=== PATIENT | female | born 1945 | race Caucasian/White ===

== ENCOUNTER 2019-12-20 03:12 | Emergency (ER) | payer MEDICARE, SELFPAY ==
[2019-12-20] VITALS (24 sets, daily range): BP systolic 156–201; BP diastolic 64–168; PULSE 77–100; RESP 12–29; TEMP 36.5; O2SAT 93–100
--- NOTE | ~2019-12-20 | CT_ITS ---
EXAMINATION: CT abdomen pelvis w con DATE: 12/20/2019 05:41 INDICATION: Lower abdominal pain. TECHNIQUE: Computed tomography (CT) of the abdomen and pelvis was performed with 100 mL Omnipaque 350 intravenous contrast. Automated exposure control and iterative reconstruction technique were employe d. The dose-length product was 600.89 mGy-cm. COMPARISON: CT abdomen and pelvis 01/12/2018 FINDINGS: The visualized portions of the lung bases demonstrate emphysema and mild atelectasis. No pl eural effusion. The heart size is normal. There are coronary artery calcifications. No pericardial ef fusion. There is a small sliding hiatal hernia. Calcifications in the liver and spleen are consistent with old granulomatous disease. There is severe intrahepatic biliary duct dilatation. The common veronica t is dilated to 18 mm. There are changes of cholecystectomy. The pancreas, adrenal glands are normal. There is cortical thinning of the kidneys. There is a 4.1 cm cyst in right kidney. There is a pessar y in the vagina. There is diverticulosis of the colon without evidence of diverticulitis. The appendi x is normal. There are no dilated loops of bowel. There are no pathologically enlarged lymph nodes. T here is no free intraperitoneal fluid. There is lumbar levoscoliosis and severe spondylosis. IMPRESSION: 1. Stable severe intrahepatic and extrahepatic biliary duct dilatation status post cholecystectomy. 2. Small sliding hiatal hernia. Reviewed, dictated and finalized at location B. T SPECIALIST IMPRESSION: 1. Stable severe intrahepatic and extrahepatic biliary duct dilatation status p ost cholecystectomy. 2. Small sliding hiatal hernia.
--- NOTE | 2019-12-20 03:41 | ED.ABDPAIN ---
HPI - Abdominal Pain General Chief Complaint: Abdominal Pain Stated Complaint: burning in my stomach Time Seen by Provider: 12/20/19 03:41 Source: patient Mode of arrival: ambulatory Limitations: no limitations History of Present Illness HPI narrative: Patient is a 74-year-old female with a history of peptic ulcer disease and acid reflux who presents to the emergency department for evaluation of abdominal pain. Patient states she has been experiencing abdominal pain that is burning in sensation in the lower abdomen. She states this pain is quite chronic for her, but it worsened yesterday evening as she had run out of her oral pain medication. Patient is followed with Dr. Otero, she has an appointment with him later today/Friday. She reports burning sensation of the pain in the lower abdomen without radiation to the back. She reports she takes a stool softener to help with constipation. She denies any dark or tarry stools. No fever, chills, dysuria, hematuria. She denies chest pain or shortness of breath. Patient denies abdominal distention. Related Data Home Medications Medication Instructions Recorded Confirmed albuterol sulfate INHALATION 12/20/19 bupropion HCl PO 12/20/19 buspirone mg 12/20/19 docusate sodium PO 12/20/19 hydrocodone-acetaminophen tablet 12/20/19 tramadol mg 12/20/19 12/20/19 triamterene-hydrochlorothiazid tablet 12/20/19 Allergies Allergy/AdvReac Type Severity Reaction Status Date / Time No Known Allergies Allergy Verified 12/20/19 03:22 Review of Systems Review of Systems: Narrative: CONSTITUTIONAL: Denies fever, chills, or sweats. EYES: Denies visual changes, redness, or discharge. ENT: Denies rhinorrhea, congestion, sore throat, or otalgia. CARDIOVASCULAR: Denies chest pain, palpitations, or edema. RESPIRATORY: Denies cough or dyspnea. GASTROINTESTINAL: Reports abdominal pain without nausea or vomiting GENITOURINARY: Denies dysuria or hematuria. SKIN: Denies rash or itching. MUSCULOSKELETAL: Denies back pain, joint pain, or myalgia. NEUROLOGIC: Denies headache, numbness, or weakness. [facility] Past Medical History Medical History Acid reflux Anxiety Peptic ulcer disease Surgical History Surgical History Hx of cholecystectomy Social History Social History (Updated 12/20/19 @ 04:22 by Yaneth Arriaga MD) Smoking status: Current every day smoker Tobacco type: cigarettes Substance use: never Gender identity (if verbalized by the patient): Female Exam Narrative: Exam Narrative: GENERAL: Awake, alert, conversant HEAD: Normocephalic, atraumatic. EYES: PERRLA and EOMI. ENT: Nares clear, no rhinorrhea or epistaxis. Mucous membranes moist. NECK: Supple. CHEST: No respiratory distress, breathing even and non labored HEART: Regular rate, sinus rhythm ABDOMEN:Non distended, mild tenderness in the left lower quadrant, right lower quadrant without rebound, no guarding or rigidity EXTREMITIES: Normal range of motion. No edema. SKIN: Warm, dry, no rash. NEURO:No focal deficits. Alert and oriented x3 Course Vital Signs Vital signs: Vital Signs Temperature 36.5 C 12/20/19 03:16 Pulse Rate 100 12/20/19 03:16 Respiratory Rate 22 H 12/20/19 03:16 Blood Pressure 164/106 H 12/20/19 03:16 Pulse Oximetry 98 12/20/19 03:16 Temperature 36.5 C 12/20/19 03:16 Pulse Rate 91 12/20/19 04:04 Respiratory Rate 15 12/20/19 04:04 Blood Pressure 179/94 H 12/20/19 04:04 Pulse Oximetry 97 12/20/19 04:04 MDM - Abdominal Pain MDM Narrative Medical decision making narrative: Patient presenting for evaluation of what seems to be acute on chronic abdominal pain in the setting of not having access to her chronic pain medications. At the time of assessment, ABCs are intact and vital signs are stable. Abdominal exam is quite benign. Patient has a mi
[2019-12-20 03:47] LABS: Basophils Absolute Auto 0.1 K/mm3 (0.0-0.1); Basophils Percent Auto 0.6 % (0.2-1.2); Eosinophils Absolute Auto 0.2 K/mm3 (0-0.3); Eosinophils Percent Auto 1.9 % (0-4.4); Hematocrit 47.4 % (37.0-47.0); Hemoglobin 16.4 g/dL (12.0-15.0); Immature Granulocyte Absolute 0.05 K/mm3 (0.00-0.031); Immature Granulocyte Percent A 0.5 % (0-0.5); Lymphocytes Absolute Auto 2.97 K/mm3 (0.9-3.2); Lymphocytes Percent Auto 27.7 % (18.3-44.2); Mean Corpuscular HGB Conc 34.6 g/dl (32-36); Mean Corpuscular Hemoglobin 33.1 pg (26-34); Mean Corpuscular Volume 95.6 fl (80-100); Mean Platelet Volume 10.5 fl (7.4-10.4); Monocytes Absolute Auto 0.8 K/mm3 (0.1-0.6); Monocytes Percent Auto 7.1 % (2.6-8.5); Neutrophils Absolute Auto 6.7 K/mm3 (1.3-6.7); Neutrophils Percent Auto 62.2 % (45.5-73.1); Platelet Count Result 225 k/mm3 (150-375); Red Blood Count 4.96 M/mm3 (4.2-5.4); White Blood Count 10.7 K/mm3 (4.5-10.0)
[2019-12-20] MEDS: MORPHINE SULFATE (*CRX) 4 MG/ML INJ IV PUSH (04:27)
[2019-12-20] MEDS: ONDANSETRON INJ 4 MG/2 ML VIAL IV PUSH (04:28)
[2019-12-20 04:49] LABS: Alanine Aminotransferase 15 U/L (4-35); Albumin Level 4.4 g/dL (3.5-5.1); Alkaline Phosphatase 88 U/L (38-126); Anion Gap 7 mmol/L (8-16); Aspartate Amino Transferase 29 U/L (14-36); Bilirubin,Total 1.5 mg/dL (0.2-1.3); Blood Urea Nitrogen 26 mg/dL (7-17); Calcium 9.5 mg/dL (8.4-10.2); Carbon Dioxide 29 mmol/L (22-30); Chloride 102 mmol/L (98-107); Estimated CRCL calculation 40 ml/min; Estimated Glomerular Filt Rate 54; Glucose 125 mg/dL (65-105); Lipase 44 U/L (23-300); Potassium 3.9 mmol/L (3.4-5.0); Sodium 138 mmol/L (137-145)
[2019-12-20 04:52] LABS: Add Urine Microscopic? YES; Appearance Urine Clear (Clear); Bacteria Urine Trace /hpf; Bilirubin Urine Negative (Negative); Blood Urine Negative (Negative); Color Urine Yellow (Yellow); Glucose Urine UA Negative (Negative); Ketones Urine Negative (Negative); Leukocyte Esterase Ur Trace LEU/UL (Negative); Mucus Urine Rare /lpf; Nitrate Urine Negative (Negative); Protein Urine Negative (Negative); RBC Urine 0-2 /hpf (0-2); Specific Grav Ur 1.015 (1.001-1.035); Squamous Epithelial Cell Urine Rare /hpf (Few); Urobilinogen Urine Negative mg/dL (<2.0); WBC Urine 0-3 /hpf
== END 2019-12-20 06:59 | disposition home or self-care (01) ==
PROVIDERS: Emergency Provider Emergency Medicine; PCP Family Medicine
DX: K83.8 Other specified diseases of biliary tract (principal); Z87.11 Personal history of peptic ulcer disease; K21.9 Gastro-esophageal reflux disease without esophagitis; F41.9 Anxiety disorder, unspecified; K44.9 Diaphragmatic hernia without obstruction or gangrene
CPT/HCPCS: 36415; 74177; 80053; 81001; 83690; 85025; 96374; 96375; 99284; J2270; J2405; Q9967

== ENCOUNTER 2020-08-23 11:56 | Outpatient (CLI) | payer MEDICARE, SELFPAY ==
[2020-08-23 16:22] LABS: SARS-CoV-2 Ag Positive (Negative)
[2020-08-23 16:39] LABS: SARS-CoV-2 RNA PCR Positive (Negative)
== END 2020-08-23 11:57 | disposition home or self-care (01) ==
PROVIDERS: PCP Family Medicine; Visit Provider Nurse Practitioner
DX: U07.1 COVID-19 (principal)
CPT/HCPCS: 87426; C9803; U0003; U0005

== ENCOUNTER 2020-08-24 13:56 | Inpatient (IN) | payer MEDICARE, SELFPAY ==
[2020-08-24] VITALS (16 sets, daily range): BP systolic 94–141; BP diastolic 53–79; PULSE 81–95; RESP 17–26; TEMP 36.2–37.9; O2SAT 80–100; BMI 28.5
--- NOTE | ~2020-08-24 | CT_ITS ---
EXAMINATION: CTA chest PE protocol EXAM DATE: 08/24/2020 15:33 INDICATION: Dyspnea. COVID positive. Cough. TECHNIQUE: Spiral CTA of the chest (pulmonary arteries) was performed with 100 cc Omnipaque 350 intr avenous contrast injection. Images were acquired during the pulmonary arterial phase. Coronal maxi mum intensity projection 3D-reconstructions were created by the technologist on dedicated workstation . Axial, coronal and sagittal reformatted images were reviewed. The dose-length product (DLP) for t his examination was 326.53 mGy-cm. The exposure was tailored according to patient size (auto mA exp osure control), and iterative reconstruction (ASIR) was used as additional dose reduction technique. There is no prior study for comparison. FINDINGS: Pulmonary arteries are well opacified and without intraluminal filling defects. There is m oderate to severe emphysema. There is small amount of right middle lobe and lingular groundglass airs pace disease, likely infectious or postinfectious (possible be early COVID pneumonia). The lungs are hyperinflated which can be seen with chronic obstructive pulmonary disease (a clinical diagnosis of f unctional impairment), but is not diagnostic of it. No thoracic aortic dissection. There are no ple ural or pericardial effusions. Small amount of left lower lobe segmental endobronchial debris. The re is no mediastinal, hilar or axillary lymphadenopathy. There is no pneumothorax. Heart normal i n size. There is mild to moderate coronary arterial calcification, arterial sclerosis. Cholecystec nay clips. Homogeneous right renal lesion incompletely imaged, imaged portion consistent with cyst. There is mild thoracic spondylosis without osteoblastic or osteolytic lesions identified. IMPRESSION: 1. Right middle lobe, lingular groundglass density, could be infectious or postinfectious process. 2. Moderate to severe emphysema and hyperinflation. Reviewed, dictated and finalized at location B. IMPRESSION: 1. Right middle lobe, lingular groundglass density, could be infectious or pos tinfectious process. 2. Moderate to severe emphysema and hyperinflation.
--- NOTE | ~2020-08-24 | XR_ITS ---
XR chest 1V portable DATE: 08/24/2020 14:26 INDICATION: Cough TECHNIQUE: Portable upright AP chest on 08/24/2020 1423 hours COMPARISON: 02/02/2018 PA and lateral chest FINDINGS: Bilateral hyperinflation, suggesting COPD. No pulmonary infiltrate or consolidation, pleural effusion or pulmonary vascular congestion or pneumo thorax is detected. Heart size appears normal. Is aortic calcification. Diffuse osteopenia. Dextroscoliosis of the thoracic spine. IMPRESSION: Bilateral hyperinflation; no active cardiopulmonary disease Reviewed, dictated and finalized at location A.
--- NOTE | 2020-08-24 14:14 | ECG_ITS ---
Measurements Intervals [place] Rate: 83 P: 64 WI: 153 QRS: 22 QRSD: 90 T: -13 QT: 378 QTc: 445 Interpretive Statements SINUS RHYTHM VENTRICULAR PREMATURE COMPLEXES NONSPECIFIC ST & T-WAVE ABNORMALITY- INF/LAT LEADS BASELINE ARTIFACT- I, II, III, AVR, AVF, V3-V6 BORDERLINE ECG Electronically Signed On 08-24-2020 15:58:24 CDT by Temo Rowe D.O.
[2020-08-24 14:27] LABS: Basophils Percent Auto 0.2 % (0.2-1.2); Hematocrit 45.1 % (37.0-47.0); Hemoglobin 14.7 g/dL (12.0-15.0); Immature Granulocyte Absolute 0.03 K/mm3 (0.00-0.031); Immature Granulocyte Percent A 0.5 % (0-0.5); Lymphocytes Absolute Auto 1.18 K/mm3 (0.9-3.2); Lymphocytes Percent Auto 19.3 % (18.3-44.2); Mean Corpuscular HGB Conc 32.6 g/dl (32-36); Mean Corpuscular Hemoglobin 31.1 pg (26-34); Mean Corpuscular Volume 95.3 fl (80-100); Mean Platelet Volume 10.5 fl (7.4-10.4); Monocytes Absolute Auto 0.7 K/mm3 (0.1-0.6); Monocytes Percent Auto 11.9 % (2.6-8.5); Neutrophils Absolute Auto 4.2 K/mm3 (1.3-6.7); Neutrophils Percent Auto 68.1 % (45.5-73.1); Platelet Count Result 163 k/mm3 (150-375); Red Blood Count 4.73 M/mm3 (4.2-5.4); White Blood Count 6.1 K/mm3 (4.5-10.0)
[2020-08-24 14:40] LABS: Anion Gap 12 mmol/L (8-16); Blood Urea Nitrogen 26 mg/dL (7-17); Calcium 8.7 mg/dL (8.4-10.2); Carbon Dioxide 21 mmol/L (22-30); Chloride 101 mmol/L (98-107); Estimated CRCL calculation 31 ml/min; Estimated Glomerular Filt Rate 40; Glucose 91 mg/dL (65-105); Lactic Acid Reflex 0.9 mmol/L (0.7-2.1); Potassium 4.1 mmol/L (3.4-5.0); Sodium 134 mmol/L (137-145)
--- NOTE | 2020-08-24 14:48 | ED.SOB ---
HPI - SOB/Dyspnea General Chief Complaint: Shortness of Breath/Dyspnea Stated Complaint: SOB COVID + / Time Seen by Provider: 08/24/20 14:07 Source: RN notes reviewed History of Present Illness HPI Narrative: Patient presents to emergency room from home via EMS for shortness of breath. Patient tested positive for COVID-19 yesterday. Patient was noticing to have increasing shortness of breath and was noted be hypoxic on room air upon presentation the patient is a percent on room air was placed on 3 L with improvement of O2 sats. Patient states she has had cough this been nonproductive she denies any fevers or chills chest pain abdominal pain nausea vomiting or any other symptoms patient states she does smoke cigarettes and did not have the vaccine Related Data Home Medications Medication Instructions Recorded Confirmed albuterol sulfate INHALATION 12/20/19 01/03/20 bupropion HCl PO 12/20/19 01/03/20 buspirone mg 12/20/19 01/03/20 docusate sodium PO 12/20/19 01/03/20 hydrocodone-acetaminophen tablet 12/20/19 01/03/20 tramadol mg 12/20/19 01/03/20 triamterene-hydrochlorothiazid tablet 12/20/19 01/03/20 Allergies Allergy/AdvReac Type Severity Reaction Status Date / Time No Known Allergies Allergy Verified 08/24/20 14:08 Review of Systems Review of Systems: Narrative: Gen.: Denies fevers or chills ENT: Denies congestion Respiratory: See HPI CV: Denies chest pain or palpitations GI: Denies abdominal pain nausea, emesis or diarrhea Musculoskeletal: Denies back pain or muscle pain Neuro: Denies numbness, tingling, weakness or focal weakness Skin: Denies rash Except as documented, all other systems reviewed and negative PMF Past Medical History Medical History Acid reflux Anxiety Common bile duct dilatation Dilated intrahepatic bile duct Encounter for screening colonoscopy Peptic ulcer disease Surgical History Surgical History Hx of cholecystectomy Social History Social History Smoking status: Current every day smoker Tobacco type: cigarettes Substance use: never Gender identity (if verbalized by the patient): Female Exam Narrative: Exam Narrative: APPEARANCE: No acute distress, nontoxic, resting in bed EYES: EOMI HEENT: Normocephalic, atraumatic, OMM RESPIRATORY: No respiratory distress Clear to auscultation bilaterally with no rhonchi wheezing or rales. CARDIOVASCULAR: Regular rate and rhythm without murmurs rubs or gallops. ABDOMINAL: Soft, nontender, nondistended, no rebound or guarding MUSCULOSKELETAl: Moves all extremities. No clubbing, cyanosis or edema. NEURO: Awake and alert. Following commands, speech normal, no focal deficits SKIN:: Warm, dry. No rashes lesions or abrasions PSYCHIATRIC: Normal affect/mood, Course Course Emergency Course: Discussed with STREET ENGINEER Stephanie for Dr. Walters presentation work-up agrees with admission at this time Discussed with patient and family results of workup and diagnosis. Discussed need for admission. Patient and family understand and agree to current treatment plan Vital Signs Vital signs: Vital Signs Temperature 98.0 F 08/24/20 14:05 Pulse Rate 95 08/24/20 14:05 Respiratory Rate 17 08/24/20 14:05 Blood Pressure 141/79 H 08/24/20 14:05 Pulse Oximetry 80 L 08/24/20 14:05 Temperature 98.0 F 08/24/20 14:05 Pulse Rate 92 08/24/20 15:37 Respiratory Rate 17 08/24/20 15:37 Blood Pressure 117/58 L 08/24/20 15:37 Pulse Oximetry 100 08/24/20 15:37 MDM - SOB/Dyspnea Lab Data Result diagrams: 08/24/20 14:18 08/24/20 14:18 Labs: Lab Results 08/24/20 08/24/20 08/24/20 Range/Units 14:18 14:18 14:18 WBC 6.1 (4.5-10.0) K/mm3 RBC 4.73 (4.2-5.4) M/mm3 Hgb 14.7 (12.0-15.0) g/dL Hct 45.1 (37.0-47.0) % MCV 95.3
[2020-08-24] MEDS: DEXAMETHASONE SOD PHOS INJ 4 MG/ML VIAL 6 MG IV PUSH (15:35)
[2020-08-24] MEDS: HYDROcodone/acetaminophen (*CRX) 5-325 MG TABLET 1 TAB PO (15:44)
--- NOTE | 2020-08-24 16:07 | PC.NURSE ---
Called and spoke to Vikas to add on PT INR PTT and Hepatic @ 1602
[2020-08-24 16:17] LABS: Alanine Aminotransferase 21 U/L (4-35); Alkaline Phosphatase 83 U/L (38-126); Aspartate Amino Transferase 45 U/L (14-36); Bilirubin,Total 0.3 mg/dL (0.2-1.3)
[2020-08-24 16:53] LABS: Partial Thromboplastin Time 37.2 SECONDS (22.3-36.8); Prothrombin Time 12.7 Seconds (11.1-14.7)
[2020-08-24] MEDS: ACETAMINOPHEN 325 MG TABLET 650 MG PO (18:10)
--- NOTE | 2020-08-24 18:14 | ADMGEN ---
This patient, Marysol Chapman, was admitted to [facility] Surg Room 333-01. Patient/family oriented to hospital policies and general routines including ID bracelet, bed and alarms, visiting hours, pain management, procedures, bathroom and other care routines, personal items, smoking policy, room service/diet, and visiting hours. Information on how to activate the Rapid Response Team has been discussed. Patient/Family are encouraged to report perceived risks to care and to ask questions if they do not understand what they are told or what they should do.
[2020-08-24] MEDS: ALBUTEROL SULFATE (*SP) INHALER 2 PUFF INHALATION (21:07)
--- NOTE | 2020-08-24 22:43 | PM.IMHP ---
H&P: HPI History of Present Illness Date/Time: 08/24/20 22:43 this is a 74-year-old female patient who came to the emergency room with complaints of shortness of breath. The patient tested positive for code bit 19 yesterday. Her is also admitted for possible COVID as well. His test is still pending but her came back positive. She has had increased shortness of breath and hypoxic on room air. The lowest pulse ox was noted to be 80% on room air. Patient was placed on 3 L per nasal cannula and was satting anywhere from 90-100%. The patient was started on Decadron, albuterol and a Vicodin. Her D-dimer was noted to be 0.50. Creatinine 1.3. AST 45. Chest x-ray was read as bilateral hyperinflation no active cardiopulmonary disease. CTA was read as right middle lobe, lingular ground-glass densities could be infectious post infectious process. Moderate to severe emphysema and hyperinflation. The patient was placed on oxygen at 3 L per nasal cannula. Patient is being admitted to inpatient status is on the date of service 08/24/2020. Chief Complaint: Shortness of breath Review of Systems Review of Systems: All systems reviewed & are unremarkable except as noted in HPI and below Constitutional: Constitutional: Reports as per HPI and Reports no additional constitutional complaints Eyes: Eyes: Reports as per HPI and Reports no additional eye complaints ENT: Reports system reviewed and no additional complaints, except as documented and Reports Normal hearing present Cardiovascular: Cardiovascular: Reports no additional cardiovascular complaints Respiratory: Respiratory: Reports no additional respiratory complaints and Reports no additional respiratory complaints Gastrointestinal: Gastrointestinal: Reports as per HPI and Reports no additional gastrointestinal complaints Musculoskeletal: Musculoskeletal: Reports no additional musculoskeletal complaints Integumentary/Breasts: Skin/Breast: Reports system reviewed and no additional complaints, except as docu and Reports as per HPI Neurologic: Reports system reviewed and no additional complaints, except as documented, Reports as per HPI and Reports Normal hearing present Psychiatric: Psychiatric: Reports no additional psychiatric complaints and Reports as per HPI Endocrine: Endocrine: Reports no additional endocrine complaints Hematologic/Lymphatic: Hematologic/Lymphatic: Reports no additional hematologic/lymphatic complaints Allergic/Immunologic: Allergic/Immunologic: Reports no additional allergic/immunologic complaints [facility] Past Medical History Medical History (Updated 08/24/20 @ 22:49 by Stephanie Stokes NP) Acid reflux Anxiety Chronic back pain Common bile duct dilatation COPD (chronic obstructive pulmonary disease) Dilated intrahepatic bile duct Encounter for screening colonoscopy Peptic ulcer disease Tobacco abuse Surgical History Surgical History (Updated 08/24/20 @ 22:49 by Stephanie Stokes NP) H/O tubal ligation Hx of cholecystectomy Family History Family History Mother Cerebrovascular accident Father Diabetes mellitus Social History Social History (Updated 08/24/20 @ 22:50 by Stephanie Stokes NP) Social History: the patient stated that she smokes anywhere from half a pack to pack a cigarettes a day. She has 3 children. She desires to have her is a durable power of energy attorney and if he is unable to than her 3 children. The patient has 3 children. 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 She denies any alcohol marijuana or illicit drugs. The patient desires to be a full code. Smoking packs per day: 1 Smoking cigarettes per day: 20.0 Years smoked: 50 Smoking pack-years: 50.00 Smoking status: Current every day smoker Tobacco type: cigarettes Second hand tobacco smoke exposure: Yes Alcohol intake: never Substance use: never Substance use type: does not use [place]
[2020-08-24 23:54] LABS: Alanine Aminotransferase 20 U/L (4-35); Estimated CRCL calculation 40 ml/min; Estimated Glomerular Filt Rate 54
[2020-08-24] MEDS: HYDROcodone/acetaminophen (*CRX) 10-325 MG TABLET 1 TAB PO (23:55)
[2020-08-24] MEDS: REMDESIVIR 200 MG/NS 250 ML 200 MG/250 ML BAG 250 MG IVPB (23:56)
[2020-08-25] VITALS (9 sets, daily range): BP systolic 121–155; BP diastolic 49–73; PULSE 71–93; RESP 16–22; TEMP 36.1–37.1; O2SAT 90–94
[2020-08-25 00:05] LABS: Prothrombin Time 12.7 Seconds (11.1-14.7)
[2020-08-25] MEDS: ALBUTEROL SULFATE (*SP) INHALER 2 PUFF INHALATION ×4 (02:44→18:59)
[2020-08-25] MEDS: HYDROcodone/acetaminophen (*CRX) 10-325 MG TABLET 1 TAB PO ×3 (06:18→23:05)
[2020-08-25 06:48] LABS: Hematocrit 43.9 % (37.0-47.0); Hemoglobin 14.1 g/dL (12.0-15.0); Immature Granulocyte Absolute 0.02 K/mm3 (0.00-0.031); Immature Granulocyte Percent A 0.5 % (0-0.5); Lymphocytes Absolute Auto 0.67 K/mm3 (0.9-3.2); Mean Corpuscular HGB Conc 32.1 g/dl (32-36); Mean Corpuscular Hemoglobin 30.3 pg (26-34); Mean Corpuscular Volume 94.2 fl (80-100); Mean Platelet Volume 10.7 fl (7.4-10.4); Monocytes Absolute Auto 0.5 K/mm3 (0.1-0.6); Monocytes Percent Auto 12.1 % (2.6-8.5); Neutrophils Absolute Auto 2.6 K/mm3 (1.3-6.7); Neutrophils Percent Auto 69.4 % (45.5-73.1); Platelet Count Result 154 k/mm3 (150-375); Red Blood Count 4.66 M/mm3 (4.2-5.4); Red Cell Distribution Width 13.6 % (11.5-14.5); White Blood Count 3.7 K/mm3 (4.5-10.0)
[2020-08-25 06:56] LABS: Lactic Acid Reflex 1.2 mmol/L (0.7-2.1)
[2020-08-25 07:05] LABS: INR 0.9; Prothrombin Time 12.3 Seconds (11.1-14.7)
[2020-08-25 07:18] LABS: Alanine Aminotransferase 20 U/L (4-35); Albumin Level 3.9 g/dL (3.5-5.1); Alkaline Phosphatase 72 U/L (38-126); Anion Gap 10 mmol/L (8-16); Aspartate Amino Transferase 46 U/L (14-36); Bilirubin,Total 0.5 mg/dL (0.2-1.3); Blood Urea Nitrogen 23 mg/dL (7-17); Calcium 9.2 mg/dL (8.4-10.2); Carbon Dioxide 26 mmol/L (22-30); Chloride 101 mmol/L (98-107); Estimated CRCL calculation 44 ml/min; Estimated Glomerular Filt Rate > 60; Glucose 107 mg/dL (65-105); Lactate Dehydrogenase 550 U/L (313-618); Magnesium 1.8 mg/dL (1.6-2.3); Potassium 4.5 mmol/L (3.4-5.0); Sodium 137 mmol/L (137-145)
[2020-08-25 07:36] LABS: CRP 14.2 mg/dL (<1.0)
[2020-08-25 08:32] LABS: Thyroid Stimulating Hormone Reflex 0.432 uIU/mL (0.465-4.68)
[2020-08-25] MEDS: DEXAMETHASONE SOD PHOS INJ 4 MG/ML VIAL 6 MG IV PUSH (09:18)
[2020-08-25] MEDS: NICOTINE (*PBKC) 21 MG PATCH 1 PATCH TRANSDERM (09:19)
[2020-08-25] MEDS: busPIRone HCL 10 MG TABLET 30 MG PO (09:19)
[2020-08-25] MEDS: ENOXAPARIN 40 MG/0.4 ML SYRINGE SUB-Q (09:19)
[2020-08-25 09:49] LABS: Free T4 Free Thyroxine Reflex 1.33 ng/dL (0.78-2.19)
[2020-08-25] MEDS: buPROPion HCL 75 MG TABLET PO ×2 (11:47→20:00)
--- NOTE | 2020-08-25 15:12 | PM.IMPN ---
Progress Note: A&P Assessment and Plan (1) COVID-19: Code(s): U07.1 - COVID-19 Status: Acute Assessment and Plan: Continue with Decadron and Remdesivir Continue with droplet and contact isolation Continue with albuterol sulfate Titrate oxygen to keep sats >92 She is currently on 2 L NC Continue to monitor liver enzymes (2) COPD (chronic obstructive pulmonary disease): Code(s): J44.9 - Chronic obstructive pulmonary disease, unspecified Status: Chronic Assessment and Plan: Continue with albuterol inhaler (3) Chronic back pain: Code(s): M54.9 - Dorsalgia, unspecified; G89.29 - Other chronic pain Status: Chronic Assessment and Plan: Continue with hydrocodone from home (4) Acute respiratory failure with hypoxia: Code(s): J96.01 - Acute respiratory failure with hypoxia Status: Acute Assessment and Plan: Resolved Patient tested positive for COVID-19 yesterday She is currently on oxygen at 2 L per nasal cannula (5) Tobacco abuse: Code(s): Z72.0 - Tobacco use Status: Chronic Assessment and Plan: Nicotine patch Cessation advised (6) Anxiety: Code(s): F41.9 - Anxiety disorder, unspecified Status: Chronic Assessment and Plan: Continue with Wellbutrin and BuSpar Subjective Date/time seen: 08/25/20 15:12 Pt seen and evaluated; +SOB and diarrhea Review of Systems Review of Systems: All systems reviewed & are unremarkable except as noted in HPI and below Exam Const: General: no acute distress, alert and awake Orientation/consciousness: patient oriented x3 HENMT: Head: normocephalic and atraumatic Ears: hearing grossly normal bilaterally and external ears normal Face and sinus: face symmetric Mouth: Yes Normal oral and palatal mucosa present Eyes: EOM: EOMs intact bilaterally Neck: Neck: full ROM, trachea midline and no JVD Chest: Chest palpation & inspection: normal inspection of the chest Resp: Effort & Inspection: normal respiratory effort Cardio: Jugular venous distension: no JVD Rate: regular rate GI: Inspection: normal to inspection Auscultation: normal bowel sounds : General: Yes no CVA tenderness Back/Spine/Pelvis: Back: no CVA tenderness Skin: General skin exam: normal color Neuro: General: patient oriented x3 Speech: normal speech Psych: Appearance: grossly normal Affect: normal affect Judgement: Good judgement present (Psych) Objective Data Vital Signs Vital Signs: Vital Signs - 24 hr 08/24/20 15:37 08/24/20 16:46 08/24/20 17:05 Temperature 37.9 C H Pulse Rate 92 92 86 Respiratory Rate 17 19 18 Blood Pressure 117/58 L 94/62 L 122/53 L Pulse Oximetry 100 98 94 08/24/20 18:10 08/24/20 19:00 08/24/20 20:00 Temperature 37.9 C H 37.6 C H 36.2 C L Pulse Rate 81 Respiratory Rate 20 Blood Pressure 129/53 L Pulse Oximetry 90 08/24/20 21:19 08/25/20 00:00 08/25/20 08:34 Temperature 36.6 C Pulse Rate 81 79 Respiratory Rate 22 H Blood Pressure 126/59 L Pulse Oximetry 91 90 94 08/25/20 12:08 Temperature Pulse Rate Respiratory Rate Blood Pressure Pulse Oximetry 90 Intake/Output Intake/Output: Intake & Output 08/22/20 08/23/20 08/24/20 08/25/20 23:59 23:59 23:59 23:59 Intake Total 360 490 Balance 360 490 Meds/Results Medications: Active Medications Generic Name Dose Route Start Last Admin Trade Name Freq PRN Reason Stop Dose Admin Acetaminophen 650 mg 08/24/20 18:08 08/24/20 18:10 Acetaminophen 325 Mg Tablet PO 650 mg Q4H PRN Administration Mild Pain (1-3) or Fever Hydrocodone Bitart/Acetaminophen 1 tab 08/24/20 22:37 08/25/20 15:00 Hydrocodone/Acetaminophen (*Crx) 10-325 Mg Tablet PO 1 tab Q6H PRN Administration Back Pain Albuterol 2 puff 08/24/20 20:00 08/25/20 14:42 Albuterol Sulfate (*Sp) Inhaler INHALATION 2 puff Q6HRT SCOTTY Administration Buprop
[2020-08-25] MEDS: REMDESIVIR 100 MG/NS 250 ML 100 MG/250 ML BAG 250 MG IVPB (23:05)
[2020-08-26] VITALS (8 sets, daily range): BP systolic 133–150; BP diastolic 56–69; PULSE 64–89; RESP 16–20; TEMP 36.1–36.6; O2SAT 93–96
[2020-08-26] MEDS: HYDROcodone/acetaminophen (*CRX) 10-325 MG TABLET 1 TAB PO ×3 (05:26→18:42)
[2020-08-26 07:30] LABS: Alanine Aminotransferase 18 U/L (4-35); Estimated CRCL calculation 50 ml/min; Estimated Glomerular Filt Rate > 60
[2020-08-26 08:27] LABS: Prothrombin Time 12.7 Seconds (11.1-14.7)
[2020-08-26] MEDS: ENOXAPARIN 40 MG/0.4 ML SYRINGE SUB-Q (09:49)
[2020-08-26] MEDS: NICOTINE (*PBKC) 21 MG PATCH 1 PATCH TRANSDERM (09:50)
[2020-08-26] MEDS: busPIRone HCL 10 MG TABLET 30 MG PO (09:50)
[2020-08-26] MEDS: buPROPion HCL 75 MG TABLET PO ×2 (09:51→21:29)
[2020-08-26] MEDS: DEXAMETHASONE SOD PHOS INJ 4 MG/ML VIAL 6 MG IV PUSH (09:51)
[2020-08-26] MEDS: ALBUTEROL SULFATE (*SP) INHALER 2 PUFF INHALATION ×3 (09:53→21:13)
[2020-08-26] MEDS: ACETAMINOPHEN 325 MG TABLET 650 MG PO (10:00)
[2020-08-26 13:29] LABS: Total Triiodothyronine (T3) 0.49 NG/ML (0.97-1.69)
--- NOTE | 2020-08-26 14:41 | PM.IMPN ---
Progress Note: A&P Assessment and Plan (1) COVID-19: Code(s): U07.1 - COVID-19 Status: Acute Assessment and Plan: W/ evidnce of pneumonia on CTA chest. Acute respiratory failure with hypoxia; on 2L at time of visit. Clinically improving Cont with Decadron (day 3) and Remdesivir (day 3 of 5) Cont with albuterol sulfate Cont supplemental O2; wean as tolerated Monitor closely (2) Acute respiratory failure with hypoxia: Code(s): J96.01 - Acute respiratory failure with hypoxia Status: Acute Assessment and Plan: Likely due to above. Requiring 2L O2. Plan as above Wean O2 as tolerated Consider Home O2 eval prior to discharge (3) COPD (chronic obstructive pulmonary disease): Code(s): J44.9 - Chronic obstructive pulmonary disease, unspecified Status: Chronic Assessment and Plan: Stable Continue with albuterol inhaler (4) Chronic back pain: Code(s): M54.9 - Dorsalgia, unspecified; G89.29 - Other chronic pain Status: Chronic Assessment and Plan: Stable Continue with home hydrocodone (5) Tobacco abuse: Code(s): Z72.0 - Tobacco use Status: Chronic Assessment and Plan: Nicotine patch Cessation advised (6) Anxiety: Code(s): F41.9 - Anxiety disorder, unspecified Status: Chronic Assessment and Plan: No acute issues Continue with Wellbutrin and BuSpar Subjective Date/time seen: 08/26/20 14:41 Interval history: Patient is a 74 yo F with h/o chronic back pain, COPD, PUD, anxiety, among other comorbid conditions who is seen in follow up for COVID pneumonia and acute respiratory failure w/ hypoxia. Pt states she feels better today; less SOB, cough has improved some (cloudy sputum production), and denies f/c. She has a bit of PUENTE when walking to the bathroom still. No other complaints at the moment. Denies cp/palpitations, n/v/d/c, abd pain, changes in BMs, dysuria, hematuria, cloudy urine, calf pain/swelling. Review of Systems Review of Systems: All systems reviewed & are unremarkable except as noted in HPI and below Exam Const: General: comfortable, no acute distress, well developed, alert, awake and ill appearing acutely Nutritional Appearance: well nourished Orientation/consciousness: oriented to person HENMT: Head: normocephalic and atraumatic Ears: hearing grossly normal bilaterally, external ears normal and TM's normal bilaterally General nose exam: Normal external nose present Face and sinus: face symmetric Mouth: Yes Normal oral and palatal mucosa present Eyes: General: appearance normal, both eyes and all related structures EOM: EOMs intact bilaterally Neck: Neck: normal visual inspection, trachea midline and supple Resp: Effort & Inspection: normal respiratory effort (on 2L O2 NC at time of visit) and symmetric chest movement Auscultation: diminished lung sounds diffuse and other (minimal diffuse course breath sounds) Cardio: Rate: regular rate Rhythm: regular rhythm Heart sounds: S1 normal heart sound present, S2 normal heart sound present and no murmurs GI: Inspection: normal to inspection Auscultation: normal bowel sounds Skin: General skin exam: normal color Lesions: no lesions Rashes: no rashes Neuro: General: oriented to person Cranial nerves: Yes Bilaterally intact EOM present, Yes facial symmetry and Yes Midline tongue present Motor exam (neuro): Normal motor muscle tone present throughout Extrem: General: normal to inspection Right lower extremity: no edema Left lower extremity: no edema Other: NTTP b/l calves Psych: Mental Status: mental status grossly normal Affect: normal affect Objective Data Vital Signs Vital Signs: Last Vital Signs
[2020-08-26] MEDS: guaiFENesin 12 HR 600 MG TABCR 1200 MG PO (21:28)
[2020-08-26] MEDS: REMDESIVIR 100 MG/NS 250 ML 100 MG/250 ML BAG 250 MG IVPB (21:28)
[2020-08-27] VITALS (8 sets, daily range): BP systolic 119–164; BP diastolic 62–96; PULSE 68–111; RESP 14–20; TEMP 36.2–36.8; O2SAT 92–96
[2020-08-27] MEDS: ALBUTEROL SULFATE (*SP) INHALER 2 PUFF INHALATION ×4 (03:26→21:27)
[2020-08-27] MEDS: HYDROcodone/acetaminophen (*CRX) 10-325 MG TABLET 1 TAB PO ×3 (04:29→17:21)
[2020-08-27 07:11] LABS: Basophils Percent Auto 0.2 % (0.2-1.2); Hematocrit 43.3 % (37.0-47.0); Hemoglobin 14.3 g/dL (12.0-15.0); Immature Granulocyte Absolute 0.03 K/mm3 (0.00-0.031); Immature Granulocyte Percent A 0.7 % (0-0.5); Lymphocytes Absolute Auto 1.18 K/mm3 (0.9-3.2); Lymphocytes Percent Auto 28.8 % (18.3-44.2); Mean Corpuscular Hemoglobin 30.9 pg (26-34); Mean Corpuscular Volume 93.5 fl (80-100); Mean Platelet Volume 10.5 fl (7.4-10.4); Monocytes Absolute Auto 0.8 K/mm3 (0.1-0.6); Neutrophils Absolute Auto 2.1 K/mm3 (1.3-6.7); Neutrophils Percent Auto 51.3 % (45.5-73.1); Platelet Count Result 143 k/mm3 (150-375); Red Blood Count 4.63 M/mm3 (4.2-5.4); Red Cell Distribution Width 13.4 % (11.5-14.5); White Blood Count 4.1 K/mm3 (4.5-10.0)
[2020-08-27 07:52] LABS: Alanine Aminotransferase 17 U/L (4-35); Albumin Level 3.3 g/dL (3.5-5.1); Alkaline Phosphatase 63 U/L (38-126); Anion Gap 7 mmol/L (8-16); Aspartate Amino Transferase 39 U/L (14-36); Bilirubin,Total 0.5 mg/dL (0.2-1.3); Blood Urea Nitrogen 23 mg/dL (7-17); CRP 3.2 mg/dL (<1.0); Carbon Dioxide 26 mmol/L (22-30); Chloride 103 mmol/L (98-107); Estimated CRCL calculation 56 ml/min; Estimated Glomerular Filt Rate > 60; Glucose 89 mg/dL (65-110); Lactate Dehydrogenase 562 U/L (313-618); Magnesium 1.6 mg/dL (1.6-2.3); Sodium 136 mmol/L (137-145)
[2020-08-27 08:00] LABS: INR 0.9; Prothrombin Time 12.4 Seconds (11.1-14.7)
[2020-08-27] MEDS: ONDANSETRON HCL ODT 4 MG TABLET PO (08:48)
[2020-08-27] MEDS: DEXAMETHASONE SOD PHOS INJ 4 MG/ML VIAL 6 MG IV PUSH (08:49)
[2020-08-27] MEDS: guaiFENesin 12 HR 600 MG TABCR 1200 MG PO ×2 (08:49→22:02)
[2020-08-27] MEDS: busPIRone HCL 10 MG TABLET 30 MG PO (08:49)
[2020-08-27] MEDS: NICOTINE (*PBKC) 21 MG PATCH 1 PATCH TRANSDERM (08:49)
--- NOTE | 2020-08-27 10:38 | PM.IMPN ---
Progress Note: A&P Assessment and Plan (1) COVID-19: Code(s): U07.1 - COVID-19 Status: Acute Assessment and Plan: W/ evidnce of pneumonia on CTA chest. Acute respiratory failure with hypoxia; on 2L at time of visit. Clinically improving Cont with Decadron (day 3) and Remdesivir (day 3 of 5) Cont with albuterol sulfate Cont supplemental O2; wean as tolerated Lovenox 40 mg subcu daily (2) Acute respiratory failure with hypoxia: Code(s): J96.01 - Acute respiratory failure with hypoxia Status: Acute Assessment and Plan: Likely due to above. Requiring 2L O2. Plan as above Wean O2 as tolerated Consider Home O2 eval prior to discharge (3) COPD (chronic obstructive pulmonary disease): Code(s): J44.9 - Chronic obstructive pulmonary disease, unspecified Status: Chronic Assessment and Plan: Stable Continue with albuterol inhaler (4) Chronic back pain: Code(s): M54.9 - Dorsalgia, unspecified; G89.29 - Other chronic pain Status: Chronic Assessment and Plan: Stable Continue with home hydrocodone (5) Tobacco abuse: Code(s): Z72.0 - Tobacco use Status: Chronic Assessment and Plan: Nicotine patch Cessation advised (6) Anxiety: Code(s): F41.9 - Anxiety disorder, unspecified Status: Chronic Assessment and Plan: No acute issues Continue with Wellbutrin and BuSpar (7) Hypomagnesemia: Code(s): E83.42 - Hypomagnesemia Status: Acute Assessment and Plan: magnesium was 1.6 today will replace with 2 g of Mag trend magnesium labs in the a.m. replace as needed Time Spent With Patient Time with patient: 25 - 35 minutes Subjective Date/time seen: 08/27/20 10:15 Interval history: Patient is a 74 yo F with h/o chronic back pain, COPD, PUD, anxiety, among other comorbid conditions who is seen in follow up for COVID pneumonia and acute respiratory failure w/ hypoxia. Patient still states that she is little bit short of breath however it is better since she started this journey. She also had an issue with nausea this morning she said that when she was taking a bowel movement she had nauseated and stated that her bowel movement was not that great either. She was given Zofran which she said helped and took away her nausea from her. She also stated that she has a decrease in appetite but she does try. Patient denies chest pain, diarrhea, constipation, lightheadedness, dizziness, weakness, fatigue, dysuria, abnormal swelling , fevers or chills. Review of Systems Review of Systems: All systems reviewed & are unremarkable except as noted in HPI and below Exam Const: General: cooperative, healthy appearing, comfortable, no acute distress, well developed, alert, awake, Physically active and ill appearing acutely Nutritional Appearance: average body habitus and well nourished Orientation/consciousness: oriented to person, oriented to place, oriented to time and patient oriented x3 Limitations: no limitations HENMT: Head: normal to inspection, No palpable skull fracture present, normocephalic and atraumatic Ears: hearing grossly normal bilaterally, external ears normal, TM's normal bilaterally and hearing grossly impaired General nose exam: Normal external nose present and Normal nares present Face and sinus: face symmetric Mouth: Yes Normal oral and palatal mucosa present Eyes: General: appearance normal, both eyes and all related structures Alignment and Position: alignment normal Periorbital: periorbital findings normal Eyelids: eyelids normal Conjunctivae: conjunctivae normal Sclera: sclerae normal Cornea: corneas normal EOM: EOMs intact bilaterally Nec
[2020-08-27] MEDS: ENOXAPARIN 40 MG/0.4 ML SYRINGE SUB-Q (10:41)
[2020-08-27] MEDS: buPROPion HCL 75 MG TABLET PO ×2 (10:42→22:02)
[2020-08-27] MEDS: MAGNESIUM SULF 2 GM/WATER 50ML 2 GM/50 ML BAG IVPB (11:25)
[2020-08-27] MEDS: ACETAMINOPHEN 325 MG TABLET 650 MG PO (22:02)
[2020-08-27] MEDS: REMDESIVIR 100 MG/NS 250 ML 100 MG/250 ML BAG 250 MG IVPB (22:02)
[2020-08-28] VITALS (8 sets, daily range): BP systolic 137–169; BP diastolic 56–81; PULSE 64–75; RESP 18; TEMP 36.1–36.6; O2SAT 94–97
[2020-08-28] MEDS: HYDROcodone/acetaminophen (*CRX) 10-325 MG TABLET 1 TAB PO ×4 (03:02→22:32)
[2020-08-28] MEDS: ALBUTEROL SULFATE (*SP) INHALER 2 PUFF INHALATION ×4 (03:03→21:26)
[2020-08-28 06:51] LABS: Hematocrit 42.3 % (37.0-47.0); Mean Corpuscular HGB Conc 33.1 g/dl (32-36); Mean Corpuscular Hemoglobin 30.6 pg (26-34); Mean Corpuscular Volume 92.6 fl (80-100); Mean Platelet Volume 11.1 fl (7.4-10.4); Platelet Count Result 148 k/mm3 (150-375); Red Blood Count 4.57 M/mm3 (4.2-5.4); Red Cell Distribution Width 13.2 % (11.5-14.5); White Blood Count 3.2 K/mm3 (4.5-10.0)
[2020-08-28 06:56] LABS: Prothrombin Time 12.9 Seconds (11.1-14.7)
[2020-08-28 06:59] LABS: Alanine Aminotransferase 18 U/L (4-35); Albumin Level 3.2 g/dL (3.5-5.1); Alkaline Phosphatase 60 U/L (38-126); Anion Gap 7 mmol/L (8-16); Aspartate Amino Transferase 34 U/L (14-36); Bilirubin,Total 0.5 mg/dL (0.2-1.3); Blood Urea Nitrogen 23 mg/dL (7-17); Calcium 8.9 mg/dL (8.4-10.2); Carbon Dioxide 30 mmol/L (22-30); Chloride 97 mmol/L (98-107); Estimated CRCL calculation 50 ml/min; Estimated Glomerular Filt Rate > 60; Glucose 90 mg/dL (65-110); Magnesium 1.7 mg/dL (1.6-2.3); Potassium 4.6 mmol/L (3.4-5.0); Sodium 134 mmol/L (137-145)
[2020-08-28 07:50] LABS: Lymphocytes Absolute Manual 1.21 K/mm3 (1.1-4.5); Metamyelocytes Percent 2 %; Monocytes Absolute Manual 0.51 K/mm3 (0.1-0.90); Monocytes Percent Manual 16 % (3-9); Neutrophils Percent Manual 44 % (46-73); Total Cells Counted 100
--- NOTE | 2020-08-28 08:54 | PM.IMPN ---
Progress Note: A&P Assessment and Plan (1) COVID-19: Code(s): U07.1 - COVID-19 Status: Acute Assessment and Plan: W/ evidnce of pneumonia on CTA chest. Acute respiratory failure with hypoxia; on 2L at time of visit. Clinically improving Cont with Decadron (day 4) and Remdesivir (day 4 of 5) Cont with albuterol sulfate Cont supplemental O2; wean as tolerated Lovenox 40 mg subcu daily (2) Acute respiratory failure with hypoxia: Code(s): J96.01 - Acute respiratory failure with hypoxia Status: Acute Assessment and Plan: Likely due to above. Requiring 2L O2. Plan as above Wean O2 as tolerated Consider Home O2 eval prior to discharge (3) COPD (chronic obstructive pulmonary disease): Code(s): J44.9 - Chronic obstructive pulmonary disease, unspecified Status: Chronic Assessment and Plan: Stable Continue with albuterol inhaler (4) Chronic back pain: Code(s): M54.9 - Dorsalgia, unspecified; G89.29 - Other chronic pain Status: Chronic Assessment and Plan: Stable Continue with home hydrocodone (5) Tobacco abuse: Code(s): Z72.0 - Tobacco use Status: Chronic Assessment and Plan: Nicotine patch Cessation advised (6) Anxiety: Code(s): F41.9 - Anxiety disorder, unspecified Status: Chronic Assessment and Plan: No acute issues Continue with Wellbutrin and BuSpar (7) Hypomagnesemia: Code(s): E83.42 - Hypomagnesemia Status: Acute Assessment and Plan: magnesium was 1.7 today will replace with 2 g of Mag trend magnesium labs in the a.m. replace as needed Time Spent With Patient Time with patient: 25 - 35 minutes Subjective Date/time seen: 08/28/20 08:00 Interval history: Patient is a 74 yo F with h/o chronic back pain, COPD, PUD, anxiety, among other comorbid conditions who is seen in follow up for COVID pneumonia and acute respiratory failure w/ hypoxia. patient really does have any complaints today however she did say that she was a little bit nauseated still but has not vomited. She states her appetite is so-so. She also states that she has been walking around she went to the bathroom and does not feel short of breath however when they take her oxygen she is low so the put the oxygen up a little bit. I did put her oxygen down to 1 L however she was only satting 90% put it back up to 2 which brought her up to 96%. Patient denies chest pain, headache, abdominal pain, lightheadedness, dizziness, and numbness tingling, fevers, chills, sweats. Review of Systems Review of Systems: All systems reviewed & are unremarkable except as noted in HPI and below Exam Const: General: cooperative, healthy appearing, comfortable, no acute distress, well developed, alert, awake, Physically active and ill appearing acutely Nutritional Appearance: average body habitus and well nourished Orientation/consciousness: oriented to person, oriented to place, oriented to time and patient oriented x3 Limitations: no limitations HENMT: Head: normal to inspection, No palpable skull fracture present, normocephalic and atraumatic Ears: hearing grossly normal bilaterally, external ears normal, TM's normal bilaterally and hearing grossly impaired General nose exam: Normal external nose present and Normal nares present Face and sinus: face symmetric Mouth: Yes Normal oral and palatal mucosa present Eyes: General: appearance normal, both eyes and all related structures Alignment and Position: alignment normal Periorbital: periorbital findings normal Eyelids: eyelids normal Conjunctivae: conjunctivae normal Sclera: sclerae normal Cornea: corneas normal EOM: EOMs intact bila
[2020-08-28] MEDS: buPROPion HCL 75 MG TABLET PO ×2 (09:28→21:43)
[2020-08-28] MEDS: busPIRone HCL 10 MG TABLET 30 MG PO (09:28)
[2020-08-28] MEDS: guaiFENesin 12 HR 600 MG TABCR 1200 MG PO ×2 (09:28→21:41)
[2020-08-28] MEDS: NICOTINE (*PBKC) 21 MG PATCH 1 PATCH TRANSDERM (09:29)
[2020-08-28] MEDS: ENOXAPARIN 40 MG/0.4 ML SYRINGE SUB-Q (09:30)
[2020-08-28] MEDS: DEXAMETHASONE SOD PHOS INJ 4 MG/ML VIAL 6 MG IV PUSH (09:31)
--- NOTE | 2020-08-28 13:44 | PCPTNOTE ---
PT attempted to see patient this afternoon, however patient declined due to low back pain. Bed mobility, transfers, and gait were observed as patient ambulated to the bathroom as I left the room. PT will continue to follow per plan of care.
--- NOTE | 2020-08-28 14:23 | PCOTNOTE ---
Attempted to see patient for OT, patient declined, stating she has had degenerative disc issues in her back for 18 years and is having too much pain to participate in any ADLs or exercises or mobility. Patient continued to decline with encouragement. Patient issued red theraband and given visual demonstration over UB exercises with theraband for patient to work on maintaining strength and endurance while hospitalized.
[2020-08-28] MEDS: MAGNESIUM SULF 2 GM/WATER 50ML 2 GM/50 ML BAG IVPB (15:07)
[2020-08-28] MEDS: CALCIUM CARBONATE (TUMS) 500 MG (200 MG ELEMENTAL) PO (21:41)
[2020-08-28] MEDS: REMDESIVIR 100 MG/NS 250 ML 100 MG/250 ML BAG 250 MG IVPB (21:43)
[2020-08-29] VITALS (9 sets, daily range): BP systolic 130–163; BP diastolic 62–84; PULSE 62–72; RESP 18; TEMP 36.4–36.8; O2SAT 87–100
[2020-08-29] MEDS: HYDROcodone/acetaminophen (*CRX) 10-325 MG TABLET 1 TAB PO ×3 (05:24→16:20)
[2020-08-29 06:23] LABS: Hematocrit 43.5 % (37.0-47.0); Hemoglobin 14.1 g/dL (12.0-15.0); Mean Corpuscular HGB Conc 32.4 g/dl (32-36); Mean Corpuscular Hemoglobin 30.3 pg (26-34); Mean Corpuscular Volume 93.3 fl (80-100); Mean Platelet Volume 10.7 fl (7.4-10.4); Platelet Count Result 160 k/mm3 (150-375); Red Blood Count 4.66 M/mm3 (4.2-5.4); Red Cell Distribution Width 13.2 % (11.5-14.5); White Blood Count 4.4 K/mm3 (4.5-10.0)
[2020-08-29 06:48] LABS: Alanine Aminotransferase 20 U/L (4-35); Albumin Level 3.1 g/dL (3.5-5.1); Alkaline Phosphatase 63 U/L (38-126); Anion Gap 3 mmol/L (8-16); Aspartate Amino Transferase 36 U/L (14-36); Bilirubin,Total 0.5 mg/dL (0.2-1.3); Blood Urea Nitrogen 21 mg/dL (7-17); Calcium 8.6 mg/dL (8.4-10.2); Carbon Dioxide 30 mmol/L (22-30); Chloride 101 mmol/L (98-107); Estimated CRCL calculation 50 ml/min; Estimated Glomerular Filt Rate > 60; Glucose 85 mg/dL (65-110); Potassium 4.5 mmol/L (3.4-5.0); Sodium 134 mmol/L (137-145)
[2020-08-29] MEDS: NICOTINE (*PBKC) 21 MG PATCH 1 PATCH TRANSDERM (10:08)
[2020-08-29] MEDS: busPIRone HCL 10 MG TABLET 30 MG PO (10:08)
[2020-08-29] MEDS: guaiFENesin 12 HR 600 MG TABCR 1200 MG PO (10:08)
[2020-08-29] MEDS: DEXAMETHASONE SOD PHOS INJ 4 MG/ML VIAL 6 MG IV PUSH (10:08)
[2020-08-29] MEDS: buPROPion HCL 75 MG TABLET PO (10:08)
[2020-08-29] MEDS: ENOXAPARIN 40 MG/0.4 ML SYRINGE SUB-Q (10:11)
[2020-08-29] MEDS: ALBUTEROL SULFATE (*SP) INHALER 2 PUFF INHALATION (10:25)
--- NOTE | 2020-08-29 10:28 | PCPTNOTE ---
Patient refused treatment this session due to increased fatigue and SOB. She stated I just can't today. I am more fatigued and tired than yesterday. Will Continue per POC.
--- NOTE | 2020-08-29 11:24 | PCOTNOTE ---
Patient refused treatment this session due to increased pain, fatigue and SOB. She stated I just can't. I am more fatigued and in pain. Will continue per POC.
--- NOTE | 2020-08-29 13:42 | PM.IMPN ---
Subjective Date/time seen: 08/29/20 1145 Objective Data Vital Signs Vital Signs: Vital Signs - 24 hr 08/28/20 16:00 08/28/20 20:00 08/28/20 21:26 Temperature 97.2 F L 97.3 F L Pulse Rate 75 71 Respiratory Rate 18 18 Blood Pressure 169/80 H 141/65 H Pulse Oximetry 94 95 95 08/29/20 00:00 08/29/20 04:00 08/29/20 08:00 Temperature 97.5 F L 97.6 F 98.0 F Pulse Rate 66 62 71 Respiratory Rate 18 18 18 Blood Pressure 130/62 163/84 H 163/75 H Pulse Oximetry 99 100 98 08/29/20 10:25 08/29/20 11:32 08/29/20 12:00 Temperature 98.2 F Pulse Rate 72 Respiratory Rate 18 Blood Pressure 148/62 H Pulse Oximetry 95 97 97 Intake/Output Intake/Output: Intake & Output 08/26/20 08/27/20 08/28/20 08/29/20 23:59 23:59 23:59 23:59 Intake Total 2270 2330 1830 750 Output Total 500 Balance 1770 2330 1830 750 Meds/Results Medications: Active Medications Generic Name Dose Route Start Last Admin Trade Name Freq PRN Reason Stop Dose Admin Acetaminophen 650 mg 08/29/20 11:21 Acetaminophen 325 Mg Tablet PO Q4H PRN Pain rated 1 to 6 Or Fever Hydrocodone Bitart/Acetaminophen 1 tab 08/29/20 11:21 08/29/20 11:30 Hydrocodone/Acetaminophen (*Crx) 10-325 Mg Tablet PO 1 tab Q4-6H PRN Administration Pain Rated 7-10 Albuterol 2 puff 08/24/20 20:00 08/29/20 10:25 Albuterol Sulfate (*Sp) Inhaler INHALATION 2 puff Q6HRT SCOTTY Administration Bupropion HCl 75 mg 08/25/20 11:15 08/29/20 10:08 Bupropion Hcl 75 Mg Tablet PO 75 mg Q12HR SCOTTY Administration Buspirone HCl 30 mg 08/25/20 09:00 08/29/20 10:08 Buspirone Hcl 10 Mg Tablet PO 30 mg DAILY SCOTTY Administration Calcium Carbonate 200 mg 08/28/20 20:34 08/28/20 21:41 Calcium Carbonate (Tums) 500 Mg (200 Mg Elemental) PO 200 mg Q6H PRN Administration Indigestion Dexamethasone Sodium Phosphate 6 mg 08/25/20 09:00 08/29/20 10:08 Dexamethasone Sod Phos Inj 4 Mg/Ml Vial IV PUSH 09/03/20 09:01 6 mg DAILY SCOTTY Administration Docusate Sodium 100 mg 08/24/20 22:37 Docusate Sodium 100 Mg Capsule PO PRN PRN Constipation Enoxaparin Sodium 40 mg 08/25/20 09:00 08/29/20 10:11 Enoxaparin 40 Mg/0.4 Ml Syringe SUB-Q 40 mg DAILY SCOTTY Administration Guaifenesin 1,200 mg 08/26/20 21:00 08/29/20 10:08 Guaifenesin 12 Hr 600 Mg Tabcr PO 1,200 mg Q12HR SCOTTY Administration Nicotine 1 patch 08/25/20 09:00 08/29/20 10:08 Nicotine (*Pbkc) 21 Mg Patch TRANSDERM 1 patch QAM SCOTTY Administration Radiology Results: ITS Impressions Chest X-Ray 08/24/20 14:27 IMPRESSION: Bilateral hyperinflation; no active cardiopulmonary disease Chest CTA 08/24/20 15:38 IMPRESSION: 1. Right middle lobe, lingular groundglass density, could be infectious or postinfectious process. 2. Moderate to severe emphysema and hyperinflation. Labs Labs: Laboratory Results - last 24 hr 08/29/20 08/29/20 05:55 05:55 WBC 4.4 L RBC 4.66 Hgb 14.1 Hct 43.5 MCV 93.3 MCH 30.3 MCHC 32.4 RDW 13.2 Plt Count 160 MPV 10.7 H Sodium 134 L Potassium 4.5 Chloride 101 Carbon Dioxide 30 Anion Gap 3 L BUN 21 H Creatinine 0.80 Estim Creat Clear Calc 50 Estimated GFR > 60 Glucose 85 Calcium 8.6 Magnesium 2.0 Total Bilirubin 0.5 AST 36 ALT 20 Alkaline Phosphatase 63 Total Protein 6.0 L Albumin 3.1 L Quality VTE Prophylaxis VTE prophylaxis: pharmacologic ordered
--- NOTE | 2020-08-29 15:18 | HOMEO2EVAL ---
Evaluation was performed at [facility] Home Oxygen Evaluation RC: Home Oxygen (O2) Evaluation Start: 08/29/20 11:43 Freq: ONCE Status: Active Protocol: RPE Activity Type Activity Date Activity User E-Sign Co-Sign Detail Recorded Client Recorded Date Recorded By Document 08/29/20 14:50 CARYL [email or web address] 08/29/20 15:18 CARYL Document 08/29/20 14:55 CARYL [email or web address] 08/29/20 15:18 CARYL Document 08/29/20 15:17 [email or web address] [email or web address] 08/29/20 15:18 CARYL Document 08/29/20 15:17 CARYL [email or web address] 08/29/20 15:18 CARYL 08/29/20 08/29/20 08/29/20 14:50 14:55 15:17 Home O2 Evaluation Test Phase Resting Exercise Exercise Oxygen Delivery Room Air Room Air Nasal Cannula Oxygen Flow Rate (L/min) 1 Pulse Oximetry (90-100 %) 93 87 L 90 Home Oxygen Evaluation Comments PT REQUIRES 1 L WITH EXERTION Treatment Charges O2 Evaluation - Inpatient 08/29/20 15:17 Home O2 Evaluation Test Phase Resting Oxygen Delivery Room Air Oxygen Flow Rate (L/min) Pulse Oximetry (90-100 %) 92 Home Oxygen Evaluation Comments Treatment Charges
--- NOTE | 2020-08-29 15:54 | PM.DS ---
DS: Admitting Diagnosis Admitting Diagnosis Admitting Diagnosis: Acute respiratory failure, COVID DS: Discharge Diagnosis Discharge Diagnosis (1) COVID-19: Code(s): U07.1 - COVID-19 Status: Acute Assessment and Plan: Date of Admission 08/24/20 Date of Discharge 08/29/20 Ms. Chapman is a 74yo F with history of COPD, depression with anxiety who presented to the ED for evaluation of shortness of breath after testing positive for COVID-19 day prior to arrival. Her O2 saturations were described to be 80% on room air on arrival and was placed on 3L supplemental O2. CTA chest showed evidence of right middle lobe, lingular ground-glass densities with moderate to severe emphysema and hyperinflation. She was treated with dexamethasone and remdesivir and received 5 days of each while hospitalized, as well as albuterol inhaler. She slowly made improvements and her supplemental oxygen was weaned. Home O2 evaluation showed she requires no oxygen at rest and just 1 L oxygen with activity. She was feeling improved and felt ready for discharge. She was hemodynamically stable for discharge 08/29/20 to follow up with PCP and continue monitoring her symptoms at home. She was educated on isolation precautions and return to ER instructions. Lovenox 40 mg subcu daily while hospitalized (2) Acute respiratory failure with hypoxia: Code(s): J96.01 - Acute respiratory failure with hypoxia Status: Acute Assessment and Plan: Home O2 eval day of discharge 08/29/20 - No O2 at rest; 1L with activity. (3) COPD (chronic obstructive pulmonary disease): Code(s): J44.9 - Chronic obstructive pulmonary disease, unspecified Status: Chronic Assessment and Plan: Stable Continue with albuterol inhaler (4) Chronic back pain: Code(s): M54.9 - Dorsalgia, unspecified; G89.29 - Other chronic pain Status: Chronic Assessment and Plan: Stable Continue with home hydrocodone regimen for her chronic back pain. (5) Tobacco abuse: Code(s): Z72.0 - Tobacco use Status: Chronic Assessment and Plan: Nicotine patch Cessation advised (6) Anxiety: Code(s): F41.9 - Anxiety disorder, unspecified Status: Chronic Assessment and Plan: No acute issues Continue with Wellbutrin and BuSpar (7) Hypomagnesemia: Code(s): E83.42 - Hypomagnesemia Status: Acute Assessment and Plan: Mg low and replaced as needed. DS: Summary Hospital Course Hospital Course: See above Time Spent with Patient Time attestation: Total time spent providing and/or coordinating discharge services: 40 minutes Exam Narrative: Exam Narrative: General: Female resting comfortably supine in bed in no acute respiratory distress. HEENT: Normocephalic, EOMI, oral mucosa moist. Cardiovascular: Rate and rhythm are regular. Respiratory: Diminished breath sounds bilaterally. Respirations even and non-labored. Tolerating room air at rest. Abdomen: Soft, non-tender, non-distended, bowel sounds present. Extremities: Peripheral pulses intact. No edema or pain to palpation. Neuro: Awake and alert; answering questions appropriately. No focal neurological deficits. Speech is clear. DS: Data Data Completed and Pending Labs on day of discharge: Last Vital Signs Temp 98.2 F 08/29/20 12:00 Pulse 72 08/29/20 12:00 Resp 18 08/29/20 12:00 BP 148/62 H 08/29/20 12:00 Pulse Ox 92 08/29/20 15:17 ITS Impressions Chest X-Ray 08/24/20 14:27 IMPRESSION: Bilateral hyperinflation; no active cardiopulmonary disease Chest CTA 08/24/20 15:38 IMPRESSION: 1. Right m
--- NOTE | 2020-08-29 16:54 | PCRCNOTE ---
Window of time for administration has passed. See next scheduled administration.
== END 2020-08-29 17:50 | disposition home or self-care (01) | DRG 177 ==
LOC: ANHED 14:38 → ANH3MEDSUR 16:21
PROVIDERS: Nurse Practitioner; Physician Assistant; Admitting Provider Internal Medicine; Emergency Provider Emergency Medicine; PCP Family Medicine; Visit Provider Nurse Practitioner
DX: U07.1 COVID-19 (principal); J96.01 Acute respiratory failure with hypoxia; J12.82 Pneumonia due to coronavirus disease 2019; J44.0 Chronic obstructive pulmonary disease with (acute) lower respiratory infection; F17.210 Nicotine dependence, cigarettes, uncomplicated; M54.9 Dorsalgia, unspecified; G89.29 Other chronic pain; F41.8 Other specified anxiety disorders; E83.42 Hypomagnesemia; Z79.899 Other long term (current) drug therapy; Z87.11 Personal history of peptic ulcer disease
CPT/HCPCS: 36415; 71045; 71275; 80048; 80053; 80076; 82565; 82728; 83605; 83615; 83735; 84439; 84443; 84460; 84480; 85025; 85027; 85380; 85610; 85730; 86140; 93005; 94618; 94640; 96374; 97162; 97165; 99291; A9270; J1100; J1650; J3475; Q9967

== ENCOUNTER 2020-11-08 17:30 | Emergency (ER) | payer MEDICARE, SELFPAY ==
[2020-11-08 18:51] VITALS: BP 173/89; PULSE 93; RESP 20; TEMP 36.7; O2SAT 98
--- NOTE | 2020-11-08 19:06 | ED.ABDPAIN ---
HPI - Abdominal Pain General Chief Complaint: Abdominal Pain Stated Complaint: burning in stomach, back pain Time Seen by Provider: 11/08/20 19:24 Source: patient Mode of arrival: ambulatory Limitations: no limitations History of Present Illness HPI narrative: 74-year-old woman with a history of chronic abdominal pain, peptic ulcer disease and reflux as well as chronic back pain comes in today complaining of worsening back pain since she ran out of her medication and diffuse abdominal burning which has been present for last 3 months. Patient states that she has had no MD elicited complaint: abdominal pain Pertinent past history: gastrointestinal bleeding Onset (ago): day(s) Pain Consistency: constant Location: diffuse Severity: severe Quality: burning Radiation: none Migration to: no migration Exacerbating factors: nothing Relieving factors: medication Associated symptoms: denies other symptoms Related Data Home Medications Medication Instructions Recorded Confirmed albuterol sulfate 90 mcg INHALATION DIRECTED 12/20/19 11/08/20 bupropion HCl 75 mg PO BID 12/20/19 11/08/20 buspirone 30 mg PO DAILY 12/20/19 11/08/20 hydrocodone-acetaminophen 10 - 325 tablet PO Q4-6H PRN 12/20/19 11/08/20 tramadol 50 mg PO Q4-6H PRN 12/20/19 11/08/20 aspirin [Baby Aspirin] 81 mg PO DAILY 11/08/20 11/08/20 cetirizine 10 mg PO DAILY 11/08/20 11/08/20 ondansetron HCl 4 mg PO TID PRN 11/08/20 11/08/20 pantoprazole 40 mg PO BID 11/08/20 11/08/20 triamterene-hydrochlorothiazid 1 tablet PO DAILY 11/08/20 11/08/20 Allergies Allergy/AdvReac Type Severity Reaction Status Date / Time No Known Allergies Allergy Verified 11/08/20 19:07 Review of Systems Review of Systems: All systems reviewed & are unremarkable except as noted in HPI and below Constitutional: Constitutional: Denies chills, Denies fatigue, Denies fever(s) and Denies weakness Eyes: Eyes: Denies change in vision and Denies photophobia ENT: Denies nasal congestion and Denies sore throat Cardiovascular: Cardiovascular: Denies chest pain and Denies radiating jaw, neck or arm pain Respiratory: Respiratory: Denies cough, Denies dyspnea and Denies wheezing Gastrointestinal: Gastrointestinal: Reports abdominal pain, Denies diarrhea, Denies nausea and Denies vomiting Genitourinary: Genitourinary: Denies hematuria, Reports nocturia and Denies dysuria Musculoskeletal: Musculoskeletal: Denies back pain, Denies arthralgias and Denies joint swelling Integumentary/Breasts: Skin/Breast: Denies pruritus, Denies erythema and Denies rash Neurologic: Reports vertigo, Reports dizziness and Reports syncope Hematologic/Lymphatic: Hematologic/Lymphatic: Denies easy bleeding and Denies easy bruising Allergic/Immunologic: Allergic/Immunologic: Denies lip swelling, Denies throat swelling and Denies tongue swelling PMFSH Past Medical History Medical History Acid reflux Anxiety Chronic back pain Common bile duct dilatation COPD (chronic obstructive pulmonary disease) Dilated intrahepatic bile duct Encounter for screening colonoscopy Peptic ulcer disease Tobacco abuse Surgical History Surgical History H/O tubal ligation Hx of cholecystectomy Family History Family History Mother Cerebrovascular accident Father Diabetes mellitus Social History Social History Social History: the patient stated that she smokes anywhere from half a pack to pack a cigarettes a day. She has 3 children. She desires to have her is a durable power of assistant district attorney and if he is unable to than her 3 children. The patient has 3 children. 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 She denies any alcohol marijuana or illicit drugs. The patient desires to be a full code. Smoking packs per da
--- NOTE | 2020-11-08 19:30 | ECG_ITS ---
Measurements Intervals [place] Rate: 84 P: 63 ID: [id number] QRS: 32 QRSD: 89 T: 48 QT: 379 QTc: 448 Interpretive Statements SINUS RHYTHM BORDERLINE ST ABNORMALITY- ANTEROLATERAL LEADS BASELINE ARTIFACT- I, III, AVL, AVF, V1-V3 BORDERLINE ECG Electronically Signed On 11-09-2020 8:24:34 CDT by Temo Rowe D.O.
[2020-11-08 19:47] LABS: Basophils Absolute Auto 0.04 K/mm3 (0.00-0.10); Basophils Percent Auto 0.6 % (0.0-1.0); Eosinophils Absolute Auto 0.36 K/mm3 (0.02-0.50); Hematocrit 43.8 % (35.0-42.0); Hemoglobin 14.1 g/dL (11.7-13.8); Immature Granulocyte Absolute 0.03 K/mm3 (0.00-0.00); Immature Granulocyte Percent A 0.4 % (0.0-0.0); Lymphocytes Percent Auto 24.8 % (18.0-42.0); Mean Corpuscular HGB Conc 32.2 g/dL (32.0-36.0); Mean Corpuscular Hemoglobin 30.7 pg (27.0-31.0); Mean Corpuscular Volume 95.2 fL (78.0-102.0); Mean Platelet Volume 9.9 fl (9.2-11.8); Monocytes Absolute Auto 0.51 K/mm3 (0.10-0.90); Neutrophils Absolute Auto 4.5 K/mm3 (1.7-7.2); Neutrophils Percent Auto 62.2 % (50.0-70.0); Platelet Count Result 235 K/mm3 (150-420); Red Cell Distribution Width 13.6 % (11.6-14.4); White Blood Count 7.3 K/mm3 (4.8-10.8)
[2020-11-08] MEDS: HYDROcodone/acetaminophen (*CRX) 5-325 MG TABLET 1 TAB PO (20:05)
[2020-11-08] MEDS: ONDANSETRON INJ 4 MG/2 ML VIAL IV PUSH (20:05)
[2020-11-08 20:06] LABS: Alanine Aminotransferase 17 U/L (14-59); Albumin Level 3.8 g/dL (3.4-5.0); Alkaline Phosphatase 76 U/L (46-116); Anion Gap 11 mmol/L (8-16); Aspartate Amino Transferase 15 U/L (15-37); Blood Urea Nitrogen 21 mg/dL (7-18); Calcium 9.1 mg/dL (8.5-10.1); Carbon Dioxide 27 mmol/L (21-32); Chloride 106 mmol/L (98-108); Estimated CRCL calculation 38 ml/min; Estimated Glomerular Filt Rate 52; Glucose 94 mg/dL (70-99); Lipase 60 U/L (73-393); Osmolality Calculated 301 mOsm/kg (285-295); Sodium 144 mmol/L (136-145); Total Protein 6.9 g/dL (6.4-8.2); Troponin I 8.1 ng/L (0.00-60.4)
[2020-11-08 20:36] LABS: Add Urine Microscopic? YES; Appearance Urine Clear (Clear); Bilirubin Urine Negative (Negative); Blood Urine 1+ (Negative); Color Urine Light Yellow (Yellow); Glucose Urine UA Negative (Negative); Ketones Urine Negative (Negative); Leukocyte Esterase Ur 1+ (Negative); Nitrate Urine Negative (Negative); Protein Urine Negative (Negative); Urobilinogen Urine 0.2 mg/dL (0.2-1.0); pH Urine 5.5 (5.0-8.0)
[2020-11-08] MEDS: MAG HYDROX/ALUMINUM HYD/SIMETH 30 ML, PHENobarb/HYOSCY/ATROPINE/SCOP 32.4 MG, LIDOCAINE... PO (20:43)
[2020-11-08 20:44] LABS: Bacteria Urine 1+ /hpf; Squamous Epithelial Cell Urine Rare /hpf (Few)
[2020-11-08 21:13] VITALS: BP 167/99; PULSE 94; RESP 20; O2SAT 92
== END 2020-11-08 21:25 | disposition home or self-care (01) ==
PROVIDERS: Emergency Provider Emergency Medicine; PCP Family Medicine
DX: N39.0 Urinary tract infection, site not specified (principal); R10.84 Generalized abdominal pain; J44.9 Chronic obstructive pulmonary disease, unspecified; K21.9 Gastro-esophageal reflux disease without esophagitis; M54.9 Dorsalgia, unspecified; G89.29 Other chronic pain; F41.9 Anxiety disorder, unspecified; F17.210 Nicotine dependence, cigarettes, uncomplicated; Z90.49 Acquired absence of other specified parts of digestive tract
CPT/HCPCS: 36415; 80053; 81001; 83605; 83690; 84484; 85025; 87077; 87086; 87088; 87186; 93005; 96374; 99283; 99284; A9270; J2405

== ENCOUNTER 2021-04-20 11:46 | Observation (INO) | payer MEDICARE, SELFPAY ==
--- NOTE | ~2021-04-20 | XR_ITS ---
EXAMINATION: XR chest 1V portable DATE: 04/20/2021 18:33 INDICATION: Weakness TECHNIQUE: frontal view of the chest was obtained. COMPARISON: Chest radiograph and CT dated 08/24/2020 FINDINGS: Expansion of lungs consistent with emphysema better appreciated on prior CT. Pulmonary vascular conge stion with mild increased interstitial pattern in the lower lung zones which could represent mild pul monary edema, atelectasis or less likely pneumonia. The cardiomediastinal silhouette is within normal limits for AP technique. IMPRESSION: 1. Emphysema with increased interstitial pattern in the bilateral lower lung zones most likely mild p ulmonary edema or atelectasis although differential includes pneumonia. Reviewed, dictated and finalized at location A. OMER SERVICE OFFICER IMPRESSION: 1. Emphysema with increased interstitial pattern in the bilateral lower lung zo dulce maria most likely mild pulmonary edema or atelectasis although differential inclu huan pneumonia.
--- NOTE | ~2021-04-20 | CT_ITS ---
EXAMINATION: CT brain wo con DATE: 04/20/2021 12:32 INDICATION: Altered mental status. TECHNIQUE: Computed tomography (CT) of the head was performed without intravenous contrast. The mA wa s adjusted according to patient size. Iterative reconstruction technique was employed. The dose-lengt h product was 605.33 mGy-cm. COMPARISON: None FINDINGS: There is no intracranial hemorrhage, acute infarction, or abnormal intracranial mass lesion . There are scattered areas of low attenuation in the cerebral white matter, which is within normal l imits for the patient's age. The ventricles are normal in size. The orbits are normal. There is mild mucosal thickening in the ethmoid sinuses. There are small bilateral mastoid effusions. IMPRESSION: 1. Normal aging brain. Reviewed, dictated and finalized at location A. COATING MACHINE TENDER IMPRESSION: 1. Normal aging brain.
--- NOTE | 2021-04-20 11:51 | ECG_ITS ---
Measurements Intervals [place] Rate: 84 P: 87 OK: 190 QRS: 16 QRSD: 83 T: 40 QT: 377 QTc: 448 Interpretive Statements SINUS RHYTHM BASELINE ARTIFACT NONSPECIFIC ST ABNORMALITY BORDERLINE ECG COMPARED TO ECG 11/08/2020 20:17:57 NO SIGNIFICANT CHANGES Electronically Signed On 04-20-2021 15:08:37 RADIATION THERAPY TECHNICIAN by Jose Rutherford M.D.
--- NOTE | 2021-04-20 12:00 | ED.GENADULT ---
HPI - General Adult General Chief complaint: Back Pain/Injury Stated complaint: AMBULANCE Source: patient, family and EMS Mode of arrival: ambulatory Limitations: no limitations History of Present Illness HPI narrative: Marysol is a 75F with a PMH of chronic back pain, COPD, tobacco abuse, anxiety that was brought in by EMS with back pain and feeling weak and off. She reportedly ran out of pain pills 4 days ago. (stated she took 6 20mg oxycodone per day) and tramadol. For the last 3 days she has had 10/10 back pain, weakness, diarrhea and felt off . It is very difficult to get a history as she cannot elaborate on any more details. She was given fentanyl and zofran by ems that brought her back pain from a 10 to a 6. Related Data Home Medications Medication Instructions Recorded Confirmed albuterol sulfate 90 mcg INHALATION DIRECTED 12/20/19 04/20/21 tramadol 50 mg PO Q4-6H PRN 12/20/19 04/20/21 cetirizine 10 mg PO DAILY 11/08/20 04/20/21 ondansetron HCl 4 mg PO TID PRN 11/08/20 04/20/21 pantoprazole 40 mg PO BID 11/08/20 04/20/21 hydrocodone-acetaminophen 1 tablet Q4-6H 04/20/21 04/20/21 sertraline 25 mg DAILY 04/20/21 04/20/21 Allergies Allergy/AdvReac Type Severity Reaction Status Date / Time No Known Allergies Allergy Verified 04/20/21 11:56 Review of Systems Constitutional: Constitutional: Reports no additional constitutional complaints Eyes: Eyes: Reports no additional eye complaints ENT: Reports system reviewed and no additional complaints, except as documented Cardiovascular: Cardiovascular: Reports no additional cardiovascular complaints Respiratory: Respiratory: Reports no additional respiratory complaints Gastrointestinal: Gastrointestinal: Reports as per HPI Genitourinary: Genitourinary: Reports no additional female genitourinary complaints Musculoskeletal: Musculoskeletal: Reports as per HPI Integumentary/Breasts: Skin/Breast: Reports system reviewed and no additional complaints, except as docu Neurologic: Reports system reviewed and no additional complaints, except as documented Psychiatric: Psychiatric: Reports no additional psychiatric complaints Endocrine: Endocrine: Reports no additional endocrine complaints Hematologic/Lymphatic: Hematologic/Lymphatic: Reports no additional hematologic/lymphatic complaints Allergic/Immunologic: Allergic/Immunologic: Reports no additional allergic/immunologic complaints PMFSH Past Medical History Medical History Acid reflux Anxiety Chronic back pain Common bile duct dilatation COPD (chronic obstructive pulmonary disease) Dilated intrahepatic bile duct Encounter for screening colonoscopy Peptic ulcer disease Tobacco abuse Surgical History Surgical History H/O tubal ligation Hx of cholecystectomy Family History Family History Mother Cerebrovascular accident Father Diabetes mellitus Social History Social History Social History: the patient stated that she smokes anywhere from half a pack to pack a cigarettes a day. She has 3 children. She desires to have her is a durable power of energy attorney and if he is unable to than her 3 children. The patient has 3 children. 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 She denies any alcohol marijuana or illicit drugs. The patient desires to be a full code. Smoking packs per day: 1 Smoking cigarettes per day: 20.0 Years smoked: 50 Smoking pack-years: 50.00 Smoking status: Current every day smoker Tobacco type: cigarettes Second hand tobacco smoke exposure: Yes Alcohol intake: never Substance use: never Substance use type: does not use Gender identity (if verbalized by the patient): Female Sexual Orientation (if Verbalized by the Patient): Straight or Het
[2021-04-20 12:04] VITALS: BP 139/114; PULSE 90; RESP 16; TEMP 36.1; O2SAT 95
[2021-04-20] MEDS: LACTATED RINGERS 1,000 ML 999 ML IV CONT (12:18)
[2021-04-20 12:30] LABS: Basophils Absolute Auto 0.05 K/mm3 (0.00-0.10); Basophils Percent Auto 0.7 % (0.0-1.0); Eosinophils Absolute Auto 0.02 K/mm3 (0.02-0.50); Eosinophils Percent Auto 0.3 % (1.0-6.0); Hematocrit 58.1 % (35.0-42.0); Hemoglobin 18.3 g/dL (11.7-13.8); Immature Granulocyte Absolute 0.03 K/mm3 (0.00-0.00); Immature Granulocyte Percent A 0.4 % (0.0-0.0); Lymphocytes Absolute Auto 1.17 K/mm3 (1.10-4.50); Lymphocytes Percent Auto 16.4 % (18.0-42.0); Mean Corpuscular HGB Conc 31.5 g/dL (32.0-36.0); Mean Corpuscular Hemoglobin 27.9 pg (27.0-31.0); Mean Corpuscular Volume 88.6 fL (78.0-102.0); Mean Platelet Volume 10.5 fl (9.2-11.8); Monocytes Absolute Auto 0.58 K/mm3 (0.10-0.90); Monocytes Percent Auto 8.1 % (2.0-11.0); Neutrophils Absolute Auto 5.3 K/mm3 (1.7-7.2); Neutrophils Percent Auto 74.1 % (50.0-70.0); Platelet Count Result 285 K/mm3 (150-420); Red Blood Count 6.56 M/mm3 (4.20-5.40); Red Cell Distribution Width 15.4 % (11.6-14.4); White Blood Count 7.1 K/mm3 (4.8-10.8)
[2021-04-20 12:39] LABS: SARS-CoV-2 Ag Negative (Negative)
[2021-04-20 12:51] LABS: Lactic Acid Reflex 1.3 mmol/L (0.4-2.0)
[2021-04-20 12:54] LABS: Alanine Aminotransferase 16 U/L (14-59); Albumin Level 3.3 g/dL (3.4-5.0); Alkaline Phosphatase 94 U/L (46-116); Anion Gap 17 mmol/L (8-16); Aspartate Amino Transferase 21 U/L (15-37); Blood Urea Nitrogen 25 mg/dL (7-18); Calcium 9.3 mg/dL (8.5-10.1); Carbon Dioxide 24 mmol/L (21-32); Chloride 98 mmol/L (98-108); Estimated CRCL calculation 33 ml/min; Estimated Glomerular Filt Rate 52; Glucose 69 mg/dL (70-99); Osmolality Calculated 290 mOsm/kg (285-295); Sodium 139 mmol/L (136-145); Total Protein 7.1 g/dL (6.4-8.2)
[2021-04-20 12:56] LABS: Thyroid Stimulating Hormone 0.64 uIU/mL (0.36-3.74)
[2021-04-20 12:57] LABS: Ethanol < 3 mg/dL (0-6); Lipase 45 U/L (73-393); Magnesium 1.7 mg/dL (1.8-2.4); Phosphorus 3.8 mg/dL (2.6-4.7); Troponin I 15.6 ng/L (0.00-60.4)
--- NOTE | 2021-04-20 13:07 | PC.NURSE ---
When reviewing meds with pt during triage, pt states that she no longer takes norco and has been taking oxycodone 6 times a day. RN called [facility] pharmacy in [place] to confirm dosage and was told that pt has not had oxycodone since last year. She did however fill a norco Px in Feb 2021. ERP aware.
[2021-04-20 13:13] LABS: Appearance Urine Sl Cloudy (Clear); Bilirubin Urine 2+ (Negative); Color Urine Yellow (Yellow); Glucose Urine UA Negative (Negative); Ketones Urine 3+ (Negative); Leukocyte Esterase Ur Trace (Negative); Nitrate Urine Negative (Negative); Protein Urine Trace (Negative); Specific Grav Ur >= 1.030 (1.010-1.020); Urobilinogen Urine 0.2 mg/dL (0.2-1.0); pH Urine 5.5 (5.0-8.0)
[2021-04-20] MEDS: HYDROcodone/acetaminophen (*CRX) 10-325 MG TABLET 1 TAB PO (13:13)
[2021-04-20 13:17] LABS: Add Urine Microscopic? YES; Bacteria Urine Trace /hpf; Blood Urine Trace-Intact (Negative); RBC Urine 0-2 /hpf (0-2); Squamous Epithelial Cell Urine Moderate /hpf (Few); WBC Urine 0-3 /hpf (0-3)
[2021-04-20 13:19] LABS: Amphetamine Screen Urine Negative (Negative); Barbiturate Screen Urine Negative (Negative); Benzodiazepines Screen Urine Positive (Negative); Cannabinoid Screen Urine Negative (Negative); Cocaine Screen Urine Negative (Negative); Methadone Screen Urine Negative (Negative); Opiate Screen Urine Negative (Negative); Phencyclidine Screen Urine Negative (Negative)
[2021-04-20 13:58] VITALS: BP 126/77; PULSE 89; RESP 16; O2SAT 93
[2021-04-20 14:31] LABS: NT Pro B Type Natriuretic Pept 1894 pg/mL (0-450)
[2021-04-20 14:59] VITALS: BP 138/89; PULSE 79; PULSE 80; RESP 18; TEMP 37.1; O2SAT 91
[2021-04-20] MEDS: PANTOPRAZOLE 40 MG TABLET PO (15:18)
[2021-04-20] MEDS: MAGNESIUM OXIDE 400 MG TABLET PO (15:18)
[2021-04-20 16:00] VITALS: BP 128/74; PULSE 76; PULSE 88; RESP 18; TEMP 36.7; O2SAT 92
[2021-04-20] MEDS: ACETAMINOPHEN 500 MG TABLET 1000 MG PO (16:50)
[2021-04-20] MEDS: LORazepam INJ (*CRX) 2 MG/ML VIAL 0.5 MG IV PUSH (16:59)
[2021-04-20] MEDS: HYDROcodone/acetaminophen (*CRX) 7.5-325 MG TABLET 1 TAB PO (19:31)
[2021-04-20 19:39] VITALS: PULSE 84
[2021-04-20 20:00] VITALS: BP 140/74; PULSE 92; RESP 19; TEMP 37; O2SAT 93
[2021-04-20] MEDS: traMADol HCL (*CRX) 50 MG TABLET PO (20:14)
[2021-04-20] MEDS: traZODone HCL 25 MG TABLET PO (20:15)
[2021-04-21] VITALS: BP 129/73; PULSE 71; PULSE 72; RESP 20; TEMP 36.6; O2SAT 88
[2021-04-21 03:03] VITALS: PULSE 69
[2021-04-21 03:51] VITALS: BP 142/68; PULSE 89; RESP 18; TEMP 36.6; O2SAT 89
[2021-04-21] MEDS: traMADol HCL (*CRX) 50 MG TABLET PO ×2 (03:55→10:12)
[2021-04-21] MEDS: HYDROcodone/acetaminophen (*CRX) 7.5-325 MG TABLET 1 TAB PO ×2 (03:55→10:10)
[2021-04-21 05:09] LABS: Hematocrit 51.6 % (35.0-42.0); Hemoglobin 16.2 g/dL (11.7-13.8); Mean Corpuscular HGB Conc 31.4 g/dL (32.0-36.0); Mean Corpuscular Hemoglobin 27.5 pg (27.0-31.0); Mean Corpuscular Volume 87.6 fL (78.0-102.0); Mean Platelet Volume 10.2 fl (9.2-11.8); Platelet Count Result 229 K/mm3 (150-420); Red Blood Count 5.89 M/mm3 (4.20-5.40); White Blood Count 5.9 K/mm3 (4.8-10.8)
[2021-04-21 05:43] LABS: Alanine Aminotransferase 14 U/L (14-59); Albumin Level 2.7 g/dL (3.4-5.0); Alkaline Phosphatase 76 U/L (46-116); Anion Gap 10 mmol/L (8-16); Aspartate Amino Transferase 19 U/L (15-37); Bilirubin,Total 0.7 mg/dL (0.00-1.00); Blood Urea Nitrogen 23 mg/dL (7-18); Calcium 8.5 mg/dL (8.5-10.1); Carbon Dioxide 28 mmol/L (21-32); Chloride 100 mmol/L (98-108); Estimated CRCL calculation 30 ml/min; Estimated Glomerular Filt Rate 47; Glucose 77 mg/dL (70-99); Magnesium 1.9 mg/dL (1.8-2.4); Osmolality Calculated 288 mOsm/kg (285-295); Potassium 3.4 mmol/L (3.5-5.1); Sodium 138 mmol/L (136-145); Total Protein 5.8 g/dL (6.4-8.2)
[2021-04-21 05:45] LABS: Troponin I 15.1 ng/L (0.00-60.4)
[2021-04-21 08:00] VITALS: BP 134/75; PULSE 80; RESP 18; TEMP 36.2; O2SAT 91
--- NOTE | 2021-04-21 09:04 | PM.SD2 ---
Same Day Admit/Disch: HPI History of Present Illness Chief complaint: opiate withdrawal Narrative: Marysol Chapman is a 75 year old female that presented to emergency department with complaints of pain, weakness and fatigue. Patient has a past medical history GERD, anxiety, chronic back pain, common bile duct dilation, COPD, peptic ulcer in tobacco abuse. According to patient she started feeling bad on Friday. Patient notes that she became fatigued she also noted that her pain increased she had ran out of her pain medication. Patient does take an extensive amount of pain medication for chronic back pain. Patient notes that she had an appointment with her primary care physician on Friday to get medication refill but missed it because she was too fatigued to go to her appointment. Patient notes that after receiving her narcotics her condition has improved. Patient was admitted for withdrawal symptoms and UTI. Vital signs 130 475, 80, 18, 97.1, 91% on room air, WBC 7.1, hemoglobin 18.7, hematocrit 58.1, platelets 285, sodium 139, potassium 4.0, BUN 25, creatinine 1.03, glucose 69, lactic acid 1.3, magnesium 1.7, AST 21, ALT 16, troponin 15.6, BUN 1894, lipase 45, CT of the head no new findings, chest x-ray indicate mild pulmonary edema EKG sinus rhythm with a heart rate of 84. The patient denies , CP, palpitation, extremity numbness, lightheadedness, dizziness, constipation, diarrhea, chills, or fever. Patient notes that she has chronic shortness of breath due to her COPD. [facility] Past Medical History Medical History Acid reflux Anxiety Chronic back pain Common bile duct dilatation COPD (chronic obstructive pulmonary disease) Dilated intrahepatic bile duct Encounter for screening colonoscopy Peptic ulcer disease Tobacco abuse Surgical History Surgical History H/O tubal ligation Hx of cholecystectomy Family History Family History Mother Cerebrovascular accident Father Diabetes mellitus Social History Social History Social History: the patient stated that she smokes anywhere from half a pack to pack a cigarettes a day. She has 3 children. She desires to have her is a durable power of insurance attorney and if he is unable to than her 3 children. The patient has 3 children. 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 She denies any alcohol marijuana or illicit drugs. The patient desires to be a full code. Smoking packs per day: 0.5 Smoking cigarettes per day: 10.0 Years smoked: 50 Smoking pack-years: 25.00 Smoking status: Current every day smoker Tobacco type: cigarettes Second hand tobacco smoke exposure: Yes Alcohol intake: never Substance use: never Substance use type: opiates Other substance usage details: prescribed opiates Gender identity (if verbalized by the patient): Female Sexual Orientation (if Verbalized by the Patient): Straight or Heterosexual Spiritual care concerns: No Same Day Admit/Disch: Med Pre-admit Medications Home Medications Medication Instructions Recorded Confirmed Type albuterol sulfate 90 mcg INHALATION DIRECTED 12/20/19 04/20/21 History cetirizine 10 mg PO DAILY 11/08/20 04/20/21 History ondansetron HCl 4 mg PO TID PRN 11/08/20 04/20/21 History pantoprazole 40 mg PO BID 11/08/20 04/20/21 History sertraline 25 mg DAILY 04/20/21 04/20/21 History hydrocodone-acetaminophen 1 tablet PO Q4-6H #30 tablet 04/21/21 Rx nitrofurantoin macrocrystal 100 mg PO Q12H 5 Days #10 cap 04/21/21 Rx oxycodone 20 mg PO Q4H PRN #30 tablet 04/21/21 Rx tramadol 50 mg PO Q4-6H PRN #30 tablet 04/21/21 Rx Exam Narrative: GENERAL: This is a well-nourished, well-developed patient, in no apparent distress. HEAD: normocephalic, atraumatic. EYES: PERRL. Sclera clear
[2021-04-21] MEDS: LORATADINE 10 MG TABLET PO (09:12)
[2021-04-21] MEDS: FUROSEMIDE INJ 40 MG/4 ML VIAL IV PUSH (09:12)
[2021-04-21] MEDS: SERTRALINE HCL 25 MG TABLET PO (09:12)
[2021-04-21] MEDS: MAGNESIUM OXIDE 400 MG TABLET PO (09:12)
[2021-04-21] MEDS: PANTOPRAZOLE 40 MG TABLET PO (09:12)
[2021-04-21] MEDS: POTASSIUM CHLORIDE 20 MEQ TABLET 40 MEQ PO (09:18)
--- NOTE | 2021-04-21 11:30 | PC.NURSE ---
Addendum entered by Mae Arthur RN 04/21/21 11:49: Discharge summary reviewed with pt and her son in law. All questions answered. Pt transported via wheelchair to front of hospital and assisted into private vehicle. Original Note: Discharge summary reviewed w9
--- NOTE | 2021-04-23 12:53 | PC.NURSE ---
Pt states she received and understood her discharge instructions. Pt also states there was always someone checking on me, everyone was nice .
== END 2021-04-21 11:35 | disposition home or self-care (01) ==
LOC: CHSED 11:48 → CHS2ND 13:23
PROVIDERS: Nurse Practitioner; Admitting Provider Internal Medicine; Emergency Provider Family Medicine; PCP Family Medicine; Visit Provider Internal Medicine
DX: F11.23 Opioid dependence with withdrawal (principal); N39.0 Urinary tract infection, site not specified; E86.0 Dehydration; E83.42 Hypomagnesemia; J44.9 Chronic obstructive pulmonary disease, unspecified; M54.9 Dorsalgia, unspecified; G89.29 Other chronic pain; K21.9 Gastro-esophageal reflux disease without esophagitis; K27.9 Peptic ulcer, site unspecified, unspecified as acute or chronic, without hemorrhage or perforation; K83.8 Other specified diseases of biliary tract; N28.9 Disorder of kidney and ureter, unspecified; F17.210 Nicotine dependence, cigarettes, uncomplicated; F41.9 Anxiety disorder, unspecified; Z20.822 Contact with and (suspected) exposure to COVID-19
CPT/HCPCS: 36415; 70450; 71045; 80053; 80307; 81001; 83605; 83690; 83735; 83880; 84100; 84443; 84484; 85025; 85027; 87086; 87088; 87426; 93005; 96360; 96361; 96365; 96375; 97161; 99285; A9270; C9803; G0378; J0696; J1940; J2060; J7120

== ENCOUNTER 2021-09-09 14:44 | Emergency (ER) | payer MEDICARE, SELFPAY ==
[2021-09-09] VITALS (11 sets, daily range): BP systolic 130–168; BP diastolic 57–93; PULSE 67–85; RESP 15–18; TEMP 36.5–37.6; O2SAT 93–98
--- NOTE | ~2021-09-09 | CT_ITS ---
EXAMINATION: CT brain wo con DATE: 09/09/2021 17:02 INDICATION: BEE . TECHNIQUE: Computed tomography (CT) of the head was performed without intravenous contrast. The mA wa s adjusted according to patient size. Iterative reconstruction technique was employed. The dose-lengt h product was 605.33 mGy-cm. COMPARISON: 04/20/2021 FINDINGS: No acute intracranial hemorrhage or extra-axial fluid collection. No hydrocephalus, mass, or herniation. No acute ischemic infarct. Focal hypodensity in the subcortical white matter of the posterior left fr ontal lobe, new since the prior study. Unremarkable dural venous sinus attenuation. No acute osseous abnormality. Bilateral mastoid effusions, otherwise the aerated spaces are clear. Mild atrophy and chronic white matter change. Atherosclerotic intracranial calcification. IMPRESSION: No acute large vessel infarct or acute intracranial hemorrhage. New, focal left posterior frontal sub cortical white matter hypodensity, may reflect evolving encephalomalacia, vasogenic edema, or other w catherine matter change. Consider nonemergent but timely MR of the brain with and without contrast for fur ther evaluation. Reviewed, dictated and finalized at location K. IMPRESSION: No acute large vessel infarct or acute intracranial hemorrhage. New, focal left posterior frontal subcortical white matter hypodensity, may reflect evolving e ncephalomalacia, vasogenic edema, or other white matter change. Consider noneme rgent but timely MR of the brain with and without contrast for further evaluati on.
--- NOTE | ~2021-09-09 | CT_ITS ---
EXAMINATION: CT abdomen pelvis w con DATE: 09/09/2021 17:06 INDICATION: vomiting, diarrhea. TECHNIQUE: Computed tomography (CT) of the abdomen and pelvis was performed with 100 mL Omnipaque-350 intravenous contrast. Automated exposure control and iterative reconstruction technique were employe d. The dose-length product was 291.72 mGy-cm. COMPARISON: 12/20/2019. FINDINGS: Lower thorax: Emphysematous and senescent changes. Coronary artery calcification. Liver: Normal. Biliary/Gallbladder: Gallbladder is absent. Stable intra and extrahepatic biliary duct dilatation. Pancreas: No mass or duct dilation. Spleen: Normal. Adrenals:No mass. Kidneys: No mass, stone, or hydronephrosis. GI tract: No small or large bowel dilation. Gastric wall edema, most severe in the antrum Descending colonic, sigmoid, and rectal wall edema Normal appendix. Mesentery/Peritoneum: No ascites, mass, or free air. Retroperitoneum: No mass. Atherosclerotic abdominal aortic and/or arterial calcifications. Pelvis: Pelvic organs are within normal limits. Pessary. Soft Tissues: Soft tissues and body wall unremarkable. Bones: No acute osseous finding. IMPRESSION: Gastritis. Colonic wall edema as can be seen with infection, inflammation, and ischemia. Reviewed, dictated and finalized at location K.
--- NOTE | 2021-09-09 15:21 | ECG_ITS ---
Measurements Intervals [place] Rate: 80 P: 87 OR: 175 QRS: 69 QRSD: 93 T: 67 QT: 391 QTc: 454 Interpretive Statements SINUS RHYTHM BORDERLINE T WAVE ABNORMALITY- ANTERIOR LEADS BASELINE ARTIFACT- I, III, AVR, AVL, AVF, V1-V6 BORDERLINE ECG Electronically Signed On 09-09-2021 17:24:51 CDT by Temo Rowe D.O.
--- NOTE | 2021-09-09 15:34 | ED.NAVMDI ---
HPI - Nausea/Vomiting/Diarrhea General Chief complaint: Nausea/Vomiting/Diarrhea Stated complaint: diarrhea, vomiting Time Seen by Provider: 09/09/21 14:48 Source: patient, family and RN notes reviewed Mode of arrival: ambulatory Limitations: no limitations History of Present Illness MD elicited complaint: nausea, vomiting and other (BEE) Onset (ago): day(s) (2) Description of vomiting: food contents and watery Associated nausea: Yes Associated abdominal pain: Yes Location of pain: diffuse Radiation: diffuse Pain consistency: constant Pain scale (0-10): 1 Quality: cramping, aching and dull Exacerbating factors: none Relieving factors: none Associated symptoms: headaches Related Data Home Medications Medication Instructions Recorded Confirmed albuterol sulfate 90 mcg/actuation 90 mcg inhalation DIRECTED 12/20/19 09/09/21 aerosol inhaler cetirizine 10 mg tablet 10 mg PO DAILY 11/08/20 09/09/21 ondansetron HCl 4 mg tablet 4 mg PO TID PRN Nausea 11/08/20 09/09/21 pantoprazole 40 mg tablet,delayed 40 mg PO BID 11/08/20 09/09/21 release sertraline 25 mg tablet 25 mg DAILY 04/20/21 09/09/21 Allergies Allergy/AdvReac Type Severity Reaction Status Date / Time No Known Allergies Allergy Verified 09/09/21 15:18 Review of Systems Review of Systems: All systems reviewed & are unremarkable except as noted in HPI and below Constitutional: Constitutional: Reports no additional constitutional complaints Eyes: Eyes: Reports no additional eye complaints ENT: Reports system reviewed and no additional complaints, except as documented Cardiovascular: Cardiovascular: Reports no additional cardiovascular complaints Respiratory: Respiratory: Reports no additional respiratory complaints Gastrointestinal: Gastrointestinal: Reports nausea and Reports vomiting Genitourinary: Genitourinary: Reports no additional female genitourinary complaints Musculoskeletal: Musculoskeletal: Reports no additional musculoskeletal complaints Integumentary/Breasts: Skin/Breast: Reports system reviewed and no additional complaints, except as docu Neurologic: Reports system reviewed and no additional complaints, except as documented Psychiatric: Psychiatric: Reports no additional psychiatric complaints Endocrine: Endocrine: Reports no additional endocrine complaints Hematologic/Lymphatic: Hematologic/Lymphatic: Reports no additional hematologic/lymphatic complaints Allergic/Immunologic: Allergic/Immunologic: Reports no additional allergic/immunologic complaints PMFSH Past Medical History Medical History Acid reflux Anxiety Chronic back pain Common bile duct dilatation COPD (chronic obstructive pulmonary disease) Dilated intrahepatic bile duct Encounter for screening colonoscopy Peptic ulcer disease Tobacco abuse Surgical History Surgical History H/O tubal ligation Hx of cholecystectomy Family History Family History Mother Cerebrovascular accident Father Diabetes mellitus Social History Social History Social History: the patient stated that she smokes anywhere from half a pack to pack a cigarettes a day. She has 3 children. She desires to have her is a durable power of contract attorney and if he is unable to than her 3 children. The patient has 3 children. 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 She denies any alcohol marijuana or illicit drugs. The patient desires to be a full code. Smoking packs per day: 0.5 Smoking cigarettes per day: 10.0 Years smoked: 50 Smoking pack-years: 25.00 Smoking status: Current every day smoker Tobacco type: cigarettes Second hand tobacco smoke exposure: Yes Alcohol intake: never Substance use: never Substance use type: opiates Other substance usage
[2021-09-09] MEDS: ACETAMINOPHEN 325 MG TABLET 650 MG PO ×2 (15:44→23:19)
[2021-09-09] MEDS: SODIUM CHLORIDE 0.9% IV 1,000 ML 999 ML IV CONT (15:47)
[2021-09-09] MEDS: PANTOPRAZOLE SODIUM IV 40 MG VIAL IV PUSH (15:49)
[2021-09-09] MEDS: ONDANSETRON INJ 4 MG/2 ML VIAL IV PUSH ×2 (15:50→21:02)
[2021-09-09 16:03] LABS: Basophils Absolute Auto 0.04 K/mm3 (0.00-0.10); Basophils Percent Auto 0.5 % (0.0-1.0); Hematocrit 53.3 % (35.0-42.0); Hemoglobin 17.9 g/dL (11.7-13.8); Immature Granulocyte Absolute 0.03 K/mm3 (0.00-0.00); Immature Granulocyte Percent A 0.4 % (0.0-0.0); Lymphocytes Absolute Auto 1.28 K/mm3 (1.10-4.50); Lymphocytes Percent Auto 17.5 % (18.0-42.0); Mean Corpuscular HGB Conc 33.6 g/dL (32.0-36.0); Mean Corpuscular Hemoglobin 31.6 pg (27.0-31.0); Mean Platelet Volume 10.2 fl (9.2-11.8); Monocytes Absolute Auto 0.38 K/mm3 (0.10-0.90); Monocytes Percent Auto 5.2 % (2.0-11.0); Neutrophils Absolute Auto 5.6 K/mm3 (1.7-7.2); Neutrophils Percent Auto 76.4 % (50.0-70.0); Platelet Count Result 226 K/mm3 (150-420); Red Blood Count 5.67 M/mm3 (4.20-5.40); Red Cell Distribution Width 13.5 % (11.6-14.4); White Blood Count 7.3 K/mm3 (4.8-10.8)
[2021-09-09 16:23] LABS: Bilirubin Urine 2+ (Negative); Color Urine Light Yellow (Yellow); Glucose Urine UA Negative (Negative); Ketones Urine 3+ (Negative); Leukocyte Esterase Ur 1+ LEU/UL (Negative); Nitrate Urine Negative (Negative); Protein Urine Negative (Negative); Specific Grav Ur >= 1.030 (1.010-1.020); Urobilinogen Urine 0.2 mg/dL (0.2-1.0)
[2021-09-09 16:25] LABS: Alanine Aminotransferase 16 U/L (14-59); Albumin Level 3.8 g/dL (3.4-5.0); Alkaline Phosphatase 92 U/L (46-116); Anion Gap 14 mmol/L (8-16); Aspartate Amino Transferase 22 U/L (15-37); Blood Urea Nitrogen 17 mg/dL (7-18); Calcium 9.1 mg/dL (8.5-10.1); Carbon Dioxide 27 mmol/L (21-32); Chloride 97 mmol/L (98-108); Estimated CRCL calculation 31 ml/min; Estimated Glomerular Filt Rate 49; Glucose 81 mg/dL (70-99); Lipase 55 U/L (73-393); Osmolality Calculated 286 mOsm/kg (285-295); Potassium 3.8 mmol/L (3.5-5.1); Sodium 138 mmol/L (136-145); Total Protein 7.4 g/dL (6.4-8.2)
[2021-09-09 16:32] LABS: SARS-CoV-2 Ag Negative (Negative)
[2021-09-09 16:33] LABS: Add Urine Microscopic? YES; Amorphous Sediment Urine Moderate; Appearance Urine Slightly Cloudy (Clear); Blood Urine Trace-Intact (Negative); RBC Urine 0-2 /hpf (0-2); Squamous Epithelial Cell Urine Moderate /hpf (Few)
[2021-09-09 16:34] LABS: Bacteria Urine 3+ /hpf; Mucus Urine Heavy /lpf
[2021-09-09] MEDS: MORPHINE SULFATE (*CRX) 2 MG/ML INJ IV PUSH ×2 (18:09→21:05)
[2021-09-09] MEDS: SODIUM CHLORIDE 0.9% IV 1,000 ML 125 ML IV CONT (18:18)
--- NOTE | 2021-09-09 18:23 | PC.NURSE ---
pt requests [facility] this literary writer told they are at capacity, no beds available.
--- NOTE | 2021-09-09 18:26 | PC.NURSE ---
[facility] contacted for possible transfer. beds full at this time. pt put on a waiting list
[2021-09-09] MEDS: metroNIDAZOLE 500 MG/ISO 100ML 500 MG/100 ML BAG 100 MG IVPB (21:31)
[2021-09-09 22:07] LABS: Lactic Acid Reflex 0.7 mmol/L (0.4-2.0)
--- NOTE | 2021-09-09 22:29 | PC.NURSE ---
[facility] director returned a call letting RN know that pt has been accepted by Dr. Baptiste for colitis. costuming supervisor states she will be returning a call with a bed and number for report.
--- NOTE | 2021-09-09 22:48 | PC.NURSE ---
Sherron, airflight attendants supervisor from [facility], calls and and states pt is going to room 240 and number for report. RN updated pt's family on room number and visiting policy. Pt's family gives RN a two work numbers to be reached at in case of emergency tomorrow. The main number is [phone] and to reach Chaka ext [phone]. To reach Dayna it is ext [phone].
--- NOTE | 2021-09-09 22:59 | PC.NURSE ---
RN updates ERP on temp and that pt states she is nauseous. ERP states he will place new orders.
[2021-09-09] MEDS: PROMETHAZINE HCL 25 MG/ML AMPUL IM (23:16)
--- NOTE | 2021-09-09 23:35 | PC.NURSE ---
Rn calls RN to RN report to Aaron. RN then calls [facility] per pt request for transfer.
[2021-09-10 00:28] VITALS: BP 145/62; PULSE 83; RESP 16; TEMP 37.2; O2SAT 93
--- NOTE | 2021-09-10 00:31 | PC.NURSE ---
Pt transferred to [facility] with 753.4 mLs of NSS in and 246.6 mLs left still running through pt's IV.
== END 2021-09-10 00:35 | disposition short-term general hospital (02) ==
PROVIDERS: Emergency Provider Emergency Medicine; PCP Family Medicine
DX: N39.0 Urinary tract infection, site not specified (principal); K52.9 Noninfective gastroenteritis and colitis, unspecified; J44.9 Chronic obstructive pulmonary disease, unspecified; F17.200 Nicotine dependence, unspecified, uncomplicated; Z20.822 Contact with and (suspected) exposure to COVID-19
CPT/HCPCS: 36415; 70450; 74177; 80053; 81001; 83605; 83690; 85025; 87086; 87088; 87426; 93005; 96361; 96365; 96367; 96372; 96375; 96376; 99285; A9270; C9113; C9803; J0696; J2270; J2405; J2550; J7030; Q9967

== ENCOUNTER 2021-09-10 00:35 | Observation (INO) | payer MEDICARE, SELFPAY ==
--- NOTE | ~2021-09-10 | MR_ITS ---
EXAMINATION: MR brain/brain stem wo/w con DATE: 09/10/2021 09:44 INDICATION: Headache. Abnormal head CT. TECHNIQUE: Magnetic resonance imaging (MRI) of the brain and brainstem was performed without and with 11 mL MultiHance intravenous contrast. COMPARISON: Head CT 09/09/2021, 04/20/2021 FINDINGS: There is no intracranial hemorrhage, acute infarction, or abnormal intracranial mass lesion . There is an old infarct in left frontoparietal region. There is an old infarct in left occipital lo be. There is an old infarct in left cerebellum. There are scattered areas of nonspecific increased T2 -weighted signal intensity in the cerebral white matter and nancy. The ventricles are normal in size. The paranasal sinuses are clear. The orbits are normal. There are bilateral mastoid effusions. IMPRESSION: 1. 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 2. Mild nonspecific cerebral white matter disease and pontine disease, which likely represents chroni c small vessel ischemic disease. Reviewed, dictated and finalized at location [facility]. IMPRESSION: 1. Old infarcts in the left frontoparietal region, left occipital lobe, and lef t cerebellum. 2. Mild nonspecific cerebral white matter disease and pontine disease, which nery swanson represents chronic small vessel ischemic disease.
--- NOTE | 2021-09-10 01:01 | ADMGEN ---
This patient, Marysol Chapman, was admitted to 2 Medical Room 240-. Patient/family oriented to hospital policies and general routines including ID bracelet, bed and alarms, visiting hours, pain management, procedures, bathroom and other care routines, personal items, smoking policy, room service/diet, and visiting hours. Information on how to activate the Rapid Response Team has been discussed. Patient/Family are encouraged to report perceived risks to care and to ask questions if they do not understand what they are told or what they should do.
[2021-09-10 01:26] VITALS: BP 136/63; PULSE 71; RESP 16; TEMP 36.8; O2SAT 93
[2021-09-10 01:27] VITALS: BMI 22.0
--- NOTE | 2021-09-10 01:53 | PM.IMHP ---
H&P: HPI History of Present Illness Date/Time: 09/10/21 01:53 Chief Complaint: abdominal pain Narrative: This is a 75-year-old female with past medical history significant for COPD, chronic back pain, tobacco use, peptic ulcer disease, gastric reflux disease, generalized anxiety. Patient comes as a transfer from outside hospital due to constipation alternating with profuse diarrhea for the last week or so, Denies any pain, any fevers, any rigors, any chills has had weight loss of roughly 18 lb in the last few months her however cannot give me a specific timeline. Patient denies any blood in the stools, any change in stool character. Preliminary workup was significant for CT of abdomen and pelvis with gastritis. Colonic wall edema as can be seen with infection, inflammation, and ischemia. patient has been admitted for further evaluation management and treatment. Review of Systems Review of Systems: Constipation alternating with diarrhea, weight loss Constitutional: Constitutional: Denies chills, Denies fever(s), Denies malaise, Denies weakness and Reports weight loss Eyes: Eyes: Denies change in vision ENT: Denies dysphagia, Denies vertigo, Denies dizziness and Denies odynophagia Cardiovascular: Cardiovascular: Denies chest pain, Denies syncope, Denies irregular heart rhythm, Denies lightheadedness, Denies palpitations and Denies dyspnea on exertion Respiratory: Respiratory: Denies chest congestion and Denies excessive phlegm production Gastrointestinal: Gastrointestinal: Denies abdominal pain, Denies melena, Denies coffee ground emesis, Reports constipation, Denies dyspepsia, Denies heartburn, Reports diarrhea, Reports nausea and Reports vomiting Genitourinary: Genitourinary: Denies dysuria Musculoskeletal: Musculoskeletal: Reports back pain Integumentary/Breasts: Skin/Breast: Denies rash Neurologic: Denies vertigo, Denies dizziness, Denies focal weakness and Denies Sensory deficit (Neuro) Psychiatric: Psychiatric: Reports no additional psychiatric complaints and Reports as per HPI Endocrine: Endocrine: Denies cold intolerance, Denies fatigue, Denies flushing, Denies heat intolerance, Denies polyphagia, Denies polydipsia and Denies palpitations Hematologic/Lymphatic: Hematologic/Lymphatic: Reports no additional hematologic/lymphatic complaints and Reports as per HPI Allergic/Immunologic: Allergic/Immunologic: Reports no additional allergic/immunologic complaints and Reports as per HPI [facility] Past Medical History Medical History (Updated 09/10/21 @ 04:12 by Nany Catherine MD) Acid reflux Anxiety Chronic back pain Common bile duct dilatation COPD (chronic obstructive pulmonary disease) Dilated intrahepatic bile duct Encounter for screening colonoscopy Peptic ulcer disease Tobacco abuse Surgical History Surgical History H/O tubal ligation Hx of cholecystectomy Family History Family History Mother Cerebrovascular accident Father Diabetes mellitus Social History Social History Social History: the patient stated that she smokes anywhere from half a pack to pack a cigarettes a day. She has 3 children. She desires to have her is a durable power of research attorney and if he is unable to than her 3 children. The patient has 3 children. 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 She denies any alcohol marijuana or illicit drugs. The patient desires to be a full code. Smoking packs per day: 0.5 Smoking cigarettes per day: 10.0 Years smoked: 50 Smoking pack-years: 25.00 Smoking status: Current every day smoker Tobacco type: cigarettes Second hand tobacco smoke exposure: Yes Alcohol intake: never Substance use: current Substance use type: marijuana Other substance usage details: prescribed opiates Last use: 09/07/21
[2021-09-10] MEDS: DEXTROSE 5%/0.45% SOD CHL 1,000 ML 65 ML IV CONT ×2 (02:30→20:00)
[2021-09-10 04:06] LABS: Basophils Percent Auto 0.6 % (0.2-1.2); Eosinophils Percent Auto 0.3 % (0-4.4); Hematocrit 44.3 % (37.0-47.0); Hemoglobin 14.4 g/dL (12.0-15.0); Immature Granulocyte Absolute 0.03 K/mm3 (0.00-0.031); Immature Granulocyte Percent A 0.4 % (0-0.5); Lymphocytes Absolute Auto 1.93 K/mm3 (0.9-3.2); Lymphocytes Percent Auto 26.7 % (18.3-44.2); Mean Corpuscular HGB Conc 32.5 g/dl (32-36); Mean Corpuscular Hemoglobin 30.8 pg (26-34); Mean Corpuscular Volume 94.9 fl (80-100); Mean Platelet Volume 9.8 fl (7.4-10.4); Monocytes Absolute Auto 0.6 K/mm3 (0.1-0.6); Monocytes Percent Auto 8.3 % (2.6-8.5); Neutrophils Absolute Auto 4.6 K/mm3 (1.3-6.7); Neutrophils Percent Auto 63.7 % (45.5-73.1); Platelet Count Result 202 k/mm3 (150-375); Red Blood Count 4.67 M/mm3 (4.2-5.4); Red Cell Distribution Width 14.3 % (11.5-14.5); White Blood Count 7.2 K/mm3 (4.5-10.0)
[2021-09-10 04:19] LABS: Anion Gap 9 mmol/L (8-16); Blood Urea Nitrogen 14 mg/dL (7-17); Calcium 7.9 mg/dL (8.4-10.2); Carbon Dioxide 30 mmol/L (22-30); Chloride 98 mmol/L (98-107); Estimated CRCL calculation 39 ml/min; Estimated Glomerular Filt Rate > 60; Glucose 85 mg/dL (65-110); INR 1.1; Potassium 3.8 mmol/L (3.4-5.0); Prothrombin Time 14.1 Seconds (11.1-14.7); Sodium 137 mmol/L (137-145)
[2021-09-10 04:20] LABS: Partial Thromboplastin Time 34.1 SECONDS (22.3-36.8)
[2021-09-10] MEDS: oxyCODONE HCL (*CRX) 5 MG TAB IR 20 MG PO ×4 (04:40→20:00)
[2021-09-10] MEDS: metroNIDAZOLE 500 MG/ISO 100ML 500 MG/100 ML BAG 100 MG IVPB ×3 (04:42→20:37)
[2021-09-10 06:07] VITALS: BP 119/52; PULSE 74; RESP 16; TEMP 36.4; O2SAT 95
[2021-09-10] MEDS: ENOXAPARIN 40 MG/0.4 ML SYRINGE SUB-Q (09:53)
[2021-09-10] MEDS: SERTRALINE HCL 25 MG TABLET BY MOUTH (09:54)
[2021-09-10] MEDS: LORATADINE 10 MG TABLET PO (09:54)
[2021-09-10] MEDS: PANTOPRAZOLE 40 MG TABLET PO ×2 (09:54→20:00)
[2021-09-10 10:30] VITALS: BP 166/63; PULSE 70; RESP 20; TEMP 37.1; O2SAT 93
[2021-09-10] MEDS: ONDANSETRON INJ 4 MG/2 ML VIAL IV PUSH ×2 (11:19→20:00)
[2021-09-10] MEDS: traMADol HCL (*CRX) 50 MG TABLET PO ×3 (12:07→22:44)
[2021-09-10 12:19] VITALS: BMI 22.0
--- NOTE | 2021-09-10 12:57 | PM.IMPN ---
Progress Note: A&P Assessment and Plan (1) Colitis: Code(s): K52.9 - Noninfective gastroenteritis and colitis, unspecified Status: Acute Assessment and Plan: - Continue Flagyl and levofloxacin - GI consult is ordered and we are awaiting their evaluation and recommendations. - Continue gentle IV hydration with NS at 65 ml/hr. - Continue PPI therapy with Protonix. - Pain medications and Anti-emetics are ordered prn - Continue NPO diet. (2) Chronic back pain: Code(s): M54.9 - Dorsalgia, unspecified; G89.29 - Other chronic pain Status: Chronic Assessment and Plan: - Pt. has prn pain medications ordered for her as needed. (3) Tobacco abuse: Code(s): Z72.0 - Tobacco use Status: Chronic Assessment and Plan: - nicotine patch as needed (4) COPD (chronic obstructive pulmonary disease): Code(s): J44.9 - Chronic obstructive pulmonary disease, unspecified Status: Chronic Assessment and Plan: - appears to be compensated - continue home meds (5) Acid reflux: Code(s): K21.9 - Gastro-esophageal reflux disease without esophagitis Status: Acute Assessment and Plan: - continue PPI Time Spent With Patient Time with patient: 15 - 25 minutes Subjective Date/time seen: 09/10/21 12:57 This pt. was examined at the bedside today in interval assessment after being admitted with acute Colitis and Gastritis from [facility]. In addition, it was found there that she had an area on CT of her head that was concerning for a potential mass and required MRI for further evaluation. She reports that she is still having a great deal of pain but no N/V/D. GI has been consulted and we are awaiting their evaluation and recommendations. She remains on Levaquin and Flagyl and she has stable VS. Review of Systems Review of Systems: All systems reviewed & are unremarkable except as noted in HPI and below Exam Const: General: uncomfortable (Secondary to back pain.) Other: Pt. is lying on her left side in bed and appears uncomfortable. HENMT: Ears: TM's normal bilaterally and TMs normal General nose exam: Normal nares present and no epistaxis Mouth: Yes moist mucous membranes Eyes: General: appearance normal, both eyes and all related structures Sclera: sclerae normal and normal sclerae Pupils: Equal, round and reactive pupils present EOM: EOMs intact bilaterally Neck: Neck: supple and no JVD Thyroid: thyroid normal Carotids: no bruits Lymphatic: lymphadenopathy not noted Resp: Effort & Inspection: normal respiratory effort Auscultation: clear to auscultation bilaterally Cardio: Rate: regular rate Rhythm: regular rhythm Heart sounds: no gallops, no murmurs and no rubs GI: Inspection: non-distended GI Palp: Yes Soft to palpation and Yes Tenderness to palpation present (GI) (Diffusely tender to palpation.) Auscultation: normal bowel sounds Skin: General skin exam: normal color, no rashes or lesions noted and no erythema Lesions: no lesions noted Rashes: no rashes noted Wounds: no wounds Neuro: General: gait normal Speech: normal speech Motor exam (neuro): 5/5 motor strength present throughout and Normal motor muscle tone present throughout Sensory Exam: normal sensation Extrem: General: normal to inspection, no edema and no pedal edema Other: Freely and equally MAEW and without deficit. Psych: Mental Status: mental status grossly normal Affect: normal affect Objective Data Vital Signs Vital Signs: Vital Signs - 24 hr 09/10/21 01:26 09/10/21 01:34 09/10/21 06:07 Temperature 98.2 F 97.6 F Pulse Rate 71 74 Respiratory Rate 16 16 Blood Pressure 136/63 119/52 L Pulse Oximetry 93 95 Oxygen Delivery Room Air 09/10/21 10:30 09/10/21 09:15 Temperature 98.7 F Pulse Rate 70 Respiratory Rate 20 Blood Pressure 166/63 H Pulse Oximetry 93 Oxygen Delivery Room Air Intake/Output Intake/Output: Intake & Output
[2021-09-10 14:25] VITALS: BP 162/82; PULSE 75; RESP 20; TEMP 37.2; O2SAT 96
[2021-09-10] MEDS: guaiFENesin 12 HR 600 MG TABCR PO (16:54)
--- NOTE | 2021-09-10 17:14 | WPDGICN ---
Assessment and Plan Assessment and plan (1) Colitis: Code(s): K52.9 - Noninfective gastroenteritis and colitis, unspecified Status: Acute Assessment and Plan: started on abx she also is using narcotics and suffers from constipation but will need constipation given history of weight loss, probably in another 1-2 days (still nauseous and does not feel like drinking prep) (2) Nausea: Code(s): R11.0 - Nausea Status: Acute Assessment and Plan: medical treatment ok to start liquid diet (3) Chronic back pain: Code(s): M54.9 - Dorsalgia, unspecified; G89.29 - Other chronic pain Status: Chronic Assessment and Plan: on pain killers (4) Abdominal pain: Qualifiers: Abdominal location: lower abdomen, unspecified Qualified Code(s): R10.30 - Lower abdominal pain, unspecified Code(s): R10.9 - Unspecified abdominal pain Status: Inactive Assessment and Plan: better (5) Constipation due to opioid therapy: Code(s): K59.03 - Drug induced constipation; T40.2X5A - Adverse effect of other opioids, initial encounter Status: Acute (6) Chronic pain syndrome: Code(s): G89.4 - Chronic pain syndrome Status: Acute GI Consult Note Consult date/time: 09/10/21 17:14 Reason for consult: constipation, possible colitis HPI: Marysol Chapman is a 75 year old female with past medical history of COPD, chronic back pain using oxycodone in daily basis, tobacco use, gastric reflux disease, generalized anxiety with chronic constipation (patient says that probably related to pain meds). She was transfered from outside hospital due to abdominal pain with nausea and more constipation then followed by diarrhea for the last week. Also had weight loss of roughly 18 lb in the last few months. CT of abdomen and pelvis reivewed and showed colonic wall edema as can be seen with infection, inflammation, and ischemia. Started on antibiotics, still with nausea. Last colonoscopy she thinks over 10 years ago. Review of Systems Review of Systems: Constipation alternating with diarrhea, weight loss Constitutional: Constitutional: Denies chills, Denies fever(s), Denies malaise, Denies weakness and Reports weight loss Eyes: Eyes: Denies change in vision ENT: Denies dysphagia, Denies vertigo, Denies dizziness and Denies odynophagia Cardiovascular: Cardiovascular: Denies chest pain, Denies syncope, Denies irregular heart rhythm, Denies lightheadedness, Denies palpitations and Denies dyspnea on exertion Respiratory: Respiratory: Denies chest congestion and Denies excessive phlegm production Gastrointestinal: Gastrointestinal: Denies abdominal pain, Denies melena, Denies coffee ground emesis, Reports constipation, Denies dyspepsia, Denies heartburn, Reports diarrhea, Reports nausea and Reports vomiting Genitourinary: Genitourinary: Denies dysuria Musculoskeletal: Musculoskeletal: Reports back pain Integumentary/Breasts: Skin/Breast: Denies rash Neurologic: Denies vertigo, Denies dizziness, Denies focal weakness and Denies Sensory deficit (Neuro) Psychiatric: Psychiatric: Reports no additional psychiatric complaints and Reports as per HPI Endocrine: Endocrine: Denies cold intolerance, Denies fatigue, Denies flushing, Denies heat intolerance, Denies polyphagia, Denies polydipsia and Denies palpitations Hematologic/Lymphatic: Hematologic/Lymphatic: Reports no additional hematologic/lymphatic complaints and Reports as per HPI Allergic/Immunologic: Allergic/Immunologic: Reports no additional allergic/immunologic complaints and Reports as per HPI PMFSH Past Medical History Medical History (Updated 09/10/21 @ 17:18 by Lopez Carrasquillo MD) Acid reflux Anxiety Chronic back pain Chronic pain syndrome Common bile duct dilatation Constipation due to opioid therapy COPD (chronic obstructive pulmonary disease) Dilated intrahepatic bile duct Encounter for
[2021-09-10] MEDS: ALPRAZolam (*CRX) 0.5 MG TABLET PO (17:16)
[2021-09-10 17:45] VITALS: BP 141/59; PULSE 64; RESP 18; TEMP 36.9; O2SAT 92
[2021-09-10 20:55] VITALS: BP 164/66; PULSE 70; RESP 18; TEMP 36.1; O2SAT 96
[2021-09-11 00:56] VITALS: BP 114/68; PULSE 72; RESP 21; TEMP 36.2; O2SAT 100
[2021-09-11] MEDS: oxyCODONE HCL (*CRX) 5 MG TAB IR 20 MG PO ×5 (02:26→19:40)
[2021-09-11] MEDS: ONDANSETRON INJ 4 MG/2 ML VIAL IV PUSH ×2 (02:26→08:16)
[2021-09-11 05:54] LABS: Basophils Absolute Auto 0.1 K/mm3 (0.0-0.1); Basophils Percent Auto 0.9 % (0.2-1.2); Eosinophils Absolute Auto 0.2 K/mm3 (0-0.3); Hematocrit 44.5 % (37.0-47.0); Hemoglobin 14.4 g/dL (12.0-15.0); Immature Granulocyte Absolute 0.01 K/mm3 (0.00-0.031); Immature Granulocyte Percent A 0.2 % (0-0.5); Lymphocytes Absolute Auto 1.52 K/mm3 (0.9-3.2); Lymphocytes Percent Auto 26.4 % (18.3-44.2); Mean Corpuscular HGB Conc 32.4 g/dl (32-36); Mean Corpuscular Hemoglobin 30.8 pg (26-34); Mean Corpuscular Volume 95.1 fl (80-100); Monocytes Absolute Auto 0.7 K/mm3 (0.1-0.6); Monocytes Percent Auto 12.5 % (2.6-8.5); Neutrophils Absolute Auto 3.3 K/mm3 (1.3-6.7); Platelet Count Result 180 k/mm3 (150-375); Red Blood Count 4.68 M/mm3 (4.2-5.4); Red Cell Distribution Width 14.3 % (11.5-14.5); White Blood Count 5.8 K/mm3 (4.5-10.0)
[2021-09-11] MEDS: metroNIDAZOLE 500 MG/ISO 100ML 500 MG/100 ML BAG 100 MG IVPB ×3 (06:00→21:19)
[2021-09-11 06:14] LABS: Alanine Aminotransferase 9 U/L (6-35); Albumin Level 3.4 g/dL (3.5-5.1); Alkaline Phosphatase 63 U/L (38-126); Anion Gap 4 mmol/L (8-16); Aspartate Amino Transferase 23 U/L (14-36); Bilirubin,Total 0.9 mg/dL (0.2-1.3); Blood Urea Nitrogen 8 mg/dL (7-17); Calcium 8.2 mg/dL (8.4-10.2); Carbon Dioxide 36 mmol/L (22-30); Chloride 95 mmol/L (98-107); Estimated CRCL calculation 36 ml/min; Estimated Glomerular Filt Rate 54; Glucose 95 mg/dL (65-110); Magnesium 1.6 mg/dL (1.6-2.3); Potassium 4.2 mmol/L (3.4-5.0); Sodium 135 mmol/L (137-145)
[2021-09-11 06:48] VITALS: BP 152/66; PULSE 74; RESP 16; TEMP 36.9; O2SAT 94
[2021-09-11] MEDS: ALPRAZolam (*CRX) 0.5 MG TABLET PO (08:23)
[2021-09-11] MEDS: ENOXAPARIN 40 MG/0.4 ML SYRINGE SUB-Q (08:23)
[2021-09-11] MEDS: SERTRALINE HCL 25 MG TABLET BY MOUTH (08:24)
[2021-09-11] MEDS: guaiFENesin 12 HR 600 MG TABCR PO ×2 (08:24→16:18)
[2021-09-11] MEDS: LORATADINE 10 MG TABLET PO (08:24)
[2021-09-11] MEDS: PANTOPRAZOLE 40 MG TABLET PO ×2 (08:24→21:19)
[2021-09-11 10:00] VITALS: BP 128/60; PULSE 79; RESP 18; TEMP 36.6; O2SAT 94
--- NOTE | 2021-09-11 12:07 | PM.IMPN ---
Progress Note: A&P Assessment and Plan (1) Colitis: Code(s): K52.9 - Noninfective gastroenteritis and colitis, unspecified Status: Inactive Assessment and Plan: - Continue Flagyl and levofloxacin - Follow GI recommendations. - Continue gentle IV hydration with NS at 65 ml/hr. Pt. appears euvolemic. - Continue PPI therapy with Protonix. - Pain medications and Anti-emetics are ordered prn - Continue clear liquid diet. (2) Chronic back pain: Code(s): M54.9 - Dorsalgia, unspecified; G89.29 - Other chronic pain Status: Chronic Assessment and Plan: - Pt. has prn pain medications ordered for her as needed. (3) Tobacco abuse: Code(s): Z72.0 - Tobacco use Status: Chronic Assessment and Plan: - nicotine patch as needed (4) COPD (chronic obstructive pulmonary disease): Code(s): J44.9 - Chronic obstructive pulmonary disease, unspecified Status: Chronic Assessment and Plan: - appears to be compensated - continue home meds (5) Acid reflux: Code(s): K21.9 - Gastro-esophageal reflux disease without esophagitis Status: Acute Assessment and Plan: - continue PPI Time Spent With Patient Time with patient: 15 - 25 minutes Subjective Date/time seen: 09/11/21 0900 This pt. was examined at the bedside today in interval assessment. She was evaluated by GI last evening and is not wanting to do a colonoscopy right now secondary to having continued nausea. Per GI note, possibly over the next couple of days. She was started on clear liquid diet and has tolerated it without any vomiting thus far. She has had no further diarrhea either. She remains on IV abx at this time for her acute colitis. She has no CP, dyspnea, vomiting, diarrhea, urinary complaints, headache or dizziness. VSS and Labs unremarkable today. She reports that her pain is improved. Awaiting further direction per GI. Exam Narrative: Appears acutely ill. Const: General: comfortable and no acute distress HENMT: General nose exam: Normal nares present and no epistaxis Mouth: Yes moist mucous membranes Eyes: General: appearance normal, both eyes and all related structures Sclera: sclerae normal Pupils: Equal, round and reactive pupils present EOM: EOMs intact bilaterally Neck: Neck: supple and no JVD Thyroid: thyroid normal Carotids: no bruits Lymphatic: lymphadenopathy not noted Resp: Effort & Inspection: normal respiratory effort Auscultation: clear to auscultation bilaterally Cardio: Rate: regular rate Rhythm: regular rhythm Heart sounds: no gallops, no murmurs and no rubs GI: Inspection: non-distended GI Palp: Yes Soft to palpation, Yes Tenderness to palpation present (GI) (Mildly tender to deep palpation in the left lower quad.) and No Guarding due to palpation present (GI) Auscultation: normal bowel sounds Skin: General skin exam: normal color and no rashes or lesions noted Neuro: General: gait normal Speech: normal speech Motor exam (neuro): 5/5 motor strength present throughout and Normal motor muscle tone present throughout Sensory Exam: normal sensation Extrem: General: normal to inspection, no edema and no pedal edema Other: Freely and equally MAEW and without deficits. Psych: Mental Status: mental status grossly normal Affect: normal affect Objective Data Vital Signs Vital Signs: Vital Signs - 24 hr 09/10/21 14:25 09/10/21 17:45 09/10/21 20:00 Temperature 98.9 F 98.4 F Pulse Rate 75 64 Respiratory Rate 20 18 Blood Pressure 162/82 H 141/59 H Pulse Oximetry 96 92 Oxygen Delivery Room Air 09/10/21 20:55 09/11/21 00:56 09/11/21 06:48 Temperature 97.0 F L 97.2 F L 98.5 F Pulse Rate 70 72 74 Respiratory Rate 18 21 H 16 Blood Pressure 164/66 H 114/68 152/66 H Pulse Oximetry 96 100 94 Oxygen Delivery 09/11/21 08:30 09/11/21 10:00 Temperature 97.9 F Pulse Rate 79 Respiratory Rate 18 Blood Pressure 128/60 Pulse Oxi
[2021-09-11] MEDS: traMADol HCL (*CRX) 50 MG TABLET PO ×2 (13:25→21:20)
[2021-09-11] MEDS: DEXTROSE 5%/0.45% SOD CHL 1,000 ML 65 ML IV CONT (13:25)
[2021-09-11 13:52] VITALS: BP 123/61; PULSE 71; RESP 20; TEMP 36.6; O2SAT 94
--- NOTE | 2021-09-11 16:04 | WPDGIPROGNO ---
Progress Note: A&P Assessment and Plan (1) Colitis: Code(s): K52.9 - Noninfective gastroenteritis and colitis, unspecified Status: Inactive Assessment and Plan: clinically better she prefers to have colonoscopy as outpatient will advance diet (2) Constipation due to opioid therapy: Code(s): K59.03 - Drug induced constipation; T40.2X5A - Adverse effect of other opioids, initial encounter Status: Acute (3) Nausea: Code(s): R11.0 - Nausea Status: Acute Assessment and Plan: improved (4) Chronic pain syndrome: Code(s): G89.4 - Chronic pain syndrome Status: Acute Assessment and Plan: on narcotics at home Subjective Date/time seen: 09/11/21 16:04 Interval history: less pain and feeling better Review of Systems Review of Systems: All systems reviewed & are unremarkable except as noted in HPI and below Exam Const: General: comfortable and no acute distress HENMT: General nose exam: Normal nares present Eyes: General: appearance normal, both eyes and all related structures Neck: Neck: no JVD Resp: Auscultation: clear to auscultation bilaterally Cardio: Rate: regular rate Rhythm: regular rhythm GI: Inspection: non-distended GI Palp: Yes Soft to palpation Skin: General skin exam: normal color Neuro: General: gait normal Speech: normal speech Extrem: General: normal to inspection Psych: Mental Status: mental status grossly normal Objective Data Vital Signs Vital Signs: Vital Signs - 24 hr 09/10/21 17:45 09/10/21 20:00 09/10/21 20:55 Temperature 98.4 F 97.0 F L Pulse Rate 64 70 Respiratory Rate 18 18 Blood Pressure 141/59 H 164/66 H Pulse Oximetry 92 96 Oxygen Delivery Room Air 09/11/21 00:56 09/11/21 06:48 09/11/21 08:30 Temperature 97.2 F L 98.5 F Pulse Rate 72 74 Respiratory Rate 21 H 16 Blood Pressure 114/68 152/66 H Pulse Oximetry 100 94 Oxygen Delivery Room Air 09/11/21 10:00 09/11/21 13:52 Temperature 97.9 F 97.8 F Pulse Rate 79 71 Respiratory Rate 18 20 Blood Pressure 128/60 123/61 Pulse Oximetry 94 94 Oxygen Delivery Intake/Output Intake/Output: Intake & Output 07/3009/09/21 09/10/21 09/11/21 23:59 23:59 23:59 23:59 Intake Total 1450 1680 Output Total 1500 1200 Balance -50 480 Meds/Results Medications: Active Medications Generic Name Dose Route Start Last Admin Trade Name Freq PRN Reason Stop Dose Admin Hydrocodone Bitart/Acetaminophen 1 tab 09/10/21 03:59 Hydrocodone/Acetaminophen (*Crx) 10-325 Mg Tablet PO Q4-6H PRN Pain (Scale Score 4-6) Albuterol 2 puff 09/10/21 04:00 Albuterol Sulfate (*Sp) Aerosol 1 Puff INHALATION Q4-6H PRN Shortness Of Breath Alprazolam 0.5 mg 09/10/21 17:06 09/11/21 08:23 Alprazolam (*Crx) 0.5 Mg Tablet PO 0.5 mg DAILY SCOTTY Administration Enoxaparin Sodium 40 mg 09/10/21 09:00 09/11/21 08:23 Enoxaparin 40 Mg/0.4 Ml Syringe SUB-Q 40 mg DAILY SCOTTY Administration Guaifenesin 600 mg 09/10/21 17:00 09/11/21 08:24 Guaifenesin 12 Hr 600 Mg Tabcr PO 600 mg BID SCOTTY Administration Dextrose/Sodium Chloride 1,000 mls @ 65 mls/hr 09/10/21 01:45 09/11/21 13:25 Dextrose 5% Sodium Chloride 0.45% IV CONT 65 mls/hr .[id number] SCOTTY Administration Metronidazole 500 mg in 100 mls @ 100 mls/hr 09/10/21 06:00 09/11/21 14:30 Flagyl 500 Mg/Iso Soln 100 Ml IVPB Infused Q8HR SCOTTY Infusion Levofloxacin/Dextrose 750 mg in 150 mls @ 100 mls/hr 09/12/21 06:00 Levaquin 750 Mg/D5w 150 Ml IVPB Q48H SCOTTY Loratadine 10 mg 09/10/21 09:00 09/11/21 08:24 Loratadine 10 Mg Tablet PO 10/10/21 08:59 10 mg DAILY SCOTTY Administration Naloxone HCl 0.1 mg 09/10/21 01:45 Naloxone Hcl 0.4 Mg/Ml Vial IV PUSH Q2M PRN Opiate Reversal Ondansetron HCl 4 mg 09/10/21 01:45 09/11/21 08:16 Ondansetron Inj 4 Mg/2 Ml Vial IV PUSH 4 mg Q6H PRN
[2021-09-11 20:47] VITALS: BP 145/67; PULSE 68; RESP 18; TEMP 36.6; O2SAT 95
[2021-09-12] MEDS: oxyCODONE HCL (*CRX) 5 MG TAB IR 20 MG PO ×5 (00:48→22:04)
[2021-09-12] MEDS: traMADol HCL (*CRX) 50 MG TABLET PO ×2 (04:10→14:16)
[2021-09-12] MEDS: DEXTROSE 5%/0.45% SOD CHL 1,000 ML 65 ML IV CONT (05:30)
[2021-09-12] MEDS: metroNIDAZOLE 500 MG/ISO 100ML 500 MG/100 ML BAG 100 MG IVPB ×3 (05:30→22:03)
[2021-09-12 06:04] LABS: Basophils Percent Auto 0.6 % (0.2-1.2); Eosinophils Absolute Auto 0.3 K/mm3 (0-0.3); Eosinophils Percent Auto 5.7 % (0-4.4); Hematocrit 47.1 % (37.0-47.0); Hemoglobin 14.8 g/dL (12.0-15.0); Immature Granulocyte Absolute 0.03 K/mm3 (0.00-0.031); Immature Granulocyte Percent A 0.6 % (0-0.5); Immature Platelet Fraction Pct 3.8 % (0.9-11.2); Lymphocytes Absolute Auto 1.22 K/mm3 (0.9-3.2); Lymphocytes Percent Auto 23.9 % (18.3-44.2); Mean Corpuscular HGB Conc 31.4 g/dl (32-36); Mean Corpuscular Volume 98.7 fl (80-100); Mean Platelet Volume 10.3 fl (7.4-10.4); Monocytes Absolute Auto 0.6 K/mm3 (0.1-0.6); Monocytes Percent Auto 11.4 % (2.6-8.5); Neutrophils Percent Auto 57.8 % (45.5-73.1); Platelet Count Result 143 k/mm3 (150-375); Red Blood Count 4.77 M/mm3 (4.2-5.4); Red Cell Distribution Width 14.3 % (11.5-14.5); White Blood Count 5.1 K/mm3 (4.5-10.0)
[2021-09-12 06:21] LABS: Alanine Aminotransferase 10 U/L (6-35); Albumin Level 3.2 g/dL (3.5-5.1); Alkaline Phosphatase 56 U/L (38-126); Anion Gap 5 mmol/L (8-16); Aspartate Amino Transferase 21 U/L (14-36); Bilirubin,Total 0.9 mg/dL (0.2-1.3); Blood Urea Nitrogen 8 mg/dL (7-17); Calcium 7.7 mg/dL (8.4-10.2); Carbon Dioxide 31 mmol/L (22-30); Chloride 97 mmol/L (98-107); Estimated CRCL calculation 39 ml/min; Estimated Glomerular Filt Rate > 60; Glucose 105 mg/dL (65-110); Magnesium 1.4 mg/dL (1.6-2.3); Potassium 3.3 mmol/L (3.4-5.0); Sodium 133 mmol/L (137-145)
[2021-09-12 06:43] VITALS: BP 152/69; PULSE 67; RESP 18; TEMP 36.6; O2SAT 95
[2021-09-12] MEDS: ONDANSETRON INJ 4 MG/2 ML VIAL IV PUSH ×2 (08:01→19:01)
[2021-09-12] MEDS: SERTRALINE HCL 25 MG TABLET BY MOUTH (08:02)
[2021-09-12] MEDS: ENOXAPARIN 40 MG/0.4 ML SYRINGE SUB-Q (08:02)
[2021-09-12] MEDS: PANTOPRAZOLE 40 MG TABLET PO ×2 (08:02→20:43)
[2021-09-12] MEDS: guaiFENesin 12 HR 600 MG TABCR PO ×2 (08:02→17:26)
[2021-09-12] MEDS: ALPRAZolam (*CRX) 0.5 MG TABLET PO (08:03)
--- NOTE | 2021-09-12 11:15 | PM.IMPN ---
Progress Note: A&P Assessment and Plan (1) Colitis: Code(s): K52.9 - Noninfective gastroenteritis and colitis, unspecified Status: Inactive Assessment and Plan: - Continue Flagyl and levofloxacin - Pt. has changed her mind and would like to have colonoscopy performed while she is here. Dr. Greene was notified and he will be placing orders for prep. - Continue IV hydration with NS at 65 ml/hr. Pt. appears euvolemic. - NPO after MN. - Continue PPI therapy with Protonix. - Pain medications and Anti-emetics are ordered prn (2) Chronic back pain: Code(s): M54.9 - Dorsalgia, unspecified; G89.29 - Other chronic pain Status: Chronic Assessment and Plan: - Pt. has prn pain medications ordered for her as needed. (3) Tobacco abuse: Code(s): Z72.0 - Tobacco use Status: Chronic Assessment and Plan: - nicotine patch as needed (4) COPD (chronic obstructive pulmonary disease): Code(s): J44.9 - Chronic obstructive pulmonary disease, unspecified Status: Chronic Assessment and Plan: - appears to be compensated - continue home meds (5) Acid reflux: Code(s): K21.9 - Gastro-esophageal reflux disease without esophagitis Status: Acute Assessment and Plan: - continue PPI Time Spent With Patient Time with patient: 15 - 25 minutes Subjective Date/time seen: 09/12/21 0730 This patient was examined at the bedside today in interval assessment. She reports that she had a change of heart overnight and after speaking with her children she would like to have her colonoscopy while she is here. She reports her pain is improved and she has no further pain at this time. She was able to eat a low fiber diet this morning without difficulty. I called and spoke with Dr. Greene and advised him that the pt. wants to proceed with the scope while she is here and he agrees. He will place orders for the prep. Pt. has no other complaints today such as new pain, Dyspnea, N/V, but reports that she did have a very loose diarrhea like stool this AM. Review of Systems Review of Systems: All systems reviewed & are unremarkable except as noted in HPI and below Exam Narrative: Appears acutely ill. Const: General: comfortable, no acute distress and uncomfortable (Secondary to back pain.) Other: Pt. is lying on her left side in bed and appears to be comfortable today. HENMT: Ears: TM's normal bilaterally and TMs normal General nose exam: Normal nares present and no epistaxis Mouth: Yes moist mucous membranes Eyes: General: appearance normal, both eyes and all related structures Sclera: sclerae normal and normal sclerae Pupils: Equal, round and reactive pupils present EOM: EOMs intact bilaterally Neck: Neck: supple and no JVD Thyroid: thyroid normal Carotids: no bruits Lymphatic: lymphadenopathy not noted Resp: Effort & Inspection: normal respiratory effort Auscultation: clear to auscultation bilaterally Cardio: Rate: regular rate Rhythm: regular rhythm Heart sounds: no gallops, no murmurs and no rubs GI: Inspection: non-distended Auscultation: normal bowel sounds Skin: General skin exam: normal color, no rashes or lesions noted and no erythema Lesions: no lesions noted Rashes: no rashes noted Wounds: no wounds Neuro: General: gait normal Cranial nerves: Yes Equal, round and reactive pupils present Speech: normal speech Motor exam (neuro): 5/5 motor strength present throughout and Normal motor muscle tone present throughout Sensory Exam: normal sensation Extrem: General: normal to inspection, no edema and no pedal edema Other: Freely and equally MAEW and without deficits. Psych: Mental Status: mental status grossly normal Affect: normal affect Objective Data Vital Signs Vital Signs: Vital Signs - 24 hr 09/11/21 13:52 09/11/21 20:00 09/11/21 20:47 Temperature 97.8 F 97.9 F Pulse Rate 71 68 Respiratory Rate 20 18 Blood
--- NOTE | 2021-09-12 11:46 | WPDGIPROGNO ---
Progress Note: A&P Assessment and Plan (1) Colitis: Code(s): K52.9 - Noninfective gastroenteritis and colitis, unspecified Status: Inactive Assessment and Plan: clinically better colonoscopy tomorrow on antibiotics (2) Constipation due to opioid therapy: Code(s): K59.03 - Drug induced constipation; T40.2X5A - Adverse effect of other opioids, initial encounter Status: Acute (3) Nausea: Code(s): R11.0 - Nausea Status: Acute Assessment and Plan: improved antiemetics prn (4) Chronic pain syndrome: Code(s): G89.4 - Chronic pain syndrome Status: Acute Assessment and Plan: on narcotics at home Subjective Date/time seen: 09/12/21 11:46 Interval history: had loose stool, still some nausea. She finally is ok to have colonoscopy tomorrow after she talked to her family Review of Systems Review of Systems: All systems reviewed & are unremarkable except as noted in HPI and below Exam Const: General: comfortable and no acute distress HENMT: General nose exam: Normal nares present Eyes: General: appearance normal, both eyes and all related structures Neck: Neck: no JVD Resp: Auscultation: clear to auscultation bilaterally Cardio: Rate: regular rate Rhythm: regular rhythm GI: Inspection: non-distended GI Palp: Yes Soft to palpation Skin: General skin exam: normal color Neuro: General: gait normal Speech: normal speech Extrem: General: normal to inspection Psych: Mental Status: mental status grossly normal Objective Data Vital Signs Vital Signs: Vital Signs - 24 hr 09/11/21 13:52 09/11/21 20:00 09/11/21 20:47 Temperature 97.8 F 97.9 F Pulse Rate 71 68 Respiratory Rate 20 18 Blood Pressure 123/61 145/67 H Pulse Oximetry 94 95 Oxygen Delivery Room Air 09/12/21 06:43 09/12/21 08:00 Temperature 97.9 F Pulse Rate 67 Respiratory Rate 18 Blood Pressure 152/69 H Pulse Oximetry 95 Oxygen Delivery Room Air Intake/Output Intake/Output: Intake & Output 09/09/21 09/10/21 09/11/21 09/12/21 23:59 23:59 23:59 23:59 Intake Total 1450 2460 1990 Output Total 1500 1600 900 Balance -50 860 1090 Meds/Results Medications: Active Medications Generic Name Dose Route Start Last Admin Trade Name Freq PRN Reason Stop Dose Admin Hydrocodone Bitart/Acetaminophen 1 tab 09/10/21 03:59 Hydrocodone/Acetaminophen (*Crx) 10-325 Mg Tablet PO Q4-6H PRN Pain (Scale Score 4-6) Albuterol 2 puff 09/10/21 04:00 Albuterol Sulfate (*Sp) Aerosol 1 Puff INHALATION Q4-6H PRN Shortness Of Breath Alprazolam 0.5 mg 09/10/21 17:06 09/12/21 08:03 Alprazolam (*Crx) 0.5 Mg Tablet PO 0.5 mg DAILY SCOTTY Administration Guaifenesin 600 mg 09/10/21 17:00 09/12/21 08:02 Guaifenesin 12 Hr 600 Mg Tabcr PO 600 mg BID SCOTTY Administration Dextrose/Sodium Chloride 1,000 mls @ 65 mls/hr 09/10/21 01:45 09/12/21 05:30 Dextrose 5% Sodium Chloride 0.45% IV CONT 65 mls/hr .[id number] SCOTTY Administration Metronidazole 500 mg in 100 mls @ 100 mls/hr 09/10/21 06:00 09/12/21 06:44 Flagyl 500 Mg/Iso Soln 100 Ml IVPB Infused Q8HR SCOTTY Infusion Levofloxacin/Dextrose 750 mg in 150 mls @ 100 mls/hr 09/12/21 06:00 09/12/21 08:10 Levaquin 750 Mg/D5w 150 Ml IVPB Infused Q48H SCOTTY Infusion Loratadine 10 mg 09/10/21 09:00 09/12/21 08:04 Loratadine 10 Mg Tablet PO 10/10/21 08:59 Not Given DAILY SCOTTY Naloxone HCl 0.1 mg 09/10/21 01:45 Naloxone Hcl 0.4 Mg/Ml Vial IV PUSH Q2M PRN Opiate Reversal Ondansetron HCl 4 mg 09/10/21 01:45 09/12/21 08:01 Ondansetron Inj 4 Mg/2 Ml Vial IV PUSH 4 mg Q6H PRN Administration Nausea And Vomiting Oxycodone HCl 20 mg 09/10/21 03:59 09/12/21 11:43 Oxycodone Hcl (*Crx) 5 Mg Tab Ir PO 20 mg Q4H PRN Administration Pain (Scale Score 7-10) Pantoprazole Sodium 40 mg 09/10/21 09:00 09/12/21 08:0
[2021-09-12 14:12] VITALS: BP 113/88; PULSE 82; RESP 18; TEMP 36.8; O2SAT 95
[2021-09-12] MEDS: polyethylene glycoL 3350 238 GM BOTTLE PO (17:28)
[2021-09-12] MEDS: BISACODYL 5 MG TABLET EC 20 MG PO (17:28)
[2021-09-12 22:00] VITALS: BP 135/59; PULSE 72; RESP 16; TEMP 36.7; O2SAT 96
[2021-09-13] VITALS (8 sets, daily range): BP systolic 122–159; BP diastolic 52–73; PULSE 57–80; RESP 15–19; TEMP 36.6–36.9; O2SAT 93–98
[2021-09-13] MEDS: oxyCODONE HCL (*CRX) 5 MG TAB IR 20 MG PO ×5 (02:06→20:13)
[2021-09-13] MEDS: DEXTROSE 5%/0.45% SOD CHL 1,000 ML 65 ML IV CONT ×2 (04:43→23:24)
[2021-09-13 05:32] LABS: Basophils Percent Auto 0.6 % (0.2-1.2); Eosinophils Absolute Auto 0.2 K/mm3 (0-0.3); Eosinophils Percent Auto 3.3 % (0-4.4); Hematocrit 44.6 % (37.0-47.0); Hemoglobin 13.9 g/dL (12.0-15.0); Immature Granulocyte Absolute 0.03 K/mm3 (0.00-0.031); Immature Granulocyte Percent A 0.6 % (0-0.5); Lymphocytes Absolute Auto 1.38 K/mm3 (0.9-3.2); Lymphocytes Percent Auto 25.6 % (18.3-44.2); Mean Corpuscular HGB Conc 31.2 g/dl (32-36); Mean Corpuscular Hemoglobin 31.7 pg (26-34); Mean Corpuscular Volume 101.6 fl (80-100); Mean Platelet Volume 9.9 fl (7.4-10.4); Monocytes Absolute Auto 0.7 K/mm3 (0.1-0.6); Monocytes Percent Auto 12.6 % (2.6-8.5); Neutrophils Absolute Auto 3.1 K/mm3 (1.3-6.7); Neutrophils Percent Auto 57.3 % (45.5-73.1); Platelet Count Result 154 k/mm3 (150-375); Red Blood Count 4.39 M/mm3 (4.2-5.4); Red Cell Distribution Width 14.3 % (11.5-14.5); White Blood Count 5.4 K/mm3 (4.5-10.0)
[2021-09-13 05:44] LABS: Alanine Aminotransferase 11 U/L (6-35); Albumin Level 3.1 g/dL (3.5-5.1); Alkaline Phosphatase 54 U/L (38-126); Anion Gap 4 mmol/L (8-16); Aspartate Amino Transferase 19 U/L (14-36); Bilirubin,Total 0.7 mg/dL (0.2-1.3); Blood Urea Nitrogen 6 mg/dL (7-17); Calcium 7.8 mg/dL (8.4-10.2); Carbon Dioxide 33 mmol/L (22-30); Chloride 99 mmol/L (98-107); Estimated CRCL calculation 39 ml/min; Estimated Glomerular Filt Rate > 60; Glucose 111 mg/dL (65-110); Magnesium 1.4 mg/dL (1.6-2.3); Potassium 3.2 mmol/L (3.4-5.0); Sodium 136 mmol/L (137-145)
[2021-09-13] MEDS: metroNIDAZOLE 500 MG/ISO 100ML 500 MG/100 ML BAG 100 MG IVPB (06:33)
--- NOTE | 2021-09-13 07:57 | WPDANESEPPF ---
Anes - Initial Pre Proc Eval Procedure: Operation Date: 09/13/21 12:30 Proposed Procedures p Colonoscopy - Lopez Carrasquillo MD Date/Time: 09/13/21 07:57 Surgeon: PAYTON Baez Pre Op Diagnosis: Colitis Patient Data Age: 75 Gender: F Height: 1.6 m Weight: 56.5 kg Last Vital Signs Temp 36.9 C 09/13/21 06:00 Pulse 80 09/13/21 06:00 Resp 18 09/13/21 06:00 BP 147/72 H 09/13/21 06:00 Pulse Ox 94 09/13/21 06:00 O2 Del Method Room Air 09/12/21 08:00 Allergies Allergy/AdvReac Type Severity Reaction Status Date / Time No Known Allergies Allergy Verified 09/13/21 15:17 Home Medications Medication Instructions Recorded Confirmed Type albuterol sulfate 90 mcg/actuation 90 mcg inhalation DIRECTED 12/20/19 09/10/21 History aerosol inhaler ondansetron HCl 4 mg tablet 4 mg PO TID PRN Nausea 11/08/20 09/10/21 History sertraline 25 mg tablet 25 mg DAILY 04/20/21 09/10/21 History tramadol 50 mg tablet 50 mg PO Q4-6H PRN Back Pain #30 04/21/21 09/10/21 Rx tabs alprazolam 0.5 mg tablet 0.5 mg PO DAILY 09/10/21 09/10/21 History guaifenesin 600 mg tablet, 600 mg PO BID 09/10/21 09/10/21 History extended release 12 hr (Mucinex) oxycodone 20 mg tablet 20 mg PO Q4H PRN Pain (Scale Score 09/10/21 09/10/21 History 7-10) pantoprazole 40 mg tablet,delayed 40 mg PO Q12HR 14 days #28 tabs 09/14/21 Rx release Laboratory Tests 09/13/21 09/13/21 05:15 05:15 WBC 5.4 K/mm3 K/mm3 (4.5-10.0) RBC 4.39 M/mm3 M/mm3 (4.2-5.4) Hgb 13.9 g/dL g/dL (12.0-15.0) Hct 44.6 % % (37.0-47.0) MCV 101.6 fl H fl (80-100) MCH 31.7 pg pg (26-34) MCHC 31.2 g/dl L g/dl (32-36) RDW 14.3 % % (11.5-14.5) Plt Count 154 k/mm3 k/mm3 (150-375) MPV 9.9 fl fl (7.4-10.4) Immature Gran % (Auto) 0.6 % H % (0-0.5) Neut % (Auto) 57.3 % % (45.5-73.1) Lymph % (Auto) 25.6 % % (18.3-44.2) [place] % (Auto) 12.6 % H % (2.6-8.5) Eos % (Auto) 3.3 % % (0-4.4) Baso % (Auto) 0.6 % % (0.2-1.2) Lymph # (Auto) 1.38 K/mm3 K/mm3 (0.9-3.2) [place] # (Auto) 0.7 K/mm3 H K/mm3 (0.1-0.6) Eos # (Auto) 0.2 K/mm3 K/mm3 (0-0.3) Baso # (Auto) 0.0 K/mm3 K/mm3 (0.0-0.1) Abs Immat Gran (auto) 0.03 K/mm3 K/mm3 (0.00-0.031) Absolute Neuts (auto) 3.1 K/mm3 K/mm3 (1.3-6.7) Absolute Nucleated RBC 0.0 K/mm3 K/mm3 (0.0-0.012) Nucleated RBC % 0.0 % % (0.0-0.2) Sodium 136 mmol/L L mmol/L (137-145) Potassium 3.2 mmol/L L mmol/L (3.4-5.0) Chloride 99 mmol/L mmol/L (98-107) Carbon Dioxide 33 mmol/L H mmol/L (22-30) Anion Gap 4 mmol/L L mmol/L (8-16) BUN 6 mg/dL L mg/dL (7-17) Creatinine 0.90 mg/dL mg/dL (0.7-1.0) Estim Creat Clear Calc 39 ml/min ml/min Estimated GFR > 60 (59 - ) Glucose 111 mg/dL H mg/dL (65-110) Calcium 7.8 mg/dL L mg/dL (8.4-10.2) Magnesium 1.4 mg/dL L mg/dL (1.6-2.3) Total Bilirubin 0.7 mg/dL mg/dL (0.2-1.3) AST 19 U/L U/L (14-36) ALT 11 U/L U/L (6-35) Alkaline Phosphatase 54 U/L U/L (38-126) Total Protein 5.0 g/dL L g/dL (6.3-8.2) Albumin 3.1 g/dL L g/dL (3.5-5.1) Patient hx anesthesia problems: none Family hx anesthesia problems: none Results Review: All pre-operative results and documents have been reviewed as part of the pre-operative evaluation. [facility] Past Medical History Medical History Acid reflux Anxiety Chronic back pain Chronic pain syndrome Common bile duct dilatation Constipation due to opioid therapy COPD (chronic obstructive pulmonary disease) Dilated intrahepatic bile duct Encounter for screening colonoscopy Nausea Peptic ulcer disease Tobacco abuse Surgical Hi
[2021-09-13] MEDS: LORATADINE 10 MG TABLET PO (08:14)
[2021-09-13] MEDS: ALPRAZolam (*CRX) 0.5 MG TABLET PO (08:14)
[2021-09-13] MEDS: SERTRALINE HCL 25 MG TABLET BY MOUTH (08:14)
[2021-09-13] MEDS: guaiFENesin 12 HR 600 MG TABCR PO ×2 (08:14→16:19)
[2021-09-13] MEDS: PANTOPRAZOLE 40 MG TABLET PO ×2 (08:14→20:14)
--- NOTE | 2021-09-13 08:56 | PM.IMPN ---
Progress Note: A&P Assessment and Plan (1) Colitis: Code(s): K52.9 - Noninfective gastroenteritis and colitis, unspecified Status: Inactive Assessment and Plan: - Continue Flagyl and levofloxacin, today is Day #4. - Colonoscopy ordered to be performed today. - Continue IV hydration with LR at 150 ml/hr - NPO - Continue PPI therapy with Protonix. - Pain medications and Anti-emetics are ordered prn (2) Chronic back pain: Code(s): M54.9 - Dorsalgia, unspecified; G89.29 - Other chronic pain Status: Chronic Assessment and Plan: - Pt. has prn pain medications ordered for her as needed. (3) Tobacco abuse: Code(s): Z72.0 - Tobacco use Status: Chronic Assessment and Plan: - nicotine patch as needed (4) COPD (chronic obstructive pulmonary disease): Code(s): J44.9 - Chronic obstructive pulmonary disease, unspecified Status: Chronic Assessment and Plan: - appears to be compensated - continue home meds (5) Acid reflux: Code(s): K21.9 - Gastro-esophageal reflux disease without esophagitis Status: Acute Assessment and Plan: - continue PPI Subjective Date/time seen: 09/13/21 0745 This pt. was examined at the bedside today in interval assessment. She had a bowel prep last evening for her upcoming colonoscopy today. She denies any acute abdominal pain, and states her nausea has been well controlled. She has no CP, dyspnea, urinary complaints, headache, dizziness or lightheadedness to report. Colonoscopy is scheduled for noon today. Review of Systems Review of Systems: All systems reviewed & are unremarkable except as noted in HPI and below Exam Narrative: Appears acutely ill. Const: General: comfortable, no acute distress and uncomfortable (Secondary to back pain.) Other: Pt. is lying on her left side in bed and appears to be comfortable today. HENMT: Ears: TM's normal bilaterally and TMs normal General nose exam: Normal nares present and no epistaxis Mouth: Yes moist mucous membranes Eyes: General: appearance normal, both eyes and all related structures Sclera: sclerae normal and normal sclerae Pupils: Equal, round and reactive pupils present EOM: EOMs intact bilaterally Neck: Neck: supple and no JVD Thyroid: thyroid normal Carotids: no bruits Lymphatic: lymphadenopathy not noted Resp: Effort & Inspection: normal respiratory effort Auscultation: clear to auscultation bilaterally Cardio: Rate: regular rate Rhythm: regular rhythm Heart sounds: no gallops, no murmurs and no rubs GI: Inspection: non-distended Auscultation: normal bowel sounds Skin: General skin exam: normal color, no rashes or lesions noted and no erythema Lesions: no lesions noted Rashes: no rashes noted Wounds: no wounds Neuro: General: gait normal Cranial nerves: Yes Equal, round and reactive pupils present Speech: normal speech Motor exam (neuro): 5/5 motor strength present throughout and Normal motor muscle tone present throughout Sensory Exam: normal sensation Extrem: General: normal to inspection, no edema and no pedal edema Other: Freely and equally MAEW and without deficits. Psych: Mental Status: mental status grossly normal Affect: normal affect Objective Data Vital Signs Vital Signs: Vital Signs - 24 hr 09/12/21 14:12 09/12/21 22:00 09/13/21 06:00 Temperature 98.2 F 98.0 F 98.4 F Pulse Rate 82 72 80 Respiratory Rate 18 16 18 Blood Pressure 113/88 135/59 L 147/72 H Pulse Oximetry 95 96 94 Intake/Output Intake/Output: Intake & Output 09/10/21 09/11/21 09/12/21 09/13/21 23:59 23:59 23:59 23:59 Intake Total 1450 2460 4280 100 Output Total 1500 1600 2500 Balance -50 860 1780 100 Meds/Results Medications: Active Medications Generic Name Dose Route Start Last Admin Trade Name Freq PRN Reason Stop Dose Admin Hydrocodone Bitart/Acetaminophen 1 tab 09/10/21 03:59 Hydrocodone/Acetaminophen
--- NOTE | 2021-09-13 10:33 | PCNFU ---
Nutrition Follow-Up Complete: Altered GI function as related to colitis as related to NPO goal; Meet estimated nutritional needs Patient is progressing towards goal. We will continue current goal. Pt current nutrition is NPO. Last recorded weight is 56.5 kg, stable Bowel Motility: +Bm reported 09/13 Labs Reviewed:Mg 1.4, Alb 3.1,Na 136,K 3.2 Meds Noted:Zoloft, Protonix, Xanax, Mucinex, Flagyl. Skin: WNL Additional Notes:Patient seen today for nutrition follow up. Patient is currently NPO for colonoscopy today. Previous diet low fiber, tolerating diet. Patient is interested in trying diet supplement of ensure compact BID when diet order advanced. Patient has reported weight loss on admit. Agree with diet orders. Monitoring: Will monitor every 5 days.
--- NOTE | 2021-09-13 12:02 | PC.NURSE ---
To GI Lab per wheelchair, IV RFA. Report given to Sia.
[2021-09-13] MEDS: LACTATED RINGERS 1,000 ML 150 ML IV CONT (12:10)
--- NOTE | 2021-09-13 12:56 | WPDANESEPP ---
Anes - Eval Pre Procedure Procedure: Operation Date: 09/13/21 12:30 Proposed Procedures p Colonoscopy - Lopez Carrasquillo MD Date/Time: 09/13/21 12:56 Surgeon: Jc Pre Op Diagnosis: Colitis Patient Data Age: 75 Gender: F Height: 1.6 m Weight: 56.5 kg Last Vital Signs Temp 36.8 C 09/13/21 12:06 Pulse 74 09/13/21 12:06 Resp 18 09/13/21 12:06 BP 154/72 H 09/13/21 12:06 Pulse Ox 94 09/13/21 12:06 O2 Del Method Room Air 09/13/21 12:06 Allergies Allergy/AdvReac Type Severity Reaction Status Date / Time No Known Allergies Allergy Verified 09/13/21 11:59 Home Medications Medication Instructions Recorded Confirmed Type albuterol sulfate 90 mcg/actuation 90 mcg inhalation DIRECTED 12/20/19 09/10/21 History aerosol inhaler ondansetron HCl 4 mg tablet 4 mg PO TID PRN Nausea 11/08/20 09/10/21 History sertraline 25 mg tablet 25 mg DAILY 04/20/21 09/10/21 History tramadol 50 mg tablet 50 mg PO Q4-6H PRN Back Pain #30 04/21/21 09/10/21 Rx tabs alprazolam 0.5 mg tablet 0.5 mg PO DAILY 09/10/21 09/10/21 History guaifenesin 600 mg tablet, 600 mg PO BID 09/10/21 09/10/21 History extended release 12 hr (Mucinex) oxycodone 20 mg tablet 20 mg PO Q4H PRN Pain (Scale Score 09/10/21 09/10/21 History 7-10) Laboratory Tests 09/13/21 09/13/21 05:15 05:15 WBC 5.4 K/mm3 K/mm3 (4.5-10.0) RBC 4.39 M/mm3 M/mm3 (4.2-5.4) Hgb 13.9 g/dL g/dL (12.0-15.0) Hct 44.6 % % (37.0-47.0) MCV 101.6 fl H fl (80-100) MCH 31.7 pg pg (26-34) MCHC 31.2 g/dl L g/dl (32-36) RDW 14.3 % % (11.5-14.5) Plt Count 154 k/mm3 k/mm3 (150-375) MPV 9.9 fl fl (7.4-10.4) Immature Gran % (Auto) 0.6 % H % (0-0.5) Neut % (Auto) 57.3 % % (45.5-73.1) Lymph % (Auto) 25.6 % % (18.3-44.2) [place] % (Auto) 12.6 % H % (2.6-8.5) Eos % (Auto) 3.3 % % (0-4.4) Baso % (Auto) 0.6 % % (0.2-1.2) Lymph # (Auto) 1.38 K/mm3 K/mm3 (0.9-3.2) [place] # (Auto) 0.7 K/mm3 H K/mm3 (0.1-0.6) Eos # (Auto) 0.2 K/mm3 K/mm3 (0-0.3) Baso # (Auto) 0.0 K/mm3 K/mm3 (0.0-0.1) Abs Immat Gran (auto) 0.03 K/mm3 K/mm3 (0.00-0.031) Absolute Neuts (auto) 3.1 K/mm3 K/mm3 (1.3-6.7) Absolute Nucleated RBC 0.0 K/mm3 K/mm3 (0.0-0.012) Nucleated RBC % 0.0 % % (0.0-0.2) Sodium 136 mmol/L L mmol/L (137-145) Potassium 3.2 mmol/L L mmol/L (3.4-5.0) Chloride 99 mmol/L mmol/L (98-107) Carbon Dioxide 33 mmol/L H mmol/L (22-30) Anion Gap 4 mmol/L L mmol/L (8-16) BUN 6 mg/dL L mg/dL (7-17) Creatinine 0.90 mg/dL mg/dL (0.7-1.0) Estim Creat Clear Calc 39 ml/min ml/min Estimated GFR > 60 (59 - ) Glucose 111 mg/dL H mg/dL (65-110) Calcium 7.8 mg/dL L mg/dL (8.4-10.2) Magnesium 1.4 mg/dL L mg/dL (1.6-2.3) Total Bilirubin 0.7 mg/dL mg/dL (0.2-1.3) AST 19 U/L U/L (14-36) ALT 11 U/L U/L (6-35) Alkaline Phosphatase 54 U/L U/L (38-126) Total Protein 5.0 g/dL L g/dL (6.3-8.2) Albumin 3.1 g/dL L g/dL (3.5-5.1) Patient hx anesthesia problems: none Family hx anesthesia problems: none Results Review: All pre-operative results and documents have been reviewed as part of the pre-operative evaluation. [facility] Past Medical History Medical History Acid reflux Anxiety Chronic back pain Chronic pain syndrome Common bile duct dilatation Constipation due to opioid therapy COPD (chronic obstructive pulmonary disease) Dilated intrahepatic bile duct Encounter for screening colonoscopy Nausea Peptic ulcer disease Tobacco abuse Surgical History Surgical History H/O tubal ligation Hx of cordelia
--- NOTE | 2021-09-13 14:16 | PC.NURSE ---
Returned from GI Lab. Report received
[2021-09-14] MEDS: oxyCODONE HCL (*CRX) 5 MG TAB IR 20 MG PO ×4 (01:00→13:00)
[2021-09-14 03:09] VITALS: BP 129/72; PULSE 66; RESP 16; TEMP 36.6; O2SAT 94
[2021-09-14 05:52] LABS: Basophils Percent Auto 0.8 % (0.2-1.2); Eosinophils Absolute Auto 0.3 K/mm3 (0-0.3); Eosinophils Percent Auto 5.1 % (0-4.4); Hematocrit 41.6 % (37.0-47.0); Immature Granulocyte Absolute 0.02 K/mm3 (0.00-0.031); Immature Granulocyte Percent A 0.4 % (0-0.5); Lymphocytes Absolute Auto 1.58 K/mm3 (0.9-3.2); Lymphocytes Percent Auto 30.7 % (18.3-44.2); Mean Corpuscular HGB Conc 31.3 g/dl (32-36); Mean Platelet Volume 10.5 fl (7.4-10.4); Monocytes Absolute Auto 0.6 K/mm3 (0.1-0.6); Monocytes Percent Auto 11.7 % (2.6-8.5); Neutrophils Absolute Auto 2.6 K/mm3 (1.3-6.7); Neutrophils Percent Auto 51.3 % (45.5-73.1); Platelet Count Result 154 k/mm3 (150-375); Red Cell Distribution Width 14.6 % (11.5-14.5); White Blood Count 5.1 K/mm3 (4.5-10.0)
[2021-09-14 06:05] LABS: Alanine Aminotransferase 12 U/L (6-35); Albumin Level 2.8 g/dL (3.5-5.1); Alkaline Phosphatase 53 U/L (38-126); Anion Gap 6 mmol/L (8-16); Aspartate Amino Transferase 26 U/L (14-36); Bilirubin,Total 0.6 mg/dL (0.2-1.3); Blood Urea Nitrogen 6 mg/dL (7-17); Calcium 7.9 mg/dL (8.4-10.2); Carbon Dioxide 28 mmol/L (22-30); Chloride 100 mmol/L (98-107); Estimated CRCL calculation 39 ml/min; Estimated Glomerular Filt Rate > 60; Glucose 100 mg/dL (65-110); Magnesium 1.4 mg/dL (1.6-2.3); Potassium 3.1 mmol/L (3.4-5.0); Sodium 134 mmol/L (137-145)
[2021-09-14] MEDS: MAGNESIUM SULF 2 GM/WATER 50ML 2 GM/50 ML BAG IVPB (06:54)
[2021-09-14] MEDS: POTASSIUM CHLORIDE 20 MEQ PACKET (FOR LIQUID) 60 MEQ PO (06:54)
--- NOTE | 2021-09-14 07:39 | PM.DS ---
DS: Admitting Diagnosis Discharge Date 09/14/2021 Admitting Diagnosis Colitis, Chronic Back Pain, Tobacco abuse, COPD, GERD DS: Discharge Diagnosis Discharge Diagnosis (1) Colitis: Code(s): K52.9 - Noninfective gastroenteritis and colitis, unspecified Status: Inactive Assessment and Plan: - Abx discontinued by GI. No signs of Colitis found on Colonoscopy. - Symptoms have resolved. (2) Chronic back pain: Code(s): M54.9 - Dorsalgia, unspecified; G89.29 - Other chronic pain Status: Chronic Assessment and Plan: - Pt. has prn pain medications ordered for her as needed. (3) Tobacco abuse: Code(s): Z72.0 - Tobacco use Status: Chronic Assessment and Plan: - nicotine patch as needed (4) COPD (chronic obstructive pulmonary disease): Code(s): J44.9 - Chronic obstructive pulmonary disease, unspecified Status: Chronic Assessment and Plan: - appears to be compensated - continue home meds (5) Acid reflux: Code(s): K21.9 - Gastro-esophageal reflux disease without esophagitis Status: Acute Assessment and Plan: - continue PPI (6) Hypomagnesemia: Code(s): E83.42 - Hypomagnesemia Status: Acute Assessment and Plan: - This AM the magnesium level is 1.4. 2G ordered for replacement this morning. Pt. will have outpatient labs checked in 2 days. (7) Hypokalemia: Code(s): E87.6 - Hypokalemia Status: Acute Assessment and Plan: - This AM the Potassium level is 3.1. Supplemental replacement is ordered. Pt. will have outpatient labs checked in 2 days. DS: Summary Hospital Course Reason for hospitalization: Diarrhea Hospital Course: This 75 year old female patient with significant PMH of COPD, Chronic back pain, Tobacco use, PUD, GERD, and generalized anxiety. She was initially transferred to our facility from an outside hospital on 09/10/21, with constipation and alternating diarrhea for hte last week prior to arrival. She indicated that she had lost as much as 18 lbs in the previous month. She had no melena, hematochezia noted. CT scan initially indicated a possible Gastritis. She was admitted to the hospital and placed on IV abx and was hydrated. Secondary to her weight loss complaint, GI was consulted and she underwent Colonoscopy yesterday that demonstrated colonic polyps that were biopsied, Diverticulosis without perforation or abscess and no bleeding and internal hemorrhoids. Abx were discontinued by GI service and they signed off. This morning, the day after the procedure, the pt. is noted to have a low Potassium at 3.1, and a low Magnesium of 1.4. Supplemental Magnesium and Potassium are ordered for replacement and the pt. is stable for discharge without any complaints of acute pain, dyspnea, CP, N/V/D/Headache, lightheadedness or dizziness. She will have orders to have her BMP and Magnesium rechecked in 2 days. Status at Discharge Functional status at discharge: independent ambulation Overall status at discharge: patient is back to baseline Time Spent with Patient Time attestation: Total time spent providing and/or coordinating discharge services: Time spent: Greater than 30 minutes Specific discharge activities: Post-Procedure medical needs and recheck of electrolytes, Discharge instructions and Follow up advisement. Exam Narrative: Appears acutely ill. Const: General: comfortable, no acute distress and uncomfortable (Secondary to back pain.) Other: Pt. is lying on her left side in bed and appears to be comfortable today. HENMT: Ears: TM's normal bilaterally and TMs normal General nose exam: Normal nares present and no epistaxis Mouth: Yes moist mucous membranes Eyes: General: appearance normal, both eyes and all related structures Sclera: sclerae normal and normal sclerae Pupils: Equal, round and reactive pupils present EOM: EOMs intact bilaterally Neck: Neck: supple and no JVD Thyroid: t
[2021-09-14] MEDS: PANTOPRAZOLE 40 MG TABLET PO (08:49)
[2021-09-14] MEDS: LORATADINE 10 MG TABLET PO (08:49)
[2021-09-14] MEDS: SERTRALINE HCL 25 MG TABLET BY MOUTH (08:49)
[2021-09-14] MEDS: ALPRAZolam (*CRX) 0.5 MG TABLET PO (08:49)
[2021-09-14] MEDS: guaiFENesin 12 HR 600 MG TABCR PO (08:49)
[2021-09-14] MEDS: ONDANSETRON INJ 4 MG/2 ML VIAL IV PUSH (08:52)
[2021-09-14 13:02] VITALS: PULSE 66; RESP 16; O2SAT 94
== END 2021-09-14 14:55 | disposition home or self-care (01) ==
PROVIDERS: Internal Medicine Gastroenterology; Admitting Provider Internal Medicine; PCP Family Medicine; Visit Provider Nurse Practitioner Adult Health
PROC: 0DJD8ZZ Inspection of Lower Intestinal Tract, Via Natural or Artificial Opening Endoscopic (ICD-10-PCS; CPT 45378; principal; 2021-09-13 12:30)
DX: D12.2 Benign neoplasm of ascending colon (principal); K57.30 Diverticulosis of large intestine without perforation or abscess without bleeding; K52.9 Noninfective gastroenteritis and colitis, unspecified; K64.8 Other hemorrhoids; M54.9 Dorsalgia, unspecified; G89.29 Other chronic pain; F17.210 Nicotine dependence, cigarettes, uncomplicated; J44.9 Chronic obstructive pulmonary disease, unspecified; K21.9 Gastro-esophageal reflux disease without esophagitis; E83.42 Hypomagnesemia; E87.6 Hypokalemia; K27.9 Peptic ulcer, site unspecified, unspecified as acute or chronic, without hemorrhage or perforation; F41.1 Generalized anxiety disorder; T40.2X5A Adverse effect of other opioids, initial encounter; K59.03 Drug induced constipation; R90.82 White matter disease, unspecified; G93.89 Other specified disorders of brain; Z79.891 Long term (current) use of opiate analgesic; Z79.51 Long term (current) use of inhaled steroids; Z90.49 Acquired absence of other specified parts of digestive tract; Z79.899 Other long term (current) drug therapy; F12.90 Cannabis use, unspecified, uncomplicated; Z82.3 Family history of stroke; Z83.3 Family history of diabetes mellitus
CPT/HCPCS: 45385; 36415; 70553; 80048; 80053; 83735; 85025; 85055; 85610; 85730; 87040; 88305; 96361; 96365; 96366; 96367; 96372; 96375; 96376; A9270; A9577; G0378; J1650; J1956; J2405; J2704; J3475; J7120

== ENCOUNTER 2021-09-18 11:43 | Emergency (ER) | payer MEDICARE, SELFPAY ==
--- NOTE | ~2021-09-18 | XR_ITS ---
XR chest 2V 09/18/2021 13:29 Indication: Shortness of breath Procedure: 2 view chest Comparison: Comparison to multiple prior studies sequentially, with oldest reviewed study dated 04/2017. Findings: Cardiomegaly with chronic interstitial edema. There is atherosclerosis of the aorta. No sig nificant effusion or pneumothorax. No acute osseous abnormality. Impression: 1: Cardiomegaly with chronic interstitial edema. Reviewed, dictated and finalized at location A. Impression: 1: Cardiomegaly with chronic interstitial edema.
[2021-09-18 11:42] VITALS: BP 152/80; PULSE 85; RESP 13; TEMP 36.6; O2SAT 94
--- NOTE | 2021-09-18 11:58 | ECG_ITS ---
Measurements Intervals [place] Rate: 77 P: 60 VT: 157 QRS: 43 QRSD: 99 T: 16 QT: 390 QTc: 442 Interpretive Statements SINUS RHYTHM SLIGHT ANTERIOR T-WAVE INVERSION, POSSIBLE FEMALE VARIANT LOW VOLTAGE EKG COMPARED TO ECG 09/09/2021 15:25:07 NO SIGNIFICANT CHANGES Electronically Signed On 09-18-2021 16:39:47 CDT by Sintia Iraheta M.D.
--- NOTE | 2021-09-18 11:59 | ED.ANXIETY ---
HPI - Anxiety General Chief Complaint: Anxiety Stated Complaint: med refill History of Present Illness HPI narrative: 75-year-old female presents to the emergency room for evaluation of anxiety. Patient states that she has been out of her Xanax and cannot get her prescription filled for 2 more days. Patient recently discharged from the hospital for gastroenteritis and colitis management. On exam patient states that she has suicidal ideation, with thoughts of hurting herself with a plan to overdose using pills at home. Patient states that she has felt this way for approximately 1 month. Related Data Home Medications Medication Instructions Recorded Confirmed albuterol sulfate 90 mcg/actuation 90 mcg inhalation DIRECTED 12/20/19 09/10/21 aerosol inhaler ondansetron HCl 4 mg tablet 4 mg PO TID PRN Nausea 11/08/20 09/10/21 sertraline 25 mg tablet 25 mg DAILY 04/20/21 09/10/21 alprazolam 0.5 mg tablet 0.5 mg PO DAILY 09/10/21 09/10/21 guaifenesin 600 mg tablet, 600 mg PO BID 09/10/21 09/10/21 extended release 12 hr (Mucinex) oxycodone 20 mg tablet 20 mg PO Q4H PRN Pain (Scale Score 09/10/21 09/10/21 7-10) Allergies Allergy/AdvReac Type Severity Reaction Status Date / Time No Known Allergies Allergy Verified 09/18/21 11:50 Review of Systems Review of Systems: CONSTITUTIONAL: Denies fever, chills, or sweats. EYES: Denies visual changes, redness, or discharge. ENT: Denies rhinorrhea, congestion, sore throat, or otalgia. CARDIOVASCULAR: Denies chest pain, palpitations, or edema. RESPIRATORY: Denies cough or dyspnea. GASTROINTESTINAL: Denies abdominal pain, nausea, vomiting, or diarrhea. GENITOURINARY: Denies dysuria or hematuria. SKIN: Denies rash or itching. MUSCULOSKELETAL: Denies back pain, joint pain, or myalgia. NEUROLOGIC: Denies headache, numbness, dizziness, or weakness. PSYCHIATRIC: Reports anxiety. [facility] Past Medical History Medical History Acid reflux Anxiety Chronic back pain Chronic pain syndrome Common bile duct dilatation Constipation due to opioid therapy COPD (chronic obstructive pulmonary disease) Dilated intrahepatic bile duct Encounter for screening colonoscopy Nausea Peptic ulcer disease Tobacco abuse Surgical History Surgical History H/O tubal ligation Hx of cholecystectomy Family History Family History Mother Cerebrovascular accident Father Diabetes mellitus Social History Social History Social History: the patient stated that she smokes anywhere from half a pack to pack a cigarettes a day. She has 3 children. She desires to have her is a durable power of senior trial attorney and if he is unable to than her 3 children. The patient has 3 children. 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 She denies any alcohol marijuana or illicit drugs. The patient desires to be a full code. Smoking packs per day: 0.5 Smoking cigarettes per day: 10.0 Years smoked: 50 Smoking pack-years: 25.00 Smoking status: Current every day smoker Tobacco type: cigarettes Second hand tobacco smoke exposure: Yes Alcohol intake: never Substance use: current Substance use type: does not use Other substance usage details: prescribed opiates Last use: 09/07/21 Gender identity (if verbalized by the patient): Female Sexual Orientation (if Verbalized by the Patient): Straight or Heterosexual Spiritual care concerns: No Exam Narrative: GENERAL: Well-appearing, well-nourished, no physical limitations, and in no acute distress. HEAD: Normocephalic, atraumatic. EYES: Conjunctivae normal, PERRLA and EOMI. NECK: Supple. No adenopathy or masses. CHEST: Clear to auscultation. No respiratory distress. No wheezes rales or rhonchi. No tenderness. HEART: Regular rate
[2021-09-18] MEDS: LORazepam INJ (*CRX) 2 MG/ML VIAL 1 MG IV PUSH (12:11)
[2021-09-18 12:12] LABS: Basophils Absolute Auto 0.1 K/mm3 (0.0-0.1); Eosinophils Absolute Auto 0.1 K/mm3 (0-0.3); Eosinophils Percent Auto 1.7 % (0-4.4); Hematocrit 44.8 % (37.0-47.0); Hemoglobin 14.4 g/dL (12.0-15.0); Immature Granulocyte Absolute 0.02 K/mm3 (0.00-0.031); Immature Granulocyte Percent A 0.3 % (0-0.5); Lymphocytes Absolute Auto 1.62 K/mm3 (0.9-3.2); Lymphocytes Percent Auto 27.2 % (18.3-44.2); Mean Corpuscular HGB Conc 32.1 g/dl (32-36); Mean Corpuscular Volume 96.6 fl (80-100); Mean Platelet Volume 10.6 fl (7.4-10.4); Monocytes Absolute Auto 0.5 K/mm3 (0.1-0.6); Monocytes Percent Auto 8.2 % (2.6-8.5); Neutrophils Absolute Auto 3.7 K/mm3 (1.3-6.7); Neutrophils Percent Auto 61.6 % (45.5-73.1); Platelet Count Result 248 k/mm3 (150-375); Red Blood Count 4.64 M/mm3 (4.2-5.4); Red Cell Distribution Width 14.6 % (11.5-14.5)
[2021-09-18 12:31] LABS: Acetaminophen < 10 ug/mL (10-30); Ethanol < 10 mg/dL (<10); Salicylate < 1.0 mg/dL (2-20)
[2021-09-18 12:40] LABS: Amphetamine Screen Urine Negative (Negative); Barbiturate Screen Urine Negative (Negative); Benzodiazepines Screen Urine Negative (Negative); Cannabinoid Screen Urine Negative (Negative); Cocaine Screen Urine Negative (Negative); Methadone Screen Urine Negative (Negative); Opiate Screen Urine Positive (Negative); Phencyclidine Screen Urine Negative (Negative)
[2021-09-18 12:41] LABS: Appearance Urine Clear (Clear); Bilirubin Urine Negative (Negative); Blood Urine Trace-lysed (Negative); Color Urine Yellow (Yellow); Glucose Urine UA Negative (Negative); Ketones Urine Negative (Negative); Leukocyte Esterase Ur 1+ LEU/UL (Negative); Nitrate Urine Negative (Negative); Protein Urine Negative (Negative); Specific Grav Ur 1.015 (1.001-1.035); Urobilinogen Urine 0.2 mg/dL (<2.0); pH Urine 5.5 (5.0-9.0)
[2021-09-18 12:43] LABS: Add Urine Microscopic? YES
[2021-09-18 12:44] LABS: Bacteria Urine Trace /hpf; Mucus Urine Rare /lpf; Squamous Epithelial Cell Urine Moderate /hpf (Few); WBC Urine 0-3 /hpf
[2021-09-18 12:47] VITALS: O2SAT 95
[2021-09-18 12:49] LABS: SARS-CoV-2 RNA PCR Negative
[2021-09-18 13:04] LABS: Alanine Aminotransferase 12 U/L (6-35); Albumin Level 3.6 g/dL (3.5-5.1); Alkaline Phosphatase 65 U/L (38-126); Anion Gap 7 mmol/L (8-16); Aspartate Amino Transferase 25 U/L (14-36); Bilirubin,Total 0.7 mg/dL (0.2-1.3); Blood Urea Nitrogen 15 mg/dL (7-17); Calcium 8.6 mg/dL (8.4-10.2); Carbon Dioxide 27 mmol/L (22-30); Chloride 96 mmol/L (98-107); Estimated CRCL calculation 34 ml/min; Estimated Glomerular Filt Rate 54; Glucose 95 mg/dL (65-110); Potassium 4.3 mmol/L (3.4-5.0); Sodium 130 mmol/L (137-145)
[2021-09-18 13:30] VITALS: BP 144/72; PULSE 80; RESP 18; O2SAT 97
[2021-09-18 15:37] VITALS: BP 132/71; PULSE 80; RESP 15; O2SAT 99
== END 2021-09-18 15:39 | disposition home or self-care (01) ==
PROVIDERS: Emergency Provider Nurse Practitioner Family; PCP Family Medicine
DX: F41.9 Anxiety disorder, unspecified (principal); R45.851 Suicidal ideations; Z20.822 Contact with and (suspected) exposure to COVID-19; J44.9 Chronic obstructive pulmonary disease, unspecified; K21.9 Gastro-esophageal reflux disease without esophagitis; G89.4 Chronic pain syndrome; Z87.11 Personal history of peptic ulcer disease; F17.210 Nicotine dependence, cigarettes, uncomplicated; R94.31 Abnormal electrocardiogram [ECG] [EKG]
CPT/HCPCS: 36415; 71046; 80053; 80307; 81001; 85025; 93005; 96374; 99284; C9803; J2060; U0003; U0005

== ENCOUNTER 2022-01-22 23:55 | Emergency (ER) | payer MEDICARE, SELFPAY ==
[2022-01-23 00:09] VITALS: BP 109/58; PULSE 91; RESP 20; TEMP 37.1; O2SAT 95
[2022-01-23 00:17] VITALS: PULSE 90
[2022-01-23 00:48] LABS: Influenza A QL RT-PCR Positive (Negative); Influenza B QL RT-PCR Negative (Negative); SARS-CoV-2 RNA PCR Negative (Negative)
--- NOTE | 2022-01-23 00:53 | ED.URI ---
HPI - URI/Sore Throat General Chief Complaint: Weakness Stated Complaint: Weakness Time Seen by Provider: 01/23/22 00:53 Source: patient and RN notes reviewed Mode of arrival: ambulatory Limitations: no limitations History of Present Illness MD elicited complaint: fever and other ( Generalized weakness) Onset (ago): day(s) (2.5) Consistency: constant Severity: moderate Description of mucous: clear Able to tolerate fluids by mouth: Yes Exacerbating factors: nothing Relieving factors: nothing Context: sick contacts ( Other family members with influenza) and other(s) with similar symptoms Associated symptoms: myalgias and headache Treatments prior to arrival: none Related Data Home Medications Medication Instructions Recorded Confirmed albuterol sulfate 90 mcg/actuation 90 mcg inhalation DIRECTED 12/20/19 09/10/21 aerosol inhaler ondansetron HCl 4 mg tablet 4 mg PO TID PRN Nausea 11/08/20 09/10/21 sertraline 25 mg tablet 25 mg DAILY 04/20/21 09/10/21 alprazolam 0.5 mg tablet 0.5 mg PO DAILY 09/10/21 09/10/21 guaifenesin 600 mg tablet, 600 mg PO BID 09/10/21 09/10/21 extended release 12 hr (Mucinex) oxycodone 20 mg tablet 20 mg PO Q4H PRN Pain (Scale Score 09/10/21 09/10/21 7-10) Allergies Allergy/AdvReac Type Severity Reaction Status Date / Time No Known Allergies Allergy Verified 09/18/21 11:50 Review of Systems Review of Systems: All systems reviewed & are unremarkable except as noted in HPI and below PMFSH Past Medical History Medical History Acid reflux Anxiety Chronic back pain Chronic pain syndrome Common bile duct dilatation Constipation due to opioid therapy COPD (chronic obstructive pulmonary disease) Dilated intrahepatic bile duct Encounter for screening colonoscopy Nausea Peptic ulcer disease Tobacco abuse Surgical History Surgical History H/O tubal ligation Hx of cholecystectomy Family History Family History Mother Cerebrovascular accident Father Diabetes mellitus Social History Social History Social History: the patient stated that she smokes anywhere from half a pack to pack a cigarettes a day. She has 3 children. She desires to have her is a durable power of district attorney and if he is unable to than her 3 children. The patient has 3 children. 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 She denies any alcohol marijuana or illicit drugs. The patient desires to be a full code. Smoking packs per day: 0.5 Smoking cigarettes per day: 10.0 Years smoked: 50 Smoking pack-years: 25.00 Smoking status: Current every day smoker Tobacco type: cigarettes Second hand tobacco smoke exposure: Yes Alcohol intake: never Substance use: current Substance use type: does not use Other substance usage details: prescribed opiates Last use: 09/07/21 Gender identity (if verbalized by the patient): Female Sexual Orientation (if Verbalized by the Patient): Straight or Heterosexual Spiritual care concerns: No Exam Const: General: healthy appearing, no acute distress and alert Nutritional Appearance: well nourished Orientation/consciousness: patient oriented x3 Limitations: no limitations HENMT: Head: normal to inspection Ears: external ears normal Face/Nose/Sinus: Normal external nose present Face and sinus: normal facial exam Mouth: Yes moist mucous membranes Eyes: Conjunctivae: conjunctivae normal Pupils: Equal, round and reactive pupils present EOM: EOMs intact bilaterally Neck: Neck: normal visual inspection Chest: Chest palpation & inspection: normal inspection of the chest Resp: Effort & Inspection: normal respiratory effort Auscultation: clear to auscultation bilaterally Cardio: Rate: regular rate Rhythm: regular rhythm GI: GI P
[2022-01-23 01:24] VITALS: BP 99/44; PULSE 78; RESP 20; TEMP 36.8; O2SAT 92
== END 2022-01-23 01:28 | disposition home or self-care (01) ==
LOC: CHSED 01-23 01:04
PROVIDERS: Emergency Provider Emergency Medicine; PCP Family Medicine
DX: J11.1 Influenza due to unidentified influenza virus with other respiratory manifestations (principal); Z20.822 Contact with and (suspected) exposure to COVID-19; F17.200 Nicotine dependence, unspecified, uncomplicated
CPT/HCPCS: 87636; 99283

== ENCOUNTER → 2022-09-13 14:38 | Outpatient (CLI) | payer MEDICARE, SELFPAY ==
--- NOTE | ~2022-09-13 | CT_ITS ---
EXAMINATION: CT abdomen w con INDICATION: Abdominal pain TECHNIQUE: Computed tomographic images of the abdomen were obtained after the administration of 100 c c of Omnipaque 350 intravenous contrast. The dose-length product (DLP) was 161.38 mGy-cm. Automated e xposure control and iterative reconstruction technique were employed. COMPARISON: 09/09/2021 FINDINGS: There is moderate to severe emphysema visualized lung bases. The heart size is normal. Resendez ges of cholecystectomy are again noted. There is chronic severe intrahepatic and extrahepatic biliary dilatation. Calcifications of the liver and spleen likely reflect old granulomatous disease. The mcknight creas and adrenal glands are normal. Cysts of the kidneys measure up to 11 mm on the right. There are no pathologically enlarged abdominal lymph nodes. No free intraperitoneal gas or evidence of bowel o bstruction. There is severe lumbar spondylosis. IMPRESSION: 1. Chronic severe intrahepatic and extrahepatic biliary dilatation, likely due to post cholecystectom y state. Reviewed, dictated and finalized at location F. IMPRESSION: 1. Chronic severe intrahepatic and extrahepatic biliary dilatation, likely due to post cholecystectomy state.
[2022-09-13 14:57] LABS: Estimated Glomerular Filt Rate 40
== END ==
PROVIDERS: PCP Nurse Practitioner Adult Health; Visit Provider Nurse Practitioner Adult Health
DX: R10.9 Unspecified abdominal pain (principal)
CPT/HCPCS: 74160; Q9967

== ENCOUNTER → 2022-10-29 14:55 | Outpatient (CLI) | payer MEDICARE, SELFPAY ==
--- NOTE | ~2022-10-29 | XR_ITS ---
XR hip BI 2V w AP pelvis DATE: 10/29/2022 15:23 INDICATION: Low back pain, bilateral hip pain. TECHNIQUE: AP pelvis. AP and lateral views of each hip. COMPARISON: None FINDINGS: There is osteopenia. There is rotatory dextroscoliosis and multilevel degenerative disc disease of the lumbar spine. The pubic symphysis and sacroiliac joints are intact. No pelvic fracture or bone destruction is detected. Hip joint spaces are symmetric and well preserved. No fracture or dislocation, avascular necrosis or bone destruction is detected. IMPRESSION: Rotatory dextroscoliosis and multilevel degenerative disc disease of the lumbar spine Osteopenia Reviewed, dictated and finalized at location A. IMPRESSION: Rotatory dextroscoliosis and multilevel degenerative disc disease o f the lumbar spine Osteopenia
--- NOTE | ~2022-10-29 | XR_ITS ---
XR lumbar spine 6V w bending DATE: 10/29/2022 15:23 INDICATION: Low back pain, bilateral hip pain. No injury. TECHNIQUE: Flexion and extension lateral views. AP, lateral, coned lateral lumbosacral and bilateral oblique views COMPARISON: None FINDINGS: There is diffuse osteopenia. There is mild rotatory levoscoliosis of the lumbar spine. There is multilevel prominent degenerative disc disease involving particularly L2-3 through L4-5. No fracture or bone destruction is evident. The lumbar pedicles appear intact. No spondylolisthesis i s noted. No instability on flexion or extension is evident. The sacroiliac joints are intact. There is extensive calcification of the abdominal aorta without apparent aneurysm. IMPRESSION: Osteopenia Prominent multilevel degenerative disc disease, especially from L2-3 through L4-5 Rotatory levoscoliosis Reviewed, dictated and finalized at location A. IMPRESSION: Osteopenia Prominent multilevel degenerative disc disease, especially from L2-3 through L4 -5 Rotatory levoscoliosis
== END ==
PROVIDERS: PCP Family Medicine; Visit Provider Anesthesiology Pain Medicine
DX: M25.552 Pain in left hip (principal); M85.852 Other specified disorders of bone density and structure, left thigh; M85.851 Other specified disorders of bone density and structure, right thigh; M51.36 Other intervertebral disc degeneration, lumbar region
CPT/HCPCS: 72114; 73521

== ENCOUNTER → 2022-12-19 11:33 | Outpatient (CLI) | payer MEDICARE, SELFPAY ==
--- NOTE | ~2022-12-19 | MR_ITS ---
MRI of the lumbar spine Clinical History: Spinal stenosis Technique: Axial T2-weighted images, and sagittal T1-weighted, T2-weighted, and T2 fat-sat images wer e acquired. Findings: There is 26 degree levoscoliosis of the lumbar spine. No anteroposterior subluxation eviden t. No fracture seen. No suspicious bone marrow signal abnormality seen. At L1-L2, there is minimal disc bulge and minimal facet arthropathy. No central canal stenosis. There is moderate right neural foraminal narrowing, and mild left neural foraminal narrowing. At L2-L3, there is moderate degenerative disc narrowing. There is minimal disc bulge and moderate fac et arthropathy. No central canal stenosis. There is severe right neural foraminal narrowing. Left shiloh ral foramen preserved. At L3-L4, there is advanced degenerative disc narrowing. There is minimal disc bulge with advanced fa cet arthropathy. No central canal stenosis. There is severe left neural foraminal narrowing, and mild right neural foraminal narrowing. At L4-L5, there is advanced degenerative disc narrowing. There is minimal disc bulge and severe facet arthropathy, especially on the left side. There is left lateral recess stenosis with severe left shiloh ral foraminal narrowing. Right neural foramen preserved. No central canal stenosis. At L5-S1, there is minimal disc bulge with moderate to advanced facet arthropathy. No central canal s tenosis. There is moderate to advanced right neural foraminal narrowing. Left neural foramen preserve d. Paravertebral soft tissues are unremarkable. Impression: Levoscoliosis with moderate degenerative spondylosis throughout the lumbar spine, as detailed above. Reviewed, dictated and finalized at location . FILLER Impression: Levoscoliosis with moderate degenerative spondylosis throughout the lumbar spin e, as detailed above.
== END ==
PROVIDERS: PCP Family Medicine; Visit Provider Anesthesiology Pain Medicine
DX: M48.062 Spinal stenosis, lumbar region with neurogenic claudication (principal); M47.896 Other spondylosis, lumbar region
CPT/HCPCS: 72148

== ENCOUNTER 2023-01-07 06:40 | Day surgery (SDC) | payer MEDICARE, SELFPAY ==
[2022-12-31 12:42] VITALS: BMI 24.5
--- NOTE | ~2023-01-07 | XR_ITS ---
XR fluoroscopy no charge Indication: Midline L4-5 spinal injection TECHNIQUE: Fluoroscopy used during Midline L4-5 spinal injection performed by [Rommel Wade MD] on 01/07/2023. 9 seconds of fluoroscopy with 5 fluoroscopic images captured. FINDINGS: Correlate with procedure note. IMPRESSION: Fluoroscopy used during Midline L4-5 spinal injection. Reviewed, dictated and finalized at location L. 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
--- NOTE | 2023-01-07 06:33 | WPDHPUPDATE1 ---
History and Physical Update Update Date/Time: 01/07/23 06:33 History and Physical has been reviewed, including an updated exam of the patient. There are NO changes in the patient's condition. Risks, benefits, and alternatives have been discussed and questions answered. Patient agrees to proceed with procedure.
[2023-01-07 08:20] VITALS: BP 160/81; PULSE 85; RESP 20; TEMP 36.9; O2SAT 98
--- NOTE | 2023-01-07 08:44 | W.PM.PROC2 ---
Procedure Note - Detailed Date of Procedure 01/07/23 Pre-op Diagnosis Lumbar Spinal Stenosis, lumbar radiculopathy Post-op Diagnosis Same Procedure Performed Midline L4-5 interlaminar epidural steroid injection under fluoroscopic guidance with contrast control. Surgeon Rommel Wade MD Anesthesia Local Description of Procedure INFORMED CONSENT: Risks, benefits and alternatives to the procedure were discussed in detail with the patient who expressed explicit understanding and consent to proceed. Patient was informed verbally and in written form regarding the risks associated with the procedure including the low risk of serious infection, bleeding/bruising, allergic reaction, nerve or organ injury, paralysis, procedural site pain or discomfort, worsening pain and/or mobility, failure to treat and/or disfigurement. The patient expressed explicit understanding and consent to proceed. All materials required for the procedure were available prior to procedure start. Site and side were marked prior to procedure and confirmed in the presence of the patient. PROCEDURE IN DETAIL: The patient was brought to the procedural suite and placed in the prone position. Patient was made comfortable with use of pillows under the head/chest, hips and ankles. Skin overlying the injection site was prepared broadly with ChloraPrep applicator and draped in a sterile manner. Aseptic technique was employed throughout. The endplates of the vertebral body at the site of interest were aligned in the AP view. Slight caudad tilt and ipsilateral oblique angulation was utilized to optimize visualization of the targeted posterior intervertebral foramen at L4-5. Local anesthesia was established by infiltration with approximately 5 mL of 2% lidocaine via a 1-1/2 inch 27-gauge needle. A 20-gauge 4-inch Tuohy epidural needle was advanced intermittently until appropriate loss of resistance to air was identified via plastic loss of resistance syringe. Lateral view was used to confirm the appropriate positioning of the needle tip within the posterior epidural space. In the AP and lateral views, a total of 2.0 mL of Omnipaque 300 contrast medium was injected after negative aspiration for CSF, blood or other bodily fluid, showing appropriate posterior epidural spread of contrast without evidence of intravascular or intrathecal placement. After a repeat negative aspiration for blood or other bodily fluid, a 4 mL solution containing 6 mg of betamethasone in sterile PF Normal Saline was injected after negative repeat aspiration. Appropriate spread of the injectate was confirmed with washout of previously injected contrast. No parasthesias were elicited. Needle was removed completely intact without difficulty. Images were saved and documented in the patient chart. Patient's skin was cleaned and sterile bandage applied. The patient tolerated the procedure well. The patient was transported to the recovery area in stable condition where they were observed for an appropriate amount of time prior to discharge, without evidence of complication. The patient was instructed to avoid excessive activity for the next 48 hours, including climbing and frequent use of stairs. Showers only for 48 hours. They were instructed not to drive or operate heavy machinery for 24 hours. They are to monitor for severe headaches, fevers, chills, night sweats, erythema/swelling at the site or any other signs of infection, bleeding/bruising, bowel or bladder changes as well as new pain, weakness or numbness in the upper or lower extremity. Should they notice these changes, they are instructed to call our office immediately or report directly to the nearest Emergency Department if no answer or if after posted office hours. COMPLICATIONS: None COMMENTS: None EXPOSURE: Time: 8.8s, Dose: 4.33 mGy CONTRAST WASTED: 28mL Omnipaque 300. Complications None Condition Stable Disposition Same day [facility] - Charge
[2023-01-07 08:50] VITALS: BP 166/80; PULSE 99; RESP 16; O2SAT 96
[2023-01-07] MEDS: BETAMETHASONE SODIUM PHOSPHATE PF INJ 6 MG/ML VIAL INFILTRATE (08:54)
[2023-01-07 08:55] VITALS: BP 174/77; PULSE 93; RESP 17; O2SAT 96
[2023-01-07] MEDS: LIDOCAINE HCL 1% PF INJ 5 ML VIAL 3 ML INFILTRATE (08:57)
[2023-01-07 09:02] VITALS: BP 150/71; PULSE 98; RESP 20; O2SAT 96
== END 2023-01-07 09:23 | disposition home or self-care (01) ==
PROVIDERS: PCP Family Medicine; Visit Provider Anesthesiology Pain Medicine
PROC: (CPT 62323; principal; 2023-01-07 08:45)
DX: M54.16 Radiculopathy, lumbar region (principal); M48.061 Spinal stenosis, lumbar region without neurogenic claudication
CPT/HCPCS: 62323; 99199

== ENCOUNTER 2023-08-06 13:17 | Emergency (ER) | payer MEDICARE, SELFPAY ==
--- NOTE | ~2023-08-06 | XR_ITS ---
EXAMINATION: XR chest 1V portable Exam Date/Time: 08/06/2023 15:19 CDT HISTORY: Weakness, epigastric pain Comparison: 09/18/2021. RESULT: Lines, tubes, and devices: None. Lungs and pleura: Senescent/emphysematous change, otherwise clear. Cardiomediastinal silhouette: Stable. Other: No acute osseous or upper abdominal finding. IMPRESSION: No acute cardiopulmonary process. Reviewed, dictated and finalized at location K.
[2023-08-06 13:20] VITALS: BP 100/73; PULSE 110; RESP 16; TEMP 36.6; O2SAT 97
[2023-08-06 14:05] VITALS: BP 104/83; PULSE 101; RESP 16; O2SAT 98
[2023-08-06 14:17] VITALS: BP 112/72; PULSE 106; RESP 18; TEMP 36.8; O2SAT 97
[2023-08-06 14:39] LABS: Basophils Absolute Auto 0.1 K/mm3 (0.0-0.1); Basophils Percent Auto 1.2 % (0.2-1.2); Eosinophils Absolute Auto 0.1 K/mm3 (0-0.3); Eosinophils Percent Auto 1.2 % (0-4.4); Hematocrit 47.6 % (37.0-47.0); Hemoglobin 15.5 g/dL (12.0-15.0); Immature Granulocyte Absolute 0.05 K/mm3 (0.00-0.031); Immature Granulocyte Percent A 0.5 % (0-0.5); Lymphocytes Absolute Auto 2.76 K/mm3 (0.9-3.2); Lymphocytes Percent Auto 25.6 % (18.3-44.2); Mean Corpuscular HGB Conc 32.6 g/dl (32-36); Mean Corpuscular Hemoglobin 31.3 pg (26-34); Mean Platelet Volume 10.5 fl (7.4-10.4); Monocytes Absolute Auto 0.8 K/mm3 (0.1-0.6); Monocytes Percent Auto 7.7 % (2.6-8.5); Neutrophils Absolute Auto 6.9 K/mm3 (1.3-6.7); Neutrophils Percent Auto 63.8 % (45.5-73.1); Platelet Count Result 400 k/mm3 (150-375); Red Blood Count 4.96 M/mm3 (4.2-5.4); Red Cell Distribution Width 13.5 % (11.5-14.5); White Blood Count 10.8 K/mm3 (4.5-10.0)
[2023-08-06 14:41] LABS: Appearance Urine Clear (Clear); Bilirubin Urine Negative (Negative); Blood Urine Negative (Negative); Color Urine Yellow (Yellow); Glucose Urine UA Negative (Negative); Ketones Urine Negative (Negative); Leukocyte Esterase Ur Negative LEU/UL (Negative); Nitrate Urine Negative (Negative); Protein Urine Negative (Negative); Specific Grav Ur 1.018 (1.001-1.035); Urobilinogen Urine 0.2 mg/dL (<2.0)
[2023-08-06 14:49] LABS: Alanine Aminotransferase 10 U/L (6-35); Albumin Level 4.8 g/dL (3.5-5.1); Alkaline Phosphatase 88 U/L (38-126); Anion Gap 14 mmol/L (4-12); Aspartate Amino Transferase 23 U/L (14-36); Bilirubin,Total 0.6 mg/dL (0.2-1.3); Blood Urea Nitrogen 52 mg/dL (7-17); Calcium 9.7 mg/dL (8.4-10.2); Carbon Dioxide 20 mmol/L (22-30); Chloride 103 mmol/L (98-107); Estimated CRCL calculation 23 ml/min; Estimated Glomerular Filt Rate 36; Glucose 84 mg/dL (65-110); Lipase 88 U/L (23-300); Potassium 3.6 mmol/L (3.4-5.0); Sodium 137 mmol/L (137-145)
[2023-08-06 14:50] LABS: Add Urine Microscopic? NO
[2023-08-06 15:17] LABS: Influenza A QL RT-PCR Negative (Negative); Influenza B QL RT-PCR Negative (Negative); RSV RNA, RT-PCR Negative (Negative); SARS-CoV-2 RNA PCR Negative (Negative)
[2023-08-06 15:32] VITALS: BP 104/82; PULSE 94; RESP 13; TEMP 36.6; O2SAT 97
--- NOTE | 2023-08-06 16:03 | ED.GENADULT ---
HPI - General Adult General Chief complaint: Nausea/Vomiting/Diarrhea Stated complaint: cough, abd pain Time Seen by Provider: 08/06/23 15:05 History of Present Illness HPI narrative: Patient is a 77-year-old female who presents to the emergency department this afternoon with multiple complaints. Patient states that she has been feeling nauseous, has no appetite, has been having some generalized weakness, feels as though she is dehydrated and admits that what is bothering her the most is her chronic back pain. Patient states that starting in September she was switched from her oral narcotics to a pain patch and she admits that that has not been helping at all with her back pain. Patient is almost out of these pain patches and wants to switch back to oral medications due to multiple back problems causing her severe back pain. Patient follows up with a pain specialist, Dr. Gallo. She denies any recent falls or trauma, denies any abdominal pain, and denies any chest pain or shortness of breath. No additional symptoms or concerns at this time. Related Data Home Medications Medication Instructions Recorded Confirmed albuterol sulfate 90 mcg/actuation 90 mcg inhalation DIRECTED 12/20/19 12/31/22 aerosol inhaler ondansetron HCl 4 mg tablet 4 mg PO TID PRN Nausea 11/08/20 12/31/22 sertraline 25 mg tablet 25 mg DAILY 04/20/21 01/07/23 guaifenesin 600 mg tablet, 600 mg PO BID 09/10/21 12/31/22 extended release 12 hr (Mucinex) acetaminophen 325 mg tablet 325 mg PO Q6H PRN Pain 12/24/22 12/31/22 (Tylenol) aspirin 325 mg tablet (Wendie 325 mg PO DAILY 12/24/22 12/31/22 Aspirin) ibuprofen 200 mg tablet (Advil) 200 mg PO Q6H PRN Pain 12/24/22 12/31/22 triamterene 37.5 1 tablet PO QAM 12/24/22 01/07/23 mg-hydrochlorothiazide 25 mg tablet Allergies Allergy/AdvReac Type Severity Reaction Status Date / Time No Known Allergies Allergy Verified 01/07/23 08:33 Review of Systems Review of Systems: All systems are reviewed and are negative unless stated otherwise in the HPI. [facility] Past Medical History Medical History Acid reflux Anxiety Chronic pain syndrome Common bile duct dilatation Constipation due to opioid therapy COPD (chronic obstructive pulmonary disease) Dilated intrahepatic bile duct Encounter for screening colonoscopy Nausea Peptic ulcer disease Tobacco abuse Surgical History Surgical History H/O tubal ligation Hx of cholecystectomy Family History Family History Mother Cerebrovascular accident Father Diabetes mellitus Social History Social History Social History: the patient stated that she smokes anywhere from half a pack to pack a cigarettes a day. She has 3 children. She desires to have her is a durable power of trade mark attorney and if he is unable to than her 3 children. The patient has 3 children. 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 She denies any alcohol marijuana or illicit drugs. The patient desires to be a full code. Smoking packs per day: 1 Smoking cigarettes per day: 20.0 Years smoked: 50 Smoking pack-years: 50.00 Smoking status: Current every day smoker Tobacco type: cigarettes Second hand tobacco smoke exposure: No Alcohol intake: never Substance use: never Substance use type: does not use Other substance usage details: prescribed opiates Last use: 09/07/21 Living arrangements: with family Gender identity (if verbalized by the patient): Female Sexual Orientation (if Verbalized by the Patient): Straight or Heterosexual Spiritual care concerns: No Exam Narrative: General: Alert, awake, afebrile, in no acute distress. HEENT: PERRL, no rhinorrhea, no post nasal drip, oropharynx clear. Cardiovascular: Regular rate and rhyth
[2023-08-06] MEDS: HYDROcodone/acetaminophen (*CRX) 5-325 MG TABLET 1 TAB PO (16:10)
== END 2023-08-06 16:17 | disposition home or self-care (01) ==
PROVIDERS: Emergency Provider Emergency Medicine; PCP Family Medicine
DX: N17.9 Acute kidney failure, unspecified (principal); E86.0 Dehydration; R11.2 Nausea with vomiting, unspecified; M54.9 Dorsalgia, unspecified; G89.4 Chronic pain syndrome; Z20.822 Contact with and (suspected) exposure to COVID-19; J44.9 Chronic obstructive pulmonary disease, unspecified; K21.9 Gastro-esophageal reflux disease without esophagitis; F41.9 Anxiety disorder, unspecified; F17.210 Nicotine dependence, cigarettes, uncomplicated; Z79.899 Other long term (current) drug therapy; Z79.82 Long term (current) use of aspirin; Z87.11 Personal history of peptic ulcer disease; Z90.49 Acquired absence of other specified parts of digestive tract
CPT/HCPCS: 36415; 71045; 80053; 81003; 83690; 85025; 87637; 99283; A9270

== ENCOUNTER 2023-08-07 22:35 | Emergency (ER) | payer MEDICARE, SELFPAY ==
[2023-08-07] VITALS (13 sets, daily range): BP systolic 110–129; BP diastolic 66–111; PULSE 106–146; RESP 15–28; TEMP 36.6; O2SAT 92–95
--- NOTE | ~2023-08-07 | CT_ITS ---
CT of the Abdomen and Pelvis: Indication: Abdominal pain Technique: 2.5 mm axial scans were obtained through the abdomen and pelvis following intravenous adm inistration of 100 cc of Omnipaque 350. Dose reduction technique was used on this scan by utilizing a utomated exposure control and iterative reconstruction technique. The dose-length product (DLP) was 2 34.27 mGy-cm. COMPARISON: 09/13/2022 Findings: Scans through the lung bases demonstrate moderate emphysematous change. Prominent intrahepatic and extrahepatic biliary dilatation is similar to prior exam, possibly related to prior cholecystectomy. The spleen, pancreas, adrenals and kidneys are within normal limits. There are atherosclerotic calcifications of the aorta. No lymphadenopathy. No bowel obstruction or bowel wall thickening. There is no evidence to suggest acute appendicitis. Images through the pelvis were performed. Urinary bladder unremarkable. Probable pessary device prese nt. No masses are noted. Otherwise. No ascites. Impression: No acute abnormality evident. Stable prominent intrahepatic and extrahepatic dilatation, presumably related to prior cholecystectom y. Moderate emphysema at the lung bases. Reviewed, dictated and finalized at location . Impression: No acute abnormality evident. Stable prominent intrahepatic and extrahepatic dilatation, presumably related t o prior cholecystectomy. Moderate emphysema at the lung bases.
--- NOTE | 2023-08-07 22:52 | ECG_ITS ---
Test Date: 2023-08-07 22:58:59 Measurements Intervals [place] Rate: 135 P: 96 OR: 160 QRS: 6 QRSD: 93 T: 99 QT: 342 QTc: 514 Interpretive Statements ATRIAL FLUTTER WITH RAPID VENTRICULAR RESPONSE NONSPECIFIC ST AND T ABNORMALITY LOW QRS VOLTAGE ABNORMAL ECG No previous ECG available for comparison Electronically Signed On 08-08-2023 07:32:17 CDT by Devin Maldonado M.D.
[2023-08-07 23:24] LABS: Appearance Urine Sl Cloudy (Clear); Bilirubin Urine 1+ (Negative); Blood Urine Negative (Negative); Color Urine Light Yellow (Yellow); Glucose Urine UA Negative (Negative); Ketones Urine Trace (Negative); Leukocyte Esterase Ur 2+ LEU/UL (Negative); Nitrate Urine Negative (Negative); Protein Urine Negative (Negative); Urobilinogen Urine 0.2 mg/dL (0.2-1.0); pH Urine 5.5 (5.0-8.0)
[2023-08-07 23:26] LABS: Basophils Absolute Auto 0.08 K/mm3 (0.00-0.10); Basophils Percent Auto 0.7 % (0.0-1.0); Eosinophils Absolute Auto 0.04 K/mm3 (0.02-0.50); Eosinophils Percent Auto 0.4 % (1.0-6.0); Hematocrit 44.3 % (35.0-42.0); Hemoglobin 15.3 g/dL (11.7-13.8); Immature Granulocyte Absolute 0.05 K/mm3 (0.00-0.00); Immature Granulocyte Percent A 0.4 % (0.0-0.0); Lymphocytes Absolute Auto 2.88 K/mm3 (1.10-4.50); Lymphocytes Percent Auto 25.8 % (18.0-42.0); Mean Corpuscular HGB Conc 34.5 g/dL (32-36); Mean Corpuscular Hemoglobin 31.5 pg (27.0-31.0); Mean Corpuscular Volume 91.3 fL (78.0-102.0); Mean Platelet Volume 10.4 fl (9.2-11.8); Monocytes Absolute Auto 0.93 K/mm3 (0.10-0.90); Monocytes Percent Auto 8.3 % (2.0-11.0); Neutrophils Absolute Auto 7.17 K/mm3 (1.70-7.20); Neutrophils Percent Auto 64.4 % (50.0-70.0); Platelet Count Result 426 K/mm3 (150-420); Red Blood Count 4.85 M/mm3 (4.20-5.40); Red Cell Distribution Width 13.1 % (11.6-14.4); White Blood Count 11.2 K/mm3 (4.8-10.8)
[2023-08-07 23:30] LABS: Add Urine Microscopic? YES; Bacteria Urine 2+ /hpf; Squamous Epithelial Cell Urine Moderate /hpf (Few); WBC Urine 21-30 /hpf (0-3)
[2023-08-07 23:36] LABS: Partial Thromboplastin Time 28.8 Sec (23.9-30.70); Prothrombin Time 10.9 Seconds (9.50-12.1)
[2023-08-07] MEDS: SODIUM CHLORIDE 0.9% IV 1,000 ML 999 ML IV CONT (23:40)
[2023-08-07] MEDS: MORPHINE SULFATE (*CRX) 2 MG/ML INJ IV PUSH (23:42)
[2023-08-07 23:44] LABS: Alanine Aminotransferase 13 U/L (14-59); Albumin Level 3.8 g/dL (3.4-5.0); Alkaline Phosphatase 80 U/L (46-116); Anion Gap 16 mmol/L (4-12); Aspartate Amino Transferase 23 U/L (15-37); Bilirubin,Total 0.6 mg/dL (0.00-1.00); Blood Urea Nitrogen 45 mg/dL (7-18); Carbon Dioxide 21 mmol/L (21-32); Chloride 93 mmol/L (98-108); Estimated CRCL calculation 25 ml/min; Estimated Glomerular Filt Rate 40; Glucose 106 mg/dL (70-99); Lipase 30 U/L (16-77); Osmolality Calculated 281 mOsm/kg (285-295); Potassium 3.2 mmol/L (3.5-5.1); Sodium 130 mmol/L (136-145); Total Protein 7.5 g/dL (6.4-8.2); Troponin I 27.1 ng/L (0.00-60.4)
[2023-08-07] MEDS: ONDANSETRON INJ 4 MG/2 ML VIAL IV PUSH (23:44)
[2023-08-07 23:46] LABS: Lactic Acid Reflex 1.1 mmol/L (0.4-2.0)
[2023-08-08] VITALS (19 sets, daily range): BP systolic 95–111; BP diastolic 60–70; PULSE 82–143; RESP 12–26; TEMP 36.6–36.7; O2SAT 79–95
[2023-08-08] MEDS: KCL 20 MEQ/SW 100 ML 100 ML 50 MEQ IVPB (01:12)
[2023-08-08] MEDS: SODIUM CHLORIDE 0.9% IV 1,000 ML 150 ML IV CONT (01:25)
--- NOTE | 2023-08-08 01:41 | PC.NURSE ---
patient family leaving at this time, update provided by RN and contact information received. call light within reach, iv infusing and patient awaiting imaging results.
--- NOTE | 2023-08-08 02:02 | PC.NURSE ---
patient to bathroom via wheelchair by division order technician. patient awaiting results of CT scan. call light within reach.
--- NOTE | 2023-08-08 02:03 | PC.NURSE ---
pt back in room from bathroom. pt voided and is resting comfortably, lights dimmed, call light in reach
--- NOTE | 2023-08-08 02:37 | ED.ABDPAIN ---
HPI - Abdominal Pain General Chief Complaint: Abdominal Pain Stated Complaint: abdominal pain Time Seen by Provider: 08/07/23 22:43 Source: patient and family Mode of arrival: ambulatory Limitations: no limitations History of Present Illness HPI narrative: this is a 77-year-old female presents with abdominal pain more suprapubic in location with no flank pain no dysuria no hematuria mild nausea with no vomiting patient states she has a history of constipation. Patient denies having any chest pain or shortness of breath no fever chills. Patient has a history of COPD depression. Patient was seen in the emergency room at [facility] yesterday and was discharged. MD elicited complaint: abdominal pain Pertinent past history: none Onset (ago): week(s) Pain Consistency: intermittent Location: suprapubic Severity: moderate Quality: aching Migration to: no migration Exacerbating factors: nothing Relieving factors: nothing Related Data Home Medications Medication Instructions Recorded Confirmed albuterol sulfate 90 mcg/actuation 90 mcg inhalation DIRECTED 12/20/19 08/07/23 aerosol inhaler (ProAir HFA) ondansetron HCl 4 mg tablet 4 mg PO TID PRN Nausea 11/08/20 08/07/23 sertraline 25 mg tablet (Zoloft) 25 mg DAILY 04/20/21 08/07/23 guaifenesin 600 mg tablet, 600 mg PO BID 09/10/21 08/07/23 extended release 12 hr (Mucinex) acetaminophen 325 mg tablet 325 mg PO Q6H PRN Pain 12/24/22 08/07/23 (Tylenol) aspirin 325 mg tablet (Wendie 325 mg PO DAILY 12/24/22 08/07/23 Aspirin) ibuprofen 200 mg tablet (Advil) 200 mg PO Q6H PRN Pain 12/24/22 08/07/23 triamterene 37.5 1 tablet PO QAM 12/24/22 08/07/23 mg-hydrochlorothiazide 25 mg tablet buprenorphine 5 mcg/hour weekly 1 patch transdermal Q7D chronic 08/07/23 08/07/23 transdermal patch (Butrans) pain pantoprazole 40 mg tablet,delayed 40 mg PO Q12HR 08/07/23 08/07/23 release (Protonix) Allergies Allergy/AdvReac Type Severity Reaction Status Date / Time No Known Allergies Allergy Verified 08/07/23 23:01 Review of Systems Review of Systems: All systems reviewed & are unremarkable except as noted in HPI and below PMFSH Past Medical History Medical History Acid reflux Anxiety Chronic pain syndrome Common bile duct dilatation Constipation due to opioid therapy COPD (chronic obstructive pulmonary disease) Dilated intrahepatic bile duct Encounter for screening colonoscopy Nausea Peptic ulcer disease Tobacco abuse Surgical History Surgical History H/O tubal ligation Hx of cholecystectomy Family History Family History Mother Cerebrovascular accident Father Diabetes mellitus Social History Social History Social History: the patient stated that she smokes anywhere from half a pack to pack a cigarettes a day. She has 3 children. She desires to have her is a durable power of de icer installer and if he is unable to than her 3 children. The patient has 3 children. 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 She denies any alcohol marijuana or illicit drugs. The patient desires to be a full code. Smoking packs per day: 1 Smoking cigarettes per day: 20.0 Years smoked: 50 Smoking pack-years: 50.00 Smoking status: Current every day smoker Tobacco type: cigarettes Second hand tobacco smoke exposure: No Alcohol intake: never Substance use: never Substance use type: does not use Other substance usage details: prescribed opiates Last use: 09/07/21 Living arrangements: with family Gender identity (if verbalized by the patient): Female Sexual Orientation (if Verbalized by the Patient): Straight or Heterosexual Spiritual care concerns: No Exam Const: General: healthy appearing, no acute distress and alert N
--- NOTE | 2023-08-08 02:46 | PC.NURSE ---
Dr. Nava at patient bedside speaking with patient regarding results of imaging, blood work, diagnosis and plan of care.
--- NOTE | 2023-08-08 02:56 | PC.NURSE ---
Patient daughter phoned per RN, update provided. Patient daughter Dayna states she will be up to come get patient, daughter aware patient has around 30 minutes of IV meds left to infuse.
--- NOTE | 2023-08-08 03:43 | PC.NURSE ---
Patient assisted to bathroom per wheelchair by RN. patient awaiting ride home from family member.
--- NOTE | 2023-08-08 04:33 | PC.NURSE ---
patient remains awaiting ride from family. phoned family member on her personal phone, states they will be here in 20 minutes.
--- NOTE | 2023-08-08 05:00 | PC.NURSE ---
patient assisted to vehicle per home care scheduler via wheelchair.
--- NOTE | 2023-08-10 12:18 | PC.NURSE ---
urine culture noted , not indicative of uti
--- NOTE | 2023-08-14 13:12 | PC.NURSE ---
BLOOD CULTURE REVIEWED, NO GROWTH NOTED 5 DAYS
== END 2023-08-08 05:00 | disposition home or self-care (01) ==
PROVIDERS: Emergency Provider Emergency Medicine
DX: E87.6 Hypokalemia (principal); N30.00 Acute cystitis without hematuria; J44.9 Chronic obstructive pulmonary disease, unspecified; F17.210 Nicotine dependence, cigarettes, uncomplicated; Z79.899 Other long term (current) drug therapy; Z79.82 Long term (current) use of aspirin
CPT/HCPCS: 36415; 74177; 80053; 81001; 83605; 83690; 83735; 84484; 85025; 85610; 85730; 87040; 87086; 87088; 93005; 96361; 96365; 96367; 96375; 99284; J0696; J2270; J2405; J3480; J7030; Q9967

== ENCOUNTER 2023-08-17 18:25 | Inpatient (IN) | payer MEDICARE, SELFPAY ==
--- NOTE | ~2023-08-17 | XR_ITS ---
Portable chest x-ray Comparison: 08/26/2023 Clinical History: Hypoxia Findings: There is haziness at the right lung base. Probable underlying COPD/chronic interstitial di sease. Cardiomediastinal silhouette is stable. Bones and soft tissues are unremarkable. Impression: Nonspecific haziness right lung base, similar to prior exam. Underlying chronic interstitial disease/COPD. Reviewed, dictated and finalized at location . Impression: Nonspecific haziness right lung base, similar to prior exam. Underlying chronic interstitial disease/COPD.
--- NOTE | ~2023-08-17 | US_ITS ---
COMPLETE ABDOMINAL ULTRASOUND Ordering provider: Lew Suarez MD History: . Elevated LFTs . Comparison: None. FINDINGS: LIVER: Normal size and echotexture. No focal hepatic lesions or perihepatic fluid collections are haylee ntified. Dilatation of the intrahepatic and extrahepatic bile ducts. Portal vein flow is normal. GALLBLADDER: Not demonstrated. BILIARY DUCTS: No evidence for intra or extrahepatic biliary dilation. Common bile duct measures 1.3 cm. Mm in diameter which is within normal limits. PANCREAS: Not well demonstrated. IMPRESSION: 1. Intrahepatic and extrahepatic biliary dilatation. Reviewed, dictated and finalized at location A.
--- NOTE | ~2023-08-17 | CT_ITS ---
EXAMINATION: CTA chest abdomen pelvis DATE: 08/17/2023 18:51 INDICATION: abdominal pain near syncope . TECHNIQUE: Computed tomography (CT) of the chest, abdomen, and pelvis was performed with 100 mL Omnip aque-350 intravenous contrast in the arterial phase. Automated exposure control and iterative reconst ruction technique were employed. The dose-length product was 488.42 mGy-cm. COMPARISON: CT abdomen pelvis 08/07/2023; x-ray chest 08/06/2023 FINDINGS: CHEST: Thoracic aorta: No significant dilation. No dissection. Mild arch calcification. Lung parenchyma and airways: Biapical pleural scarring. Severe emphysematous change. Patent airways. Thoracic inlet, axillae and chest wall: No thyroid or soft tissue mass. No axillary lymphadenopathy. Mediastinum: No mass or lymphadenopathy. Calcified left hilar lymph nodes. Heart and pericardium: Normal heart size. No pericardial effusion. Coronary artery calcifications: . Pleura: No effusion or mass. Thoracic bones: No acute osseous finding in the chest. ABDOMEN/PELVIS: Liver: Normal. Biliary/Gallbladder: Gallbladder is absent. Stable intra and extrahepatic bile duct dilation. Pancreas: No mass or duct dilation. Spleen: Normal. Adrenals:No mass. Kidneys: Bilateral cortical thinning. Patchy bilateral parenchymal enhancement. Bilateral cortical sc arring. Scattered subcentimeter hypodensities too small to characterize but likely represent cysts. GI tract: Mild distal esophageal and gastric wall edema. No small or large bowel dilation. Normal jeyson endix. Diverticulosis without diverticulitis. Mesentery/Peritoneum: No ascites, mass, or free air. Retroperitoneum: No mass Atherosclerotic abdominal aortic and/or arterial calcifications. No severe a bdominal branch stenosis. Severe stenosis at the origin of the left internal iliac artery. Severe alton nosis in the mid left external iliac artery. Pelvis: Normal bladder and uterus. Atrophic ovaries. Vaginal pessary. Soft Tissues: Soft tissues and body wall unremarkable. Abdominopelvic bones: No acute osseous finding in the abdomen/pelvis. IMPRESSION: Mild esophagitis/gastritis. Patchy renal enhancement may be secondary to pyelonephritis, correlate with urinalysis. Severe stenoses at the origin of the left internal iliac artery and mid left external iliac artery. No dissection or aneurysm. Reviewed, dictated and finalized at location K. IMPRESSION: Mild esophagitis/gastritis. Patchy renal enhancement may be secondary to pyelonephritis, correlate with uri nalysis. Severe stenoses at the origin of the left internal iliac artery and mid left ex ternal iliac artery. No dissection or aneurysm.
--- NOTE | ~2023-08-17 | XR_ITS ---
Portable chest x-ray Comparison: 08/06/2023 Clinical History: Hypoxia Findings: There is COPD and probable chronic bibasilar interstitial change. No acute pulmonary abnor mality evident. Cardiomediastinal silhouette is stable. Bones and soft tissues are unremarkable. Impression: COPD and bibasilar chronic interstitial change, similar to prior exam. Reviewed, dictated and finalized at location M. Impression: COPD and bibasilar chronic interstitial change, similar to prior exam.
--- NOTE | ~2023-08-17 | XR_ITS ---
Portable chest x-ray Comparison: 08/21/2023 Clinical History: Shortness of breath Findings: Minimal right pleural effusion present. Probable COPD and mild chronic interstitial diseas e. Cardiomediastinal silhouette is stable. Bones and soft tissues are unremarkable. Impression: Minimal right pleural effusion. Stable COPD and/or chronic interstitial disease. Reviewed, dictated and finalized at location . Impression: Minimal right pleural effusion. Stable COPD and/or chronic interstitial disease.
[2023-08-17 18:24] VITALS: BP 100/69; PULSE 103; RESP 14; TEMP 36.1; O2SAT 91
--- NOTE | 2023-08-17 18:30 | ECG_ITS ---
Test Date: 2023-08-17 18:30:33 Measurements Intervals [place] Rate: 102 P: 76 IA: 170 QRS: 36 QRSD: 98 T: 64 QT: 358 QTc: 468 Interpretive Statements SINUS TACHYCARDIA INFERIOR INFARCT, AGE INDETERMINATE ST-T WAVE ABNORMALITY IN ANTEROLATERAL LEADS- CONSIDER ISCHEMIA BASELINE ARTIFACT- I, II, III, AVR, AVL, AVF, V1-V6 ABNORMAL ECG Compared to ECG 08/07/2023 22:58:59 SINUS TACHYCARDIA NOW PRESENT Electronically Signed On 08-18-2023 15:07:32 CDT by Temo Rowe D.O.
--- NOTE | 2023-08-17 18:41 | ED.GENADULT ---
HPI - General Adult General Chief complaint: Abdominal Pain Stated complaint: lethargic, hypotensive Time Seen by Provider: 08/17/23 18:26 History of Present Illness HPI narrative: Patient is a 77-year-old female who presents emergency department with chief complaint of abdominal pain low blood pressure generalized malaise and black stool The patient was recently seen in the emergency department for a UTI the patient had a CT scan that showed diverticulosis without diverticulitis on the . The patient today was clammy complaining of abdominal pain and pressure in the 70s patient had a black stool but also has taken Imodium and Pepto-Bismol Related Data Home Medications Medication Instructions Recorded Confirmed albuterol sulfate 90 mcg/actuation 90 mcg inhalation DIRECTED 12/20/19 08/07/23 aerosol inhaler (ProAir HFA) sertraline 25 mg tablet (Zoloft) 25 mg DAILY 04/20/21 08/07/23 guaifenesin 600 mg tablet, 600 mg PO BID 09/10/21 08/07/23 extended release 12 hr (Mucinex) acetaminophen 325 mg tablet 325 mg PO Q6H PRN Pain 12/24/22 08/07/23 (Tylenol) aspirin 325 mg tablet (Wendie 325 mg PO DAILY 12/24/22 08/07/23 Aspirin) ibuprofen 200 mg tablet (Advil) 200 mg PO Q6H PRN Pain 12/24/22 08/07/23 triamterene 37.5 1 tablet PO QAM 12/24/22 08/07/23 mg-hydrochlorothiazide 25 mg tablet buprenorphine 5 mcg/hour weekly 1 patch transdermal Q7D chronic 08/07/23 08/07/23 transdermal patch (Butrans) pain pantoprazole 40 mg tablet,delayed 40 mg PO Q12HR 08/07/23 08/07/23 release (Protonix) Allergies Allergy/AdvReac Type Severity Reaction Status Date / Time No Known Allergies Allergy Verified 08/17/23 18:37 Review of Systems Review of Systems: A 10 system review of systems was completed on the patient and is negative except for what is stated in the HPI. Nursing and ancillary documentation was reviewed. [facility] Past Medical History Medical History Acid reflux Anxiety Chronic pain syndrome Common bile duct dilatation Constipation due to opioid therapy COPD (chronic obstructive pulmonary disease) Dilated intrahepatic bile duct Encounter for screening colonoscopy Nausea Peptic ulcer disease Tobacco abuse Surgical History Surgical History H/O tubal ligation Hx of cholecystectomy Family History Family History Mother Cerebrovascular accident Father Diabetes mellitus Social History Social History Social History: the patient stated that she smokes anywhere from half a pack to pack a cigarettes a day. She has 3 children. She desires to have her is a durable power of senior trial attorney and if he is unable to than her 3 children. The patient has 3 children. 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 She denies any alcohol marijuana or illicit drugs. The patient desires to be a full code. Smoking packs per day: 1 Smoking cigarettes per day: 20.0 Years smoked: 50 Smoking pack-years: 50.00 Smoking status: Current every day smoker Tobacco type: cigarettes Second hand tobacco smoke exposure: No Alcohol intake: never Substance use: never Substance use type: does not use Other substance usage details: prescribed opiates Last use: 09/07/21 Do You Feel Safe in your Home?: Yes Lack of Transportation: No Lack of Food: Never True Current Housing: I Have Housing Concerned About Future Housing: No Difficulty Paying Gas/Electric Bills: No Difficulty Paying for Meds: No Currently Unemployed: No Education: Trade/Vocational Certificate Difficulty w/ Childcare or Family Care: No Living arrangements: with family Gender identity (if verbalized by the patient): Female Sexual Orientation (if Verbalized by the Patient): Straight or
[2023-08-17 18:44] LABS: Hematocrit 44.3 % (37.0-47.0); Hemoglobin 14.4 g/dL (12.0-15.0); Mean Corpuscular HGB Conc 32.5 g/dl (32-36); Mean Corpuscular Hemoglobin 31.4 pg (26-34); Mean Corpuscular Volume 96.7 fl (80-100); Mean Platelet Volume 10.8 fl (7.4-10.4); Platelet Count Result 300 k/mm3 (150-375); Red Blood Count 4.58 M/mm3 (4.2-5.4); Red Cell Distribution Width 13.6 % (11.5-14.5); White Blood Count 17.1 K/mm3 (4.5-10.0)
[2023-08-17 18:51] LABS: Lactic Acid Reflex 3.3 mmol/L (0.7-2.0)
[2023-08-17 18:52] LABS: Alanine Aminotransferase 266 U/L (6-35); Albumin Level 3.8 g/dL (3.5-5.1); Alkaline Phosphatase 164 U/L (38-126); Anion Gap 19 mmol/L (4-12); Aspartate Amino Transferase 528 U/L (14-36); Blood Urea Nitrogen 47 mg/dL (7-17); Calcium 8.6 mg/dL (8.4-10.2); Carbon Dioxide 12 mmol/L (22-30); Chloride 106 mmol/L (98-107); Estimated CRCL calculation 14 ml/min; Estimated Glomerular Filt Rate 20; Glucose 120 mg/dL (65-110); Magnesium 1.8 mg/dL (1.6-2.3); Potassium 3.5 mmol/L (3.4-5.0); Sodium 137 mmol/L (137-145)
[2023-08-17 18:55] LABS: INR 1.4; Partial Thromboplastin Time 35.3 Seconds (22.3-36.8); Prothrombin Time 17.3 Seconds (11.1-14.7)
[2023-08-17] MEDS: SODIUM CHLORIDE 0.9% IV 1,000 ML 999 ML IV CONT ×3 (19:01→19:43)
[2023-08-17 19:03] LABS: NT Pro B Type Natriuretic Pept 2050 pg/mL (19.9-100); Troponin I 0.014 ng/mL (0.000-0.034)
[2023-08-17 19:11] LABS: Procalcitonin > 100.0 ng/mL; Total Cells Counted 100
[2023-08-17 19:12] LABS: Band Neutrophils Percent 3 % (0-6); Eosinophils Absolute Manual 0.17 K/mm3 (0.02-0.50); Eosinophils Percent Manual 1 % (0-4); Large Platelets Present; Lymphocytes Absolute Manual 0.68 K/mm3 (1.1-4.5); Lymphocytes Percent Manual 4 % (18-44); Metamyelocytes Percent 2 %; Monocytes Absolute Manual 1.19 K/mm3 (0.1-0.90); Monocytes Percent Manual 7 % (3-9); Neutrophils Percent Manual 83 % (46-73); Platelet Clumps Present; Platelet Estimate Adequate (Adequate)
[2023-08-17 19:13] LABS: Burr Cells 1+; Schistocytes None Seen
[2023-08-17] MEDS: CEFEPIME 2 GM/NS 50 ML 2 GM/50 ML BAG IVPB (19:45)
[2023-08-17 20:22] VITALS: BP 112/68; PULSE 98; O2SAT 100
[2023-08-17] MEDS: VANCOMYCIN 750 MG/NS 250 ML 750 MG/250 ML BAG 250 MG IVPB (20:24)
[2023-08-17 20:31] LABS: Appearance Urine Clear (Clear); Bacteria Urine None Seen /hpf; Bilirubin Urine Negative (Negative); Blood Urine Negative (Negative); Color Urine Yellow (Yellow); Glucose Urine UA Negative (Negative); Ketones Urine Negative (Negative); Leukocyte Esterase Ur Negative LEU/UL (Negative); Need Manual Microscopic Reviewed; Nitrate Urine Negative (Negative); Protein Urine Trace mg/dL (Negative); RBC Urine 0-2 /hpf (0-2); Specific Grav Ur 1.028 (1.001-1.035); Squamous Epithelial Cell Urine None Seen /hpf (Few); Urobilinogen Urine 0.2 mg/dL (<2.0); WBC Urine 0-5 /hpf (0-3)
[2023-08-17 20:34] LABS: Add Urine Microscopic? YES
[2023-08-17 20:57] VITALS: BP 113/78; PULSE 107; RESP 19; O2SAT 100
[2023-08-17 21:10] VITALS: BP 124/95; PULSE 107; RESP 20; TEMP 36.4; O2SAT 98; BMI 23.5
[2023-08-17 21:16] VITALS: BMI 22.7
--- NOTE | 2023-08-17 21:24 | ADMGEN ---
This patient, Marysol Chapman, was admitted to IMU Room 211-01. Patient/family oriented to hospital policies and general routines including ID bracelet, bed and alarms, visiting hours, pain management, procedures, bathroom and other care routines, personal items, smoking policy, room service/diet, and visiting hours. Information on how to activate the Rapid Response Team has been discussed. Patient/Family are encouraged to report perceived risks to care and to ask questions if they do not understand what they are told or what they should do.
[2023-08-17 21:39] LABS: Reflex Lactic Acid Yes or No Add Lactic
[2023-08-17] MEDS: FUROSEMIDE INJ 40 MG/4 ML VIAL 20 MG IV PUSH (21:50)
[2023-08-17 21:59] LABS: Lactic Acid 1.9 mmol/L (0.7-2.0)
[2023-08-17 22:00] VITALS: PULSE 107; PULSE 109; RESP 20; O2SAT 98
[2023-08-17 23:23] VITALS: BP 113/50; PULSE 108; RESP 20; TEMP 36.3; O2SAT 97
[2023-08-17] MEDS: HYDROcodone/acetaminophen (*CRX) 5-325 MG TABLET 1 TAB PO (23:37)
[2023-08-18] VITALS (30 sets, daily range): BP systolic 80–126; BP diastolic 40–95; PULSE 89–123; RESP 17–23; TEMP 35.6–37.7; O2SAT 94–100
--- NOTE | 2023-08-18 | ECHO_ITS ---
Patient Info Name: Marysol Chapman Age: 77 years : 1945 Gender: Female Ht: 61 in Wt: 120 lbs BSA: 1.54 m2 HR: 108 bpm BP: 116 / 83 mmHg Technical Quality: Poor Exam Date: 08/18/2023 3:53 PM Exam Location: Echo Lab Patient Status: Inpatient Admit Date: 08/18/2023 Staff Ordering Physician: Brandon Reed APRN Regional Sales Consultant: Oneida Rao RDCS Attending Provider: Jeffery Brooks MD Referring Physician: Derek OH; Exam Type: CA echo doppler color flow Study Info Indications - hypotension R06.00 - Dyspnea, unspecified - fluid overload Complete two-dimensional, color flow and Doppler transthoracic echocardiogram is performed. Reason for Poor Study: poor patient cooperation Summary 1. Technically difficult study with limited views. 2. Left ventricular chamber dimension is normal. 3. Left ventricular systolic function is normal, estimated at >70%. 4. There is mildly increased left ventricular wall thickness. 5. The left ventricular diastolic function is grade I diastolic dysfunction. 6. Right ventricular systolic function is normal. 7. There is mild tricuspid valve regurgitation. Left Ventricle Left ventricular chamber dimension is normal. Left ventricular systolic function is normal, estimated at >70%. There is mildly increased left ventricular wall thickness. The left ventricular diastolic function is grade I diastolic dysfunction. Right Ventricle Right ventricular chamber dimension is normal. Right ventricular systolic function is normal. Left Atria Left atrial chamber dimension is normal. Right Atria Right atrial chamber dimension is normal. Atrial Septum Intact interatrial septum visualized by color flow imaging. Aortic Valve The aortic valve is not well visualized. There is no aortic valve regurgitation. There is mild aortic valve calcification. Pulmonic Valve The pulmonic valve is not well visualized. Mitral Valve There is trace mitral valve regurgitation. Tricuspid Valve There is mild tricuspid valve regurgitation. Pericardium/Pleural The pericardium appears epicardial fat pad. There is no pericardial effusion. Inferior Vena Cava Normal inferior vena cava with >50% collapse upon inspiration consistent with normal right atrial pressure, 3 mmHg. Aorta The aortic root size at the sinus of Valsalva is normal. Left Ventricular Outflow Tract Name Value Normal LVOT 2D LVOT Diameter 2.0 cm LVOT Doppler LVOT Peak Gradient 6 mmHg LVOT Mean Gradient 2 mmHg LVOT VTI 16 cm LVOT VTI/AV VTI Ratio 0.6 LVOT Stroke Volume 49 ml LVOT CO 4.8 l/min LVOT CI 3.1 l/min/m2 Pulmonic Valve Name Value Normal RVOT Doppler RVOT Peak Gradient 5 mmHg PV Doppler ------
[2023-08-18 00:28] LABS: Alanine Aminotransferase 321 U/L (6-35); Albumin Level 3.5 g/dL (3.5-5.1); Alkaline Phosphatase 158 U/L (38-126); Anion Gap 16 mmol/L (4-12); Aspartate Amino Transferase 590 U/L (14-36); Blood Urea Nitrogen 39 mg/dL (7-17); Carbon Dioxide 11 mmol/L (22-30); Chloride 111 mmol/L (98-107); Estimated CRCL calculation 16 ml/min; Estimated Glomerular Filt Rate 24; Glucose 91 mg/dL (65-110); Potassium 3.1 mmol/L (3.4-5.0); Sodium 138 mmol/L (137-145)
[2023-08-18 00:35] LABS: Fractional Inspired Oxygen 21 %; HCO3 VBG 11.8 mEq/l (24.0-30.0); PO2 VBG 36.1 mmHg (35.0-45.0)
[2023-08-18 00:37] LABS: Device ROOM AIR; pH VBG 7.183 (7.300-7.400)
--- NOTE | 2023-08-18 00:54 | PM.IMHP ---
H&P: HPI History of Present Illness Date/Time: 08/18/23 00:54 Chief Complaint: Hypotension, sepsis, abdominal pain Narrative: This is a 77-year-old female patient brought to the emergency department complaining of abdominal pain found to have low blood pressure and generalized malaise. Patient recently treated for urinary tract infection. On examination patient is confused and unable to assist with HPI an ROS, no family present at this time. Patient states that she has taken Imodium and Pepto-Bismol for upset stomach and had black stool but no obvious blood. She was found to have a blood pressure in the 70s on arrival. She received over 4 L of IV fluids if you include IV antibiotics and potassium replacement. She had resultant respiratory distress and was given small doses of Lasix. Barahona catheter in place. Patient is on vancomycin and cefepime for presumed urinary source infection. Patient meets sepsis criteria. Review of Systems Review of Systems: ROS unobtainable: Yes unobtainable due to medical condition and unobtainable due to mental status PMFSH Past Medical History Medical History Acid reflux Anxiety Chronic pain syndrome Common bile duct dilatation Constipation due to opioid therapy COPD (chronic obstructive pulmonary disease) Dilated intrahepatic bile duct Encounter for screening colonoscopy Nausea Peptic ulcer disease Tobacco abuse Surgical History Surgical History H/O tubal ligation Hx of cholecystectomy Family History Family History Mother Cerebrovascular accident Father Diabetes mellitus Social History Social History Social History: the patient stated that she smokes anywhere from half a pack to pack a cigarettes a day. She has 3 children. She desires to have her is a durable power of corporate associate attorney and if he is unable to than her 3 children. The patient has 3 children. 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 She denies any alcohol marijuana or illicit drugs. The patient desires to be a full code. Smoking packs per day: 1 Smoking cigarettes per day: 20.0 Years smoked: 50 Smoking pack-years: 50.00 Smoking status: Current every day smoker Tobacco type: cigarettes Second hand tobacco smoke exposure: No Alcohol intake: never Substance use: never Substance use type: does not use Other substance usage details: prescribed opiates Last use: 09/07/21 Do You Feel Safe in your Home?: Yes Lack of Transportation: No Lack of Food: Never True Current Housing: I Have Housing Concerned About Future Housing: No Difficulty Paying Gas/Electric Bills: No Difficulty Paying for Meds: No Currently Unemployed: No Education: Trade/Vocational Certificate Difficulty w/ Childcare or Family Care: No Living arrangements: with family Gender identity (if verbalized by the patient): Female Sexual Orientation (if Verbalized by the Patient): Straight or Heterosexual Spiritual care concerns: No Meds Home Medications and Allergies Home Medications Medication Instructions Recorded Confirmed Type albuterol sulfate 90 mcg/actuation 90 mcg inhalation DIRECTED 12/20/19 08/17/23 History aerosol inhaler (ProAir HFA) guaifenesin 600 mg tablet, 600 mg PO BID 09/10/21 08/17/23 History extended release 12 hr (Mucinex) acetaminophen 325 mg tablet 325 mg PO Q6H PRN Pain 12/24/22 08/17/23 History (Tylenol) aspirin 325 mg tablet (Wendie 325 mg PO DAILY 12/24/22 08/17/23 History Aspirin) ibuprofen 200 mg tablet (Advil) 200 mg PO Q6H PRN Pain 12/24/22 08/17/23 History triamterene 37.5 1 tablet PO QAM 12/24/22 08/17/23 History mg-hydrochlorothiazide 25 mg tablet docusate sodium 100 mg capsule 100 mg PO BID #20 caps 08/06/23 08/17/23 Rx
[2023-08-18] MEDS: SODIUM BICARBONATE 8.4% 50 MEQ/50 ML SYRINGE 100 MEQ IV PUSH (01:14)
[2023-08-18] MEDS: ONDANSETRON INJ 4 MG/2 ML VIAL IV PUSH (01:49)
[2023-08-18 01:57] LABS: Amphetamine Screen Urine Negative (Negative); Barbiturate Screen Urine Negative (Negative); Benzodiazepines Screen Urine Negative (Negative); Cannabinoid Screen Urine Negative (Negative); Cocaine Screen Urine Negative (Negative); Methadone Screen Urine Negative (Negative); Opiate Screen Urine Negative (Negative); Phencyclidine Screen Urine Negative (Negative)
[2023-08-18] MEDS: POTASSIUM CHLORIDE INJ 40 MEQ in SODIUM CHLORIDE 0.9% IV 500 ML 130 MEQ IVPB ×2 (02:14→12:08)
[2023-08-18] MEDS: FUROSEMIDE INJ 40 MG/4 ML VIAL 20 MG IV PUSH (02:23)
[2023-08-18 03:26] LABS: Toxigenic C. Diff POSITIVE (NEGATIVE)
[2023-08-18] MEDS: FIDAXOMICIN 200 MG TABLET PO ×3 (04:26→21:06)
[2023-08-18 05:15] LABS: Influenza A QL RT-PCR Negative (Negative); Influenza B QL RT-PCR Negative (Negative); RSV RNA, RT-PCR Negative (Negative); SARS-CoV-2 RNA PCR Negative (Negative)
[2023-08-18 05:22] LABS: Basophils Percent Auto 0.2 % (0.2-1.2); Hematocrit 42.9 % (37.0-47.0); Hemoglobin 13.7 g/dL (12.0-15.0); Immature Granulocyte Absolute 0.07 K/mm3 (0.00-0.031); Immature Granulocyte Percent A 0.4 % (0-0.5); Lymphocytes Absolute Auto 0.88 K/mm3 (0.9-3.2); Lymphocytes Percent Auto 5.3 % (18.3-44.2); Mean Corpuscular HGB Conc 31.9 g/dl (32-36); Mean Corpuscular Hemoglobin 30.9 pg (26-34); Mean Corpuscular Volume 96.8 fl (80-100); Mean Platelet Volume 10.5 fl (7.4-10.4); Monocytes Percent Auto 6.2 % (2.6-8.5); Neutrophils Absolute Auto 14.7 K/mm3 (1.3-6.7); Neutrophils Percent Auto 87.9 % (45.5-73.1); Platelet Count Result 313 k/mm3 (150-375); Red Blood Count 4.43 M/mm3 (4.2-5.4); White Blood Count 16.7 K/mm3 (4.5-10.0)
[2023-08-18 05:31] LABS: Lactic Acid Reflex 2.4 mmol/L (0.7-2.0)
[2023-08-18 05:48] LABS: Procalcitonin > 100.0 ng/mL
[2023-08-18] MEDS: KCL 20 MEQ/SW 100 ML 100 ML 50 MEQ IVPB (06:24)
[2023-08-18 07:11] LABS: Estimated CRCL calculation 13 ml/min; Estimated Glomerular Filt Rate 18
[2023-08-18] MEDS: SODIUM CHLORIDE 0.9% IV 1,000 ML 999 ML IV CONT ×2 (08:37→11:31)
--- NOTE | 2023-08-18 08:37 | PM.IMPN ---
Progress Note: A&P Assessment and Plan (1) Sepsis: Code(s): A41.9 - Sepsis, unspecified organism Status: Acute Assessment and Plan: Patient presents with abdominal pain, low BP, generalized malaise and black stools. She has been taking Imodium and Pepto-Bismol. SBP in the 70's prior to admission but stable here on admission. Sepsis on admission with HoTN, Lactic acidosis (3.3), Leukocytosis (WBC 17.1), tachycardia, markedly elevated PCT COVID/Influenza/RSV PCR negative. 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 Colon appears normal. She was approrpiately fluid resuscitated. Started on Vanco and Cefepime after appropriate cultures obtained. UA was clear. UCx from 08/06 was negative BCx pending CDiff toxin positive. Dificid added (08/17 at 0426) Pyelonephritis seems less likely but UA may appear clear since on abx on admission. Sepsis could be related to CDiff but no evidence of colitis by imaging. HoTN now. She received lasix IV twice through out the night. Fluid bolus and continue IV fluids to maintain MAP>70. Lactic acid level improved initially but higher now. Add bicarb to IV fluids when able. Continue IV abx until cultures are negative. Add Flagyl IV (2) C. difficile enteritis: Code(s): A04.72 - Enterocolitis due to Clostridium difficile, not specified as recurrent Status: Acute Assessment and Plan: As above (3) Acute pyelonephritis: Code(s): N10 - Acute pyelonephritis Status: Acute Assessment and Plan: Imaging finding of concern for acute pyelonephritis. UA clear but was on abx prior to admisison. As above (4) Acute kidney injury: Code(s): N17.9 - Acute kidney failure, unspecified Status: Acute Assessment and Plan: Baseline Cr 1.3-1.4 over the past year so has probably underlying CKD. Creatinine 2.4, BUN [address] scan showing bilateral cortical thinning and patchy bilateral parenchymal enhancement and cortical scarring. Vanderwagen related to pre-renal/dehydration but consider renal from pyelonephritis. Receive NaBicarb push typer 08/18/23 Creatinine 2.0 today. Serum bicarb about the same at 11. Anion gap better at 16. Continue fluid resuscitation. Add IV fluids bicarb when able. Repeat NaBicarb push. (5) Metabolic acidosis: Code(s): E87.20 - Acidosis, unspecified Status: Acute Assessment and Plan: Related to lactic acidosis and LEATHA. Consider ischemic bowel but felt less likely at this moment Consider further imaging especially if metabolic derangement can not be corrected. As above (6) Transaminitis: Code(s): R74.01 - Elevation of levels of liver transaminase levels Status: Acute Assessment and Plan: AST/ALT elevated on admission at 528/266. AP at 164 but trending down now. TBili normal. CT showing normal liver and stable appearing (chronic) intra and extrahepatic bile duct dilation. s/p cholecystectomy. Normal LFTs noted 2 weeks ago AST/ALT climbing. Vanderwagen related to shock liver. Check hepatitis panel. Follow (7) Hypokalemia: Code(s): E87.6 - Hypokalemia Status: Acute Assessment and Plan: Potassium 3.1 after IV fluid boluses. Ordered 60 mEq oral replacement but patient had emesis as soon as she drank the potassium liquid. Ordered IV replacement instead. Repeat labs later today. (8) Occult blood in stools: Code(s): R19.5 - Other fecal abnormalities Status: Acute Assessment and Plan: Per ED note, stool is black and guaiac positive. Not unexpected due to CDiff being positive. 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
[2023-08-18] MEDS: PANTOPRAZOLE SODIUM IV 40 MG VIAL IV PUSH ×2 (08:38→21:06)
[2023-08-18] MEDS: SODIUM BICARBONATE 8.4% 50 MEQ/50 ML SYRINGE IV PUSH ×2 (09:42→13:46)
[2023-08-18 10:46] LABS: Basophils Percent Auto 0.2 % (0.2-1.2); Eosinophils Percent Auto 0.1 % (0-4.4); Hematocrit 36.1 % (37.0-47.0); Hemoglobin 12.1 g/dL (12.0-15.0); Immature Granulocyte Absolute 0.05 K/mm3 (0.00-0.031); Immature Granulocyte Percent A 0.3 % (0-0.5); Lymphocytes Absolute Auto 1.07 K/mm3 (0.9-3.2); Lymphocytes Percent Auto 6.8 % (18.3-44.2); Mean Corpuscular HGB Conc 33.5 g/dl (32-36); Mean Corpuscular Hemoglobin 31.9 pg (26-34); Mean Corpuscular Volume 95.3 fl (80-100); Mean Platelet Volume 10.4 fl (7.4-10.4); Monocytes Absolute Auto 1.1 K/mm3 (0.1-0.6); Neutrophils Absolute Auto 13.5 K/mm3 (1.3-6.7); Neutrophils Percent Auto 85.6 % (45.5-73.1); Platelet Count Result 261 k/mm3 (150-375); Red Blood Count 3.79 M/mm3 (4.2-5.4); White Blood Count 15.8 K/mm3 (4.5-10.0)
[2023-08-18 11:08] LABS: Alanine Aminotransferase 303 U/L (6-35); Albumin Level 2.9 g/dL (3.5-5.1); Alkaline Phosphatase 124 U/L (38-126); Anion Gap 19 mmol/L (4-12); Aspartate Amino Transferase 485 U/L (14-36); Blood Urea Nitrogen 41 mg/dL (7-17); Calcium 7.2 mg/dL (8.4-10.2); Carbon Dioxide 12 mmol/L (22-30); Chloride 115 mmol/L (98-107); Estimated CRCL calculation 17 ml/min; Estimated Glomerular Filt Rate 26; Glucose 50 mg/dL (65-110); Magnesium 1.5 mg/dL (1.6-2.3); Potassium 2.9 mmol/L (3.4-5.0); Sodium 146 mmol/L (137-145)
[2023-08-18] MEDS: DEXTROSE 50% 25 GM/50 ML SYRINGE (11:31)
[2023-08-18] MEDS: metroNIDAZOLE 500 MG/ISO 100ML 500 MG/100 ML BAG 100 MG IVPB ×3 (11:31→23:25)
[2023-08-18 11:34] LABS: Hepatitis B Surface Antigen Negative (Negative)
[2023-08-18 11:40] LABS: HAV RESULT Negative (Negative); Hepatitis B Core IgM Result Negative (Negative)
[2023-08-18 11:51] LABS: Hepatitis C Virus Antibody Negative (Negative)
[2023-08-18 12:06] LABS: Creatine Kinase 147 U/L (30-135)
[2023-08-18 12:13] LABS: Glucose Point of Care 151 mg/dl (65-105)
[2023-08-18] MEDS: MAGNESIUM SULF 2 GM/WATER 50ML 2 GM/50 ML BAG IVPB (12:16)
[2023-08-18 12:22] LABS: Troponin I 0.369 ng/mL (0.000-0.034)
--- NOTE | 2023-08-18 13:04 | P.PCNBED_ITS ---
Procedures Central Line Placement Right Femoral: Central Line Date: 08/18/23 Central Line Time: 13:04 Discussed w/ the patient/family/POA,the placement of a central venous catheter, including its clinical necessity/indication & associated potential risks, benifits and alternatives.: Yes The patient/family/POA understand(s) and acknowledge(s) the need to proceed with central venous catheter insertion as an important element of the patient's clinical management.: Yes Consent: I have discussed with the patient and/or surrogate, the non-emergent placement of a central venous catheter, including its clinical necessity/indication and associated potential risks and complications. The patient and/or surrogate understand(s) and acknowledge(s) the need to proceed with central venous catheter insertion as an important element of the patient's clinical management. Time Out Performed: Yes Patient Position: supine Patient placed on monitor/pulse ox: Yes Provider Prep: mask, sterile gown, sterile gloves, Max. sterile barrier precautions, cap and hand hygiene with conventional soap/water or alcohol based hand rub Central line prep: 2% Chlorhexidine scrub Local anesthesia used: lidocaine 1% Amount of anesthesia used (ml): 4 Sterile US Technique with sterile gel/sterile probe covers: Yes Central line lumen inserted: triple Stateless: 7 Length (cm): 20 Depth of Insertion (cm): 20 Post Procedure: sutured in place, good blood return, all ports aspirated, flushed, capped, transparent dressing, hemostatic product, antimicrobial product, securement product and aseptic technique maintained throughout procedure Post procedure x-ray: other (not applicable) Patient tolerated procedure: well Complications: none
[2023-08-18] MEDS: NOREPINEPHRINE 8 MG/D5W 250 ML 8 MG/250 ML BAG 9.38 MG IV CONT (13:05)
--- NOTE | 2023-08-18 13:11 | WPDCNINT ---
Assessment and Plan Assessment and plan (1) Septic shock: Code(s): A41.9 - Sepsis, unspecified organism; R65.21 - Severe sepsis with septic shock Status: Acute Assessment and Plan: 08/16: Patient presented from with abdominal pain, general malaise, diarrhea and low blood pressures -in the ER patient was found to be hypotensive, received 3 L IV fluid bolus and was admitted to the IMU for further management -procalcitonin on admission was > 100.0 -08/17: C diff positive -on 08/18/2023: Patient was transferred to the ICU from intermediate Unit for refractory hypotension after being given 2 L IV fluids in the intermediate Unit. Central line was inserted in the ICU - started on Levophed, will maintain MAP > 65 mmHg for adequate end organ perfusion -08/16: Blood cultures obtained -08/17: Urine culture ordered -patient received a total of 5 L of IV fluids since admission -continue Levophed -start patient on sodium bicarb infusion due to severe metabolic acidosis -elevated lactic acid levels, will repeat -patient is on cefepime, vancomycin, Flagyl, fidaxomicin 08/17/2023 CTA chest abdomen and pelvis showed mild esophagitis/gastritis, patchy renal enhancement may be secondary to pyelonephritis, correlate with urinalysis. 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 No dissection aneurysm patient does have severe emphysematous changes. Gallbladder is absent, stable intrahepatic bile duct dilatation. Mild distal esophageal and gastric wall edema, no small or large bowel dilatation. Diverticulosis without diverticulitis. (2) Acute pyelonephritis: Code(s): N10 - Acute pyelonephritis Status: Acute Assessment and Plan: UTI/acute pyelonephritis -will obtain urine culture -continue antibiotics as above (3) Transaminitis: Code(s): R74.01 - Elevation of levels of liver transaminase levels Status: Acute Assessment and Plan: Elevated LFTs with normal bilirubin, likely related to hypoperfusion/shock liver -continue to monitor closely (4) C. difficile enteritis: Code(s): A04.72 - Enterocolitis due to Clostridium difficile, not specified as recurrent Status: Acute Assessment and Plan: Patient with abdominal pain, C diff was ordered was positive -continue fidaxomicin and Flagyl for now -no signs of inflammation/infection/colitis on CTA of the abdomen and pelvis (5) Electrolyte imbalance: Code(s): E87.8 - Other disorders of electrolyte and fluid balance, not elsewhere classified Status: Acute Assessment and Plan: Will aggressively replace potassium -will check potassium later today (6) Occult blood in stools: Code(s): R19.5 - Other fecal abnormalities Status: Acute Assessment and Plan: Hemoglobin 12.1 this morning (14.4 on admission) this could also be related to dilution as patient received IV fluids -will continue to monitor hemoglobin level -currently on Protonix 40 mg IV q.12 hours (7) skilled nursing (current) use of opiate analgesic: Code(s): Z79.891 - continuous churn 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 Patient has been on buprenorphine patches which have been discontinued. -will monitor patient for opioid withdrawal (8) Tobacco abuse: Code(s): Z72.0 - Tobacco use Status: Chronic Assessment and Plan: Patient has a longstanding history of tobacco abuse, will head counselor patient on tobacco cessation once she is more awake Plan DVT prophylaxis: SCDs, patient has positive Hemoccult Stress ulcer prophylaxis: Protonix IV q.12 hours Nutrition: NPO for now Code Status: Full code Critical Care Time Spent: 56 minutes
[2023-08-18] MEDS: ALBUMIN HUMAN 25% 25 GM/100 ML 100 ML IVPB ×3 (13:47→23:07)
[2023-08-18] MEDS: SODIUM BICARBONATE 8.4% 150 MEQ in DEXTROSE 5% 1,000 ML 950 ML 75 MEQ IV CONT (13:51)
[2023-08-18 13:56] LABS: Lactic Acid Reflex 1.1 mmol/L (0.7-2.0)
[2023-08-18 16:09] LABS: Glucose Point of Care 163 mg/dl (65-105)
[2023-08-18] MEDS: HYDROCORTISONE SODIUM SUCCINATE 100 MG/2 ML VIAL IV PUSH ×2 (16:25→21:06)
[2023-08-18] MEDS: CEFEPIME 2 GM/NS 50 ML 2 GM/50 ML BAG IVPB (17:28)
[2023-08-18] MEDS: KCL 40 MEQ/WATER 100 ML 100 ML 25 ML IVPB (19:34)
[2023-08-18] MEDS: NOREPINEPHRINE 8 MG/D5W 250 ML 8 MG/250 ML BAG 31.88 MG IV CONT (21:00)
[2023-08-18 21:26] LABS: Glucose Point of Care 183 mg/dl (65-105)
[2023-08-18 21:55] LABS: Vancomycin Trough 6.9 ug/mL (10.0-20.0)
[2023-08-18] MEDS: VANCOMYCIN 1,000 MG/NS 250 ML 1,000 MG/250 ML BAG 250 MG IVPB (23:05)
[2023-08-18] MEDS: INSULIN ASPART (*BKC) 100 UNITS/ML SUB-Q (23:26)
[2023-08-18] MEDS: ACETAMINOPHEN 325 MG TABLET 650 MG PO (23:38)
[2023-08-18 23:49] LABS: Glucose Point of Care 219 mg/dl (65-105)
[2023-08-19] VITALS (58 sets, daily range): BP systolic 80–138; BP diastolic 42–99; PULSE 68–122; RESP 16–38; TEMP 36.3–36.9; O2SAT 92–100
[2023-08-19] MEDS: SODIUM BICARBONATE 8.4% 150 MEQ in DEXTROSE 5% 1,000 ML 950 ML 75 MEQ IV CONT (03:45)
[2023-08-19] MEDS: ALBUMIN HUMAN 25% 25 GM/100 ML 100 ML IVPB (05:54)
[2023-08-19] MEDS: HYDROCORTISONE SODIUM SUCCINATE 100 MG/2 ML VIAL IV PUSH ×3 (05:54→21:07)
[2023-08-19] MEDS: metroNIDAZOLE 500 MG/ISO 100ML 500 MG/100 ML BAG 100 MG IVPB (05:58)
[2023-08-19] MEDS: CENTRAL LINE FLUSH 10 ML IV PUSH ×3 (05:58→21:07)
[2023-08-19] MEDS: INSULIN ASPART (*BKC) 100 UNITS/ML SUB-Q (06:03)
[2023-08-19 06:26] LABS: Glucose Point of Care 201 mg/dl (65-105)
[2023-08-19 06:47] LABS: Alanine Aminotransferase 469 U/L (6-35); Albumin Level 3.4 g/dL (3.5-5.1); Alkaline Phosphatase 83 U/L (38-126); Anion Gap 13 mmol/L (4-12); Aspartate Amino Transferase 722 U/L (14-36); Bilirubin,Total 1.1 mg/dL (0.2-1.3); Blood Urea Nitrogen 35 mg/dL (7-17); Calcium 7.3 mg/dL (8.4-10.2); Carbon Dioxide 24 mmol/L (22-30); Chloride 109 mmol/L (98-107); Estimated CRCL calculation 21 ml/min; Estimated Glomerular Filt Rate 34; Glucose 207 mg/dL (65-110); Magnesium 2.1 mg/dL (1.6-2.3); Potassium 2.9 mmol/L (3.4-5.0); Sodium 146 mmol/L (137-145)
[2023-08-19 06:48] LABS: Lactic Acid Reflex 1.5 mmol/L (0.7-2.0)
[2023-08-19 06:49] LABS: CRP 2.5 mg/dL (<1.0); Phosphorus 1.4 mg/dL (2.5-4.5)
[2023-08-19 07:06] LABS: Basophils Percent Auto 0.2 % (0.2-1.2); Hematocrit 28.5 % (37.0-47.0); Hemoglobin 9.6 g/dL (12.0-15.0); Immature Granulocyte Absolute 0.16 K/mm3 (0.00-0.031); Lymphocytes Percent Auto 6.6 % (18.3-44.2); Mean Corpuscular HGB Conc 33.7 g/dl (32-36); Mean Corpuscular Hemoglobin 31.9 pg (26-34); Mean Corpuscular Volume 94.7 fl (80-100); Mean Platelet Volume 10.8 fl (7.4-10.4); Monocytes Absolute Auto 1.1 K/mm3 (0.1-0.6); Monocytes Percent Auto 6.4 % (2.6-8.5); Neutrophils Absolute Auto 14.3 K/mm3 (1.3-6.7); Neutrophils Percent Auto 85.8 % (45.5-73.1); Platelet Count Result 241 k/mm3 (150-375); Red Blood Count 3.01 M/mm3 (4.2-5.4); Red Cell Distribution Width 14.4 % (11.5-14.5); White Blood Count 16.7 K/mm3 (4.5-10.0)
[2023-08-19] MEDS: NOREPINEPHRINE 8 MG/D5W 250 ML 8 MG/250 ML BAG 22.5 MG IV CONT (07:06)
[2023-08-19 07:23] LABS: Procalcitonin 80.2 ng/mL
--- NOTE | 2023-08-19 07:48 | ECG_ITS ---
Test Date: 2023-08-19 08:26:28 Measurements Intervals [place] Rate: 80 P: 0 KS: 0 QRS: 37 QRSD: 94 T: 163 QT: 359 QTc: 416 Interpretive Statements ATRIAL FIBRILLATION LOW QRS VOLTAGE IN LIMB LEADS ST-T WAVE ABNORMALITY IN ANTEROLAT/HIGH LAT LEADS- CONSIDER ISCHEMIA BASELINE ARTIFACT- I, II, III, AVR, AVL, AVF, V1-V3 ABNORMAL ECG Compared to ECG 08/17/2023 18:30:33 ATRIAL FIBRILLATION NOW PRESENT Electronically Signed On 08-19-2023 08:29:07 CDT by Temo Rowe D.O.
[2023-08-19 07:59] LABS: Glucose Point of Care 175 mg/dl (65-105)
[2023-08-19] MEDS: VASOPRESSIN INJ 100 UNITS in DEXTROSE 5% 95 ML IV CONT (08:32)
[2023-08-19] MEDS: CALCIUM GLUC 2,000 MG/NS 100ML 2,000 MG/100 ML BAG 100 MG IVPB (08:36)
[2023-08-19] MEDS: POTASSIUM PHOS,M-BASIC-D-BASIC 20 MMOL in SODIUM CHLORIDE 0.9% IV 250 ML 64.17 MMOL IVPB (08:36)
[2023-08-19] MEDS: POTASSIUM CHLORIDE 20 MEQ PACKET (FOR LIQUID) 40 MEQ PO (08:38)
[2023-08-19] MEDS: FIDAXOMICIN 200 MG TABLET PO ×2 (08:38→21:07)
[2023-08-19] MEDS: ASPIRIN 325 MG ENTERIC TABLET PO (08:38)
[2023-08-19] MEDS: PANTOPRAZOLE SODIUM IV 40 MG VIAL IV PUSH ×2 (08:38→21:07)
--- NOTE | 2023-08-19 08:52 | WPDINTPN ---
Progress Note: A&P Assessment and Plan (1) Septic shock: Code(s): A41.9 - Sepsis, unspecified organism; R65.21 - Severe sepsis with septic shock Status: Acute Assessment and Plan: 08/16: Patient presented from with abdominal pain, general malaise, diarrhea and low blood pressures. Found to be having UTI -in the ER patient was found to be hypotensive, received 3 L IV fluid bolus and was admitted to the IMU for further management -procalcitonin on admission was > 100.0 -08/17: C diff positive -on 08/18/2023: Patient was transferred to the ICU from intermediate Unit for refractory hypotension after being given 2 L IV fluids in the intermediate Unit. Central line was inserted in the ICU - started on Levophed, will maintain MAP > 65 mmHg for adequate end organ perfusion -08/16: Blood cultures obtained -08/17: Urine culture ordered -patient received a total of 5 L of IV fluids since admission and will hold further IV fluids -continue Levophed. Add vasopressin -continue stress dose hydrocortisone -will discontinue sodium bicarb infusion as acidosis improved -patient is on cefepime, fidaxomicin 08/17/2023 CTA chest abdomen and pelvis showed mild esophagitis/gastritis, patchy renal enhancement may be secondary to pyelonephritis, correlate with urinalysis. 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 No dissection aneurysm patient does have severe emphysematous changes. Gallbladder is absent, stable intrahepatic bile duct dilatation. Mild distal esophageal and gastric wall edema, no small or large bowel dilatation. Diverticulosis without diverticulitis. (2) Acute pyelonephritis: Code(s): N10 - Acute pyelonephritis Status: Acute Assessment and Plan: UTI/acute pyelonephritis -will obtain urine culture -continue antibiotics as above (3) Transaminitis: Code(s): R74.01 - Elevation of levels of liver transaminase levels Status: Acute Assessment and Plan: Elevated LFTs with normal bilirubin, likely related to hypoperfusion/shock liver -continue to monitor closely (4) C. difficile enteritis: Code(s): A04.72 - Enterocolitis due to Clostridium difficile, not specified as recurrent Status: Acute Assessment and Plan: Patient with abdominal pain, C diff was ordered was positive -continue fidaxomicin. Will DC IV Flagyl -no signs of inflammation/infection/colitis on CTA of the abdomen and pelvis -no diarrhea in the ICU (5) Electrolyte imbalance: Code(s): E87.8 - Other disorders of electrolyte and fluid balance, not elsewhere classified Status: Acute Assessment and Plan: Replace potassium phosphate magnesium and calcium (6) Occult blood in stools: Code(s): R19.5 - Other fecal abnormalities Status: Acute Assessment and Plan: Hemoglobin has been gradually trending down. This could also be related to dilution as patient received IV fluids -she did have positive Hemoccult. Continue Protonix -will continue to monitor hemoglobin level -currently on Protonix 40 mg IV q.12 hours -consult GI (7) half-way (current) use of opiate analgesic: Code(s): Z79.891 - half-way (current) use of opiate analgesic Status: Acute Assessment and Plan: Patient has a history of chronic pain syndrome, was following up with the pain specialist but she broke her contract with a pain specialist as she refilled opioids in the ER on 08/08/23, so she was fired by him. Patient has been on buprenorphine patches which have been discontinued at this time due to drowsiness. -will monitor patient for opioid withdrawal (8) Tobacco abuse: Code(s): Z72.0 - Tobacco use Status: Chronic Assessment and Plan: Patient has a longstanding history of tobacco abuse, patient was counseled to quit smoking Plan DVT prophylaxis: SCDs, patient has positive Hemoccult Stress ulcer prophylaxis: Prot
[2023-08-19] MEDS: ACETAMINOPHEN 325 MG TABLET 650 MG PO ×3 (08:55→21:07)
--- NOTE | 2023-08-19 09:18 | WPDGICN ---
Assessment and Plan Assessment and plan (1) Epigastric pain: Code(s): R10.13 - Epigastric pain Status: Acute (2) Generalized abdominal pain: Code(s): R10.84 - Generalized abdominal pain Status: Acute (3) Nausea and vomiting: Qualifiers: Vomiting type: bilious vomiting Qualified Code(s): R11.14 - Bilious vomiting Code(s): R11.2 - Nausea with vomiting, unspecified Status: Acute (4) Excessive use of nonsteroidal anti-inflammatory drugs (NSAIDs): Code(s): F19.90 - Other psychoactive substance use, unspecified, uncomplicated Status: Acute (5) Melena: Code(s): K92.1 - Melena Status: Acute (6) Weight loss: Code(s): R63.4 - Abnormal weight loss Status: Acute (7) Hypokalemia: Code(s): E87.6 - Hypokalemia Status: Acute (8) Gastritis: Qualifiers: Chronicity: unspecified Gastritis bleeding: presence of bleeding unspecified Gastritis type: other gastritis Qualified Code(s): K29.60 - Other gastritis without bleeding Code(s): K29.70 - Gastritis, unspecified, without bleeding Status: Acute (9) Esophagitis: Code(s): K20.90 - Esophagitis, unspecified without bleeding Status: Acute (10) Abnormal digestive system diagnostic imaging: Code(s): R93.3 - Abnormal findings on diagnostic imaging of other parts of digestive tract Status: Acute (11) Acute blood loss anemia: Code(s): D62 - Acute posthemorrhagic anemia Status: Acute (12) Diarrhea: Qualifiers: Diarrhea type: infectious Qualified Code(s): A09 - Infectious gastroenteritis and colitis, unspecified Code(s): R19.7 - Diarrhea, unspecified Status: Acute (13) C. difficile colitis: Code(s): A04.72 - Enterocolitis due to Clostridium difficile, not specified as recurrent Status: Acute (14) Elevated LFTs: Code(s): R79.89 - Other specified abnormal findings of blood chemistry Status: Acute Plan 1) Acute blood loss anemia/nausea /vomiting /appetite loss/ weight loss / melena /excessive NSAID use /Esophagitis/gastritis: Patient has never had an EGD. Last colonoscopy 09/13/2021. Imaging on admission showed esophagitis and gastritis. Per family the patient has a long history of opioid use and was previously seen pain management before she was recently fired due to her starting hydrocodone following a recent ER visit. Per family the patient has been using ibuprofen excessively like candy they do not believe that she had been taking any Tylenol. patient was also on aspirin 325 mg prior to admission. Per family the patient a constantly complains of either epigastric or generalized abdominal pain and has been set up for GI evaluation multiple times but does not follow through. She was having nausea and vomiting prior to admission , denies hematemesis. According to her home medication list she was prescribed pantoprazole 40 mg b.i.d., but it is unclear if she had been taking this. Per family the patient had a black stool Friday night prior to admission but no known hematochezia or melena since admission. concern for upper GI bleed secondary to NSAID induced peptic ulcer disease versus AVM versus Pao-Tamayo less likely neoplasm plan for EGD hopefully in the next few days once more stable Continue PPI Care with NSAID's, aspirin, anticoagulants primary care team to continue monitoring H&H and transfuse as needed to keep HGB > 7 2) Elevated LFTs: Likely secondary to shock liver as LFTs were normal 08/07/2023 prior to admission. Labs today show total bilirubin 1.1, AST 722, ALT 469 and alkaline phosphatase 83. Hepatitis panel was negative. Monitor 3) Diarrhea/C diff: Last colonoscopy 09/13/2021. prior to this admission the patient was recently treated with antibiotics for a UTI. Stool studies positive for C diff 08/18/2023. continue antibiotics 4) Hypokale
--- NOTE | 2023-08-19 10:34 | PM.CNCAR ---
Assessment and Plan Assessment and plan (1) Elevated troponin: Code(s): R79.89 - Other specified abnormal findings of blood chemistry Status: Acute Assessment and Plan: Initial troponin negative but has risen to 3.460. She is not having chest pain. Doubt her troponin spill is related to ACS, it is more likely related to sepsis, acute kidney injury, and hypotension. Echo is pending. Aside from this, don't anticipate any other cardiac workup during this hospitalization unless her clinical situation changes. She does have risk factors for coronary disease so can consider outpatient ischemic evaluation. (2) Atrial fibrillation: Code(s): I48.91 - Unspecified atrial fibrillation Status: Acute Assessment and Plan: New diagnosis. She is rate controlled despite not being on any AV sole agents. Anticoagulation is indicated for her, however, her Hgb did drop to 9.6 today and with reported recent melenic stools, current concern for gastritis and blood loss anemia, will hold off on anticoagulation for now. She is having an EGD tomorrow - depending on the findings of that study may be appropriate to initiate anticoagulation then. Would probably choose heparin in the event bleeding does occur then shift to DOAC at a later time if she tolerates. History of Present Illness History of Present Illness Consult date/time: 08/19/23 10:34 Requesting physician: Prieto Mehta MD Consult reason: atrial fibrillation and Other (elevated troponin) Reason For Visit: Sepsis, Acute kidney injury, Leukocytosis Narrative: Marysol Chapman is a 77 year old female with no cardiac history here with C.diff and sepsis. Cardiology is consulted for atrial fibrillation and elevated troponin. Patient denies any history of arrhythmias, congestive heart failure, coronary disease. She is not having any palpitations, shortness of breath, chest pain. Initial EKG showed atrial flutter but she now is in atrial fibrillation with a controlled ventricular rate. She seems mildly uncomfortable because of abdominal discomfort when I am seeing her but she has no cardiovascular complaints. Review of Systems Review of Systems: All systems reviewed & are unremarkable except as noted in HPI and below PMFSH Past Medical History Medical History Acid reflux Anxiety Chronic pain syndrome Common bile duct dilatation Constipation due to opioid therapy COPD (chronic obstructive pulmonary disease) Dilated intrahepatic bile duct Encounter for screening colonoscopy Nausea Peptic ulcer disease Tobacco abuse Surgical History Surgical History H/O tubal ligation Hx of cholecystectomy Family History Family History Mother Cerebrovascular accident Father Diabetes mellitus Social History Social History Social History: the patient stated that she smokes anywhere from half a pack to pack a cigarettes a day. She has 3 children. She desires to have her is a durable power of industrial accountant and if he is unable to than her 3 children. The patient has 3 children. 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 She denies any alcohol marijuana or illicit drugs. The patient desires to be a full code. Smoking packs per day: 1 Smoking cigarettes per day: 20.0 Years smoked: 50 Smoking pack-years: 50.00 Smoking status: Current every day smoker Tobacco type: cigarettes Second hand tobacco smoke exposure: No Alcohol intake: never Substance use: never Substance use type: does not use Other substance usage details: prescribed opiates Last use: 09/07/21 Do You Feel Safe in your Home?: Yes Lack of Transportation: No Lack of Food: Never True Current Housing: I Have Housing Concerned About Future Housing: No Diffi
[2023-08-19 11:31] LABS: Glucose Point of Care 186 mg/dl (65-105)
--- NOTE | 2023-08-19 12:15 | PM.IMPN ---
Progress Note: A&P Assessment and Plan (1) Septic shock: Code(s): A41.9 - Sepsis, unspecified organism; R65.21 - Severe sepsis with septic shock Status: Acute Assessment and Plan: Patient presents with abdominal pain, low BP, generalized malaise and black stools. She has been taking Imodium and Pepto-Bismol. SBP in the 70's prior to admission but stable here on admission. Sepsis on admission with HoTN, Lactic acidosis (3.3), Leukocytosis (WBC 17.1), tachycardia, markedly elevated PCT COVID/Influenza/RSV PCR negative. 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 Colon appears normal. She was approrpiately fluid resuscitated. Started on Vanco and Cefepime after appropriate cultures obtained. UA was clear so no culture obtained. BCx NGTD In the ED on 08/06 and treated for UTI. UCx from 08/06 was negative (mixed genital andressa); BCx negative. CDiff toxin positive here. Dificid added (08/17 at 0426); Flagyl IV added 08/17 Pyelonephritis seems less likely but UA may appear clear since on abx on admission (but no UTI on 08/06!!). Sepsis could be related to CDiff but no evidence of colitis by imaging. She became HoTN (she had recieved lasix IV twice) so fluid boluses ordered and she was moved to ICU on 08/17 Central line placed and she was started on pressors. WBC about the same. lactic acid normal. CRP down to 2.5. PCT 80 now. Continue IV abx. Continue to wean pressors to maintain approrpaite MAP. (2) C. difficile enteritis: Code(s): A04.72 - Enterocolitis due to Clostridium difficile, not specified as recurrent Status: Acute Assessment and Plan: As above (3) Acute pyelonephritis: Code(s): N10 - Acute pyelonephritis Status: Acute Assessment and Plan: Imaging finding of concern for acute pyelonephritis. UA noted from 08/06 but UCx growing mixed andressa. On admission, UA clear but was on abx prior to admission. As above (4) Acute kidney injury: Code(s): N17.9 - Acute kidney failure, unspecified Status: Acute Assessment and Plan: Baseline Cr 1.3-1.4 over the past year so has probably underlying CKD. Creatinine 2.4, BUN [address] scan showing bilateral cortical thinning and patchy bilateral parenchymal enhancement and cortical scarring. [place] related to pre-renal/dehydration but consider renal from pyelonephritis. Receive NaBicarb push 08/18/23 x2 then started on bicarb drip Creatinine 1.5 today. Good UOP yesterday. Serum bicarb normal. Continue fluid resuscitation. (5) Metabolic acidosis: Code(s): E87.20 - Acidosis, unspecified Status: Acute Assessment and Plan: Related to lactic acidosis and LEATHA. Consider ischemic bowel but felt less likely at this moment As above (6) Transaminitis: Code(s): R74.01 - Elevation of levels of liver transaminase levels Status: Acute Assessment and Plan: AST/ALT elevated on admission at 528/266. AP at 164. TBili normal. CT showing normal liver and stable appearing (chronic) intra and extrahepatic bile duct dilation. s/p cholecystectomy. Normal LFTs noted 2 weeks ago. AST/ALT climbing. Hepatitis panel negative. [place] related to shock liver. INR 1.4 on admission. Repeat. Check ammonia level. Follow (7) Hypokalemia: Code(s): E87.6 - Hypokalemia Status: Acute Assessment and Plan: Potassium low despite replacement. Partially related to bicarb drip. Replace as needed. (8) Occult blood in stools: Code(s): R19.5 - Other fecal abnormalities Status: Acute Assessment and Plan: Per ED note, stool is black and guaiac positive. Not unexpected due to CDiff being positive but with recent excessive ibuprofen use. CT scan showing mild esophagitis/gastritis Hgb 14.4 on admission She was started on IV pantoprazole 40 mg q.12 hours Hgb d
[2023-08-19 16:38] LABS: Glucose Point of Care 133 mg/dl (65-105)
[2023-08-19] MEDS: CEFEPIME 2 GM/NS 50 ML 2 GM/50 ML BAG IVPB (17:49)
[2023-08-19 18:11] LABS: MRSA (PCR) NOT DETECTED (NOT DETECTE)
[2023-08-19 21:54] LABS: Glucose Point of Care 118 mg/dl (65-105)
[2023-08-19] MEDS: HYDROcodone/acetaminophen (*CRX) 5-325 MG TABLET 1 TAB PO (22:38)
[2023-08-19 23:37] LABS: Vancomycin Trough 12.2 ug/mL (10.0-20.0)
[2023-08-20] VITALS (18 sets, daily range): BP systolic 119–166; BP diastolic 65–121; PULSE 82–118; RESP 13–32; TEMP 36.6–37.1; O2SAT 92–99; BMI 24.2
[2023-08-20] MEDS: VANCOMYCIN 750 MG/NS 250 ML 750 MG/250 ML BAG 250 MG IVPB (00:45)
[2023-08-20 03:04] LABS: Basophils Percent Auto 0.1 % (0.2-1.2); Eosinophils Percent Auto 0.1 % (0-4.4); Hematocrit 28.7 % (37.0-47.0); Hemoglobin 9.6 g/dL (12.0-15.0); Immature Granulocyte Percent A 2.5 % (0-0.5); Lymphocytes Absolute Auto 0.87 K/mm3 (0.9-3.2); Lymphocytes Percent Auto 5.3 % (18.3-44.2); Mean Corpuscular HGB Conc 33.4 g/dl (32-36); Mean Corpuscular Hemoglobin 32.3 pg (26-34); Mean Corpuscular Volume 96.6 fl (80-100); Mean Platelet Volume 10.9 fl (7.4-10.4); Monocytes Absolute Auto 0.7 K/mm3 (0.1-0.6); Monocytes Percent Auto 4.3 % (2.6-8.5); Neutrophils Absolute Auto 14.3 K/mm3 (1.3-6.7); Neutrophils Percent Auto 87.7 % (45.5-73.1); Nucleated Red Blood Cells Perc 0.1 % (0.0-0.2); Platelet Count Result 189 k/mm3 (150-375); Red Blood Count 2.97 M/mm3 (4.2-5.4); Red Cell Distribution Width 14.7 % (11.5-14.5); White Blood Count 16.3 K/mm3 (4.5-10.0)
[2023-08-20] MEDS: HYDROcodone/acetaminophen (*CRX) 5-325 MG TABLET 1 TAB PO (03:10)
[2023-08-20 03:32] LABS: Albumin Level 3.4 g/dL (3.5-5.1); Alkaline Phosphatase 79 U/L (38-126); Anion Gap 12 mmol/L (4-12); Bilirubin,Total 1.1 mg/dL (0.2-1.3); Blood Urea Nitrogen 39 mg/dL (7-17); Carbon Dioxide 24 mmol/L (22-30); Chloride 111 mmol/L (98-107); Estimated CRCL calculation 26 ml/min; Estimated Glomerular Filt Rate 44; Glucose 115 mg/dL (65-110); Magnesium 2.1 mg/dL (1.6-2.3); Potassium 3.8 mmol/L (3.4-5.0); Sodium 147 mmol/L (137-145)
[2023-08-20 03:34] LABS: Alanine Aminotransferase 825 U/L (6-35); Aspartate Amino Transferase 986 U/L (14-36)
--- NOTE | 2023-08-20 03:39 | ECG_ITS ---
Test Date: 2023-08-20 03:46:35 Measurements Intervals [place] Rate: 113 P: 0 ND: 0 QRS: 64 QRSD: 90 T: 0 QT: 296 QTc: 407 Interpretive Statements SINUS OR ECTOPIC ATRIAL TACHYCARDIATACHYCARDIA NONSPECIFIC ST & T-WAVE ABNORMALITY- DIFFUSE LEADS BASELINE ARTIFACT- I, II, III, AVR, AVL, AVF, V4-V6 ABNORMAL ECG Compared to ECG 08/19/2023 08:26:28 Atrial fibrillation no longer present Possible ischemia no longer present Electronically Signed On 08-20-2023 06:00:56 CDT by Temo Rowe D.O.
[2023-08-20 04:01] LABS: Procalcitonin 53.5 ng/mL
[2023-08-20 05:18] LABS: Glucose Point of Care 128 mg/dl (65-105)
[2023-08-20] MEDS: HYDROCORTISONE SODIUM SUCCINATE 100 MG/2 ML VIAL IV PUSH (06:12)
[2023-08-20] MEDS: CENTRAL LINE FLUSH 10 ML IV PUSH ×3 (06:12→21:36)
[2023-08-20] MEDS: FIDAXOMICIN 200 MG TABLET PO ×2 (08:25→21:36)
[2023-08-20] MEDS: PANTOPRAZOLE SODIUM IV 40 MG VIAL IV PUSH ×2 (08:25→19:41)
[2023-08-20] MEDS: ASPIRIN 325 MG ENTERIC TABLET PO (08:25)
--- NOTE | 2023-08-20 08:47 | PC.NURSE ---
Spoke with Dr. Suarez about pt orientation. Notified pt only oriented to self. stated to keep lights on and will reassess.
--- NOTE | 2023-08-20 08:55 | WPDINTPN ---
Progress Note: A&P Assessment and Plan (1) Septic shock: Code(s): A41.9 - Sepsis, unspecified organism; R65.21 - Severe sepsis with septic shock Status: Acute Assessment and Plan: 08/16: Patient presented from with abdominal pain, general malaise, diarrhea and low blood pressures. Found to be having UTI -in the ER patient was found to be hypotensive, received 3 L IV fluid bolus and was admitted to the IMU for further management -procalcitonin on admission was > 100.0 -08/17: C diff positive -on 08/18/2023: Patient was transferred to the ICU from intermediate Unit for refractory hypotension after being given 2 L IV fluids in the intermediate Unit. Central line was inserted in the ICU - started on Levophed, will maintain MAP > 65 mmHg for adequate end organ perfusion -08/16: Blood cultures obtained -08/17: Urine culture ordered -off vasopressors now and off IV fluids -Will discontinuee stress dose hydrocortisone -patient is on cefepime, fidaxomicin 08/17/2023 CTA chest abdomen and pelvis showed mild esophagitis/gastritis, patchy renal enhancement may be secondary to pyelonephritis, correlate with urinalysis. 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 No dissection aneurysm patient does have severe emphysematous changes. Gallbladder is absent, stable intrahepatic bile duct dilatation. Mild distal esophageal and gastric wall edema, no small or large bowel dilatation. Diverticulosis without diverticulitis. (2) Acute pyelonephritis: Code(s): N10 - Acute pyelonephritis Status: Acute Assessment and Plan: UTI/acute pyelonephritis -will obtain urine culture -continue antibiotics as above (3) Transaminitis: Code(s): R74.01 - Elevation of levels of liver transaminase levels Status: Acute Assessment and Plan: Elevated LFTs with normal bilirubin, likely related to hypoperfusion/shock liver -surprisingly the levels have been increasing despite her hemodynamics improved -viral hepatitis panel was negative -CT abdomen shows that she is status post cholecystectomy and ducts were not dilated. Will check right upper quadrant ultrasound to evaluate portal venous flow -will DC acetaminophen altogether -check ammonia (4) C. difficile enteritis: Code(s): A04.72 - Enterocolitis due to Clostridium difficile, not specified as recurrent Status: Acute Assessment and Plan: Patient with abdominal pain, C diff was ordered was positive -continue fidaxomicin. Off IV Flagyl -no signs of inflammation/infection/colitis on CTA of the abdomen and pelvis -no diarrhea in the ICU (5) Electrolyte imbalance: Code(s): E87.8 - Other disorders of electrolyte and fluid balance, not elsewhere classified Status: Acute Assessment and Plan: Replace potassium phosphate magnesium and calcium (6) Occult blood in stools: Code(s): R19.5 - Other fecal abnormalities Status: Acute Assessment and Plan: Hemoglobin has been gradually trending down. This could also be related to dilution as patient received IV fluids -she did have positive Hemoccult. Continue Protonix -will continue to monitor hemoglobin level -currently on Protonix 40 mg IV q.12 hours -GI consult (7) jail (current) use of opiate analgesic: Code(s): Z79.891 - intermission coordinator (current) use of opiate analgesic Status: Acute Assessment and Plan: Patient has a history of chronic pain syndrome, was following up with the pain specialist but she broke her contract with a pain specialist as she refilled opioids in the ER on 08/08/23, so she was fired by him. Patient has been on buprenorphine patches which have been discontinued at this time due to drowsiness. -will monitor patient for opioid withdrawal. She is on low-dose oxycodone for chronic pain (8) Tobacco abuse: Code(s): Z72.0 - Tobacco use Status: Chronic Assessment
--- NOTE | 2023-08-20 09:11 | PM.PNCARD ---
Progress Note: A&P Assessment and Plan (1) Elevated troponin: Code(s): R79.89 - Other specified abnormal findings of blood chemistry Status: Acute Assessment and Plan: Initial troponin negative but has risen to 3.460. She is not having chest pain. Doubt her troponin spill is related to ACS, it is more likely related to septic shock, acute kidney injury, hypotension, etc. Echo with LVEF >70%. No other cardiac workup during this hospitalization unless her clinical situation changes. (2) Atrial fibrillation: Code(s): I48.91 - Unspecified atrial fibrillation Status: Acute Assessment and Plan: New diagnosis. Back in sinus rhythm now. When in AFIB, for the most part, she is rate controlled despite not being on any AV sole agents. Anticoagulation is indicated for her, however, her acute anemia and with reported recent melenic stools, would hold off on anticoagulation for now. (3) Septic shock: Code(s): A41.9 - Sepsis, unspecified organism; R65.21 - Severe sepsis with septic shock Status: Acute Assessment and Plan: Off of pressors now. (4) Acute pyelonephritis: Code(s): N10 - Acute pyelonephritis Status: Acute Assessment and Plan: On antibiotics per primary team. (5) C. difficile enteritis: Code(s): A04.72 - Enterocolitis due to Clostridium difficile, not specified as recurrent Status: Acute Assessment and Plan: On Fidaxomicin. (6) Acute renal insufficiency: Code(s): N28.9 - Disorder of kidney and ureter, unspecified Status: Acute Assessment and Plan: SCr improving. Plan Recommendations and plan discussed with Perinatal Coordinator. Cardiology will sign off at this time. Please call us back if needed. Subjective Date/time seen: 08/20/23 09:11 Interval history: Reason for consult: Elevated troponin HPI: Marysol Chapman is a 77 year old female with no cardiac history here with C.diff and sepsis. Cardiology is consulted for atrial fibrillation and elevated troponin. Patient denies any history of arrhythmias, congestive heart failure, coronary disease. She is not having any palpitations, shortness of breath, chest pain. Initial EKG showed atrial flutter but she now is in atrial fibrillation with a controlled ventricular rate. She seems mildly uncomfortable because of abdominal discomfort when I am seeing her but she has no cardiovascular complaints. Date of service 08/19: Currently in sinus rhythm. Quite sleepy / confused this morning. Denies any pain. Review of Systems Review of Systems: All systems reviewed & are unremarkable except as noted in HPI and below (HPI) Exam Const: Other: Elderly, chronically ill appearing female HENMT: Mouth: Yes dry mucous membranes Other: Dried blood noted on nose Resp: Effort & Inspection: normal respiratory effort Cardio: Rate: regular rate Rhythm: regular rhythm Neuro: Other: Confused, lethargic Objective Data Vital Signs Vital Signs: Vital Signs - 24 hr 08/19/23 09:16 08/19/23 09:30 08/19/23 09:46 Temperature Pulse Rate 105 H 87 91 Respiratory Rate Blood Pressure 104/73 99/73 L 113/95 H Pulse Oximetry Oxygen Delivery Oxygen Flow Rate 08/19/23 10:05 08/19/23 10:18 08/19/23 10:18 Temperature Pulse Rate 92 82 92 Respiratory Rate Blood Pressure 120/82 129/67 129/67 Pulse Oximetry Oxygen Delivery Oxygen Flow Rate 08/19/23 10:00 08/19/23 10:31 08/19/23 10:32 Temperature 36.4 C L Pulse Rate 101 H 93 92 Respiratory Rate 26 H Blood Pressure 120/82 119/89 119/89 Pulse Oximetry 94 Oxygen Delivery Oxygen Flow Rate 08/19/23 10:46 08/19/23 10:46 08/19/23 11:02 Temperature Pulse Rate 93 93 93 Respiratory Rate Blood Pressure 110/65 110/65 131/62 Pulse Oximetry Oxygen Delivery Oxygen Flow Rate 08/19/23 11:16 08/19/23 11:35 08/19/23 11:02 Temperature
[2023-08-20 09:32] LABS: Ammonia < 9 umol/L (9-30)
[2023-08-20] MEDS: MORPHINE SULFATE (*CRX) 2 MG/ML INJ IV PUSH ×4 (10:23→22:38)
[2023-08-20 11:58] LABS: Glucose Point of Care 110 mg/dl (65-105)
[2023-08-20 11:58] LABS: Glucose Point of Care 132 mg/dl (65-105)
[2023-08-20] MEDS: QUEtiapine FUMARATE 25 MG TABLET PO ×2 (13:42→21:36)
[2023-08-20] MEDS: oxyCODONE HCL (*CRX) 5 MG TAB IR PO (15:16)
--- NOTE | 2023-08-20 15:30 | PM.IMPN ---
Progress Note: A&P Assessment and Plan (1) Atrial fibrillation: Code(s): I48.91 - Unspecified atrial fibrillation Status: Acute (2) Septic shock: Code(s): A41.9 - Sepsis, unspecified organism; R65.21 - Severe sepsis with septic shock Status: Acute (3) Diarrhea: Qualifiers: Diarrhea type: infectious Qualified Code(s): A09 - Infectious gastroenteritis and colitis, unspecified Code(s): R19.7 - Diarrhea, unspecified Status: Acute (4) C. difficile enteritis: Code(s): A04.72 - Enterocolitis due to Clostridium difficile, not specified as recurrent Status: Acute Plan (1) Septic shock: Code(s): A41.9 - Sepsis, unspecified organism; R65.21 - Severe sepsis with septic shock Status: Acute Assessment and Plan: Patient presents with abdominal pain, low BP, generalized malaise and black stools. She has been taking Imodium and Pepto-Bismol. SBP in the 70's prior to admission but stable here on admission. Sepsis on admission with HoTN, Lactic acidosis (3.3), Leukocytosis (WBC 17.1), tachycardia, markedly elevated PCT COVID/Influenza/RSV PCR negative. 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 Colon appears normal. She was approrpiately fluid resuscitated. Started on Vanco and Cefepime after appropriate cultures obtained. UA was clear so no culture obtained. BCx NGTD In the ED on 08/06 and treated for UTI. UCx from 08/06 was negative (mixed genital andressa); BCx negative. CDiff toxin positive here. Dificid added (08/17 at 0426); Flagyl IV added 08/17 Pyelonephritis seems less likely but UA may appear clear since on abx on admission (but no UTI on 08/06!!). Sepsis could be related to CDiff but no evidence of colitis by imaging. She became HoTN (she had recieved lasix IV twice) so fluid boluses ordered and she was moved to ICU on 08/17 Central line placed and she was started on pressors. WBC about the same. lactic acid normal Patient is off vasopressors, blood pressure stable, leukocytosis persists, patient is afebrile, Continue antibiotics today Follow-up procalcitonin (2) C. difficile enteritis: Code(s): A04.72 - Enterocolitis due to Clostridium difficile, not specified as recurrent Status: Acute Assessment and Plan: As above (3) Acute pyelonephritis: Code(s): N10 - Acute pyelonephritis Status: Acute Assessment and Plan: Imaging finding of concern for acute pyelonephritis. UA noted from 08/06 but UCx growing mixed andressa. On admission, UA clear but was on abx prior to admission. As above (4) Acute kidney injury: Code(s): N17.9 - Acute kidney failure, unspecified Status: Acute Assessment and Plan: Baseline Cr 1.3-1.4 over the past year so has probably underlying CKD. Creatinine 2.4, BUN [address] scan showing bilateral cortical thinning and patchy bilateral parenchymal enhancement and cortical scarring. [place] related to pre-renal/dehydration but consider renal from pyelonephritis. Receive NaBicarb push 08/18/23 x2 then started on bicarb drip Good UOP yesterday. Serum bicarb normal. Creatinine is trending down, 1.2 Continue fluid resuscitation. (5) Metabolic acidosis: Code(s): E87.20 - Acidosis, unspecified Status: Acute Assessment and Plan: Related to lactic acidosis and LEATHA. Consider ischemic bowel but felt less likely at this moment As above (6) Transaminitis: Code(s): R74.01 - Elevation of levels of liver transaminase levels Status: Acute Assessment and Plan: AST/ALT elevated on admission at 528/266. AP at 164. TBili normal. CT showing normal liver and stable appearing (chronic) intra and extrahepatic bile duct dilation. s/p cholecystectomy. Normal LFTs noted 2 weeks ago. AST/ALT climbing. Hepatitis panel negative. [place] related
[2023-08-20 16:21] LABS: Glucose Point of Care 110 mg/dl (65-105)
[2023-08-20 16:40] LABS: Base Excess ABG -3.8 mEq/l (+/-2.0); Carboxyhemoglobin 0.6 % THb (0-2.0); Fractional Inspired Oxygen 28 %; HCO3 ABG 20.8 mEq/l (22.0-26.0); Methemoglobin ABG 0.3 %THb (0-1.5); Oxygen Content ABG 14.3 %vol (16.0-22.0); Oxygen Saturation ABG 96.3 % (95.0-100.0); Oxyhemoglobin 95.5 % THb (90.0-100.0); PCO2 ABG 35.8 mmHg (35.0-45.0); PO2 ABG 84.4 mmHg (80.0-100.0); PO2 FiO2 Ratio Arterial Blood 3.01 %; Reduced Hemoglobin 3.6 %THb (0-5.0); Total Hemoglobin 10.6 g/dL (12.0-18.0); pH ABG 7.382 (7.350-7.450)
[2023-08-20 16:42] LABS: Device NASAL CANNULA; Site Drawn LEFT RADIAL
--- NOTE | 2023-08-20 17:01 | WPDGIPROGNO ---
Progress Note: A&P Assessment and Plan (1) C. difficile colitis: Code(s): A04.72 - Enterocolitis due to Clostridium difficile, not specified as recurrent Status: Acute Assessment and Plan: on treatment now (2) Occult blood in stools: Code(s): R19.5 - Other fecal abnormalities Status: Acute Assessment and Plan: no overt gib though also could be from c diff colitis hgb 9.5 no need of urgent egd unless any changes recommend to continue with protonix daily and probably EGD as outpatient once she is fully recovered (3) Transaminitis: Code(s): R74.01 - Elevation of levels of liver transaminase levels Status: Acute Assessment and Plan: probably shock liver monitor (4) Septic shock: Code(s): A41.9 - Sepsis, unspecified organism; R65.21 - Severe sepsis with septic shock Status: Acute Assessment and Plan: resolved (5) Generalized abdominal pain: Code(s): R10.84 - Generalized abdominal pain Status: Acute Assessment and Plan: improved (6) Excessive use of nonsteroidal anti-inflammatory drugs (NSAIDs): Code(s): F19.90 - Other psychoactive substance use, unspecified, uncomplicated Status: Acute Assessment and Plan: wonder if caused gastritis/esophagitis, now on ppi and avoid nsaid's (7) Abnormal digestive system diagnostic imaging: Code(s): R93.3 - Abnormal findings on diagnostic imaging of other parts of digestive tract Status: Acute (8) Acute pyelonephritis: Code(s): N10 - Acute pyelonephritis Status: Acute Subjective Date/time seen: 08/20/23 17:01 Interval history: she has been off pressors since last night, diarrhea better (also c diff) and only noted brown stool- no signs of GIB she is more confused though Review of Systems Review of Systems: All systems reviewed & are unremarkable except as noted in HPI and below Exam Const: Other: Elderly, chronically ill appearing female HENMT: Mouth: Yes dry mucous membranes Other: Dried blood noted on nose Eyes: General: appearance normal, both eyes and all related structures Neck: Neck: supple Resp: Effort & Inspection: normal respiratory effort Cardio: Rate: regular rate Rhythm: regular rhythm GI: GI Palp: Yes Soft to palpation and No Tenderness to palpation present (GI) Auscultation: normal bowel sounds Skin: General skin exam: normal color Neuro: Other: Confused, lethargic Extrem: General: normal to inspection Psych: Other: confused Objective Data Vital Signs Vital Signs: Vital Signs - 24 hr 08/19/23 18:03 08/19/23 18:03 08/19/23 18:00 Temperature 97.7 F Pulse Rate 84 84 88 Respiratory Rate 24 H Blood Pressure 106/67 106/67 106/67 Pulse Oximetry 96 Oxygen Delivery Oxygen Flow Rate 08/19/23 18:00 08/19/23 20:00 08/19/23 20:00 Temperature 98 F Pulse Rate 83 84 84 Respiratory Rate 16 Blood Pressure 124/66 Pulse Oximetry 96 Oxygen Delivery Oxygen Flow Rate 08/19/23 20:00 08/19/23 20:00 08/19/23 20:00 Temperature Pulse Rate 84 84 Respiratory Rate Blood Pressure 124/66 124/66 Pulse Oximetry 96 Oxygen Delivery Nasal Cannula Oxygen Flow Rate 2 08/19/23 22:00 08/19/23 22:00 08/19/23 22:00 Temperature Pulse Rate 121 H 121 H 121 H Respiratory Rate 26 H Blood Pressure 133/70 133/70 Pulse Oximetry 93 Oxygen Delivery Oxygen Flow Rate 08/19/23 22:25 08/20/23 00:00 08/19/23 22:00 Temperature Pulse Rate 122 H 109 H 121 H Respiratory Rate 38 H Blood Pressure 133/69 133/70 Pulse Oximetry Oxygen Delivery Oxygen Flow Rate 08/20/23 00:00 08/20/23 00:00 08/20/23 00:00 Temperature 98 F Pulse Rate 109 H 109 H 109 H Respiratory Rate 25 H Blood Pressure 133/69 133/69 Pulse Oximetry 99 Oxygen Delivery Oxygen Flow Rate 08/20/23 00:00 08/20/23 02:00 08/20/23 02:00 T
[2023-08-20] MEDS: CEFEPIME 2 GM/NS 50 ML 2 GM/50 ML BAG IVPB (17:12)
[2023-08-20] MEDS: ONDANSETRON INJ 4 MG/2 ML VIAL IV PUSH ×2 (17:16→18:16)
[2023-08-20] MEDS: METOCLOPRAMIDE HCL INJ 10 MG/2 ML VIAL IV PUSH (19:41)
[2023-08-20 19:50] LABS: Glucose Point of Care 101 mg/dl (65-105)
[2023-08-20] MEDS: dexmedeTOMIDine 400 MCG/100 ML 400 MCG/100 ML BAG IV CONT (20:29)
[2023-08-20 23:06] LABS: Procalcitonin 27.2 ng/mL
[2023-08-21] VITALS (20 sets, daily range): BP systolic 86–147; BP diastolic 53–80; PULSE 69–120; RESP 11–26; TEMP 36.6–36.8; O2SAT 91–100
[2023-08-21 06:24] LABS: Basophils Absolute Auto 0.1 K/mm3 (0.0-0.1); Basophils Percent Auto 0.4 % (0.2-1.2); Eosinophils Absolute Auto 0.1 K/mm3 (0-0.3); Eosinophils Percent Auto 0.9 % (0-4.4); Hematocrit 32.2 % (37.0-47.0); Hemoglobin 10.2 g/dL (12.0-15.0); Immature Granulocyte Absolute 0.38 K/mm3 (0.00-0.031); Immature Granulocyte Percent A 2.8 % (0-0.5); Lymphocytes Absolute Auto 1.67 K/mm3 (0.9-3.2); Lymphocytes Percent Auto 12.1 % (18.3-44.2); Mean Corpuscular HGB Conc 31.7 g/dl (32-36); Mean Corpuscular Volume 100.9 fl (80-100); Mean Platelet Volume 10.1 fl (7.4-10.4); Monocytes Absolute Auto 0.8 K/mm3 (0.1-0.6); Neutrophils Absolute Auto 10.7 K/mm3 (1.3-6.7); Neutrophils Percent Auto 77.8 % (45.5-73.1); Nucleated Red Blood Cells Perc 0.1 % (0.0-0.2); Platelet Count Result 178 k/mm3 (150-375); Red Blood Count 3.19 M/mm3 (4.2-5.4); Red Cell Distribution Width 14.8 % (11.5-14.5); White Blood Count 13.8 K/mm3 (4.5-10.0)
[2023-08-21 06:39] LABS: Albumin Level 3.4 g/dL (3.5-5.1); Alkaline Phosphatase 83 U/L (38-126); Anion Gap 12 mmol/L (4-12); Bilirubin,Total 1.1 mg/dL (0.2-1.3); Blood Urea Nitrogen 39 mg/dL (7-17); Calcium 8.5 mg/dL (8.4-10.2); Carbon Dioxide 27 mmol/L (22-30); Chloride 111 mmol/L (98-107); Estimated CRCL calculation 26 ml/min; Estimated Glomerular Filt Rate 44; Glucose 79 mg/dL (65-110); Magnesium 2.3 mg/dL (1.6-2.3); Potassium 3.6 mmol/L (3.4-5.0); Sodium 150 mmol/L (137-145)
[2023-08-21 06:46] LABS: Alanine Aminotransferase 1297 U/L (6-35); Aspartate Amino Transferase 1278 U/L (14-36)
[2023-08-21] MEDS: CENTRAL LINE FLUSH 10 ML IV PUSH ×3 (07:04→20:28)
[2023-08-21 07:09] LABS: Procalcitonin 22.2 ng/mL
[2023-08-21] MEDS: KCL 40 MEQ/WATER 100 ML 100 ML 25 ML IVPB (08:51)
[2023-08-21] MEDS: PANTOPRAZOLE SODIUM IV 40 MG VIAL IV PUSH ×2 (08:52→20:24)
[2023-08-21] MEDS: DEXTROSE 5% 1,000 ML 1,000 ML 100 ML IV CONT (09:03)
--- NOTE | 2023-08-21 10:15 | PCFNICU ---
ICU Rounding Note: Pt current nutrition is Regular. Nutrition recommendation: Hold diet orders until speech evaluation and recommendations Last recorded weight is 58.5 kg. Bowel Motility: +BM 08/16 Labs Reviewed: Hgb:10.2, HCT:32.2, Alb:3.4, NA:150, GFR:44, BUN:39, Cr:1.2 Meds Noted: novolog, zofran, KCL, protonix Skin: no skin issues noted Additional Notes: Pt on a regular diet, nursing held breakfast due to concerns for swallowing issues. Speech to evaluate via bedside today. Will monitor for recommendations. Following daily in ICU rounds. RD will monitor weight, labs, skin, oral intake, meds every 3 days. .
--- NOTE | 2023-08-21 10:18 | PM.IMPN ---
Progress Note: A&P Assessment and Plan (1) Atrial fibrillation: Code(s): I48.91 - Unspecified atrial fibrillation Status: Acute (2) Septic shock: Code(s): A41.9 - Sepsis, unspecified organism; R65.21 - Severe sepsis with septic shock Status: Acute (3) Diarrhea: Qualifiers: Diarrhea type: infectious Qualified Code(s): A09 - Infectious gastroenteritis and colitis, unspecified Code(s): R19.7 - Diarrhea, unspecified Status: Acute (4) C. difficile enteritis: Code(s): A04.72 - Enterocolitis due to Clostridium difficile, not specified as recurrent Status: Acute Plan (1) Septic shock: Code(s): A41.9 - Sepsis, unspecified organism; R65.21 - Severe sepsis with septic shock Status: Acute Assessment and Plan: Patient presents with abdominal pain, low BP, generalized malaise and black stools. She has been taking Imodium and Pepto-Bismol. SBP in the 70's prior to admission but stable here on admission. Sepsis on admission with HoTN, Lactic acidosis (3.3), Leukocytosis (WBC 17.1), tachycardia, markedly elevated PCT COVID/Influenza/RSV PCR negative. 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 Colon appears normal. She was approrpiately fluid resuscitated. Started on Vanco and Cefepime after appropriate cultures obtained. UA was clear so no culture obtained. BCx NGTD In the ED on 08/06 and treated for UTI. UCx from 08/06 was negative (mixed genital andressa); BCx negative. CDiff toxin positive here. Dificid added (08/17 at 0426); Flagyl IV added 08/17 Pyelonephritis seems less likely but UA may appear clear since on abx on admission (but no UTI on 08/06!!). Sepsis could be related to CDiff but no evidence of colitis by imaging. She became HoTN (she had recieved lasix IV twice) so fluid boluses ordered and she was moved to ICU on 08/17 Central line placed and she was started on pressors. WBC about the same. lactic acid normal Patient is off vasopressors, blood pressure stable, leukocytosis persists, patient is afebrile, 08/19 08/20 blood pressure stable, Continue antibiotics today, leukocytosis improving Follow-up procalcitonin 22 today, that is trending down from 27.2 yesterday continue current antibiotics (2) C. difficile enteritis: Code(s): A04.72 - Enterocolitis due to Clostridium difficile, not specified as recurrent Status: Acute Assessment and Plan: As above (3) Acute pyelonephritis: Code(s): N10 - Acute pyelonephritis Status: Acute Assessment and Plan: Imaging finding of concern for acute pyelonephritis. UA noted from 08/06 but UCx growing mixed andressa. On admission, UA clear but was on abx prior to admission. As above (4) Acute kidney injury: Code(s): N17.9 - Acute kidney failure, unspecified Status: Acute Assessment and Plan: Baseline Cr 1.3-1.4 over the past year so has probably underlying CKD. Creatinine 2.4, BUN [address] scan showing bilateral cortical thinning and patchy bilateral parenchymal enhancement and cortical scarring. [place] related to pre-renal/dehydration but consider renal from pyelonephritis. Receive NaBicarb push 08/18/23 x2 then started on bicarb drip Good UOP yesterday. Serum bicarb normal. Creatinine is trending down, 1.2 Continue fluid resuscitation. (5) Metabolic acidosis: Code(s): E87.20 - Acidosis, unspecified Status: Acute Assessment and Plan: Related to lactic acidosis and LEATHA. Consider ischemic bowel but felt less likely at this moment As above (6) Transaminitis: Code(s): R74.01 - Elevation of levels of liver transaminase levels Status: Acute Assessment and Plan: AST/ALT elevated on admission at 528/266. AP at 164. TBili normal. CT showing normal liver and stable appearing (chronic) intra and extrahe
--- NOTE | 2023-08-21 10:35 | WPDINTPN ---
Progress Note: A&P Assessment and Plan (1) Septic shock: Code(s): A41.9 - Sepsis, unspecified organism; R65.21 - Severe sepsis with septic shock Status: Acute Assessment and Plan: 08/16: Patient presented from with abdominal pain, general malaise, diarrhea and low blood pressures. Found to be having UTI -in the ER patient was found to be hypotensive, received 3 L IV fluid bolus and was admitted to the IMU for further management -procalcitonin on admission was > 100.0 -08/17: C diff positive -on 08/18/2023: Patient was transferred to the ICU from intermediate Unit for refractory hypotension after being given 2 L IV fluids in the intermediate Unit. Central line was inserted in the ICU - started on Levophed, will maintain MAP > 65 mmHg for adequate end organ perfusion -08/16: Blood cultures obtained -08/17: Urine culture ordered -off vasopressors now and off IV fluids -Will discontinuee stress dose hydrocortisone -patient is on cefepime, fidaxomicin 08/17/2023 CTA chest abdomen and pelvis showed mild esophagitis/gastritis, patchy renal enhancement may be secondary to pyelonephritis, correlate with urinalysis. 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 No dissection aneurysm patient does have severe emphysematous changes. Gallbladder is absent, stable intrahepatic bile duct dilatation. Mild distal esophageal and gastric wall edema, no small or large bowel dilatation. Diverticulosis without diverticulitis. (2) Acute pyelonephritis: Code(s): N10 - Acute pyelonephritis Status: Acute Assessment and Plan: UTI/acute pyelonephritis -will obtain urine culture -continue antibiotics as above (3) Transaminitis: Code(s): R74.01 - Elevation of levels of liver transaminase levels Status: Acute Assessment and Plan: Elevated LFTs with normal bilirubin, likely related to hypoperfusion/shock liver -surprisingly the levels have been increasing despite her hemodynamics improved -viral hepatitis panel was negative -CT abdomen shows that she is status post cholecystectomy and ducts were not dilated. Right upper quadrant ultrasound to evaluate portal venous flow showed normal flow but showed Intrahepatic and extrahepatic biliary dilatation. -will DC acetaminophen altogether -normal ammonia -will discuss with GI (4) C. difficile enteritis: Code(s): A04.72 - Enterocolitis due to Clostridium difficile, not specified as recurrent Status: Acute Assessment and Plan: Patient with abdominal pain, C diff was ordered was positive -continue fidaxomicin. Off IV Flagyl -no signs of inflammation/infection/colitis on CTA of the abdomen and pelvis -no diarrhea in the ICU (5) Electrolyte imbalance: Code(s): E87.8 - Other disorders of electrolyte and fluid balance, not elsewhere classified Status: Acute Assessment and Plan: Replace potassium phosphate magnesium and calcium Increase sodium and chloride. Will administer D5 water (6) Occult blood in stools: Code(s): R19.5 - Other fecal abnormalities Status: Acute Assessment and Plan: Hemoglobin has been gradually trending down. This could also be related to dilution as patient received IV fluids -she did have positive Hemoccult. 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 Patient has been on buprenorphine patches which have been discontinued at this time due to drowsiness. Patient is mowing monitor opioid withdra
[2023-08-21 11:50] LABS: Glucose Point of Care 90 mg/dl (65-105)
[2023-08-21] MEDS: MORPHINE SULFATE (*CRX) 2 MG/ML INJ IV PUSH ×2 (11:53→18:58)
--- NOTE | 2023-08-21 14:48 | PCSTNOTE ---
Please refer to the Bedside Swallow Evaluation in the EMR. Please note, silent aspiration cannot be ruled out at bedside.
[2023-08-21 16:58] LABS: Glucose Point of Care 87 mg/dl (65-105)
[2023-08-21] MEDS: CEFEPIME 2 GM/NS 50 ML 2 GM/50 ML BAG IVPB (18:04)
--- NOTE | 2023-08-21 18:11 | WPDGIPROGNO ---
Progress Note: A&P Assessment and Plan (1) C. difficile colitis: Code(s): A04.72 - Enterocolitis due to Clostridium difficile, not specified as recurrent Status: Acute Assessment and Plan: on treatment now no really diarrhea (2) Occult blood in stools: Code(s): R19.5 - Other fecal abnormalities Status: Acute Assessment and Plan: no overt gib though also could be from c diff colitis hgb now stable around 9.5 no need of urgent egd unless any changes recommend to continue with protonix daily and probably EGD as outpatient once she is fully recovered (3) Transaminitis: Code(s): R74.01 - Elevation of levels of liver transaminase levels Status: Acute Assessment and Plan: probably shock liver however BP is better but liver enzymes going up, bilirubin is normal monitor (4) Septic shock: Code(s): A41.9 - Sepsis, unspecified organism; R65.21 - Severe sepsis with septic shock Status: Acute Assessment and Plan: resolved, not longer on pressors (5) Generalized abdominal pain: Code(s): R10.84 - Generalized abdominal pain Status: Acute Assessment and Plan: improved (6) Excessive use of nonsteroidal anti-inflammatory drugs (NSAIDs): Code(s): F19.90 - Other psychoactive substance use, unspecified, uncomplicated Status: Acute Assessment and Plan: wonder if caused gastritis/esophagitis, now on ppi and avoid nsaid's she also was having issues from opiod withdrawal (7) Abnormal digestive system diagnostic imaging: Code(s): R93.3 - Abnormal findings on diagnostic imaging of other parts of digestive tract Status: Acute (8) Acute pyelonephritis: Code(s): N10 - Acute pyelonephritis Status: Acute Subjective Date/time seen: 08/21/23 18:11 Interval history: still confused but family member says that slightly more alert no signs of active gib Review of Systems Review of Systems: All systems reviewed & are unremarkable except as noted in HPI and below Exam Const: Other: Elderly, chronically ill appearing female HENMT: Mouth: Yes dry mucous membranes Eyes: General: appearance normal, both eyes and all related structures Neck: Neck: supple Resp: Effort & Inspection: normal respiratory effort Cardio: Rate: regular rate Rhythm: regular rhythm GI: GI Palp: Yes Soft to palpation and No Tenderness to palpation present (GI) Auscultation: normal bowel sounds Skin: General skin exam: normal color Neuro: Other: Confused, lethargic Extrem: General: normal to inspection Psych: Other: confused Objective Data Vital Signs Vital Signs: Vital Signs - 24 hr 08/20/23 19:59 08/20/23 20:08 08/20/23 20:00 Temperature Pulse Rate 105 H 97 Respiratory Rate 30 H Blood Pressure 163/121 H Pulse Oximetry 98 96 Oxygen Delivery Nasal Cannula Nasal Cannula Oxygen Flow Rate 2 2 08/20/23 20:00 08/20/23 20:29 08/20/23 21:30 Temperature 98.0 F Pulse Rate 97 108 H 113 H Respiratory Rate 21 H 20 20 Blood Pressure 163/121 H Pulse Oximetry 96 Oxygen Delivery Oxygen Flow Rate 08/20/23 22:00 08/20/23 22:00 08/20/23 22:00 Temperature Pulse Rate 114 H 114 H 117 H Respiratory Rate 13 13 Blood Pressure 119/84 Pulse Oximetry 96 Oxygen Delivery Oxygen Flow Rate 08/21/23 00:00 08/21/23 00:00 08/21/23 00:00 Temperature 97.8 F Pulse Rate 108 H 108 H 108 H Respiratory Rate 11 L 11 L Blood Pressure 116/75 Pulse Oximetry 99 Oxygen Delivery Oxygen Flow Rate 08/21/23 00:00 08/21/23 02:00 08/21/23 02:00 Temperature Pulse Rate 81 81 Respiratory Rate 11 L Blood Pressure 94/64 L Pulse Oximetry 100 100 Oxygen Delivery Nasal Cannula Oxygen Flow Rate 4 08/20/23 23:00 08/21/23 01:00 08/21/23 02:00 Temperature Pulse Rate 112 H 96 81 Respiratory Rate 13 12 11 L Blood Pressure Pulse Oximetry
[2023-08-21] MEDS: FIDAXOMICIN 200 MG TABLET PO (20:24)
[2023-08-21] MEDS: QUEtiapine FUMARATE 25 MG TABLET PO (20:25)
[2023-08-21] MEDS: ONDANSETRON INJ 4 MG/2 ML VIAL IV PUSH (21:05)
[2023-08-21] MEDS: oxyCODONE HCL (*CRX) 5 MG TAB IR PO (21:05)
[2023-08-21 23:10] LABS: Glucose Point of Care 81 mg/dl (65-105)
[2023-08-22] VITALS (15 sets, daily range): BP systolic 110–145; BP diastolic 60–77; PULSE 100–126; RESP 14–26; TEMP 36.4–37.2; O2SAT 91–97
[2023-08-22] MEDS: CENTRAL LINE FLUSH 10 ML IV PUSH ×2 (05:50→14:00)
[2023-08-22 06:03] LABS: Basophils Absolute Auto 0.1 K/mm3 (0.0-0.1); Basophils Percent Auto 0.5 % (0.2-1.2); Eosinophils Absolute Auto 0.4 K/mm3 (0-0.3); Eosinophils Percent Auto 4.3 % (0-4.4); Hematocrit 30.8 % (37.0-47.0); Hemoglobin 9.6 g/dL (12.0-15.0); Immature Granulocyte Absolute 0.25 K/mm3 (0.00-0.031); Immature Granulocyte Percent A 2.5 % (0-0.5); Mean Corpuscular HGB Conc 31.2 g/dl (32-36); Mean Corpuscular Hemoglobin 31.8 pg (26-34); Mean Platelet Volume 10.7 fl (7.4-10.4); Monocytes Absolute Auto 1.2 K/mm3 (0.1-0.6); Monocytes Percent Auto 11.8 % (2.6-8.5); Neutrophils Absolute Auto 6.5 K/mm3 (1.3-6.7); Neutrophils Percent Auto 64.9 % (45.5-73.1); Platelet Count Result 163 k/mm3 (150-375); Red Blood Count 3.02 M/mm3 (4.2-5.4); Red Cell Distribution Width 14.6 % (11.5-14.5)
[2023-08-22 06:19] LABS: Alkaline Phosphatase 79 U/L (38-126); Anion Gap 6 mmol/L (4-12); Bilirubin,Total 0.8 mg/dL (0.2-1.3); Blood Urea Nitrogen 28 mg/dL (7-17); Calcium 8.3 mg/dL (8.4-10.2); Carbon Dioxide 30 mmol/L (22-30); Chloride 108 mmol/L (98-107); Estimated CRCL calculation 39 ml/min; Estimated Glomerular Filt Rate > 60; Glucose 76 mg/dL (65-110); Magnesium 2.1 mg/dL (1.6-2.3); Potassium 3.7 mmol/L (3.4-5.0); Sodium 144 mmol/L (137-145)
[2023-08-22 06:27] LABS: Aspartate Amino Transferase 727 U/L (14-36)
[2023-08-22 06:38] LABS: Procalcitonin 8.3 ng/mL
[2023-08-22 06:44] LABS: Alanine Aminotransferase 1003 U/L (6-35)
[2023-08-22] MEDS: ASPIRIN 325 MG ENTERIC TABLET PO (08:07)
[2023-08-22] MEDS: FIDAXOMICIN 200 MG TABLET PO ×2 (08:07→20:21)
[2023-08-22 08:24] LABS: Glucose Point of Care 79 mg/dl (65-105)
[2023-08-22] MEDS: PANTOPRAZOLE SODIUM IV 40 MG VIAL IV PUSH ×2 (08:31→20:21)
[2023-08-22] MEDS: POTASSIUM CHLORIDE 20 MEQ PACKET (FOR LIQUID) 40 MEQ PO (08:31)
--- NOTE | 2023-08-22 08:37 | WPDINTPN ---
Progress Note: A&P Assessment and Plan (1) Septic shock: Code(s): A41.9 - Sepsis, unspecified organism; R65.21 - Severe sepsis with septic shock Status: Acute Assessment and Plan: 08/16: Patient presented from with abdominal pain, general malaise, diarrhea and low blood pressures. Found to be having UTI -in the ER patient was found to be hypotensive, received 3 L IV fluid bolus and was admitted to the IMU for further management -procalcitonin on admission was > 100.0 -08/17: C diff positive -on 08/18/2023: Patient was transferred to the ICU from intermediate Unit for refractory hypotension after being given 2 L IV fluids in the intermediate Unit. Central line was inserted in the ICU - started on Levophed, will maintain MAP > 65 mmHg for adequate end organ perfusion -08/16: Blood cultures obtained -08/17: Urine culture ordered -off vasopressors now and off IV fluids -off stress dose hydrocortisone -patient is on cefepime, fidaxomicin 08/17/2023 CTA chest abdomen and pelvis showed mild esophagitis/gastritis, patchy renal enhancement may be secondary to pyelonephritis, correlate with urinalysis. 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 No dissection aneurysm patient does have severe emphysematous changes. Gallbladder is absent, stable intrahepatic bile duct dilatation. Mild distal esophageal and gastric wall edema, no small or large bowel dilatation. Diverticulosis without diverticulitis. (2) Acute pyelonephritis: Code(s): N10 - Acute pyelonephritis Status: Acute Assessment and Plan: UTI/acute pyelonephritis -will obtain urine culture -continue antibiotics as above (3) Transaminitis: Code(s): R74.01 - Elevation of levels of liver transaminase levels Status: Acute Assessment and Plan: Elevated LFTs with normal bilirubin, likely related to hypoperfusion/shock liver --viral hepatitis panel was negative -CT abdomen shows that she is status post cholecystectomy and ducts were not dilated. Right upper quadrant ultrasound to evaluate portal venous flow showed normal flow but showed Intrahepatic and extrahepatic biliary dilatation. -will DC acetaminophen altogether -normal ammonia -levels improving -GI following (4) C. difficile enteritis: Code(s): A04.72 - Enterocolitis due to Clostridium difficile, not specified as recurrent Status: Acute Assessment and Plan: Patient with abdominal pain, C diff was ordered was positive -continue fidaxomicin. Off IV Flagyl -no signs of inflammation/infection/colitis on CTA of the abdomen and pelvis -no diarrhea in the ICU (5) Electrolyte imbalance: Code(s): E87.8 - Other disorders of electrolyte and fluid balance, not elsewhere classified Status: Acute Assessment and Plan: Replace potassium sodium and chloride improved with D5 water (6) Occult blood in stools: Code(s): R19.5 - Other fecal abnormalities Status: Acute Assessment and Plan: Hemoglobin has been gradually trending down. This could also be related to dilution as patient received IV fluids -she did have positive Hemoccult. 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 Patient has been on buprenorphine patches which have been discontinued at this time due to drowsiness. Patient is mowing monitor opioid withdrawal. She is on low-dose oxycodone for chronic pain and p.r.n. morphine Her p.o. intake has been consistent hence I will start
[2023-08-22] MEDS: oxyCODONE HCL (*CRX) 5 MG TAB IR PO ×2 (08:48→23:00)
--- NOTE | 2023-08-22 10:22 | PCFNICU ---
ICU Rounding Note: Pt current nutrition is Regular diet. Ensure Compact - BID for additional 220 kcal and 9 g protein each. Banatrol BID for diarrhea. Nutrition recommendation: Increase Ensure Enlive supplement to 2 CANS TID for additional nutrition. Last recorded weight is 59 kg. Bowel Motility:+1 BM 08/21/23 Labs Reviewed: Hgb 9.6, Hct 30.8, Alb 3.0, BUN 28 Meds Noted: Novolog,zofran, protonix Skin: No skin issues Additional Notes: Intakes remain poor, ~25%. Pt did not have her dentures, family supposed to be bringing dentures. She has been drinking Ensure so we will increase Ensure Compact to 2 cans TID. Discussed with MD. Agree with orders. Following daily in ICU rounds. RD will monitor weight, labs, skin, oral intake, meds every 3 days. .
[2023-08-22] MEDS: MORPHINE SULFATE (*CRX) 2 MG/ML INJ IV PUSH ×3 (10:34→20:21)
--- NOTE | 2023-08-22 10:50 | PC.NURSE ---
This patient, Marysol Chapman, was transferred to [facility] on 08/22/23 at 1057. Personal belongings sent with patient. Report given to Deshawn. Appropriate documentation sent with patient.
--- NOTE | 2023-08-22 13:07 | WPDGIPROGNO ---
Progress Note: A&P Assessment and Plan (1) C. difficile colitis: Code(s): A04.72 - Enterocolitis due to Clostridium difficile, not specified as recurrent Status: Acute Assessment and Plan: on treatment now no diarrhea will follow as needed (2) Occult blood in stools: Code(s): R19.5 - Other fecal abnormalities Status: Acute Assessment and Plan: no overt gib, could be from c diff colitis hgb now stable around 9.5 no need of urgent egd recommend to continue with protonix daily and probably EGD as outpatient once she is fully recovered (3) Transaminitis: Code(s): R74.01 - Elevation of levels of liver transaminase levels Status: Acute Assessment and Plan: probably shock liver and finally transaminases coming down (4) Septic shock: Code(s): A41.9 - Sepsis, unspecified organism; R65.21 - Severe sepsis with septic shock Status: Acute Assessment and Plan: resolved, not longer on pressors (5) Excessive use of nonsteroidal anti-inflammatory drugs (NSAIDs): Code(s): F19.90 - Other psychoactive substance use, unspecified, uncomplicated Status: Acute Assessment and Plan: wonder if caused gastritis/esophagitis, now on ppi and avoid nsaid's she also was having issues from opiod withdrawal (6) Abnormal digestive system diagnostic imaging: Code(s): R93.3 - Abnormal findings on diagnostic imaging of other parts of digestive tract Status: Acute Assessment and Plan: mild esophagitis/gastritis egd as outpatient (7) Acute pyelonephritis: Code(s): N10 - Acute pyelonephritis Status: Acute Subjective Date/time seen: 08/22/23 13:07 Interval history: moved to floor, her mentation is much better denies abdominal pain but poor appetite c/o chronic low back pain Review of Systems Review of Systems: All systems reviewed & are unremarkable except as noted in HPI and below Exam Const: Other: Elderly, chronically ill appearing female HENMT: Mouth: Yes dry mucous membranes Eyes: General: appearance normal, both eyes and all related structures Neck: Neck: supple Resp: Effort & Inspection: normal respiratory effort Cardio: Rate: regular rate Rhythm: regular rhythm GI: GI Palp: Yes Soft to palpation, No Tenderness to palpation present (GI) and No Guarding due to palpation present (GI) Auscultation: normal bowel sounds Skin: General skin exam: normal color Neuro: Speech: normal speech Extrem: General: normal to inspection Psych: Affect: Anxious affect present Objective Data Vital Signs Vital Signs: Vital Signs - 24 hr 08/21/23 14:00 08/21/23 14:00 08/21/23 16:00 Temperature Pulse Rate 93 93 110 H Respiratory Rate 17 Blood Pressure 115/63 Pulse Oximetry 98 Oxygen Delivery Oxygen Flow Rate Fraction of Inspired Oxygen 08/21/23 16:00 08/21/23 16:00 08/21/23 18:00 Temperature 98 F Pulse Rate 110 H 110 H 116 H Respiratory Rate 15 15 Blood Pressure 128/73 Pulse Oximetry 99 99 Oxygen Delivery Nasal Cannula Oxygen Flow Rate 1 Fraction of Inspired Oxygen 08/21/23 18:00 08/21/23 20:00 08/21/23 20:00 Temperature 98.3 F Pulse Rate 116 H 109 H 109 H Respiratory Rate 26 H 20 Blood Pressure 132/63 143/80 H Pulse Oximetry 98 95 Oxygen Delivery Oxygen Flow Rate Fraction of Inspired Oxygen 08/21/23 20:00 08/21/23 22:00 08/21/23 22:00 Temperature Pulse Rate 120 H 120 H Respiratory Rate 15 Blood Pressure 126/73 Pulse Oximetry 95 97 Oxygen Delivery Nasal Cannula Oxygen Flow Rate 1 Fraction of Inspired Oxygen 08/22/23 00:00 08/22/23 02:00 08/22/23 04:00 Temperature Pulse Rate 107 H 115 H 100 Respiratory Rate Blood Pressure Pulse Oximetry Oxygen Delivery Oxygen Flow Rate Fraction of Inspired Oxygen 08/22/23 00:00 08/22/23 02:00 08/22/23 04:00 Temperature 99 F 98.6 F Pulse Ra
[2023-08-22 13:08] LABS: Glucose Point of Care 102 mg/dl (65-105)
[2023-08-22 16:20] LABS: Glucose Point of Care 80 mg/dl (65-105)
--- NOTE | 2023-08-22 17:37 | PM.IMPN ---
Progress Note: A&P Assessment and Plan (1) Septic shock: Code(s): A41.9 - Sepsis, unspecified organism; R65.21 - Severe sepsis with septic shock Status: Acute Assessment and Plan: 08/16: Patient presented from with abdominal pain, general malaise, diarrhea and low blood pressures. Found to be having UTI -in the ER patient was found to be hypotensive, received 3 L IV fluid bolus and was admitted to the IMU for further management -procalcitonin on admission was > 100.0 -08/17: C diff positive -on 08/18/2023: Patient was transferred to the ICU from intermediate Unit for refractory hypotension after being given 2 L IV fluids in the intermediate Unit. Central line was inserted in the ICU - started on Levophed, will maintain MAP > 65 mmHg for adequate end organ perfusion -08/16: Blood cultures obtained -08/17: Urine culture ordered -patient received a total of 5 L of IV fluids since admission and will hold further IV fluids -continue Levophed. Add vasopressin -continue stress dose hydrocortisone -will discontinue sodium bicarb infusion as acidosis improved -patient is on cefepime, fidaxomicin 08/17/2023 CTA chest abdomen and pelvis showed mild esophagitis/gastritis, patchy renal enhancement may be secondary to pyelonephritis, correlate with urinalysis. 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 No dissection aneurysm patient does have severe emphysematous changes. Gallbladder is absent, stable intrahepatic bile duct dilatation. Mild distal esophageal and gastric wall edema, no small or large bowel dilatation. Diverticulosis without diverticulitis. (2) Acute pyelonephritis: Code(s): N10 - Acute pyelonephritis Status: Acute Assessment and Plan: UTI/acute pyelonephritis - treated with cefepime which has concluded Urine culture negative (3) Transaminitis: Code(s): R74.01 - Elevation of levels of liver transaminase levels Status: Acute Assessment and Plan: Elevated LFTs with normal bilirubin, likely related to hypoperfusion/shock liver -continue to monitor closely (4) C. difficile enteritis: Code(s): A04.72 - Enterocolitis due to Clostridium difficile, not specified as recurrent Status: Acute Assessment and Plan: Patient with abdominal pain, C diff was ordered was positive -continue fidaxomicin. Will DC IV Flagyl -no signs of inflammation/infection/colitis on CTA of the abdomen and pelvis -no diarrhea in the ICU (5) Electrolyte imbalance: Code(s): E87.8 - Other disorders of electrolyte and fluid balance, not elsewhere classified Status: Acute Assessment and Plan: Replace potassium phosphate magnesium and calcium (6) Occult blood in stools: Code(s): R19.5 - Other fecal abnormalities Status: Acute Assessment and Plan: Hemoglobin has been gradually trending down. This could also be related to dilution as patient received IV fluids -she did have positive Hemoccult. 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 Patient has been on buprenorphine patches which have been discontinued at this time due to drowsiness. -will monitor patient for opioid withdrawal will switch to oral buprenorphine here as patches are not available (8) Dysphagia: Code(s): R13.10 - Dysphagia, unspecified Status: Acute (9) Delirium: Code(s): R41.0 - Disorientation, unspecified Status: Acute Plan Non-STEMI with troponin elevate
[2023-08-22] MEDS: QUEtiapine FUMARATE 25 MG TABLET PO (20:21)
[2023-08-22 21:40] LABS: Glucose Point of Care 113 mg/dl (65-105)
[2023-08-23] VITALS (14 sets, daily range): BP systolic 108–133; BP diastolic 54–80; PULSE 93–130; RESP 16–24; TEMP 36.4–36.9; O2SAT 90–93
[2023-08-23] MEDS: oxyCODONE HCL (*CRX) 5 MG TAB IR PO ×2 (03:49→09:30)
[2023-08-23 05:40] LABS: Basophils Percent Auto 0.4 % (0.2-1.2); Eosinophils Absolute Auto 0.4 K/mm3 (0-0.3); Eosinophils Percent Auto 4.1 % (0-4.4); Hematocrit 31.9 % (37.0-47.0); Hemoglobin 10.1 g/dL (12.0-15.0); Immature Granulocyte Absolute 0.23 K/mm3 (0.00-0.031); Immature Granulocyte Percent A 2.1 % (0-0.5); Lymphocytes Absolute Auto 2.32 K/mm3 (0.9-3.2); Lymphocytes Percent Auto 21.4 % (18.3-44.2); Mean Corpuscular HGB Conc 31.7 g/dl (32-36); Mean Corpuscular Hemoglobin 31.7 pg (26-34); Mean Platelet Volume 10.5 fl (7.4-10.4); Monocytes Absolute Auto 1.3 K/mm3 (0.1-0.6); Monocytes Percent Auto 12.2 % (2.6-8.5); Neutrophils Absolute Auto 6.5 K/mm3 (1.3-6.7); Neutrophils Percent Auto 59.8 % (45.5-73.1); Platelet Count Result 194 k/mm3 (150-375); Red Blood Count 3.19 M/mm3 (4.2-5.4); Red Cell Distribution Width 14.2 % (11.5-14.5); White Blood Count 10.9 K/mm3 (4.5-10.0)
[2023-08-23 05:54] LABS: Alanine Aminotransferase 732 U/L (6-35); Albumin Level 3.1 g/dL (3.5-5.1); Alkaline Phosphatase 81 U/L (38-126); Anion Gap 7 mmol/L (4-12); Aspartate Amino Transferase 360 U/L (14-36); Bilirubin,Total 0.9 mg/dL (0.2-1.3); Blood Urea Nitrogen 20 mg/dL (7-17); Calcium 8.3 mg/dL (8.4-10.2); Carbon Dioxide 27 mmol/L (22-30); Chloride 105 mmol/L (98-107); Estimated CRCL calculation 39 ml/min; Estimated Glomerular Filt Rate > 60; Glucose 93 mg/dL (65-110); Magnesium 1.9 mg/dL (1.6-2.3); Potassium 4.2 mmol/L (3.4-5.0); Sodium 139 mmol/L (137-145)
[2023-08-23 08:01] LABS: Glucose Point of Care 103 mg/dl (65-105)
[2023-08-23] MEDS: ASPIRIN 325 MG ENTERIC TABLET PO (09:30)
[2023-08-23] MEDS: FIDAXOMICIN 200 MG TABLET PO ×2 (09:30→21:47)
[2023-08-23] MEDS: PANTOPRAZOLE SODIUM IV 40 MG VIAL IV PUSH ×2 (09:35→21:47)
--- NOTE | 2023-08-23 11:41 | PM.IMPN ---
Progress Note: A&P Assessment and Plan (1) Septic shock: Code(s): A41.9 - Sepsis, unspecified organism; R65.21 - Severe sepsis with septic shock Status: Acute Assessment and Plan: 08/16: Patient presented from with abdominal pain, general malaise, diarrhea and low blood pressures. Found to be having UTI -in the ER patient was found to be hypotensive, received 3 L IV fluid bolus and was admitted to the IMU for further management -procalcitonin on admission was > 100.0 -08/17: C diff positive -on 08/18/2023: Patient was transferred to the ICU from intermediate Unit for refractory hypotension after being given 2 L IV fluids in the intermediate Unit. Central line was inserted in the ICU - started on Levophed, will maintain MAP > 65 mmHg for adequate end organ perfusion -08/16: Blood cultures obtained -08/17: Urine culture ordered -patient received a total of 5 L of IV fluids since admission and will hold further IV fluids -continue Levophed. Add vasopressin -continue stress dose hydrocortisone -will discontinue sodium bicarb infusion as acidosis improved -patient is on cefepime, fidaxomicin 08/17/2023 CTA chest abdomen and pelvis showed mild esophagitis/gastritis, patchy renal enhancement may be secondary to pyelonephritis, correlate with urinalysis. 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 No dissection aneurysm patient does have severe emphysematous changes. Gallbladder is absent, stable intrahepatic bile duct dilatation. Mild distal esophageal and gastric wall edema, no small or large bowel dilatation. Diverticulosis without diverticulitis. (2) Acute pyelonephritis: Code(s): N10 - Acute pyelonephritis Status: Acute Assessment and Plan: UTI/acute pyelonephritis - treated with cefepime which has concluded Urine culture negative (3) Transaminitis: Code(s): R74.01 - Elevation of levels of liver transaminase levels Status: Acute Assessment and Plan: Elevated LFTs with normal bilirubin, likely related to hypoperfusion/shock liver -continue to monitor closely (4) C. difficile enteritis: Code(s): A04.72 - Enterocolitis due to Clostridium difficile, not specified as recurrent Status: Acute Assessment and Plan: Patient with abdominal pain, C diff was ordered was positive -continue fidaxomicin. Will DC IV Flagyl -no signs of inflammation/infection/colitis on CTA of the abdomen and pelvis -no diarrhea in the ICU (5) Electrolyte imbalance: Code(s): E87.8 - Other disorders of electrolyte and fluid balance, not elsewhere classified Status: Acute Assessment and Plan: Replace potassium phosphate magnesium and calcium (6) Occult blood in stools: Code(s): R19.5 - Other fecal abnormalities Status: Acute Assessment and Plan: Hemoglobin has been gradually trending down. This could also be related to dilution as patient received IV fluids -she did have positive Hemoccult. 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 Patient has been on buprenorphine patches which have been discontinued at this time due to drowsiness. -will monitor patient for opioid withdrawal Discussed with pharmacist. Will start buprenorphine oral to mg daily converted from the patch that she was receiving. Family mentions they will reach out to pain management to get back on treatment for w OUD and chronic pain (8) Dysphagia: Code(s): R13.10 - Dysphagia, uns
[2023-08-23 12:36] LABS: Glucose Point of Care 108 mg/dl (65-105)
[2023-08-23] MEDS: METOPROLOL TARTRATE 12.5 MG TABLET PO ×2 (12:49→21:47)
[2023-08-23 17:08] LABS: Glucose Point of Care 146 mg/dl (65-105)
[2023-08-23] MEDS: BUPRENORPHINE HCL (*CRX) 2 MG SUBLINGUAL TABLET PO (18:22)
[2023-08-23] MEDS: guaiFENesin 12 HR 600 MG TABCR PO (18:22)
[2023-08-23 19:45] LABS: Glucose Point of Care 174 mg/dl (65-105)
[2023-08-23] MEDS: QUEtiapine FUMARATE 25 MG TABLET PO (21:47)
[2023-08-24] VITALS (13 sets, daily range): BP systolic 103–120; BP diastolic 45–70; PULSE 93–110; RESP 12–24; TEMP 36.4–36.8; O2SAT 88–100
[2023-08-24 04:29] LABS: Basophils Absolute Auto 0.1 K/mm3 (0.0-0.1); Eosinophils Absolute Auto 0.5 K/mm3 (0-0.3); Hemoglobin 10.9 g/dL (12.0-15.0); Immature Granulocyte Absolute 0.19 K/mm3 (0.00-0.031); Lymphocytes Absolute Auto 2.58 K/mm3 (0.9-3.2); Lymphocytes Percent Auto 26.9 % (18.3-44.2); Mean Corpuscular HGB Conc 29.5 g/dl (32-36); Mean Corpuscular Hemoglobin 31.7 pg (26-34); Mean Corpuscular Volume 107.6 fl (80-100); Mean Platelet Volume 11.4 fl (7.4-10.4); Monocytes Absolute Auto 1.2 K/mm3 (0.1-0.6); Monocytes Percent Auto 12.4 % (2.6-8.5); Neutrophils Absolute Auto 5.1 K/mm3 (1.3-6.7); Neutrophils Percent Auto 52.7 % (45.5-73.1); Platelet Count Result 151 k/mm3 (150-375); Red Blood Count 3.44 M/mm3 (4.2-5.4); Red Cell Distribution Width 14.3 % (11.5-14.5); White Blood Count 9.6 K/mm3 (4.5-10.0)
[2023-08-24 07:34] LABS: Alanine Aminotransferase 523 U/L (6-35); Albumin Level 3.3 g/dL (3.5-5.1); Alkaline Phosphatase 74 U/L (38-126); Anion Gap 6 mmol/L (4-12); Aspartate Amino Transferase 163 U/L (14-36); Bilirubin,Total 0.7 mg/dL (0.2-1.3); Blood Urea Nitrogen 20 mg/dL (7-17); Calcium 8.4 mg/dL (8.4-10.2); Carbon Dioxide 29 mmol/L (22-30); Chloride 103 mmol/L (98-107); Estimated CRCL calculation 44 ml/min; Estimated Glomerular Filt Rate > 60; Glucose 89 mg/dL (65-110); Magnesium 1.9 mg/dL (1.6-2.3); Potassium 4.5 mmol/L (3.4-5.0); Sodium 138 mmol/L (137-145)
[2023-08-24 07:43] LABS: Glucose Point of Care 90 mg/dl (65-105)
[2023-08-24] MEDS: ASPIRIN 81 MG ENTERIC TABLET PO (09:09)
[2023-08-24] MEDS: FIDAXOMICIN 200 MG TABLET PO ×2 (09:09→20:49)
[2023-08-24] MEDS: BUPRENORPHINE HCL (*CRX) 2 MG SUBLINGUAL TABLET PO ×2 (09:09→22:17)
[2023-08-24] MEDS: guaiFENesin 12 HR 600 MG TABCR PO ×2 (09:09→17:07)
[2023-08-24] MEDS: METOPROLOL TARTRATE 12.5 MG TABLET PO ×2 (09:09→20:50)
[2023-08-24] MEDS: PANTOPRAZOLE SODIUM IV 40 MG VIAL IV PUSH ×2 (09:57→20:54)
[2023-08-24 11:46] LABS: Glucose Point of Care 119 mg/dl (65-105)
--- NOTE | 2023-08-24 13:45 | P.PNIM_ITS ---
Progress Note: A&P Assessment and Plan (1) Septic shock: Code(s): A41.9 - Sepsis, unspecified organism; R65.21 - Severe sepsis with septic shock Status: Acute Assessment and Plan: 08/16: Patient presented from with abdominal pain, general malaise, diarrhea and low blood pressures. Found to be having UTI -in the ER patient was found to be hypotensive, received 3 L IV fluid bolus and was admitted to the IMU for further management -procalcitonin on admission was > 100.0 -08/17: C diff positive -on 08/18/2023: Patient was transferred to the ICU from intermediate Unit for refractory hypotension after being given 2 L IV fluids in the intermediate Unit. Central line was inserted in the ICU - started on Levophed, will maintain MAP > 65 mmHg for adequate end organ perfusion -08/16: Blood cultures obtained -08/17: Urine culture ordered -patient received a total of 5 L of IV fluids since admission and will hold further IV fluids -continue Levophed. Add vasopressin -continue stress dose hydrocortisone -will discontinue sodium bicarb infusion as acidosis improved -patient is on cefepime which she completed treatment, continues on fidaxomicin 08/17/2023 CTA chest abdomen and pelvis showed mild esophagitis/gastritis, patchy renal enhancement may be secondary to pyelonephritis, correlate with urinalysis. 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 No dissection aneurysm patient does have severe emphysematous changes. Gallbladder is absent, stable intrahepatic bile duct dilatation. Mild distal esophageal and gastric wall edema, no small or large bowel dilatation. Diverticulosis without diverticulitis. (2) Acute pyelonephritis: Code(s): N10 - Acute pyelonephritis Status: Acute Assessment and Plan: UTI/acute pyelonephritis - treated with cefepime which has concluded Urine culture negative (3) Transaminitis: Code(s): R74.01 - Elevation of levels of liver transaminase levels Status: Acute Assessment and Plan: Elevated LFTs with normal bilirubin, likely related to hypoperfusion/shock liver -continue to monitor closely This has continued to improve (4) C. difficile enteritis: Code(s): A04.72 - Enterocolitis due to Clostridium difficile, not specified as recurrent Status: Acute Assessment and Plan: Patient with abdominal pain, C diff was ordered was positive -continue fidaxomicin. Will DC IV Flagyl -no signs of inflammation/infection/colitis on CTA of the abdomen and pelvis -no diarrhea in the ICU (5) Electrolyte imbalance: Code(s): E87.8 - Other disorders of electrolyte and fluid balance, not elsewhere classified Status: Acute Assessment and Plan: Replace potassium phosphate magnesium and calcium (6) Occult blood in stools: Code(s): R19.5 - Other fecal abnormalities Status: Acute Assessment and Plan: Hemoglobin has been gradually trending down. This could also be related to dilution as patient received IV fluids -she did have positive Hemoccult. 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 Patient has been on bup
[2023-08-24 16:09] LABS: Glucose Point of Care 145 mg/dl (65-105)
--- NOTE | 2023-08-24 17:51 | PC.NURSE ---
This patient, Marysol Chapman, was transferred to [facility] on 08/24/23 at 1752. Personal belongings sent with patient. Report given to Velvet LEIVA. Appropriate documentation sent with patient.
--- NOTE | 2023-08-24 17:56 | PC.NURSE ---
This patient, Marysol Chapman, was transferred to [facility] on 08/24/23 at 1756. Personal belongings sent with patient. Report given to Velvet LEIVA. Appropriate documentation sent with patient.
[2023-08-24] MEDS: QUEtiapine FUMARATE 25 MG TABLET PO (20:50)
[2023-08-24] MEDS: oxyCODONE HCL (*CRX) 5 MG TAB IR PO (20:51)
[2023-08-24 21:58] LABS: Glucose Point of Care 130 mg/dl (65-105)
[2023-08-25] VITALS (14 sets, daily range): BP systolic 92–137; BP diastolic 49–85; PULSE 76–107; RESP 12–20; TEMP 36.2–36.6; O2SAT 92–100
[2023-08-25 05:07] LABS: Basophils Percent Auto 0.4 % (0.2-1.2); Eosinophils Absolute Auto 0.3 K/mm3 (0-0.3); Eosinophils Percent Auto 4.6 % (0-4.4); Hematocrit 32.2 % (37.0-47.0); Hemoglobin 9.9 g/dL (12.0-15.0); Immature Granulocyte Absolute 0.12 K/mm3 (0.00-0.031); Immature Granulocyte Percent A 1.6 % (0-0.5); Lymphocytes Absolute Auto 2.19 K/mm3 (0.9-3.2); Lymphocytes Percent Auto 29.6 % (18.3-44.2); Mean Corpuscular HGB Conc 30.7 g/dl (32-36); Mean Corpuscular Hemoglobin 30.8 pg (26-34); Mean Corpuscular Volume 100.3 fl (80-100); Mean Platelet Volume 10.7 fl (7.4-10.4); Monocytes Percent Auto 13.9 % (2.6-8.5); Neutrophils Absolute Auto 3.7 K/mm3 (1.3-6.7); Neutrophils Percent Auto 49.9 % (45.5-73.1); Platelet Count Result 221 k/mm3 (150-375); Red Blood Count 3.21 M/mm3 (4.2-5.4); Red Cell Distribution Width 13.9 % (11.5-14.5); White Blood Count 7.4 K/mm3 (4.5-10.0)
[2023-08-25 05:16] LABS: Alanine Aminotransferase 360 U/L (6-35); Alkaline Phosphatase 72 U/L (38-126); Anion Gap -1 mmol/L (4-12); Aspartate Amino Transferase 88 U/L (14-36); Bilirubin,Total 0.7 mg/dL (0.2-1.3); Blood Urea Nitrogen 16 mg/dL (7-17); Calcium 8.6 mg/dL (8.4-10.2); Carbon Dioxide 35 mmol/L (22-30); Chloride 101 mmol/L (98-107); Estimated CRCL calculation 49 ml/min; Estimated Glomerular Filt Rate > 60; Glucose 92 mg/dL (65-110); Magnesium 1.7 mg/dL (1.6-2.3); Potassium 4.4 mmol/L (3.4-5.0); Sodium 135 mmol/L (137-145)
[2023-08-25 07:55] LABS: Glucose Point of Care 81 mg/dl (65-105)
[2023-08-25] MEDS: METOPROLOL TARTRATE 12.5 MG TABLET PO ×2 (08:15→21:39)
[2023-08-25] MEDS: PANTOPRAZOLE SODIUM IV 40 MG VIAL IV PUSH ×2 (08:15→21:38)
[2023-08-25] MEDS: FIDAXOMICIN 200 MG TABLET PO ×2 (08:16→21:39)
[2023-08-25] MEDS: guaiFENesin 12 HR 600 MG TABCR PO ×2 (08:16→17:41)
[2023-08-25] MEDS: ASPIRIN 81 MG ENTERIC TABLET PO (08:16)
[2023-08-25] MEDS: BUPRENORPHINE HCL (*CRX) 2 MG SUBLINGUAL TABLET PO ×2 (08:16→21:39)
[2023-08-25] MEDS: oxyCODONE HCL (*CRX) 5 MG TAB IR PO ×3 (08:22→18:50)
--- NOTE | 2023-08-25 10:49 | PCOTNOTE ---
The patient treatment was not able to be completed. Patient was working with PT will follow up.
[2023-08-25 11:37] LABS: Glucose Point of Care 120 mg/dl (65-105)
--- NOTE | 2023-08-25 14:27 | PM.IMPN ---
Progress Note: A&P Assessment and Plan (1) Septic shock: Code(s): A41.9 - Sepsis, unspecified organism; R65.21 - Severe sepsis with septic shock Status: Acute Assessment and Plan: 08/16: Patient presented from with abdominal pain, general malaise, diarrhea and low blood pressures. Found to be having UTI -in the ER patient was found to be hypotensive, received 3 L IV fluid bolus and was admitted to the IMU for further management -procalcitonin on admission was > 100.0 -08/17: C diff positive -on 08/18/2023: Patient was transferred to the ICU from intermediate Unit for refractory hypotension after being given 2 L IV fluids in the intermediate Unit. Central line was inserted in the ICU - started on Levophed, will maintain MAP > 65 mmHg for adequate end organ perfusion -08/16: Blood cultures obtained -08/17: Urine culture ordered -patient received a total of 5 L of IV fluids since admission and will hold further IV fluids -continue Levophed. Add vasopressin -continue stress dose hydrocortisone -will discontinue sodium bicarb infusion as acidosis improved -patient is on cefepime which she completed treatment, continues on fidaxomicin 08/17/2023 CTA chest abdomen and pelvis showed mild esophagitis/gastritis, patchy renal enhancement may be secondary to pyelonephritis, correlate with urinalysis. 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 No dissection aneurysm patient does have severe emphysematous changes. Gallbladder is absent, stable intrahepatic bile duct dilatation. Mild distal esophageal and gastric wall edema, no small or large bowel dilatation. Diverticulosis without diverticulitis. (2) Acute pyelonephritis: Code(s): N10 - Acute pyelonephritis Status: Acute Assessment and Plan: UTI/acute pyelonephritis - treated with cefepime which has concluded Urine culture negative (3) Transaminitis: Code(s): R74.01 - Elevation of levels of liver transaminase levels Status: Acute Assessment and Plan: Elevated LFTs with normal bilirubin, likely related to hypoperfusion/shock liver -continue to monitor closely This has continued to improve (4) C. difficile enteritis: Code(s): A04.72 - Enterocolitis due to Clostridium difficile, not specified as recurrent Status: Acute Assessment and Plan: Patient with abdominal pain, C diff was ordered was positive -continue fidaxomicin. Will DC IV Flagyl -no signs of inflammation/infection/colitis on CTA of the abdomen and pelvis -no diarrhea in the ICU (5) Electrolyte imbalance: Code(s): E87.8 - Other disorders of electrolyte and fluid balance, not elsewhere classified Status: Acute Assessment and Plan: Replace potassium phosphate magnesium and calcium (6) Occult blood in stools: Code(s): R19.5 - Other fecal abnormalities Status: Acute Assessment and Plan: Hemoglobin has been gradually trending down. This could also be related to dilution as patient received IV fluids -she did have positive Hemoccult. 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 Patient has been on buprenorphine patches which have been discontinued at this time due to drowsiness. -will monitor patient for opioid withdrawal Discussed with pharmacist. Will start buprenorphine oral to mg daily converted from the patch that she was receiving. Family mentions they will reach out to pain management to get back on treatment for w OUD
[2023-08-25 16:45] LABS: Glucose Point of Care 113 mg/dl (65-105)
[2023-08-25 20:11] LABS: Glucose Point of Care 122 mg/dl (65-105)
[2023-08-25] MEDS: QUEtiapine FUMARATE 25 MG TABLET PO (21:40)
[2023-08-26] VITALS (14 sets, daily range): BP systolic 97–137; BP diastolic 49–74; PULSE 70–99; RESP 18–21; TEMP 36.5–36.6; O2SAT 90–100
[2023-08-26 05:18] LABS: Basophils Percent Auto 0.5 % (0.2-1.2); Eosinophils Absolute Auto 0.3 K/mm3 (0-0.3); Eosinophils Percent Auto 4.5 % (0-4.4); Hematocrit 31.7 % (37.0-47.0); Hemoglobin 9.8 g/dL (12.0-15.0); Immature Granulocyte Absolute 0.05 K/mm3 (0.00-0.031); Immature Granulocyte Percent A 0.8 % (0-0.5); Lymphocytes Absolute Auto 1.72 K/mm3 (0.9-3.2); Lymphocytes Percent Auto 26.6 % (18.3-44.2); Mean Corpuscular HGB Conc 30.9 g/dl (32-36); Mean Corpuscular Hemoglobin 31.3 pg (26-34); Mean Corpuscular Volume 101.3 fl (80-100); Mean Platelet Volume 10.5 fl (7.4-10.4); Monocytes Absolute Auto 0.9 K/mm3 (0.1-0.6); Monocytes Percent Auto 13.8 % (2.6-8.5); Neutrophils Absolute Auto 3.5 K/mm3 (1.3-6.7); Neutrophils Percent Auto 53.8 % (45.5-73.1); Platelet Count Result 235 k/mm3 (150-375); Red Blood Count 3.13 M/mm3 (4.2-5.4); Red Cell Distribution Width 13.8 % (11.5-14.5); White Blood Count 6.5 K/mm3 (4.5-10.0)
[2023-08-26 05:33] LABS: Alanine Aminotransferase 253 U/L (6-35); Albumin Level 2.9 g/dL (3.5-5.1); Alkaline Phosphatase 66 U/L (38-126); Anion Gap 3 mmol/L (4-12); Aspartate Amino Transferase 56 U/L (14-36); Bilirubin,Total 0.5 mg/dL (0.2-1.3); Blood Urea Nitrogen 13 mg/dL (7-17); Calcium 8.7 mg/dL (8.4-10.2); Carbon Dioxide 33 mmol/L (22-30); Chloride 100 mmol/L (98-107); Estimated CRCL calculation 39 ml/min; Estimated Glomerular Filt Rate > 60; Glucose 97 mg/dL (65-110); Magnesium 1.7 mg/dL (1.6-2.3); Potassium 4.4 mmol/L (3.4-5.0); Sodium 136 mmol/L (137-145)
[2023-08-26 08:21] LABS: Glucose Point of Care 80 mg/dl (65-105)
[2023-08-26] MEDS: ASPIRIN 81 MG ENTERIC TABLET PO (08:51)
[2023-08-26] MEDS: FIDAXOMICIN 200 MG TABLET PO ×2 (08:52→21:31)
[2023-08-26] MEDS: guaiFENesin 12 HR 600 MG TABCR PO ×2 (08:52→17:28)
[2023-08-26] MEDS: METOPROLOL TARTRATE 12.5 MG TABLET PO ×2 (08:52→21:31)
[2023-08-26] MEDS: oxyCODONE HCL (*CRX) 5 MG TAB IR PO ×2 (08:52→12:55)
[2023-08-26] MEDS: PANTOPRAZOLE SODIUM IV 40 MG VIAL IV PUSH ×2 (08:52→21:31)
[2023-08-26] MEDS: BUPRENORPHINE HCL (*CRX) 2 MG SUBLINGUAL TABLET PO ×2 (08:52→21:31)
--- NOTE | 2023-08-26 10:53 | PCNFU ---
Nutrition Follow-Up Complete: Inadequate Oral Intake as related to chronic pain as evidenced by poor po intake reported. Goal: Adequate Intake of at least 50/75% of meals/supplements Patient is progressing towards goal. We will continue current goal. Pt current nutrition is Soft and Bite Sized, level 6/Regular with Ensure Compact BID and Banatrol BID. Last recorded weight is 58.6 kg, up from 58.2 kg on admit. Bowel Motility: +BM reported 08/24 Labs Reviewed:Na 136, Alb 2.9, Hct 31.7,Hgb 9.8 Meds Noted:NovoLog, Protonix, Lopressor Skin: WNL Additional Notes: Patient currently on soft and bite Level 6. Oral intake has been 5-75% of meals. Diarrhea is improving. Agree with diet supplements. Agree with diet orders. RD will monitor weight, labs, skin, oral intake, meds every 5 days.
[2023-08-26 12:19] LABS: Glucose Point of Care 94 mg/dl (65-105)
--- NOTE | 2023-08-26 13:20 | PM.IMPN ---
Progress Note: A&P Assessment and Plan (1) Septic shock: Code(s): A41.9 - Sepsis, unspecified organism; R65.21 - Severe sepsis with septic shock Status: Acute Assessment and Plan: 08/16: Patient presented from with abdominal pain, general malaise, diarrhea and low blood pressures. Found to be having UTI -in the ER patient was found to be hypotensive, received 3 L IV fluid bolus and was admitted to the IMU for further management -procalcitonin on admission was > 100.0 -08/17: C diff positive -on 08/18/2023: Patient was transferred to the ICU from intermediate Unit for refractory hypotension after being given 2 L IV fluids in the intermediate Unit. Central line was inserted in the ICU - started on Levophed, will maintain MAP > 65 mmHg for adequate end organ perfusion -08/16: Blood cultures negative -08/17: Urine culture negative Taper off Levophed Completed treatment with cefepime during the hospital stay 08/17/2023 CTA chest abdomen and pelvis showed mild esophagitis/gastritis, patchy renal enhancement may be secondary to pyelonephritis, correlate with urinalysis. 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 No dissection aneurysm patient does have severe emphysematous changes. Gallbladder is absent, stable intrahepatic bile duct dilatation. Mild distal esophageal and gastric wall edema, no small or large bowel dilatation. Diverticulosis without diverticulitis. (2) Acute pyelonephritis: Code(s): N10 - Acute pyelonephritis Status: Acute Assessment and Plan: UTI/acute pyelonephritis - treated with cefepime which has concluded Urine culture negative (3) Transaminitis: Code(s): R74.01 - Elevation of levels of liver transaminase levels Status: Acute Assessment and Plan: Elevated LFTs with normal bilirubin, likely related to hypoperfusion/shock liver -continue to monitor closely This has continued to improve (4) C. difficile enteritis: Code(s): A04.72 - Enterocolitis due to Clostridium difficile, not specified as recurrent Status: Acute Assessment and Plan: Patient with abdominal pain, C diff was ordered was positive -continue fidaxomicin. Will DC IV Flagyl -no signs of inflammation/infection/colitis on CTA of the abdomen and pelvis -diarrhea has resolved Fidaxomicin until 08/27/2023 (5) Electrolyte imbalance: Code(s): E87.8 - Other disorders of electrolyte and fluid balance, not elsewhere classified Status: Acute Assessment and Plan: Replace potassium phosphate magnesium and calcium (6) Occult blood in stools: Code(s): R19.5 - Other fecal abnormalities Status: Acute Assessment and Plan: Hemoglobin has been gradually trending down. This could also be related to dilution as patient received IV fluids -she did have positive Hemoccult. 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 Patient has been on buprenorphine patches which have been discontinued at this time due to drowsiness. -will monitor patient for opioid withdrawal Discussed with pharmacist. Will start buprenorphine oral to mg daily converted from the patch that she was receiving. Family mentions they will reach out to pain management to get back on treatment for w OUD and chronic pain 2 mg which will be continued in uptitrated to 2 mg b.i.d. will taper off oxycodone and IV morphine (8) Dysphagia: Code(s): R13.10 - Dysphagia, unspecified Status: Acute
--- NOTE | 2023-08-26 16:26 | WPDGIPROGNO ---
Progress Note: A&P Assessment and Plan (1) Occult blood in stools: Code(s): R19.5 - Other fecal abnormalities Status: Acute Assessment and Plan: no overt gib, could be from c diff colitis hgb has been stable ~ 9 EGD tomorrow she has been on protonix daily (2) C. difficile colitis: Code(s): A04.72 - Enterocolitis due to Clostridium difficile, not specified as recurrent Status: Acute Assessment and Plan: on treatment now no diarrhea (3) Transaminitis: Code(s): R74.01 - Elevation of levels of liver transaminase levels Status: Acute Assessment and Plan: probably shock liver when she presented with septic shock coming down nicely (4) Septic shock: Code(s): A41.9 - Sepsis, unspecified organism; R65.21 - Severe sepsis with septic shock Status: Acute Assessment and Plan: resolved (5) Excessive use of nonsteroidal anti-inflammatory drugs (NSAIDs): Code(s): F19.90 - Other psychoactive substance use, unspecified, uncomplicated Status: Acute Assessment and Plan: wonder if caused gastritis/esophagitis, now on ppi and avoid nsaid's she also was having issues from opiod withdrawal (6) Abnormal digestive system diagnostic imaging: Code(s): R93.3 - Abnormal findings on diagnostic imaging of other parts of digestive tract Status: Acute Assessment and Plan: CT scan on admission noted mild esophagitis/gastritis egd tomorrow (7) Acute pyelonephritis: Code(s): N10 - Acute pyelonephritis Status: Acute Subjective Date/time seen: 08/26/23 16:26 Interval history: family talked to primary and prefer to get EGD while she is still in hospital chronic back pain overall much better, had occult blood in stool but no overt gib, treated for C diff but no diarrhea now Review of Systems Review of Systems: All systems reviewed & are unremarkable except as noted in HPI and below Exam Const: Other: Elderly, chronically ill appearing female HENMT: Mouth: Yes dry mucous membranes Eyes: General: appearance normal, both eyes and all related structures Neck: Neck: supple Resp: Effort & Inspection: normal respiratory effort Cardio: Rate: regular rate Rhythm: regular rhythm GI: GI Palp: Yes Soft to palpation, No Tenderness to palpation present (GI) and No Guarding due to palpation present (GI) Auscultation: normal bowel sounds Skin: General skin exam: normal color Neuro: Speech: normal speech Extrem: General: normal to inspection Psych: Affect: Anxious affect present Objective Data Vital Signs Vital Signs: Vital Signs - 24 hr 08/25/23 20:00 08/25/23 21:39 08/25/23 20:01 Temperature 97.7 F Pulse Rate 97 102 H 95 Respiratory Rate 20 Blood Pressure 137/85 Pulse Oximetry 96 Oxygen Delivery Oxygen Flow Rate 08/26/23 00:00 08/25/23 21:39 08/26/23 00:04 Temperature 97.8 F Pulse Rate 88 89 Respiratory Rate 18 Blood Pressure 111/66 Pulse Oximetry 99 99 Oxygen Delivery Nasal Cannula Oxygen Flow Rate 2 08/26/23 04:01 08/26/23 04:00 08/26/23 07:49 Temperature 97.9 F Pulse Rate 82 87 Respiratory Rate 20 Blood Pressure 107/68 Pulse Oximetry 96 90 Oxygen Delivery Nasal Cannula Oxygen Flow Rate 4 08/26/23 08:52 08/26/23 10:00 08/26/23 08:00 Temperature 98 F Pulse Rate 82 93 Respiratory Rate 20 Blood Pressure 99/60 L Pulse Oximetry 98 98 Oxygen Delivery Nasal Cannula Oxygen Flow Rate 4 08/26/23 14:00 08/26/23 08:00 08/26/23 12:00 Temperature 98 F Pulse Rate 70 99 81 Respiratory Rate 21 H Blood Pressure 97/49 L Pulse Oximetry 97 Oxygen Delivery Oxygen Flow Rate 08/26/23 16:00 Temperature Pulse Rate 96 Respiratory Rate Blood Pressure Pulse Oximetry Oxygen Delivery Oxygen Flow Rate Intake/Output Intake/Output: Intake & Output 08/23/23 08/24/23 08/25/23 08/26/23 23:59 23:59 23:59
[2023-08-26 16:43] LABS: Glucose Point of Care 110 mg/dl (65-105)
[2023-08-26] MEDS: ACETAMINOPHEN 325 MG TABLET 650 MG PO (17:27)
[2023-08-26 20:47] LABS: Glucose Point of Care 110 mg/dl (65-105)
[2023-08-26] MEDS: QUEtiapine FUMARATE 25 MG TABLET PO (21:31)
[2023-08-27] VITALS (15 sets, daily range): BP systolic 92–137; BP diastolic 46–64; PULSE 73–94; RESP 13–26; TEMP 36.3–36.8; O2SAT 94–100
[2023-08-27 05:13] LABS: Basophils Percent Auto 0.5 % (0.2-1.2); Eosinophils Absolute Auto 0.2 K/mm3 (0-0.3); Eosinophils Percent Auto 3.2 % (0-4.4); Hematocrit 32.1 % (37.0-47.0); Hemoglobin 9.8 g/dL (12.0-15.0); Immature Granulocyte Absolute 0.02 K/mm3 (0.00-0.031); Immature Granulocyte Percent A 0.4 % (0-0.5); Lymphocytes Absolute Auto 1.83 K/mm3 (0.9-3.2); Lymphocytes Percent Auto 32.6 % (18.3-44.2); Mean Corpuscular HGB Conc 30.5 g/dl (32-36); Mean Corpuscular Hemoglobin 31.4 pg (26-34); Mean Corpuscular Volume 102.9 fl (80-100); Mean Platelet Volume 11.2 fl (7.4-10.4); Monocytes Absolute Auto 0.8 K/mm3 (0.1-0.6); Monocytes Percent Auto 14.1 % (2.6-8.5); Neutrophils Absolute Auto 2.8 K/mm3 (1.3-6.7); Neutrophils Percent Auto 49.2 % (45.5-73.1); Platelet Count Result 233 k/mm3 (150-375); Red Blood Count 3.12 M/mm3 (4.2-5.4); Red Cell Distribution Width 14.1 % (11.5-14.5); White Blood Count 5.6 K/mm3 (4.5-10.0)
[2023-08-27 05:23] LABS: Alanine Aminotransferase 219 U/L (6-35); Albumin Level 3.3 g/dL (3.5-5.1); Alkaline Phosphatase 74 U/L (38-126); Anion Gap 4 mmol/L (4-12); Aspartate Amino Transferase 48 U/L (14-36); Bilirubin,Total 0.7 mg/dL (0.2-1.3); Blood Urea Nitrogen 13 mg/dL (7-17); Calcium 8.8 mg/dL (8.4-10.2); Carbon Dioxide 31 mmol/L (22-30); Chloride 102 mmol/L (98-107); Estimated CRCL calculation 35 ml/min; Estimated Glomerular Filt Rate > 60; Glucose 95 mg/dL (65-110); Magnesium 1.9 mg/dL (1.6-2.3); Potassium 4.5 mmol/L (3.4-5.0); Sodium 137 mmol/L (137-145)
[2023-08-27 07:59] LABS: Glucose Point of Care 108 mg/dl (65-105)
[2023-08-27] MEDS: METOPROLOL TARTRATE 12.5 MG TABLET PO ×2 (08:51→21:45)
[2023-08-27] MEDS: FIDAXOMICIN 200 MG TABLET PO (08:51)
[2023-08-27] MEDS: BUPRENORPHINE HCL (*CRX) 2 MG SUBLINGUAL TABLET PO ×2 (08:51→21:08)
[2023-08-27] MEDS: PANTOPRAZOLE SODIUM IV 40 MG VIAL IV PUSH (08:52)
[2023-08-27 11:53] LABS: Glucose Point of Care 85 mg/dl (65-105)
--- NOTE | 2023-08-27 12:28 | PCPTNOTE ---
Patient declined PT stating she has a test this afternoon and is not able to eat. Patient states she feels too weak to participate in therapy at this time since she has not eaten today. PT will continue to follow per plan of care.
[2023-08-27] MEDS: ONDANSETRON INJ 4 MG/2 ML VIAL IV PUSH (13:24)
--- NOTE | 2023-08-27 16:04 | WPDANESEPPF ---
Anes - Initial Pre Proc Eval Procedure: Operation Date: 08/27/23 17:00 Proposed Procedures p Esophagogastroduodenoscopy - Lopez Carrasquillo MD Date/Time: 08/27/23 16:04 Surgeon: Jeffery Broosk MD Pre Op Diagnosis: Sepsis, Acute kidney injury, Leukocytosis Patient Data Age: 77 Gender: F Height: 1.55 m Weight: 61.5 kg Last Vital Signs Temp 36.8 C 08/27/23 12:00 Pulse 83 08/27/23 12:00 Resp 18 08/27/23 12:00 BP 105/54 L 08/27/23 12:00 Pulse Ox 99 08/27/23 12:00 O2 Del Method Nasal Cannula 08/27/23 08:23 O2 Flow Rate 3 08/27/23 08:23 FiO2 28 08/25/23 07:52 Allergies Allergy/AdvReac Type Severity Reaction Status Date / Time No Known Allergies Allergy Verified 08/27/23 15:57 Home Medications Medication Instructions Recorded Confirmed Type albuterol sulfate 90 mcg/actuation 90 mcg inhalation DIRECTED 12/20/19 08/17/23 History aerosol inhaler (ProAir HFA) guaifenesin 600 mg tablet, 600 mg PO BID 09/10/21 08/17/23 History extended release 12 hr (Mucinex) acetaminophen 325 mg tablet 325 mg PO Q6H PRN Pain 12/24/22 08/17/23 History (Tylenol) aspirin 325 mg tablet (Wendie 325 mg PO DAILY 12/24/22 08/17/23 History Aspirin) ibuprofen 200 mg tablet (Advil) 200 mg PO Q6H PRN Pain 12/24/22 08/17/23 History triamterene 37.5 1 tablet PO QAM 12/24/22 08/17/23 History mg-hydrochlorothiazide 25 mg tablet docusate sodium 100 mg capsule 100 mg PO BID #20 caps 08/06/23 08/17/23 Rx (Colace) buprenorphine 5 mcg/hour weekly 1 patch transdermal Q7D chronic 08/07/23 08/17/23 History transdermal patch (Butrans) pain pantoprazole 40 mg tablet,delayed 40 mg PO Q12HR 08/07/23 08/17/23 History release (Protonix) ondansetron 4 mg disintegrating 4 mg PO Q6H PRN nausea and 08/08/23 08/17/23 Rx tablet vomiting #10 tabs potassium chloride 20 mEq 20 meq PO BID 3 days #6 tabs 08/08/23 08/17/23 Rx tablet,extended release hydrocodone 5 mg-acetaminophen 325 1 tablet PO Q8H PRN Pain (Scale 08/17/23 08/17/23 History mg tablet Score 7-10) Laboratory Tests 08/26/23 08/26/23 08/27/23 16:40 19:39 04:41 WBC 5.6 K/mm3 (4.5-10.0) RBC 3.12 L M/mm3 (4.2-5.4) Hgb 9.8 L g/dL (12.0-15.0) Hct 32.1 L % (37.0-47.0) MCV 102.9 H fl (80-100) MCH 31.4 pg (26-34) MCHC 30.5 L g/dl (32-36) RDW 14.1 % (11.5-14.5) Plt Count 233 k/mm3 (150-375) MPV 11.2 H fl (7.4-10.4) Immature Gran % (Auto) 0.4 % (0-0.5) Neut % (Auto) 49.2 % (45.5-73.1) Lymph % (Auto) 32.6 % (18.3-44.2) Terrell % (Auto) 14.1 H % (2.6-8.5) Eos % (Auto) 3.2 % (0-4.4) Baso % (Auto) 0.5 % (0.2-1.2) Lymph # (Auto) 1.83 K/mm3 (0.9-3.2) Terrell # (Auto) 0.8 H K/mm3 (0.1-0.6) Eos # (Auto) 0.2 K/mm3 (0-0.3) Baso # (Auto) 0.0 K/mm3 (0.0-0.1) Abs Immat Gran (auto) 0.02 K/mm3 (0.00-0.031) Absolute Neuts (auto) 2.8 K/mm3 (1.3-6.7) Absolute Nucleated RBC 0.000 K/mm3 (0.0-0.012) Nucleated RBC % 0.0 % (0.0-0.2) Sodium 137 mmol/L (137-145) Potassium 4.5 mmol/L (3.4-5.0) Chloride 102 mmol/L (98-107) Carbon Dioxide 31 H mmol/L (22-30) Anion Gap 4 mmol/L (4-12) BUN 13 mg/dL (7-17) Creatinine 0.90 mg/dL (0.7-1.0) Estim Creat Clear Calc 35 ml/min Estimated GFR > 60 (59 - ) Glucose 95 mg/dL (65-110) POC Capillary Glucose 110 H mg/dl 110 H mg/dl (65-105) (65-105) Calcium 8.8 mg/dL (8.4-10.2) Magnesium 1.9 mg/dL (1.6-2.3) Total Bilirubin 0.7 mg/dL (0.2-1.3) AST 48 H U/L (14-36) ALT 219 H U/L (6-35) Alkaline Phosphatase 74 U/L (38-126) Total Protein 6.0 L
[2023-08-27] MEDS: LACTATED RINGERS 1,000 ML 150 ML IV CONT (16:31)
--- NOTE | 2023-08-27 16:54 | PM.IMPN ---
Progress Note: A&P Assessment and Plan (1) Septic shock: Code(s): A41.9 - Sepsis, unspecified organism; R65.21 - Severe sepsis with septic shock Status: Acute Assessment and Plan: 08/16: Patient presented from with abdominal pain, general malaise, diarrhea and low blood pressures. Found to be having UTI -in the ER patient was found to be hypotensive, received 3 L IV fluid bolus and was admitted to the IMU for further management -procalcitonin on admission was > 100.0 -08/17: C diff positive -on 08/18/2023: Patient was transferred to the ICU from intermediate Unit for refractory hypotension after being given 2 L IV fluids in the intermediate Unit. Central line was inserted in the ICU - started on Levophed, will maintain MAP > 65 mmHg for adequate end organ perfusion -08/16: Blood cultures negative -08/17: Urine culture negative 08/17/2023 CTA chest abdomen and pelvis showed mild esophagitis/gastritis, patchy renal enhancement may be secondary to pyelonephritis, correlate with urinalysis. 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 No dissection aneurysm patient does have severe emphysematous changes. Gallbladder is absent, stable intrahepatic bile duct dilatation. Mild distal esophageal and gastric wall edema, no small or large bowel dilatation. Diverticulosis without diverticulitis. Taper off Levophed Completed treatment with cefepime during the hospital stay (2) Acute pyelonephritis: Code(s): N10 - Acute pyelonephritis Status: Acute Assessment and Plan: UTI/acute pyelonephritis - treated with cefepime which has concluded Urine culture negative (3) Transaminitis: Code(s): R74.01 - Elevation of levels of liver transaminase levels Status: Acute Assessment and Plan: Elevated LFTs with normal bilirubin, likely related to hypoperfusion/shock liver -continue to monitor closely This has continued to improve (4) C. difficile enteritis: Code(s): A04.72 - Enterocolitis due to Clostridium difficile, not specified as recurrent Status: Acute Assessment and Plan: Patient with abdominal pain, C diff was ordered was positive -continue fidaxomicin. IV Flagyl ws added due to severity but now stopped -no signs of inflammation/infection/colitis on CTA of the abdomen and pelvis -diarrhea has resolved Fidaxomicin until 08/27/2023 (5) Electrolyte imbalance: Code(s): E87.8 - Other disorders of electrolyte and fluid balance, not elsewhere classified Status: Acute Assessment and Plan: Replace electrolytes as needed. (6) Occult blood in stools: Code(s): R19.5 - Other fecal abnormalities Status: Acute Assessment and Plan: Hemoglobin has been gradually trending down. This could also be related to dilution as patient received IV fluids -she did have positive Hemoccult. Continue Protonix -will continue to monitor hemoglobin level -currently on Protonix 40 mg IV q.12 hours - GI consulted with plans for EGD today. 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 Patient has been on buprenorphine patches which have been discontinued at this time due to drowsiness. -will monitor patient for opioid withdrawal Discussed with pharmacist. Will start buprenorphine oral to mg daily converted from the patch that she was receiving. Family mentions they will reach out to pain management to get back on treatment for w OUD and chronic pain 2 mg which will be continued in uptitrated to 2 mg b.i.d. currenlty off oxycodone and IV morphine (8) Dysphagia:
[2023-08-27 17:16] LABS: Glucose Point of Care 76 mg/dl (65-105)
--- NOTE | 2023-08-27 17:39 | PC.NURSE ---
Returned from GI Lab. Report received from Jennifer.
[2023-08-27] MEDS: ACETAMINOPHEN 325 MG TABLET 650 MG PO (17:49)
[2023-08-27] MEDS: guaiFENesin 12 HR 600 MG TABCR PO (17:49)
[2023-08-27 20:34] LABS: Glucose Point of Care 104 mg/dl (65-105)
[2023-08-27] MEDS: PANTOPRAZOLE 40 MG TABLET PO (21:10)
[2023-08-27] MEDS: QUEtiapine FUMARATE 25 MG TABLET PO (21:10)
[2023-08-28] VITALS (10 sets, daily range): BP systolic 87–116; BP diastolic 45–71; PULSE 76–94; RESP 12–18; TEMP 36.4–37.3; O2SAT 84–96
[2023-08-28 05:37] LABS: Basophils Percent Auto 0.4 % (0.2-1.2); Eosinophils Absolute Auto 0.2 K/mm3 (0-0.3); Eosinophils Percent Auto 2.3 % (0-4.4); Hematocrit 29.5 % (37.0-47.0); Immature Granulocyte Absolute 0.04 K/mm3 (0.00-0.031); Immature Granulocyte Percent A 0.5 % (0-0.5); Lymphocytes Absolute Auto 1.19 K/mm3 (0.9-3.2); Lymphocytes Percent Auto 15.2 % (18.3-44.2); Mean Corpuscular HGB Conc 30.5 g/dl (32-36); Mean Corpuscular Hemoglobin 31.5 pg (26-34); Mean Corpuscular Volume 103.1 fl (80-100); Mean Platelet Volume 10.7 fl (7.4-10.4); Monocytes Absolute Auto 0.7 K/mm3 (0.1-0.6); Monocytes Percent Auto 9.2 % (2.6-8.5); Neutrophils Absolute Auto 5.7 K/mm3 (1.3-6.7); Neutrophils Percent Auto 72.4 % (45.5-73.1); Platelet Count Result 243 k/mm3 (150-375); Red Blood Count 2.86 M/mm3 (4.2-5.4); Red Cell Distribution Width 14.2 % (11.5-14.5); White Blood Count 7.9 K/mm3 (4.5-10.0)
[2023-08-28 05:51] LABS: Alanine Aminotransferase 149 U/L (6-35); Albumin Level 2.9 g/dL (3.5-5.1); Alkaline Phosphatase 66 U/L (38-126); Anion Gap 0 mmol/L (4-12); Aspartate Amino Transferase 40 U/L (14-36); Bilirubin,Total 0.6 mg/dL (0.2-1.3); Blood Urea Nitrogen 13 mg/dL (7-17); Calcium 8.1 mg/dL (8.4-10.2); Carbon Dioxide 37 mmol/L (22-30); Chloride 98 mmol/L (98-107); Estimated CRCL calculation 35 ml/min; Estimated Glomerular Filt Rate > 60; Glucose 98 mg/dL (65-110); Magnesium 1.6 mg/dL (1.6-2.3); Phosphorus 3.2 mg/dL (2.5-4.5); Potassium 4.5 mmol/L (3.4-5.0); Sodium 135 mmol/L (137-145)
[2023-08-28] MEDS: ASPIRIN 81 MG ENTERIC TABLET PO (08:32)
[2023-08-28] MEDS: guaiFENesin 12 HR 600 MG TABCR PO ×2 (08:32→17:30)
[2023-08-28] MEDS: PANTOPRAZOLE 40 MG TABLET PO ×2 (08:32→20:08)
[2023-08-28] MEDS: METOPROLOL TARTRATE 12.5 MG TABLET PO ×2 (08:33→20:08)
[2023-08-28] MEDS: BUPRENORPHINE HCL (*CRX) 2 MG SUBLINGUAL TABLET PO (08:33)
[2023-08-28 08:35] LABS: Glucose Point of Care 92 mg/dl (65-105)
--- NOTE | 2023-08-28 09:46 | PCSTNOTE ---
Please refer to the Bedside Swallow Evaluation in the EMR. Please note, silent aspiration cannot be ruled out at bedside.
[2023-08-28 11:57] LABS: Glucose Point of Care 97 mg/dl (65-105)
[2023-08-28 12:18] LABS: Alveolar/Arterial O2 Gradient 121.7 mmHg; Base Excess ABG 5.2 mEq/l (+/-2.0); Fractional Inspired Oxygen 34 %; Oxygen Content ABG 12.6 %vol (16.0-22.0); Oxygen Saturation ABG 90.6 % (95.0-100.0); Oxyhemoglobin 89.4 % THb (90.0-100.0); PCO2 ABG 51.9 mmHg (35.0-45.0); PO2 ABG 60.3 mmHg (80.0-100.0); PO2 FiO2 Ratio Arterial Blood 1.77 %; pH ABG 7.394 (7.350-7.450)
[2023-08-28 12:19] LABS: Device NASAL CANNULA; Liters per Minute 3.5 LPM; Modified Allen's Test Pass; Site Drawn RIGHT RADIAL
[2023-08-28] MEDS: ACETAMINOPHEN 325 MG TABLET 650 MG PO (13:41)
--- NOTE | 2023-08-28 15:50 | PM.DS ---
DS: Admitting Diagnosis Discharge Date 08/28/23 Admitting Diagnosis Abdominal pain DS: Discharge Diagnosis Discharge Diagnosis (1) Septic shock: Code(s): A41.9 - Sepsis, unspecified organism; R65.21 - Severe sepsis with septic shock Status: Acute (2) Acute pyelonephritis: Code(s): N10 - Acute pyelonephritis Status: Acute (3) Transaminitis: Code(s): R74.01 - Elevation of levels of liver transaminase levels Status: Acute (4) C. 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 Status: Acute (8) Dysphagia: Code(s): R13.10 - Dysphagia, unspecified Status: Acute (9) Delirium: Code(s): R41.0 - Disorientation, unspecified Status: Acute (10) Elevated troponin: Code(s): R79.89 - Other specified abnormal findings of blood chemistry Status: Acute (11) Atrial fibrillation: Code(s): I48.91 - Unspecified atrial fibrillation Status: Acute (12) Anemia: Code(s): D64.9 - Anemia, unspecified Status: Acute DS: Summary Hospital Course Reason for hospitalization: 77yo female with chronic pain, tobacco abuse, COPD and GERD here for abdominal pain, low BP, generalized malaise and black stools. Please see H&P for details. Hospital Course: Patient presents with abdominal pain, low BP, generalized malaise and black stools. She had been taking Imodium and Pepto-Bismol. SBP in the 70's prior to admission but stable here on admission. Sepsis on admission with HoTN, Lactic acidosis (3.3), Leukocytosis (WBC 17.1), tachycardia, markedly elevated PCT. COVID/Influenza/RSV PCR negative. 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 Colon appeared normal. She was appropriately fluid resuscitated. She was started on Vanco and Cefepime after appropriate cultures obtained. UA was clear so no culture obtained. BCx negative. In the ED on 08/06 and treated for UTI. UCx from 08/06 was negative (mixed genital andressa); BCx negative. CDiff toxin positive here. Dificid added and she completed a course. Pyelonephritis seems less likely but UA may appear clear since on abx on admission (but no UTI on 08/06). Sepsis could be related to CDiff but no evidence of colitis by imaging. She became HoTN so fluid boluses ordered and she was moved to ICU on 08/17. Central line placed and she was started on pressors. She was tapered off Levophed. She completed treatment with cefepime during the hospital stay. Troponin elevated at to 3.4 likely Type II MS due to hypotension and septic shock. Cardiology was consulted. No cardiac workup recommended. Transient Atrial fibrillation occurred during the hospital stay but now back to sinus rhythm. We held off on anticoagulation due to anemia and melena. Metoprolol added for mild, persistent sinus tachycardia. Elevated LFTs with normal bilirubin, likely related to hypoperfusion/shock liver. Levels trended down. Hemoglobin has been gradually trending down. She did have positive Hemoccult but not unexpected with being CDiff positive. We continued Protonix. Hgb stable in the 9-10 range. GI consulted with EGD showing mild gastritis. Patient has a history of chronic pain syndrome, was following up with the pain specialist but she broke her contract with a pain specialist as she refilled opioids in the ER on 08/08/23, so she was fired by him. Patient has been on buprenorphine patches which was discontinued at this
[2023-08-28 16:51] LABS: Glucose Point of Care 128 mg/dl (65-105)
[2023-08-28] MEDS: QUEtiapine FUMARATE 25 MG TABLET PO (20:08)
[2023-08-28] MEDS: BUPRENORPHINE HCL (*CRX) 2 MG SUBLINGUAL TABLET 1 MG PO (20:08)
[2023-08-28 21:33] LABS: Glucose Point of Care 94 mg/dl (65-105)
== END 2023-08-28 20:25 | disposition swing bed (61) | DRG 871 ==
LOC: ANHED 20:10 → ANHIMU 20:28 → ANHICU 08-18 11:50 → ANHIMU 08-22 10:51 → ANH2MED 08-24 17:55
PROVIDERS: Hospitalist; Internal Medicine; Internal Medicine Gastroenterology; Nurse Practitioner; Admitting Provider Family Medicine; Emergency Provider Emergency Medicine; PCP Family Medicine; Visit Provider Internal Medicine
PROC: 0DJ08ZZ Inspection of Upper Intestinal Tract, Via Natural or Artificial Opening Endoscopic (ICD-10-PCS; CPT 43235; principal; 2023-08-27 17:00)
DX: A41.9 Sepsis, unspecified organism (principal); R65.21 Severe sepsis with septic shock; I21.A1 Myocardial infarction type 2; K72.00 Acute and subacute hepatic failure without coma; N10 Acute pyelonephritis; A04.72 Enterocolitis due to Clostridium difficile, not specified as recurrent; N17.9 Acute kidney failure, unspecified; D62 Acute posthemorrhagic anemia; R74.01 Elevation of levels of liver transaminase levels; E87.8 Other disorders of electrolyte and fluid balance, not elsewhere classified; R19.5 Other fecal abnormalities; R13.10 Dysphagia, unspecified; R41.0 Disorientation, unspecified; R79.89 Other specified abnormal findings of blood chemistry; I48.91 Unspecified atrial fibrillation; K21.9 Gastro-esophageal reflux disease without esophagitis; J44.9 Chronic obstructive pulmonary disease, unspecified; F41.9 Anxiety disorder, unspecified; E87.6 Hypokalemia; K20.90 Esophagitis, unspecified without bleeding; N28.9 Disorder of kidney and ureter, unspecified; K29.70 Gastritis, unspecified, without bleeding; G89.4 Chronic pain syndrome; K57.90 Diverticulosis of intestine, part unspecified, without perforation or abscess without bleeding; E86.0 Dehydration; F17.210 Nicotine dependence, cigarettes, uncomplicated; Z20.822 Contact with and (suspected) exposure to COVID-19; Z79.891 Long term (current) use of opiate analgesic; Z79.82 Long term (current) use of aspirin; Z87.11 Personal history of peptic ulcer disease; Z90.49 Acquired absence of other specified parts of digestive tract
CPT/HCPCS: 36415; 36600; 71045; 71275; 74174; 76705; 80053; 80074; 80202; 80307; 81001; 82140; 82375; 82550; 82803; 82805; 82948; 83050; 83605; 83735; 83880; 84100; 84145; 84484; 85025; 85610; 85730; 86140; 86850; 86900; 86901; 87040; 87086; 87493; 87637; 87641; 88305; 92610; 93005; 93306; 96365; 96366; 96367; 96375; 96376; 97110; 97116; 97161; 97165; 97530; 97535; 99285; A9270; C1751; G0378; J0613; J0692; J1720; J1815; J1836; J1940; J2001; J2270; J2371; J2405; J2470; J2765; J3370; J3475; J3480; J7030; J7040; J7050; J7070; J7120; P9047; Q9967

== ENCOUNTER 2023-08-28 21:34 | Inpatient (IN) | payer MEDICARE, SELFPAY ==
[2023-08-28 22:00] VITALS: BP 93/57; PULSE 79; RESP 16; TEMP 36.7; O2SAT 94
[2023-08-28 22:25] VITALS: PULSE 79; RESP 18; O2SAT 94; BMI 25.2
[2023-08-29] VITALS (7 sets, daily range): BP systolic 93–120; BP diastolic 56–79; PULSE 79–83; RESP 16–18; TEMP 36.3–36.7; O2SAT 93–94
[2023-08-29] MEDS: METOPROLOL SUCCINATE EXT REL 12.5 MG TABCR PO (09:39)
[2023-08-29] MEDS: BUPRENORPHINE HCL (*CRX) 2 MG SUBLINGUAL TABLET SUBLINGUAL (09:40)
[2023-08-29] MEDS: guaiFENesin 12 HR 600 MG TABCR PO ×2 (09:40→20:32)
[2023-08-29] MEDS: ASPIRIN 81 MG ENTERIC TABLET PO (09:40)
[2023-08-29] MEDS: DOCUSATE SODIUM 100 MG CAPSULE PO (09:40)
--- NOTE | 2023-08-29 11:52 | PM.IMHP ---
H&P: HPI History of Present Illness Date/Time: 08/29/23 11:52 Chief Complaint: Deconditioned/Weakness Narrative: Patient is a 77-year-old female who presented to [facility] for swing bed placement for continued physical therapy and occupational therapy following recent admission at [facility]. Patient was initially hospitalized due to sepsis with septic shock secondary to acute pyelonephritis in positive C diff. patient continued hospitalization was weaned from Levophed for severe hypotension from sepsis in the ICU. Received IV ABX therapy for acute pyelonephritis as well as finished full course of Dificid. During hospital course patient had a drop in HGb and was found to have positive occult stool but acute bleed was ruled out with EGD and HGB stabilizing. Prior to admission patient's past medical history included hypertension, chronic opioid use due to chronic pain syndrome and COPD. Patient was hospitalized close to 10 days with for does initial days being sent in the ICU. Due to patient's deconditioned state and continue to generalized weakness patient agreed to medical swing bed for continued physical therapy and occupational therapy. [facility] Past Medical History Medical History Acid reflux Anemia Anxiety Chronic pain syndrome Common bile duct dilatation Constipation due to opioid therapy COPD (chronic obstructive pulmonary disease) Dilated intrahepatic bile duct Encounter for screening colonoscopy Nausea Peptic ulcer disease Tobacco abuse Surgical History Surgical History H/O tubal ligation Hx of cholecystectomy Family History Family History Mother Cerebrovascular accident Father Diabetes mellitus Social History Social History Social History: the patient stated that she smokes anywhere from half a pack to pack a cigarettes a day. She has 3 children. She desires to have her is a durable power of civil attorney and if he is unable to than her 3 children. The patient has 3 children. 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 She denies any alcohol marijuana or illicit drugs. The patient desires to be a full code. Smoking packs per day: 1.5 Smoking cigarettes per day: 30.0 Years smoked: 50 Smoking pack-years: 75.00 Smoking status: Former smoker Tobacco type: cigarettes Second hand tobacco smoke exposure: No Smoking end date: 07/26/23 Alcohol intake: former Substance use: never Substance use type: does not use Other substance usage details: prescribed opiates Last use: 09/07/21 Do You Feel Safe in your Home?: Yes Lack of Transportation: No Lack of Food: Never True Current Housing: I Have Housing Concerned About Future Housing: No Difficulty Paying Gas/Electric Bills: No Difficulty Paying for Meds: No Currently Unemployed: No Education: Trade/Vocational Certificate Difficulty w/ Childcare or Family Care: No Living arrangements: with family Gender identity (if verbalized by the patient): Female Sexual Orientation (if Verbalized by the Patient): Straight or Heterosexual Spiritual care concerns: No Meds Home Medications and Allergies Home Medications Medication Instructions Recorded Confirmed Type albuterol sulfate 90 mcg/actuation 90 mcg inhalation DIRECTED 12/20/19 08/28/23 History aerosol inhaler (ProAir HFA) guaifenesin 600 mg tablet, 600 mg PO BID 09/10/21 08/28/23 History extended release 12 hr (Mucinex) aspirin 81 mg tablet,delayed 81 mg PO QAM #30 tabs 08/28/23 08/28/23 Rx release buprenorphine HCl 2 mg sublingual 1 mg PO Q12HR #10 tabs 08/28/23 08/28/23 Rx tablet metoprolol succinate 25 mg 12.5 mg PO DAILY #30 tabs 08/28/23 08/28/23 Rx tablet,extended release 24 hr (T
[2023-08-29] MEDS: ACETAMINOPHEN 325 MG TABLET 650 MG PO ×2 (12:17→20:32)
[2023-08-29] MEDS: ONDANSETRON HCL ODT 4 MG TABLET PO (16:09)
[2023-08-30] VITALS: BP 99/56; PULSE 81; RESP 18; TEMP 36.2; O2SAT 97
--- NOTE | 2023-08-30 05:06 | PC.NURSE ---
Up to BSC: incontinent of urine and soft semiformed stool.
[2023-08-30 05:30] VITALS: O2SAT 97
[2023-08-30 08:00] VITALS: BP 121/68; PULSE 86; RESP 16; TEMP 36.6; O2SAT 91
[2023-08-30] MEDS: BUPRENORPHINE HCL (*CRX) 2 MG SUBLINGUAL TABLET SUBLINGUAL (08:49)
[2023-08-30] MEDS: guaiFENesin 12 HR 600 MG TABCR PO ×2 (08:50→20:31)
[2023-08-30] MEDS: PANTOPRAZOLE 40 MG TABLET PO (08:50)
[2023-08-30] MEDS: DOCUSATE SODIUM 100 MG CAPSULE PO ×2 (08:50→20:31)
[2023-08-30 08:51] VITALS: PULSE 86
[2023-08-30] MEDS: ASPIRIN 81 MG ENTERIC TABLET PO (08:51)
[2023-08-30] MEDS: METOPROLOL SUCCINATE EXT REL 12.5 MG TABCR PO (08:51)
[2023-08-30] MEDS: ACETAMINOPHEN 325 MG TABLET 650 MG PO ×2 (12:17→19:42)
[2023-08-30 16:00] VITALS: BP 113/68; PULSE 75; RESP 16; TEMP 36.7; O2SAT 99
[2023-08-30 20:00] VITALS: PULSE 78; RESP 16; O2SAT 100
[2023-08-31] VITALS: BP 119/70; PULSE 72; RESP 18; TEMP 36.6; O2SAT 100
[2023-08-31 05:30] VITALS: O2SAT 100
[2023-08-31 08:00] VITALS: BP 119/66; PULSE 73; RESP 16; TEMP 36.3; O2SAT 100
[2023-08-31 08:40] VITALS: PULSE 74
[2023-08-31] MEDS: METOPROLOL SUCCINATE EXT REL 12.5 MG TABCR PO (08:40)
[2023-08-31] MEDS: BUPRENORPHINE HCL (*CRX) 2 MG SUBLINGUAL TABLET SUBLINGUAL (08:40)
[2023-08-31] MEDS: guaiFENesin 12 HR 600 MG TABCR PO ×2 (08:41→20:23)
[2023-08-31] MEDS: PANTOPRAZOLE 40 MG TABLET PO (08:41)
[2023-08-31] MEDS: DOCUSATE SODIUM 100 MG CAPSULE PO ×2 (08:41→20:23)
[2023-08-31] MEDS: ASPIRIN 81 MG ENTERIC TABLET PO (08:42)
[2023-08-31] MEDS: ACETAMINOPHEN 325 MG TABLET 650 MG PO ×2 (13:23→20:23)
[2023-08-31 16:00] VITALS: BP 140/71; PULSE 90; RESP 20; TEMP 36.6; O2SAT 98
--- NOTE | 2023-08-31 17:05 | PC.NURSE ---
Addendum entered by Anjali Hatfield RN 08/31/23 17:07: one minute apical pulse. Apical pulse was irregular at 89 BPM and radial pulse was thready and weak. Patient was pale and appeared short of breath. Radio Station Manager notified charge nurse and went back to continue assessment and patient reported that she no longer had that strange feeling. Radio Station Manager listened again and patient's heart beat now sounded strong, regular and radial pulse felt normal on palpitation. Patient asked to stay in bed for dinner and newspaper writer allowed her to do so. Will continue to monitor. Original Note: Nurse went in patient's room to check vital signs and get patient up for dinner. Patient told nurse that she felt like she was dying. Radio Station Manager assessed vital signs and found that pulse was very irregular on mechanical equipment. Radio Station Manager got stethescope and took a
--- NOTE | 2023-08-31 19:20 | PC.NURSE ---
Patient confided in rewriter that she is feeling depressed and hopeless. Patient states that she doesn't enjoy things anymore. Patient feels like nothing matters and that she is old and doesn't really have a plan for the future. Patient stated that she was better before she stopped taking her zoloft in December of 2022. Patient explained that she stopped cold turkey because Dr. Gallo would not refill her prescription because he hadn't prescribed it and at that time, she didn't want to go to her primary to get more because she was still somewhat depressed. Patient c/o lack of motivation. Nurse will address this with MANAGER QUANTITATIVE again and Charge nurse and oncoming nurse aware.
[2023-08-31 20:00] VITALS: PULSE 84; RESP 16; O2SAT 95
[2023-09-01] VITALS: BP 137/70; PULSE 84; RESP 16; TEMP 36.7; O2SAT 95
[2023-09-01 05:30] VITALS: O2SAT 95
[2023-09-01 07:40] VITALS: BP 141/75; PULSE 85; RESP 18; TEMP 36.4; O2SAT 93
[2023-09-01 08:53] VITALS: PULSE 85
[2023-09-01] MEDS: ASPIRIN 81 MG ENTERIC TABLET PO (08:53)
[2023-09-01] MEDS: DOCUSATE SODIUM 100 MG CAPSULE PO (08:53)
[2023-09-01] MEDS: BUPRENORPHINE HCL (*CRX) 2 MG SUBLINGUAL TABLET SUBLINGUAL (08:53)
[2023-09-01] MEDS: METOPROLOL SUCCINATE EXT REL 12.5 MG TABCR PO (08:53)
[2023-09-01] MEDS: PANTOPRAZOLE 40 MG TABLET PO (08:53)
[2023-09-01] MEDS: guaiFENesin 12 HR 600 MG TABCR PO ×2 (08:53→21:13)
--- NOTE | 2023-09-01 11:27 | PCPTNOTE ---
pt not seen in am after encouraging and educating patient on importance of getting out of bed and performing ex/activity but pt states she is nauseous and holding sick bag attempting to vomit while in room. Will attempt later this pm.
[2023-09-01] MEDS: ACETAMINOPHEN 325 MG TABLET 650 MG PO ×3 (12:18→22:32)
[2023-09-01] MEDS: SERTRALINE HCL 50 MG TABLET PO (12:19)
[2023-09-01 16:30] VITALS: BP 146/74; PULSE 84; RESP 16; TEMP 35.9; O2SAT 94
[2023-09-02] VITALS: BP 163/84; PULSE 90; RESP 16; TEMP 36.7; O2SAT 95
[2023-09-02 05:30] VITALS: O2SAT 94
[2023-09-02] MEDS: ACETAMINOPHEN 325 MG TABLET 650 MG PO ×3 (06:00→20:34)
[2023-09-02 08:00] VITALS: BP 152/76; PULSE 83; RESP 20; TEMP 36.3; O2SAT 94
[2023-09-02 08:41] VITALS: PULSE 83
[2023-09-02] MEDS: SERTRALINE HCL 50 MG TABLET PO (08:41)
[2023-09-02] MEDS: PANTOPRAZOLE 40 MG TABLET PO (08:41)
[2023-09-02] MEDS: ASPIRIN 81 MG ENTERIC TABLET PO (08:41)
[2023-09-02] MEDS: METOPROLOL SUCCINATE EXT REL 12.5 MG TABCR PO (08:41)
[2023-09-02] MEDS: guaiFENesin 12 HR 600 MG TABCR PO ×2 (08:41→20:34)
[2023-09-02] MEDS: BUPRENORPHINE HCL (*CRX) 2 MG SUBLINGUAL TABLET SUBLINGUAL (08:41)
[2023-09-02] MEDS: DOCUSATE SODIUM 100 MG CAPSULE PO (08:41)
--- NOTE | 2023-09-02 09:00 | P.PNCROSS_ITS ---
Event Note Event Note Event Note: Patient diet is regular changed from heart healthy added ensure three times a d ay.
[2023-09-02] MEDS: ONDANSETRON HCL ODT 4 MG TABLET PO ×2 (10:25→16:47)
[2023-09-02 16:35] VITALS: BP 140/92; PULSE 91; RESP 18; TEMP 36.7; O2SAT 91
[2023-09-03] VITALS: BP 113/56; PULSE 88; RESP 20; TEMP 36.4; O2SAT 91
--- NOTE | 2023-09-03 00:08 | PC.NURSE ---
Pt resting quietly in bed and doesnt voice any c/o pain or discomfort.
--- NOTE | 2023-09-03 02:13 | PC.NURSE ---
Pt asleep and no signs of discomfort noted.
--- NOTE | 2023-09-03 04:13 | PC.NURSE ---
Pt asleep and no signs of discomfort noted.
[2023-09-03 05:30] VITALS: O2SAT 95
--- NOTE | 2023-09-03 06:07 | PC.NURSE ---
Pt asleep and no signs of discomfort noted.
[2023-09-03 08:00] VITALS: BP 119/60; PULSE 87; RESP 16; TEMP 36.3; O2SAT 93
[2023-09-03 08:31] VITALS: PULSE 76
[2023-09-03] MEDS: PANTOPRAZOLE 40 MG TABLET PO (08:31)
[2023-09-03] MEDS: METOPROLOL SUCCINATE EXT REL 12.5 MG TABCR PO (08:31)
[2023-09-03] MEDS: guaiFENesin 12 HR 600 MG TABCR PO ×2 (08:31→20:55)
[2023-09-03] MEDS: SERTRALINE HCL 50 MG TABLET PO (08:32)
[2023-09-03] MEDS: ASPIRIN 81 MG ENTERIC TABLET PO (08:32)
[2023-09-03] MEDS: BUPRENORPHINE HCL (*CRX) 2 MG SUBLINGUAL TABLET SUBLINGUAL (08:32)
--- NOTE | 2023-09-03 11:13 | PM.IMPN ---
Progress Note: A&P Assessment and Plan (1) Chronic pain syndrome: Code(s): G89.4 - Chronic pain syndrome Status: Acute (2) COPD (chronic obstructive pulmonary disease): Code(s): J44.9 - Chronic obstructive pulmonary disease, unspecified Status: Chronic (3) Anemia: Code(s): D64.9 - Anemia, unspecified Status: Acute (4) Physical deconditioning: Code(s): R53.81 - Other malaise Status: Acute Plan Physical deconditioned 10 day hospitalization Recovering from sepsis with septic shock PT/OT patient's when bed Chronic pain syndrome Outpatient pain specialist however lost her contract when she refilled opiates in the ER on 08/07 Resume Buprenorphine at 2mg can increase to twice a day however patient was somnolent in the hospital dose was decreased family reports they will reach out to her apprentice painter brush Acetaminophen for pain PT/OT HX HTN: Resume metoprolol HX COPD: Resume p.r.n. inhaler and Mucinex. On 2 L NC currently. Wean to maintain sats > 90%. HX GERD: Protonix Code status: Full code per patient DVT prophylaxis: NA Stress ulcer prophylaxis: Protonix 40 daily PT/OT notes: Swing bed Disposition: Patient admitted to inpatient swing bed plan for continued PT/OT should discharge back home with family and stronger. Care conference is 09/03. Time Spent With Patient Time with patient: Greater than 35 minutes Subjective Date/time seen: 09/03/23 11:13 Interval history: Mrs. Chapman is doing well today. She does not appear in acute distress. She reports that yesterday she was having an increased amount of diarrhea but today it has slowed. She does not want to stay in the chair during the day because of her back pain. She is more comfortable in the bed. She feels tired and weak since her admission at [place]. She is looking for a new primary care provider closer to home. She continues on 2 L NC of oxygen but states she is not normally on oxygen at home. Review of Systems Review of Systems: All systems reviewed & are unremarkable except as noted in HPI and below Exam Narrative: General: well appearing, thin, frail, appears stated age. HEENT: normocephalic, atraumatic. Mucous membranes moist. EOMI, PERRLA, bilateral sclera anicteric, no conjunctival injection. Neck supple without JVD, lymphadenopathy, or bruit. Respiratory: clear to auscultation bilaterally. No rales/rhonic/wheezes. Cardiovascular: Regular rate and rhythm, normal S1-S2 upon auscultation. No murmurs, rubs, or clicks. PMI is nondisplaced, capillary refill less than 3 second. Abdomen: Soft, round, no pulsatile masses, nondistended and nontender. No rebound, no guarding. No CVA tenderness, no hepatosplenomegaly. Bowel sounds present to all four quadrants. No high pitch or tinkling sounds, resonant to percussion. Extremities: No cyanosis, clubbing, or edema present. Pulses are palpable 2/2. Active ROM to all four extremities. Neuro: Alert and orientated x 4. PERRLA. Cranial nerves 2-12 intact without focal deficit. Skin: Warm, dry, and intact, without rash, erythema, or lesion. Lines: PIV Incisions: Psych: pleasant, cooperative, normal speech, normal affect, no hallucinations, no dysarthria Objective Data Vital Signs Vital Signs: Vital Signs - 24 hr 09/02/23 16:35 09/03/23 00:00 09/03/23 08:00 Temperature 98.1 F 97.5 F L 97.3 F L Pulse Rate 91 88 87 Respiratory Rate 18 20 16 Blood Pressure 140/92 H 113/56 L 119/60 Pulse Oximetry 91 91 93 Oxygen Delivery Nasal Cannula Room Air Nasal Cannula Oxygen Flow Rate 2 2 09/03/23 08:31 Temperature Pulse Rate 76 Respiratory Rate Blood Pressure Pulse Oximetry Oxygen Delivery Oxygen Flow Rate Intake/Output Intake/Output: Intake & Output 08/31/23 09/01/23 09/02/23 09/03/23 23:59 23:59 23:59 23:59 Intake Total 1290 820 760 340 Balance 1290 820 760 340 Meds/Results Medications: Active
[2023-09-03] MEDS: ACETAMINOPHEN 325 MG TABLET 650 MG PO ×3 (12:57→22:32)
[2023-09-03 16:00] VITALS: BP 114/55; PULSE 89; RESP 18; TEMP 36.6; O2SAT 92
[2023-09-03 20:00] VITALS: O2SAT 92
[2023-09-04] VITALS: BP 111/54; PULSE 76; RESP 16; TEMP 36.8; O2SAT 95
[2023-09-04 05:30] VITALS: O2SAT 98
[2023-09-04 08:00] VITALS: BP 124/58; PULSE 74; RESP 16; TEMP 35.7; O2SAT 97
[2023-09-04 08:33] VITALS: PULSE 74
[2023-09-04] MEDS: ASPIRIN 81 MG ENTERIC TABLET PO (08:33)
[2023-09-04] MEDS: METOPROLOL SUCCINATE EXT REL 12.5 MG TABCR PO (08:33)
[2023-09-04] MEDS: SERTRALINE HCL 50 MG TABLET PO (08:34)
[2023-09-04] MEDS: BUPRENORPHINE HCL (*CRX) 2 MG SUBLINGUAL TABLET SUBLINGUAL (08:34)
[2023-09-04] MEDS: PANTOPRAZOLE 40 MG TABLET PO (08:35)
[2023-09-04] MEDS: guaiFENesin 12 HR 600 MG TABCR PO ×2 (08:35→21:04)
[2023-09-04] MEDS: ONDANSETRON HCL ODT 4 MG TABLET PO (11:29)
[2023-09-04] MEDS: ACETAMINOPHEN 325 MG TABLET 650 MG PO ×3 (12:58→21:05)
[2023-09-04 16:00] VITALS: BP 119/64; PULSE 81; RESP 16; TEMP 36.3; O2SAT 97
[2023-09-04 20:00] VITALS: PULSE 72; RESP 16; O2SAT 96
[2023-09-04] MEDS: SALMET XINAFT/FLUTIC PROPIN 250 MCG/50 MCG INH CAP 1 PUFF INHALATION (21:05)
[2023-09-05] VITALS: BP 134/57; PULSE 72; RESP 16; TEMP 36.5; O2SAT 98
[2023-09-05 08:00] VITALS: BP 121/65; PULSE 88; RESP 16; TEMP 36.4; O2SAT 96
--- NOTE | 2023-09-05 08:45 | PC.NURSE ---
Nurse decreased O2 from 2L n/c to 1.5L n/c. Patient's SPO2 remains 95%.
[2023-09-05] MEDS: SALMET XINAFT/FLUTIC PROPIN 250 MCG/50 MCG INH CAP 1 PUFF INHALATION ×2 (08:56→20:16)
[2023-09-05 08:57] VITALS: PULSE 88
[2023-09-05] MEDS: BUPRENORPHINE HCL (*CRX) 2 MG SUBLINGUAL TABLET SUBLINGUAL (08:57)
[2023-09-05] MEDS: METOPROLOL SUCCINATE EXT REL 12.5 MG TABCR PO (08:57)
[2023-09-05] MEDS: ASPIRIN 81 MG ENTERIC TABLET PO (08:58)
[2023-09-05] MEDS: PANTOPRAZOLE 40 MG TABLET PO (08:58)
[2023-09-05] MEDS: guaiFENesin 12 HR 600 MG TABCR PO ×2 (08:58→20:16)
[2023-09-05] MEDS: SERTRALINE HCL 50 MG TABLET PO (08:59)
[2023-09-05] MEDS: ACETAMINOPHEN 325 MG TABLET 650 MG PO ×3 (11:47→20:33)
[2023-09-05 16:00] VITALS: BP 124/54; PULSE 81; RESP 16; TEMP 36.4; O2SAT 94
--- NOTE | 2023-09-05 16:46 | PC.NURSE ---
Patient's SPO2 at 94% on 1.5L n/c. Fire Control System Installer decreased O2 to 1L n/c. Will continue to monitor.
[2023-09-05 20:00] VITALS: PULSE 72; RESP 16; O2SAT 91
[2023-09-06] VITALS: BP 98/57; PULSE 77; RESP 16; TEMP 36.6; O2SAT 91
[2023-09-06 05:38] VITALS: O2SAT 91
[2023-09-06 08:00] VITALS: BP 90/46; PULSE 73; RESP 17; TEMP 36.4; O2SAT 92
[2023-09-06] MEDS: BUPRENORPHINE HCL (*CRX) 2 MG SUBLINGUAL TABLET SUBLINGUAL (08:56)
[2023-09-06] MEDS: SALMET XINAFT/FLUTIC PROPIN 250 MCG/50 MCG INH CAP 1 PUFF INHALATION ×2 (08:56→20:28)
[2023-09-06 08:57] VITALS: PULSE 70
[2023-09-06] MEDS: guaiFENesin 12 HR 600 MG TABCR PO ×2 (08:57→20:28)
[2023-09-06] MEDS: ASPIRIN 81 MG ENTERIC TABLET PO (08:57)
[2023-09-06] MEDS: METOPROLOL SUCCINATE EXT REL 12.5 MG TABCR PO (08:57)
[2023-09-06] MEDS: SERTRALINE HCL 50 MG TABLET PO (08:57)
[2023-09-06] MEDS: PANTOPRAZOLE 40 MG TABLET PO (08:57)
[2023-09-06] MEDS: ACETAMINOPHEN 325 MG TABLET 650 MG PO ×3 (12:56→20:31)
[2023-09-06 16:00] VITALS: BP 114/74; PULSE 75; RESP 17; TEMP 36.1; O2SAT 95
[2023-09-07] VITALS: BP 132/62; PULSE 80; RESP 20; TEMP 36.6; O2SAT 93
[2023-09-07 05:44] VITALS: O2SAT 93
[2023-09-07 08:00] VITALS: BP 109/58; PULSE 85; RESP 17; TEMP 36.2; O2SAT 91
[2023-09-07 09:02] VITALS: PULSE 85
[2023-09-07] MEDS: METOPROLOL SUCCINATE EXT REL 12.5 MG TABCR PO (09:02)
[2023-09-07] MEDS: SALMET XINAFT/FLUTIC PROPIN 250 MCG/50 MCG INH CAP 1 PUFF INHALATION ×2 (09:02→20:50)
[2023-09-07] MEDS: ASPIRIN 81 MG ENTERIC TABLET PO (09:03)
[2023-09-07] MEDS: SERTRALINE HCL 50 MG TABLET PO (09:03)
[2023-09-07] MEDS: guaiFENesin 12 HR 600 MG TABCR PO ×2 (09:03→20:50)
[2023-09-07] MEDS: PANTOPRAZOLE 40 MG TABLET PO (09:03)
[2023-09-07] MEDS: BUPRENORPHINE HCL (*CRX) 2 MG SUBLINGUAL TABLET SUBLINGUAL (09:03)
[2023-09-07] MEDS: ONDANSETRON HCL ODT 4 MG TABLET PO (09:35)
[2023-09-07] MEDS: ACETAMINOPHEN 325 MG TABLET 650 MG PO ×3 (11:56→20:50)
[2023-09-07 16:00] VITALS: BP 116/66; PULSE 73; RESP 17; TEMP 36.4; O2SAT 95
--- NOTE | 2023-09-07 20:47 | PC.NURSE ---
Patient in bed. Requested Tylenol for general body aches. Call light within reach. SR up x2. belongings within reach.
--- NOTE | 2023-09-07 22:07 | PC.NURSE ---
Patient resting quietly in bed. O2 on at 2LPM/NC. No signs of resp distress noted. SR up x2, call light and belongings within reach.
[2023-09-08] VITALS (7 sets, daily range): BP systolic 115–134; BP diastolic 63–67; PULSE 72–78; RESP 16; TEMP 36.2–36.3; O2SAT 92–96
[2023-09-08] MEDS: ACETAMINOPHEN 325 MG TABLET 650 MG PO ×4 (07:32→20:08)
[2023-09-08] MEDS: SALMET XINAFT/FLUTIC PROPIN 250 MCG/50 MCG INH CAP 1 PUFF INHALATION ×2 (08:20→20:07)
[2023-09-08] MEDS: BUPRENORPHINE HCL (*CRX) 2 MG SUBLINGUAL TABLET SUBLINGUAL (08:21)
[2023-09-08] MEDS: ASPIRIN 81 MG ENTERIC TABLET PO (08:21)
[2023-09-08] MEDS: guaiFENesin 12 HR 600 MG TABCR PO ×2 (08:21→20:08)
[2023-09-08] MEDS: SERTRALINE HCL 50 MG TABLET PO (08:21)
[2023-09-08] MEDS: PANTOPRAZOLE 40 MG TABLET PO (08:22)
[2023-09-08] MEDS: METOPROLOL SUCCINATE EXT REL 12.5 MG TABCR PO (08:24)
[2023-09-09 05:30] VITALS: O2SAT 93
[2023-09-09 08:00] VITALS: BP 134/77; PULSE 89; RESP 18; TEMP 36.1; O2SAT 86
[2023-09-09] MEDS: SALMET XINAFT/FLUTIC PROPIN 250 MCG/50 MCG INH CAP 1 PUFF INHALATION ×2 (08:24→20:05)
[2023-09-09 08:25] VITALS: PULSE 89
[2023-09-09] MEDS: METOPROLOL SUCCINATE EXT REL 12.5 MG TABCR PO (08:25)
[2023-09-09] MEDS: guaiFENesin 12 HR 600 MG TABCR PO ×2 (08:25→20:05)
[2023-09-09] MEDS: SERTRALINE HCL 50 MG TABLET PO (08:26)
[2023-09-09] MEDS: PANTOPRAZOLE 40 MG TABLET PO (08:26)
[2023-09-09] MEDS: ASPIRIN 81 MG ENTERIC TABLET PO (08:26)
[2023-09-09] MEDS: BUPRENORPHINE HCL (*CRX) 2 MG SUBLINGUAL TABLET SUBLINGUAL (08:26)
[2023-09-09 09:22] LABS: Basophils Absolute Auto 0.05 K/mm3 (0.00-0.10); Basophils Percent Auto 0.7 % (0.0-1.0); Eosinophils Absolute Auto 0.39 K/mm3 (0.02-0.50); Eosinophils Percent Auto 5.4 % (1.0-6.0); Hematocrit 31.9 % (35.0-42.0); Hemoglobin 9.9 g/dL (11.7-13.8); Immature Granulocyte Absolute 0.05 K/mm3 (0.00-0.00); Immature Granulocyte Percent A 0.7 % (0.0-0.0); Lymphocytes Percent Auto 20.7 % (18.0-42.0); Mean Platelet Volume 9.6 fl (9.2-11.8); Monocytes Absolute Auto 0.57 K/mm3 (0.10-0.90); Monocytes Percent Auto 7.9 % (2.0-11.0); Neutrophils Absolute Auto 4.67 K/mm3 (1.70-7.20); Neutrophils Percent Auto 64.6 % (50.0-70.0); Platelet Count Result 250 K/mm3 (150-420); Red Blood Count 3.19 M/mm3 (4.20-5.40); Red Cell Distribution Width 14.8 % (11.6-14.4); White Blood Count 7.2 K/mm3 (4.8-10.8)
[2023-09-09 09:47] LABS: Alanine Aminotransferase 20 U/L (14-59); Albumin Level 2.6 g/dL (3.4-5.0); Alkaline Phosphatase 66 U/L (46-116); Anion Gap 2 mmol/L (4-12); Aspartate Amino Transferase 20 U/L (15-37); Bilirubin,Total 0.6 mg/dL (0.00-1.00); Blood Urea Nitrogen 13 mg/dL (7-18); Calcium 8.5 mg/dL (8.5-10.1); Carbon Dioxide 34 mmol/L (21-32); Chloride 105 mmol/L (98-108); Estimated CRCL calculation 39 ml/min; Estimated Glomerular Filt Rate > 60; Glucose 89 mg/dL (70-99); Osmolality Calculated 291 mOsm/kg (285-295); Sodium 141 mmol/L (136-145); Total Protein 5.9 g/dL (6.4-8.2)
[2023-09-09 10:00] LABS: SARS-CoV-2 RNA PCR Negative (Negative)
[2023-09-09 10:16] LABS: Influenza A QL RT-PCR Negative (Negative); Influenza B QL RT-PCR Negative (Negative); RSV RNA, RT-PCR Negative (Negative)
[2023-09-09] MEDS: ACETAMINOPHEN 325 MG TABLET 650 MG PO ×3 (11:05→20:05)
--- NOTE | 2023-09-09 14:01 | PM.IMPN ---
Progress Note: A&P Assessment and Plan (1) Chronic pain syndrome: Code(s): G89.4 - Chronic pain syndrome Status: Acute (2) COPD (chronic obstructive pulmonary disease): Code(s): J44.9 - Chronic obstructive pulmonary disease, unspecified Status: Chronic (3) Anemia: Code(s): D64.9 - Anemia, unspecified Status: Acute (4) Physical deconditioning: Code(s): R53.81 - Other malaise Status: Acute Plan Physical deconditioned 10 day hospitalization Recovering from sepsis with septic shock PT/OT patient's when bed Chronic pain syndrome Outpatient pain specialist however lost her contract when she refilled opiates in the ER on 08/07 Resume Buprenorphine at 2mg can increase to twice a day however patient was somnolent in the hospital dose was decreased family reports they will reach out to her appliance painter and refinisher Acetaminophen for pain PT/OT HX HTN: Resume metoprolol HX COPD: Resume p.r.n. inhaler and Mucinex. On 2 L NC currently and unable to wean. She needs walking o2 study at discharge. Started on Advair inhaler. HX GERD: Protonix Code status: Full code per patient DVT prophylaxis: NA Stress ulcer prophylaxis: Protonix 40 daily PT/OT notes: Swing bed Disposition: Patient admitted to inpatient swing bed plan for continued PT/OT should discharge back home with family and stronger. Care conference is 09/03. Subjective Date/time seen: 09/09/23 14:01 Interval history: 09/02: Mrs. Chapman is doing well today. She does not appear in acute distress. She reports that yesterday she was having an increased amount of diarrhea but today it has slowed. She does not want to stay in the chair during the day because of her back pain. She is more comfortable in the bed. She feels tired and weak since her admission at [place]. She is looking for a new primary care provider closer to home. She continues on 2 L NC of oxygen but states she is not normally on oxygen at home. 09/08: Patient told nursing she feels like I got hit by a truck . She complains of generalized body aches and fatigue. She denies headache, dizziness, chest pain, shortness a breath, abdominal pain, nausea, vomiting, constipation, or diarrhea. Given her complaints I went ahead and did a viral respiratory panel which was negative. Cbc and CMP was collected also unremarkable. Review of Systems Review of Systems: All systems reviewed & are unremarkable except as noted in HPI and below Exam Narrative: General: well appearing, thin, frail, appears stated age. HEENT: normocephalic, atraumatic. Mucous membranes moist. EOMI, PERRLA, bilateral sclera anicteric, no conjunctival injection. Neck supple without JVD, lymphadenopathy, or bruit. Respiratory: clear to auscultation bilaterally. No rales/rhonic/wheezes. Cardiovascular: Regular rate and rhythm, normal S1-S2 upon auscultation. No murmurs, rubs, or clicks. PMI is nondisplaced, capillary refill less than 3 second. Abdomen: Soft, round, no pulsatile masses, nondistended and nontender. No rebound, no guarding. No CVA tenderness, no hepatosplenomegaly. Bowel sounds present to all four quadrants. No high pitch or tinkling sounds, resonant to percussion. Extremities: No cyanosis, clubbing, or edema present. Pulses are palpable 2/2. Active ROM to all four extremities. Neuro: Alert and orientated x 4. PERRLA. Cranial nerves 2-12 intact without focal deficit. Skin: Warm, dry, and intact, without rash, erythema, or lesion. Lines: PIV Incisions: Psych: pleasant, cooperative, normal speech, normal affect, no hallucinations, no dysarthria Objective Data Vital Signs Vital Signs: Vital Signs - 24 hr 09/08/23 16:00 09/08/23 20:00 09/08/23 20:00 Temperature 97.4 F L Pulse Rate 76 76 Respiratory Rate 16 16 Blood Pressure 131/63 Pulse Oximetry 92 96 93 Oxygen Delivery Nasal Cannula Nasal Cannula Nasal Cannula Oxygen Flow Rate 2 2 1
[2023-09-09 16:00] VITALS: BP 108/59; PULSE 79; RESP 16; TEMP 36.2; O2SAT 93
[2023-09-09 20:00] VITALS: PULSE 79; RESP 16; O2SAT 93
[2023-09-10] VITALS (11 sets, daily range): BP systolic 126–136; BP diastolic 62–68; PULSE 73–96; RESP 18–22; TEMP 35.9–36.4; O2SAT 84–96
[2023-09-10] MEDS: ACETAMINOPHEN 325 MG TABLET 650 MG PO ×5 (06:14→22:30)
[2023-09-10] MEDS: ASPIRIN 81 MG ENTERIC TABLET PO (09:02)
[2023-09-10] MEDS: METOPROLOL SUCCINATE EXT REL 12.5 MG TABCR PO (09:02)
[2023-09-10] MEDS: BUPRENORPHINE HCL (*CRX) 2 MG SUBLINGUAL TABLET SUBLINGUAL (09:02)
[2023-09-10] MEDS: guaiFENesin 12 HR 600 MG TABCR PO ×2 (09:02→20:39)
[2023-09-10] MEDS: SALMET XINAFT/FLUTIC PROPIN 250 MCG/50 MCG INH CAP 1 PUFF INHALATION ×2 (09:03→20:40)
[2023-09-10] MEDS: PANTOPRAZOLE 40 MG TABLET PO (09:03)
[2023-09-10] MEDS: SERTRALINE HCL 50 MG TABLET PO (09:03)
--- NOTE | 2023-09-10 09:38 | HOMEO2EVAL ---
Evaluation was performed at [facility] Home Oxygen Evaluation RC: Home Oxygen (O2) Evaluation Start: 09/10/23 07:48 Freq: ONCE Status: Active Protocol: RPE Activity Type Activity Date Activity User E-sign Co-sign Detail Recorded Client Recorded Date Recorded By Document 09/10/23 09:00 JC [id number] 09/10/23 09:37 JCC Document 09/10/23 09:02 JC [id number] 09/10/23 09:37 JC Document 09/10/23 09:05 JCC [id number] 09/10/23 09:37 JCC Document 09/10/23 09:07 JCC [id number] 09/10/23 09:37 JC Document 09/10/23 09:09 JC [id number] 09/10/23 09:37 JC Document 09/10/23 09:15 JC [id number] 09/10/23 09:37 JC Document 09/10/23 09:20 JCC [id number] 09/10/23 09:37 JCC 09/10/23 09/10/23 09/10/23 09:00 09:02 09:05 Home O2 Evaluation [Oxygen] -Test Phase Resting Resting Exercise -Oxygen Delivery Room Air Nasal Cannula Nasal Cannula -Oxygen Flow Rate (L/min) 1 2 [Pulse Oximetry] -Pulse Oximetry (90-100 %) 88 L 88 L 88 L [Pulse Rate] -Pulse Rate (60-100 beats/min) 73 75 90 [Evaluation] -Activity Tolerance Fair Fair Fair -Rating of Perceived Dyspnea (PD) +1 Mild, +1 Mild, +2 Mild, Some Noticeable to Noticeable to Difficulty, the Participant the Participant Noticeable to but Not to an but Not to an the Observer Observer Observer -Rate of Perceived Exertion (PE) 9 Very light 11 Fairly light 13 Somewhat Query Text:Click the Protocol Button Hard to View the RPE Scale [Exercise] -Ambulation Distance (feet) 0 0 10 -Ambulation Distance (meters) 0 0 3.04 [Comments] -Home Oxygen Evaluation Comments increased to 1l increased to 2l increased to 3l /m laying in /m pt sitting /m bed at EOB [Charges] -Evaluation Charges O2 Evaluation Charge 09/10/23 09/10/23 09/10/23 09:07 09:09 09:15 Home O2 Evaluation [Oxygen] -Test Phase Exercise Exercise Exercise -Oxygen Delivery Nasal Cannula Nasal Cannula Nasal Cannula -Oxygen Flow Rate (L/min) 3 4 5 [Pulse Oximetry] -Pulse Oximetry (90-100 %) 86 L 84 L 95 [Pulse Rate] -Pulse Rate (60-100 beats/min) 94 96 90 [Evaluation] -Activity Tolerance Fair Fair Fair -Rating of Perceived Dyspnea (PD) +2 Mild, Some +2 Mild, Some +2 Mild, Some Difficulty, Difficulty, Difficulty, Noticeable to Noticeable to Noticeable to the Observer the Observer the Observer -Rate of Perceived Exertion (PE) 13 Somewhat 13 Somewhat 15 Hard Query Text:Click the Protocol Button Hard Hard to View the RPE Scale [Exercise] -Ambulation Distance (feet) 15 20 40 -Ambulation Distance (meters) 4.57 6.09 12.19 [Comments] -Home Oxygen Evaluation Comments increased to 4l increased to 5l completed final /m /m 20ft after seated rest. [Charges] -Evaluation Charges 09/10/23 09:20 Home O2 Evaluation [Oxygen] -Test Phase Resting -Oxygen Delivery Nasal Cannula -Oxygen Flow Rate (L/min) 3 [Pulse Oximetry] -Pulse Oximetry (90-100 %) 93 [Pulse Rate] -Pulse Rate (60-100 beats/min) 77 [Evaluation] -Activity Tolerance Fair -Rating of Perceived Dyspnea (PD) +1 Mild, Noticeable to the Participant but Not to an Observer -Rate of Perceived Exertion (PE) 6 Very, very Query Text:Click the Protocol Button light to View the RPE Scale [Exercise] -Ambulation Distance (feet) 0 -Ambulation Distance (meters) 0 [Comments] -Home Oxygen Evaluation Comments Pt sitting resting post exercise.Pt requires 3l/m at rest and 5l/ m with activity . Unable to determine needs at noc. [Charges] -Evaluation Charges Pt requires 3l/m at rest and 5l/m with any activity. Unable to determine needs at noc.
[2023-09-11] VITALS: BP 127/64; PULSE 73; RESP 17; TEMP 36.7; O2SAT 96
[2023-09-11] MEDS: ACETAMINOPHEN 325 MG TABLET 650 MG PO ×3 (07:22→15:24)
--- NOTE | 2023-09-11 07:56 | P.DS_ITS ---
DS: Admitting Diagnosis Discharge Date 09/11/2023 Admitting Diagnosis Weakness, DS: Discharge Diagnosis Discharge Diagnosis (1) Physical deconditioning: Code(s): R53.81 - Other malaise Status: Acute (2) Anemia: Code(s): D64.9 - Anemia, unspecified Status: Acute (3) Atrial fibrillation: Code(s): I48.91 - Unspecified atrial fibrillation Status: Acute (4) Esophagitis: Code(s): K20.90 - Esophagitis, unspecified without bleeding Status: Acute DS: Summary Hospital Course Reason for hospitalization: Swing , WEakness, Anemia, cdiff resolved, septic shock secondary to acute pyelonephritis . Hospital Course: This is a 77 year old female that was admitted to the swing bed [facility] where she had some septic shock secondary to pyelonephritis and CDiff which has since resolved. Patient has continued improve and has been working with therapy without difficulties. Patient has a history of opiate use from pain management in which she does not have a pain management MD at this time. Patient vitals have remained stable and her labs that were reviewed and are stable at this time we will continue to monitor. Patient will have therapy at home and she will follow up with a new pcp tomorrow. Time Spent with Patient Time attestation: Total time spent providing and/or coordinating discharge services: Discharge Plan Discharge Attending physician on discharge: Prieto Mehta Consulting providers: Vidhi Andrade Discharging Clinician: Romelia Welch Anticipated Discharge Date/Time: 09/11/23 07:52 Patient Disposition: Home Health Service Activity: may shower and as tolerated Diet: heart healthy Discharge Instructions: Per Care Coordination: [facility] will follow you at discharge. They will likely start services on Tuesday 09/12 or Wednesday 09/13. They will call you to schedule. Their phone number is [phone]. Dr Miguel Pisano tomorrow at 11 or 09/12/2023 @11 Patient Instructions: Antibiotic Form, Fall Prevention for Older Adults (DC), COPD (Chronic Obstructive Pulmonary Disease) (DC), Weakness (DC) Stand Alone Forms: General Discharge Information Follow-up/Referrals: Magnolia Pisano APRN [Advanced Practice Nurse] - 09/12/23 11:00 am Discharge Medications: New sertraline [Zoloft] 50 mg Tablet 50 mg PO QAM Qty: 30 0RF Continued albuterol sulfate [ProAir HFA] 90 mcg/actuation HFA aerosol inhaler 90 mcg INHALATION DIRECTED Rx Instructions: Every 4-6 hrs PRN guaifenesin [Mucinex] 600 mg Tablet Extended Release 12hr 600 mg PO BID aspirin 81 mg Tablet,Delayed Release (Dr/Ec) 81 mg PO QAM Qty: 30 0RF buprenorphine HCl 2 mg Tablet, Sublingual 1 mg PO Q12HR Qty: 10 0RF Rx Instructions: HOLD IF SYSTOLIC BP <110 OR PATIENT IS SOMNOLENT metoprolol succinate [Toprol XL] 25 mg tablet extended release 24 hr 12.5 mg PO DAILY Qty: 30 0RF Rx Instructions: HOLD IF SBP < 110 OR HR < 60 Date of admission: 08/28/23 21:34 Primary Care Provider: UNKNOWN,DOCTOR Admitting Provider: Prieto Mehta Attending physician on admission: Vidhi Andrade Condition: Stable
[2023-09-11 08:00] VITALS: BP 144/69; PULSE 76; RESP 18; TEMP 36.1; O2SAT 92
[2023-09-11 09:05] VITALS: PULSE 76
[2023-09-11] MEDS: guaiFENesin 12 HR 600 MG TABCR PO (09:05)
[2023-09-11] MEDS: PANTOPRAZOLE 40 MG TABLET PO (09:05)
[2023-09-11] MEDS: SALMET XINAFT/FLUTIC PROPIN 250 MCG/50 MCG INH CAP 1 PUFF INHALATION (09:05)
[2023-09-11] MEDS: METOPROLOL SUCCINATE EXT REL 12.5 MG TABCR PO (09:05)
[2023-09-11] MEDS: ASPIRIN 81 MG ENTERIC TABLET PO (09:05)
[2023-09-11] MEDS: BUPRENORPHINE HCL (*CRX) 2 MG SUBLINGUAL TABLET SUBLINGUAL (09:05)
[2023-09-11] MEDS: SERTRALINE HCL 50 MG TABLET PO (09:05)
[2023-09-11 09:43] VITALS: O2SAT 93
[2023-09-11 17:00] VITALS: O2SAT 93
--- NOTE | 2023-09-11 17:00 | PC.NURSE ---
Discharge instructions reviewed with patient and her son and daughter. All questions answered. Pt transported via wheelchair and assisted into private vehicle with personal oxygen tank.
--- NOTE | 2023-09-16 09:41 | PC.NURSE ---
discharge call back attempted, no answer
--- NOTE | 2023-09-17 09:25 | PC.NURSE ---
discharge call back attempted, no answer
--- NOTE | 2023-09-19 10:22 | PC.NURSE ---
Unable to contact for call back
== END 2023-09-11 17:00 | disposition home health service (06) | DRG 948 ==
PROVIDERS: Admitting Provider Internal Medicine; Visit Provider Nurse Practitioner Acute Care
DX: R53.81 Other malaise (principal); I48.91 Unspecified atrial fibrillation; I10 Essential (primary) hypertension; R19.7 Diarrhea, unspecified; J44.9 Chronic obstructive pulmonary disease, unspecified; K21.9 Gastro-esophageal reflux disease without esophagitis; G89.4 Chronic pain syndrome; F41.9 Anxiety disorder, unspecified; Z79.891 Long term (current) use of opiate analgesic; Z11.52 Encounter for screening for COVID-19; Z87.891 Personal history of nicotine dependence; Z79.82 Long term (current) use of aspirin; Z87.11 Personal history of peptic ulcer disease
CPT/HCPCS: 36415; 80053; 85025; 87637; 94618; 97110; 97161; 97165; 97530; 97535; A9270

== ENCOUNTER 2023-09-12 02:04 | Emergency (ER) | payer MEDICARE, SELFPAY ==
[2023-09-12] VITALS (10 sets, daily range): BP systolic 102–128; BP diastolic 60–72; PULSE 81–95; RESP 15–22; TEMP 36.6–36.8; O2SAT 92–97
--- NOTE | ~2023-09-12 | XR_ITS ---
Clinical Indication: Shortness of breath AP and lateral views of the chest: Comparison: 08/28/2023 Findings: Small right pleural effusion present. COPD pattern present. Cardiomediastinal silhouette is within normal limits. Bones and soft tissues are unremarkable. Impression: Small right pleural effusion. COPD with associated bibasilar chronic interstitial changes. Reviewed, dictated and finalized at location . Impression: Small right pleural effusion. COPD with associated bibasilar chronic interstitial changes.
--- NOTE | 2023-09-12 02:07 | ECG_ITS ---
Test Date: 2023-09-12 02:10:16 Measurements Intervals [place] Rate: 92 P: 8 [place]: 156 QRS: 49 QRSD: 91 T: 29 QT: 358 QTc: 444 Interpretive Statements SINUS RHYTHM NONSPECIFIC ST & T-WAVE ABNORMALITY ABNORMAL ECG Compared to ECG 08/20/2023 03:46:35 ATRIAL RHYTHM IS NOW CLEARLY SINUS, NO OTHER DIFFERENCE Electronically Signed On 09-12-2023 11:29:41 CDT by Devin Maldonado M.D.
[2023-09-12 02:34] LABS: Basophils Absolute Auto 0.1 K/mm3 (0.0-0.1); Basophils Percent Auto 1.2 % (0.2-1.2); Eosinophils Absolute Auto 0.3 K/mm3 (0-0.3); Eosinophils Percent Auto 3.5 % (0-4.4); Hematocrit 36.2 % (37.0-47.0); Hemoglobin 11.1 g/dL (12.0-15.0); Immature Granulocyte Absolute 0.05 K/mm3 (0.00-0.031); Immature Granulocyte Percent A 0.6 % (0-0.5); Lymphocytes Absolute Auto 1.43 K/mm3 (0.9-3.2); Lymphocytes Percent Auto 18.4 % (18.3-44.2); Mean Corpuscular HGB Conc 30.7 g/dl (32-36); Mean Corpuscular Hemoglobin 31.1 pg (26-34); Mean Corpuscular Volume 101.4 fl (80-100); Mean Platelet Volume 9.7 fl (7.4-10.4); Monocytes Absolute Auto 0.7 K/mm3 (0.1-0.6); Monocytes Percent Auto 8.6 % (2.6-8.5); Neutrophils Absolute Auto 5.3 K/mm3 (1.3-6.7); Neutrophils Percent Auto 67.7 % (45.5-73.1); Platelet Count Result 270 k/mm3 (150-375); Red Blood Count 3.57 M/mm3 (4.2-5.4); Red Cell Distribution Width 14.9 % (11.5-14.5); White Blood Count 7.8 K/mm3 (4.5-10.0)
[2023-09-12 02:47] LABS: Alanine Aminotransferase 18 U/L (6-35); Albumin Level 3.6 g/dL (3.5-5.1); Alkaline Phosphatase 75 U/L (38-126); Anion Gap 8 mmol/L (4-12); Aspartate Amino Transferase 36 U/L (14-36); Bilirubin,Total 0.9 mg/dL (0.2-1.3); Blood Urea Nitrogen 13 mg/dL (7-17); Calcium 8.9 mg/dL (8.4-10.2); Carbon Dioxide 30 mmol/L (22-30); Chloride 100 mmol/L (98-107); Estimated CRCL calculation 39 ml/min; Estimated Glomerular Filt Rate > 60; Glucose 105 mg/dL (65-110); Potassium 3.7 mmol/L (3.4-5.0); Sodium 138 mmol/L (137-145)
--- NOTE | 2023-09-12 04:38 | ED.GENADULT ---
HPI - General Adult General Chief complaint: Shortness of Breath/Dyspnea Stated complaint: RAN OUT OF O2 Time Seen by Provider: 09/12/23 02:24 History of Present Illness HPI narrative: Patient 77-year-old female who presents emergency department with chief complaint of shortness of breath. The patient was just discharged from a swing bed at another hospital. The patient was discharged with a tank of oxygen and these are oxygen concentrator upon arrival to the house they forgot to transition to the patient's oxygen concentrator the oxygen tank ran out and the patient started getting short of breath upon being placed back on oxygen the patient returned to her baseline feels much better Related Data Home Medications Medication Instructions Recorded Confirmed albuterol sulfate 90 mcg/actuation 90 mcg inhalation DIRECTED 12/20/19 08/28/23 aerosol inhaler (ProAir HFA) guaifenesin 600 mg tablet, 600 mg PO BID 09/10/21 08/28/23 extended release 12 hr (Mucinex) Allergies Allergy/AdvReac Type Severity Reaction Status Date / Time No Known Allergies Allergy Verified 08/27/23 15:57 Review of Systems Review of Systems: A 10 system review of systems was completed on the patient and is negative except for what is stated in the HPI. Nursing and ancillary documentation was reviewed. [facility] Past Medical History Medical History Acid reflux Anemia Anxiety Chronic pain syndrome Common bile duct dilatation Constipation due to opioid therapy COPD (chronic obstructive pulmonary disease) Dilated intrahepatic bile duct Encounter for screening colonoscopy Nausea Peptic ulcer disease Tobacco abuse Surgical History Surgical History H/O tubal ligation Hx of cholecystectomy Family History Family History Mother Cerebrovascular accident Father Diabetes mellitus Social History Social History Social History: the patient stated that she smokes anywhere from half a pack to pack a cigarettes a day. She has 3 children. She desires to have her is a durable power of commonwealth attorney and if he is unable to than her 3 children. The patient has 3 children. 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 She denies any alcohol marijuana or illicit drugs. The patient desires to be a full code. Smoking packs per day: 1.5 Smoking cigarettes per day: 30.0 Years smoked: 50 Smoking pack-years: 75.00 Smoking status: Former smoker Tobacco type: cigarettes Second hand tobacco smoke exposure: No Smoking end date: 07/26/23 Alcohol intake: former Substance use: never Substance use type: does not use Other substance usage details: prescribed opiates Last use: 09/07/21 Do You Feel Safe in your Home?: Yes Lack of Transportation: No Lack of Food: Never True Current Housing: I Have Housing Concerned About Future Housing: No Difficulty Paying Gas/Electric Bills: No Difficulty Paying for Meds: No Currently Unemployed: No Education: Trade/Vocational Certificate Difficulty w/ Childcare or Family Care: No Living arrangements: with family Gender identity (if verbalized by the patient): Female Sexual Orientation (if Verbalized by the Patient): Straight or Heterosexual Spiritual care concerns: No Exam Narrative: GENERAL: Well-appearing, well-nourished, and in no acute distress. HEAD: Normocephalic, atraumatic. EYES: PERRLA and EOMI. ENT: Nares clear, no rhinorrhea or epistaxis. Mucous membranes moist. NECK: Supple. CHEST: Clear to auscultation. No respiratory distress. HEART: Regular rate and rhythm. No murmur heard. Normal peripheral pulses. ABDOMEN: Soft, nontender, nondistended, normal active bowel sounds. EXTREMITIES: Normal range of motion.
--- NOTE | 2023-09-12 04:44 | PC.NURSE ---
daughter jassi (rt here at [facility]) will bring her [place] tank back for her shift today. Conversation with warehouse delivery driver kristin to approve.
--- NOTE | 2023-09-12 05:20 | PC.NURSE ---
current updated plan of care : manager primary care consult placed for assistance with making sure home oxygen equipment is fixed prior to discharging patient back home. Pt will need to be transported by ambulance as they do not have a portable oxygen tank at this time.
[2023-09-12] MEDS: BUPRENORPHINE HCL (*CRX) 2 MG SUBLINGUAL TABLET 1 MG PO (06:01)
[2023-09-12] MEDS: ONDANSETRON INJ 4 MG/2 ML VIAL IV PUSH (06:03)
[2023-09-12] MEDS: IPRATROPIUM 0.5 MG/ALBUTEROL SULFATE 2.5 MG AMPUL.NEB 3 ML INHALATION (07:39)
--- NOTE | 2023-09-12 08:12 | PC.NURSE ---
Patient waiting on family to bring patient oxygen tank for transport home and family to take patient home.
[2023-09-12] MEDS: ACETAMINOPHEN 325 MG TABLET 650 MG PO (08:35)
--- NOTE | 2023-09-12 08:38 | PC.NURSE ---
Patient requesting tylenol for chronic back pain. Dr Marroquin gave verbal order for tylenol PO. Patient assisted onto bedpan at this time.
--- NOTE | 2023-09-12 14:36 | PCCCNOTE ---
0800: CC consulted to assist pt with her outpatient oxygen needs. Pt daughter in law is a respiratory therapist and is working on resolving all the issues at this time.
== END 2023-09-12 09:00 | disposition home or self-care (01) ==
PROVIDERS: Emergency Provider Emergency Medicine; PCP Family Medicine
DX: J96.11 Chronic respiratory failure with hypoxia (principal); J44.9 Chronic obstructive pulmonary disease, unspecified; K21.9 Gastro-esophageal reflux disease without esophagitis; G89.4 Chronic pain syndrome; Z87.11 Personal history of peptic ulcer disease; Z87.891 Personal history of nicotine dependence; Z90.49 Acquired absence of other specified parts of digestive tract; Z79.82 Long term (current) use of aspirin; Z79.899 Other long term (current) drug therapy; R94.31 Abnormal electrocardiogram [ECG] [EKG]
CPT/HCPCS: 36415; 71046; 80053; 85025; 93005; 94640; 96374; 99284; A9270; J2405

== ENCOUNTER 2024-01-26 10:29 | Outpatient (CLI) | payer MEDICARE, SELFPAY ==
[2024-01-26 10:38] VITALS: PULSE 91; O2SAT 92
[2024-01-26 10:40] VITALS: PULSE 84; O2SAT 84
[2024-01-26 10:41] VITALS: PULSE 84; O2SAT 87
[2024-01-26 10:43] VITALS: PULSE 86; O2SAT 90
--- NOTE | 2024-01-26 10:57 | HOMEO2EVAL ---
Evaluation was performed at [facility] Home Oxygen Evaluation RC: Home Oxygen (O2) Evaluation Start: 01/26/24 10:53 Freq: Status: Active Protocol: RPE Activity Type Activity Date Activity User E-sign Co-sign Detail Recorded Client Recorded Date Recorded By Document 01/26/24 10:38 KRM [id number] 01/26/24 10:56 KRM Document 01/26/24 10:40 KRM [id number] 01/26/24 10:56 KRM Document 01/26/24 10:41 KRM [id number] 01/26/24 10:56 KRM Document 01/26/24 10:43 KRM [id number] 01/26/24 10:56 KRM 01/26/24 01/26/24 01/26/24 10:38 10:40 10:41 Home O2 Evaluation [Oxygen] -Test Phase Resting Exercise Exercise -Oxygen Delivery Room Air Room Air Nasal Cannula -Oxygen Flow Rate (L/min) 1 [Pulse Oximetry] -Pulse Oximetry (90-100 %) 92 84 L 87 L [Pulse Rate] -Pulse Rate (60-100 beats/min) 91 84 84 [Evaluation] -Activity Tolerance Fair Fair [Exercise] -Ambulation Distance (feet) -Ambulation Distance (meters) [Comments] -Home Oxygen Evaluation Comments [Charges] -Evaluation Charges 01/26/24 10:43 Home O2 Evaluation [Oxygen] -Test Phase Exercise -Oxygen Delivery Nasal Cannula -Oxygen Flow Rate (L/min) 2 [Pulse Oximetry] -Pulse Oximetry (90-100 %) 90 [Pulse Rate] -Pulse Rate (60-100 beats/min) 86 [Evaluation] -Activity Tolerance Fair [Exercise] -Ambulation Distance (feet) 100 -Ambulation Distance (meters) 30.47 [Comments] -Home Oxygen Evaluation Comments PT. REQUIRES 2LPM WITH ACTIVITY. PT. REQUEST PORTABLE CONCENTRATOR ( POC) IF POSSIBLE. PT. REQUEST [facility] CHO[facility]. [Charges] -Evaluation Charges O2 Evaluation Charge
== END 2024-01-26 10:30 | disposition home or self-care (01) ==
PROVIDERS: PCP Nurse Practitioner Family; Visit Provider Nurse Practitioner Family
DX: J44.9 Chronic obstructive pulmonary disease, unspecified (principal)
CPT/HCPCS: 94618

== ENCOUNTER 2024-06-02 14:24 | Outpatient (CLI) | payer MEDICARE, SELFPAY ==
[2024-06-02 14:41] LABS: Basophils Absolute Auto 0.04 K/mm3 (0.00-0.10); Basophils Percent Auto 0.7 % (0.0-1.0); Eosinophils Absolute Auto 0.09 K/mm3 (0.02-0.50); Eosinophils Percent Auto 1.6 % (1.0-6.0); Hematocrit 41.2 % (35.0-42.0); Hemoglobin 12.4 g/dL (11.7-13.8); Immature Granulocyte Absolute 0.02 K/mm3 (0.00-0.00); Immature Granulocyte Percent A 0.3 % (0.0-0.0); Lymphocytes Absolute Auto 1.36 K/mm3 (1.10-4.50); Lymphocytes Percent Auto 23.5 % (18.0-42.0); Mean Corpuscular HGB Conc 30.1 g/dL (32-36); Mean Corpuscular Hemoglobin 27.2 pg (27.0-31.0); Mean Corpuscular Volume 90.4 fL (78.0-102.0); Mean Platelet Volume 10.3 fl (9.2-11.8); Monocytes Absolute Auto 0.49 K/mm3 (0.10-0.90); Monocytes Percent Auto 8.5 % (2.0-11.0); Neutrophils Absolute Auto 3.78 K/mm3 (1.70-7.20); Neutrophils Percent Auto 65.4 % (50.0-70.0); Platelet Count Result 229 K/mm3 (150-420); Red Blood Count 4.56 M/mm3 (4.20-5.40); Red Cell Distribution Width 18.2 % (11.6-14.4); White Blood Count 5.8 K/mm3 (4.8-10.8)
[2024-06-02 15:05] LABS: Amphetamine Screen Urine Negative (Negative); Barbiturate Screen Urine Negative (Negative); Benzodiazepines Screen Urine Negative (Negative); Cannabinoid Screen Urine Negative (Negative); Cocaine Screen Urine Negative (Negative); Methadone Screen Urine Negative (Negative); Opiate Screen Urine Negative (Negative); Phencyclidine Screen Urine Negative (Negative)
[2024-06-02 15:13] LABS: Alanine Aminotransferase 13 U/L (14-59); Albumin Level 3.7 g/dL (3.4-5.0); Alkaline Phosphatase 102 U/L (46-116); Anion Gap 8 mmol/L (4-12); Aspartate Amino Transferase 17 U/L (15-37); Bilirubin,Total 0.5 mg/dL (0.00-1.00); Blood Urea Nitrogen 22 mg/dL (7-18); Calcium 8.8 mg/dL (8.5-10.1); Carbon Dioxide 30 mmol/L (21-32); Chloride 106 mmol/L (98-108); Cholesterol 225 mg/dL (0-200); Estimated Glomerular Filt Rate 58; Glucose 103 mg/dL (70-99); HDL Direct 70 mg/dL (40-60); LDL Cholesterol Calculated 131 mg/dL (<130); Osmolality Calculated 301 mOsm/kg (285-295); Potassium 4.5 mmol/L (3.5-5.1); Sodium 144 mmol/L (136-145); Thyroid Stimulating Hormone 2.68 uIU/mL (0.36-3.74); Total Protein 6.7 g/dL (6.4-8.2); Triglycerides 120 mg/dL (0-150)
== END 2024-06-02 14:25 | disposition home or self-care (01) ==
PROVIDERS: PCP Nurse Practitioner Family; Visit Provider Nurse Practitioner Family
DX: R63.4 Abnormal weight loss (principal); E78.5 Hyperlipidemia, unspecified; E87.8 Other disorders of electrolyte and fluid balance, not elsewhere classified; R74.01 Elevation of levels of liver transaminase levels; Z79.891 Long term (current) use of opiate analgesic
CPT/HCPCS: 36415; 80053; 80061; 80307; 84443; 85025

== ENCOUNTER 2024-07-04 09:50 | Emergency (ER) | payer MEDICARE, SELFPAY ==
--- NOTE | ~2024-07-04 | CT_ITS ---
History: Remote history of a fall PROCEDURE: CT head without contrast. COMPARISON: 09/09/2021 TECHNIQUE: Axial imaging of the head performed from the skull base to the vertex without IV contrast. Sagittal a nd coronal reformations obtained. DLP: 605 mGy-cm FINDINGS: The ventricles are enlarged. The dilatation of the ventricles is proportional to the degree of sulcal prominence, not uncommon in the senescent brain. Decreased attenuation is identified within the periventricular white matter, likely secondary to micr ovascular ischemic disease, in a patient of this age. There is no mass, mass effect or midline shift. There is no abnormal extra-axial fluid collection or intracranial hemorrhage. Visualized paranasal sinuses are clear. The mastoid air cells are well aerated. No acute displaced fractures within the overlying cranium. Impression: No acute intracranial hemorrhage or suspicious mass effect. Reviewed, dictated and finalized at location A. Impression: No acute intracranial hemorrhage or suspicious mass effect.
--- NOTE | ~2024-07-04 | XR_ITS ---
HISTORY: fall LAST NIGHT, PAIN, HX OF PREV FALLS TO THIS ELBOW COMPARISON: None TECHNIQUE: 3 views of the left elbow were performed FINDINGS: Cortical disruption of the distal humerus is identified along the lateral supracondylar ridge for whi ch acute fracture is suspected. Oblique lucencies are identified cranial to the olecranon fossa, likely also representing acute fract ure. Despite the lack of elevation of the anterior fat pad a supracondylar fracture is suspected. Overlying soft tissues are unremarkable. Bone mineralization is age-appropriate. IMPRESSION: Acute fracture is suspected along the lateral supracondylar ridge extending into the ole cranon fossa. Reviewed, dictated and finalized at location A. IMPRESSION: Acute fracture is suspected along the lateral supracondylar ridge extending into the olecranon fossa.
[2024-07-04 09:58] VITALS: BP 164/67; PULSE 65; RESP 18; TEMP 36.4; O2SAT 95
--- NOTE | 2024-07-04 10:03 | ED_ITS ---
HPI - General Adult General Chief complaint: Extremity Injury, Upper Stated complaint: fall last noc Time Seen by Provider: 07/04/24 10:01 Source: patient Mode of arrival: ambulatory Limitations: no limitations History of Present Illness HPI narrative: Patient got up out of a chair, lost her balance landed on the left elbow, struck the left side of her head on the floor, no loss of consciousness. Patient denies other injuries, last night. Related Data Home Medications ?Medication ?Instructions ?Recorded ?Confirmed ?Last Taken ?Type albuterol sulfate 90 mcg/actuation 90 mcg inhalation DIRECTED 12/20/19 06/18/24 Unknown History aerosol inhaler (ProAir HFA) Allergies Allergy/AdvReac Type Severity Reaction Status Date / Time No Known Allergies Allergy Verified 07/04/24 09:51 Review of Systems Review of Systems: All systems reviewed & are unremarkable except as noted in HPI and below PMFSH Past Medical History Medical History History of acute respiratory failure Anemia Nausea Chronic pain syndrome Constipation due to opioid therapy Tobacco abuse COPD (chronic obstructive pulmonary disease) Encounter for screening colonoscopy Common bile duct dilatation Dilated intrahepatic bile duct Anxiety Acid reflux Peptic ulcer disease Surgical History Surgical History H/O tubal ligation Hx of cholecystectomy Family History Family History Mother Cerebrovascular accident Father Diabetes mellitus Social History Social History Social History: the patient stated that she smokes anywhere from half a pack to pack a cigarettes a day. She has 3 children. She desires to have her is a durable power of title attorney and if he is unable to than her 3 children. The patient has 3 children. 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 She denies any alcohol marijuana or illicit drugs. The patient desires to be a full code. Smoking packs per day: 1.5 Smoking cigarettes per day: 30.0 Years smoked: 50 Smoking pack-years: 75.00 Smoking status: Current every day smoker Tobacco type: cigarettes Second hand tobacco smoke exposure: No Smoking end date: 07/26/23 Alcohol intake: former Substance use: never Substance use type: does not use Other substance usage details: prescribed opiates Last use: 09/07/21 Do You Feel Safe in your Home?: Yes Lack of Transportation: No Lack of Food: Never True Current Housing: I Have Housing Concerned About Future Housing: No Difficulty Paying Gas/Electric Bills: No Difficulty Paying for Meds: No Currently Unemployed: No Education: Trade/Vocational Certificate Difficulty w/ Childcare or Family Care: No Living arrangements: with family Gender identity (if verbalized by the patient): Female Sexual Orientation (if Verbalized by the Patient): Straight or Heterosexual Spiritual care concerns: No Exam Narrative: General appearance: Well-developed, well-nourished Skin: Normal color Head: Normocephalic, nontraumatic Eyes: Clear conjunctiva ENT: Oropharynx normal, ears normal, nose normal Neck: Supple, nontender Chest and respiratory: Airway patent, no respiratory distress, no accessory muscle use Heart: Regular rate/rhythm Abdomen: Soft, nontender, no organomegaly, quiet bowel sounds Vascular: Normal peripheral pulses, normal capillary refill. Musculoskeletal: Left elbow exam showing diffuse swelling, deformity, severe limited range of motion, diffuse tenderness, neurovascular intact Neurologic: Alert and oriented ?3, BUSINESS LINE CONTR[employer]LLER is normal as tested, no gross motor def icit Course Consultations Consultation #1: DR YOUSIF SPLINT/SLING, OUTPATIENT FOLLOW-UP Date: 07/04/24 Vital Signs Vital signs: Vital Signs Temperature 36.4 C 07/04/24 09:58 Pulse Rate 65 07/04/24 09:58 Respiratory Rate 18 07/04/24 09:58 Blood Pressure 164/67 H 07/04/24 09:58 Pulse Oximetry 95 07/04/24 09:58 Oxygen Delivery Room Air 07/04/24 09:58 Temperature 36.4 C 07/04/24 09:58 Pulse Rate 65 07/04/24 09:58 Respiratory Rate 18 07/04/24 09:58 Blood Pressure 164/67 H 07/04/24 09:58 Pulse Oximetry 95 07/04/24 09:58 Oxygen Delivery Room Air 07/04/24 09:58 Medical Decision Making [facility] [place] Narrative Medical decision making narrative: Contusion versus fracture, x-ray of the left elbow showed fracture Dr. Yousif recommends splint/sling, outpatient follow-up Vital Signs Vital Signs: Vital Signs Temperature 36.4 C 07/04/24 09:58 Pulse Rate 65 07/04/24 09:58 Respiratory Rate 18 07/04/24 09:58 Blood Pressure 164/67 H 07/04/24 09:58 Pulse Oximetry 95 07/04/24 09:58 Oxygen Delivery Room Air 07/04/24 09:58 Temperature 36.4 C 07/04/24 09:58 Pulse Rate 65 07/04/24 09:58 Respiratory Rate 18 07/04/24 09:58 Blood Pressure 164/67 H 07/04/24 09:58 Pulse Oximetry 95 07/04/24 09:58 Oxygen Delivery Room Air 07/04/24 09:58 Imaging Data Radiologist's impression: Impressions Elbow X-Ray 07/04/24 10:48 IMPRESSION: Acute fracture is suspected along the lateral supracondylar ridge extending into the olecranon fossa. Head CT 07/04/24 10:55 Impression: No acute intracranial hemorrhage or suspicious mass effect. Critical Care Time Critical Care Time Critical Care Time: No Discharge Plan Discharge Clinical Impression: Closed fracture of left elbow Patient Disposition: Home Condition: Stable Instructions: How to Use a Sling (ED), Splint Care (ED) Additional Instructions: RETURN IF SYMPTOMS ARE WORSENING , CALL DR YOUSIF FOR APPOINTMENT, TAKE TYLENOL NEEDED FOR ACHES AND PAIN, CONTINUE HOME MEDICATIONS. Patient Language: Nepalese Prescriptions: New hydrocodone-acetaminophen 5-325 mg tablet 1 tablet PO Q6H Qty: 20 0RF No Action ofloxacin 0.3 % drops See Rx Instructions RIGHT EYE .COMPLEX Qty: 10 0RF Rx Instructions: into right eye put 2 drops into affected eye every 4 hr x 2 days, then 2 drops 4 times/days while awake for days 3-7; oxycodone 5 mg tablet 5 mg PO Q6-8H PRN (Reason: pain (scale score 7-10)) Qty: 120 0RF albuterol sulfate [ProAir HFA] 90 mcg/actuation HFA aerosol inhaler 90 mcg INHALATION DIRECTED Rx Instructions: Every 4-6 hrs PRN aspirin 81 mg Tablet,Delayed Release (Dr/Ec) 81 mg PO QAM Qty: 30 0RF pantoprazole 40 mg tablet,delayed release (DR/EC) See Rx Instructions .ROUTE .COMPLEX Qty: 180 0RF Dose Instruction: TAKE 1 TABLET BY MOUTH TWICE A DAY Rx Instructions: TAKE 1 TABLET BY MOUTH TWICE A DAY fluticasone propion-salmeterol 250-50 mcg/dose blister with device See Rx Instructions .ROUTE .COMPLEX Qty: 60 2RF Dose Instruction: INHALE 1 PUFF BY MOUTH TWICE A DAY Rx Instructions: INHALE 1 PUFF BY MOUTH TWICE A DAY metoprolol succinate 25 mg tablet extended release 24 hr See Rx Instructions .ROUTE .COMPLEX Qty: 30 0RF Dose Instruction: TAKE A HALF A TABLET (12.5 MG) ORALLY DAILY HOLD IF SBP < 110 OR HR < 60 Rx Instructions: TAKE FULL TAB (25 MG) ORALLY DAILY HOLD IF SBP < 110 OR HR < 60 sertraline 100 mg tablet 200 mg PO DAILY 90 Days Qty: 180 0RF buspirone 5 mg tablet 5 mg PO BID 30 Days Qty: 180 0RF Follow-up/Referrals: Jonathan Arizmendi MD [Physician] - 07/06/24 Magnolia Pisano APRN [Primary Care Provider] -
[2024-07-04] MEDS: IBUPROFEN 600 MG TABLET PO (10:33)
[2024-07-04] MEDS: HYDROcodone/acetaminophen (*CRX) 5-325 MG TABLET 1 TAB PO (10:33)
== END 2024-07-04 11:59 | disposition home or self-care (01) ==
PROVIDERS: Emergency Provider Emergency Medicine; PCP Nurse Practitioner Family
DX: S42.402A Unspecified fracture of lower end of left humerus, initial encounter for closed fracture (principal); F17.210 Nicotine dependence, cigarettes, uncomplicated; D64.9 Anemia, unspecified; G89.29 Other chronic pain; J44.9 Chronic obstructive pulmonary disease, unspecified; F41.9 Anxiety disorder, unspecified; W01.0XXA Fall on same level from slipping, tripping and stumbling without subsequent striking against object, initial encounter
CPT/HCPCS: 29105; 70450; 73080; 99284; A4565; A9270

== ENCOUNTER 2024-10-22 13:31 | Inpatient (IN) | payer MEDICARE, SELFPAY ==
--- OUTSIDE RECORDS SUMMARY | 2024-09-21 06:45 | XMS_ITS ---
Author Organization [facility] Address [address] [place] [address] Care Team Providers Care Compliance Reviewer Name Role Phone Magnolia Pisano Primary Care Provider Mary Fuentes Unavailable [phone] Allergies No Known Allergies REASON FOR VISIT Right Lumbar Four Lumbar Five Lumbar Five Sacral One Facet Joint Injection Diagnostic Medications Medication SIG (Take, Route, Frequency, Duration) Notes Start Date End Date Status Pantoprazole Sodium 40 MG Oral for 90 Days Active busPIRone HCl 5 MG TAKE 1 TABLET TWICE DAILY Oral for 90 Days Active oxyCODONE HCl 5 MG 1 tablet Oral four times per day PRN for 7 days 08/12/2024 Active Pantoprazole Sodium 40 MG Oral for 90 Days Active Ofloxacin 0.3 % PUT 2 DROPS INTO RIG HT EYE EVERY 4 HOURS X2 DAYS, THEN 2 DROPS 4 TIMES DAILY WHILE AWAKE ON DAYS 3-7 Ophthalmic for 7 Days Active Metoprolol Succinate ER 25 MG TAKE FULL TAB (25 MG) ORALLY DAILY HOLD IF SBP < 110 OR HR < 60 Oral for 90 Days Active Sertraline HCl 100 MG 1 tablet Orally On ce a day Active LORazepam 0.5 MG 1 tablet at bedtime as needed Orally Once a day Not-Taking Encounters Encounter Location Date Provider Diagnosis [facility] [address] [place] [address] 09/21/2024 Mary Chung Lumbar Spondylosis without Myelopathy M47.816 Assessments Encounter Date Diagnosis (ICD Code) Assessment Notes Treatment Notes Treatment Clinical Notes Section Notes 09/21/2024 Lumbar Spondylosis without Myelopathy (ICD-10 - M47.816) Plan Of Treatment Next Appt Details Provider Name:Vikas Hsu, Chaparro 11:00:00 AM, [address] [place], [address], Progress Notes * Marysol CHAPMANDOB: 6 (78 yo F)Acc No.[id number]:09/21/2024 Injection Patient: Marysol HONEYCUTT Provider: Katherine Chung MD :1945 A ge:78 Y S ex:Female Date:09/21/2024 Address:[address] [place] [address], [id number] Pcp:Magnolia Pisano Subjective: * Chief Complaints: * 1 . Right Lumbar Four Lumbar Five Lumbar Five Sacral One Facet Joint Injection Diagnostic. * HPI: C omplaints: PROCEDURE: 1. Facet joint injection at L4-5 L5-S1 on the right. 2. Fluoroscopic imaging for needle placement. 3. Radiographic interp retation: Lumbar Spine. DIAGNOSIS: Lumbar spondylosis MEDICATION USED: 1. Facet joint local anesthetic: 2ml Bupivacaine 0.5% 2. Epidural local anesthetic: 5 ml Lidocaine 1% 3. Steroid: 80mg Depomedrol (methylprednisolone) 4. Contrast agent: 3 ml Omnipaque-300 SUBJECTIVE: This patient presents today for a right L4-5 L5-S1 facet joint injection. PROCEDURE DESCRIPTION: Informed consent for the procedure was obtained and the patient signed the procedure consent form. The patient was given sufficient time to ask questions related to the procedure and to discuss expectations and the overall plan of treatment. The patient was brought into the procedure room and placed in the appropriate position for the procedure as noted above. Betadine (or alcohol if the patient carried an iodine allergy history) was used to prepare the skin over the appropriate location for the injection and sterile drapes were applied. Strict aseptic technique was followed during the procedure. The patient was brought into the procedure room and placed in the appropriate position for the procedure above. An initial RADIOLOGIC EXAMINATION, of the facet JOINTS; LESS THAN THREE VIEWS was performed with a c-arm fluoroscope. The initial survey found moderate degenerative changes noted through the FACET joint. A 22 Ga spinal needle was used for the procedure. This was advanced from a lateral position and angled into the joint under oblique fluoroscopic views used to sharpen joint margins. Once needle placement was confirmed within the joint, the arthrogram was performed and reported below. Then the patient received the steroid and local anesthetic as noted for each joint injected above after careful aspiration for blood. The patient had no ill effects from the procedure. Vital signs were monitored and found to be stable throughout. The patient was taken to and watched in the recovery area for an appropriate period of time and then released to home in the care of a responsible adult once discharge criteria were met and discharge planning/subsequent appointments were made. FLUOROSCOPIC IMAGING FINDINGS: An initial survey of the spine in the area noted was performed with the C-arm fluoroscope. The following were noted: 1. moderate degenerative changes of the lumbosacral spine. JOINT ARTHROGRAM: 1. Contrast was seen to spread evenly within the joint COMPLICATIONS: NONE RESULTS: ___% pain relief achieved PLAN: 1. Follow post procedure instructions and complete post procedure diary. 2. Continue on present medications. 3. Follow up by telephone in a few days and return for follow up appointment within several weeks to check on response to the injection or to repeat the injection and to make any necessary medication adjustment and determine subsequent treatment steps. * Medical History: H igh Blood Pressure, High Cholesterol, GERD, Depression, A Fib, COPD. * Medications: T aking Sertraline HCl 100 MG Tablet 1 tablet Orally Once a day , Taking Metoprolol Succinate ER 25 MG Tablet Extended Release 24 Hour TAKE FULL TAB (25 MG) ORALLY DAILY HOLD IF SBP < 110 OR HR < 60 Oral , Taking busPIRone HCl 5 MG Tablet TAKE 1 TABLET TWICE DAILY Oral , Taking Pantoprazole Sodium 40 MG Tablet Delayed Release Oral , Taking Ofloxacin 0.3 % Solution PUT 2 DROPS INTO RIGHT EYE EVERY 4 HOURS X2 DAYS, THEN 2 DROPS 4 TIMES DAILY WHILE AWAKE ON DAYS 3-7 Ophthalmic , Taking Pantoprazole Sodium 40 MG Tablet Delayed Release Oral , Taking oxyCODONE HCl 5 MG Tablet 1 tablet Oral four times per day PRN , Not-Taking/PRN LORazepam 0.5 MG Tablet 1 tablet at bedtime as needed Orally Once a day * Allergies: N .K.D.A. Objective: * Vitals: Assessment: * Assessment: 1. L umbar Spondylosis without Myelopathy - M47.816 (Primary) Plan: * Treatment: * Procedures: A dvanced spondylolysis at L 4-5, L5-S1. A dvanced disc degeneration at L4-5 and L 5S1. * Procedure Codes: 6 4493 INJ PARAVERT F JNT L/S 1 LEV, Modifiers: RT , KX, [address] INJ PARAVERT F JNT L/S 2 LEV, Modifiers: RT , KX, [address] X-RAY EXAM OF SPINE, J1010 Injection, methylprednisolone acetate, 1 mg, Units: 80.00 , Modifiers: JZ * * Electronic signature of Mary Chung MD on 10/22/2024 at 02:50 PM CDT Sign off status: Pending * Provider: Katherine Chung MD Date: 0 09/21/2024 Generated for Printi ng/Freddy/eTransmitting on: 0 10/22/2024 02:50 PM CDT History and Physical Notes * HPI (History of Present Illness) Category Sub-Category Detail Notes Category Not es Complaints PROCEDURE: 1. Facet joint injection at L4-5 L5-S1 on the right. 2. Fluoroscopic imaging for needle placement. 3. Radiographic interp retation: Lumbar Spine. DIAGNOSIS: Lumbar spondylosis MEDICATION USED: 1. Facet joint local anesthetic: 2ml Bupivacaine 0.5% 2. Epidural local anesthetic: 5 ml Lidocaine 1% 3. Steroid: 80mg Depomedrol (methylprednisolone) 4. Contrast agent: 3 ml Omnipaque-300 SUBJECTIVE: This patient presents today for a right L4-5 L5-S1 facet joint injection. PROCEDURE DESCRIPTION: Informed consent for the procedure was obtained and the patient signed the procedure consent form. The patient was given sufficient time to ask questions related to the procedure and to discuss expectations and the overall plan of treatment. The patient was brought into the procedure room and placed in the appropriate position for the procedure as noted above. Betadine (or alcohol if the patient carried an iodine allergy history) was used to prepare the skin over the appropriate location for the injection and sterile drapes were applied. Strict aseptic technique was followed during the procedure. The patient was brought into the procedure room and placed in the appropriate position for the procedure above. An initial RADIOLOGIC EXAMINATION, of the facet JOINTS; LESS THAN THREE VIEWS was performed with a c-arm fluoroscope. The initial survey found moderate degenerative changes noted through the FACET joint. A 22 Ga spinal needle was used for the procedure. This was advanced from a lateral position and angled into the joint under oblique fluoroscopic views used to sharpen joint margins. Once needle placement was confirmed within the joint, the arthrogram was performed and reported below. Then the patient received the steroid and local anesthetic as noted for each joint injected above after careful aspiration for blood. The patient had no ill effects from the procedure. Vital signs were monitored and found to be stable throughout. The patient was taken to and watched in the recovery area for an appropriate period of time and then released to home in the care of a responsible adult once discharge criteria were met and discharge planning/subsequent appointments were made. FLUOROSCOPIC IMAGING FINDINGS: An initial survey of the spine in the area noted was performed with the C-arm fluoroscope. The following were noted: 1. moderate degenerative changes of the lumbosacral spine. JOINT ARTHROGRAM: 1. Contrast was seen to spread evenly within the joint COMPLICATIONS: NONE RESULTS: ___% pain relief achieved PLAN: 1. Follow post procedure instructions and complete post procedure diary. 2. Continue on present medications. 3. Follow up by telephone in a few days and return for follow up appointment within several weeks to check on response to the injection or to repeat the injection and to make any necessary medication adjustment and determine subsequent treatment steps.
--- OUTSIDE RECORDS SUMMARY | 2024-10-12 06:00 | XMS_ITS ---
Author Organization [facility] Address [address] [place] [address] Care Team Providers Care Transferrer Name Role Phone Magnolia Pisano Primary Care Provider Mary Fuentes [phone] REASON FOR VISIT B L34 OWEN Encounters Encounter Location Date Provider Diagnosis [facility]-[address] [address] 10/12/2024 Mary Chung Plan Of Treatment Next Appt Details Provider Name:Vikas Hsu, Chaparro 11:00:00 AM, [address] [place] [address], [phone], Progress Notes * Marysol CHAPMANCHRIS: 6 (78 yo F)Acc No.[id number]:10/12/2024 Injection Patient: Marysol HONEYCUTT Provider: Katherine Chung MD :1945 A ge:78 Y S ex:Female Date:10/12/2024 Address:[address] [place], [place] [id number] Pcp:Magnolia Pisano Subjective: * Chief Complaints: * Medical History: Objective: Assessment: Plan: * Treatment: * * Electronic signature of Mary Chung MD on 10/22/2024 at 02:50 PM CDT Sign off status: Pending * Provider: Katherine Chung MD Date: 0 10/12/2024 Generated for Printi ng/Faxing/eTransmitting on: 0 10/22/2024 02:50 PM CDT
--- OUTSIDE RECORDS SUMMARY | 2024-10-19 08:45 | XMS_ITS ---
Author Organization [facility] Address [address] [place] [address] Care Team Providers Care Manager Language Name Role Phone Magnolia Pisano Primary Care Provider Mary Fuentes Unavailable [phone] Vikas Hsu Unavailable [phone] REASON FOR VISIT fu Encounters Encounter Location Date Provider Diagnosis [facility]-[address] [address] 10/19/2024 Vikas Hsu Assessments Encounter Date Diagnosis (ICD Code) Assessment Notes Treatment Notes Treatment Clinical Notes Section Notes 10/19/2024 Other Notes: Significant time was spent due to complex decision-making as a result of the patient's complicated pain issues. The plan is as follows: Patient will continue exercise therapy regimen. Assessment is unchanged from 09/23/24 except as denoted below. Plan Of Treatment Treatment Notes Assessment Notes Other Notes: Significant time was spent due to complex decision-making as a result of the patient's complicated pain issues. The plan is as follows: Patient will continue exercise therapy regimen. Next Appt Details Provider Name:Vikas Hsu, 1 11:00:00 AM, [address] [place] [address], [phone], Progress Notes * Marysol CHAPMANDOB: 6 (78 yo F)Acc No.[id number]:10/19/2024 Progress Notes Patient: Marysol HONEYCUTT Provider: JORDAN Mathews :1945 A ge:78 Y S ex:Female Date:10/19/2024 Address:[address] [place] [address], [place], [id number] Pcp:Magnolia Pisano Subjective: * Chief Complaints: * 1 . Fu. * HPI: C omplaints: On a scale of 1-10 how would you rate your pain today? Patient reports pain rated at a level Where is your pain today and how long has the pain been present? Patient reports pain located How would you describe your pain, is it aching, stabbing, dull, sharp or burning? Patient reports Is there anything that you do that makes the pain better? Patient reports the pain decreases with Is there anything that you do that makes the pain worse? Patient reports the pain increases with What daily activities does your pain make more difficult? Patient reports How many hours of sleep a night would you say you're getting? Patient reports obtaining hours of sleep per night. Is the pain causing you to wake up at night, if so how often? Patient reports What medications are you currently taking to manage the pain and how long have you been taking these medications? Patient reports taking Have you had any injections recently and if you have, how much relief have you gotten from those? Patient reports Have you had any recent falls? Patient reports The pain disability index score at today's visit is: ____. * Medical History: Objective: * Vitals: * Examination: G eneral Examination: P hysical exam is unchanged from 09/23/24 except as denoted below. GENERAL APPEARANCE: well developed, well nourished, alert, and cooperative; in no apparent distress HEAD: normocephalic, atraumatic EYES: sclera non-icteric, extra ocular eye movements intact CHEST: respiratory rate normal, no signs of respiratory distress SKIN: no suspicious lesions, no rashes, no edema NEURO: Normal speech; walking unassisted without a cane or a walker. Assessment: * Assessment: Assessment is unchanged from 09/23/24 except as denoted below. Plan: * Treatment: * * Electronic signature of JORDAN Temple on 10/22/2024 at 02:50 PM CDT Sign off status: Pending * Provider: JORDAN Mathews Date: 0 10/19/2024 Generated for Lokesh tapia/Freddy/Angelita on: 0 10/22/2024 02:50 PM CDT History and Physical Notes * Examination Category Sub-Category Detail Notes Category Not es General Examination Physical exam is unchanged from 09/23/24 except as denoted below. GENERAL APPEARANCE: well developed, well nourished, alert, and cooperative; in no apparent distress HEAD: normocephalic, atraumatic EYES: sclera non-icteric, extra ocular eye movements intact CHEST: respiratory rate normal, no signs of respiratory distress SKIN: no suspicious lesions, no rashes, no edema NEURO: Normal speech; walking unassisted without a cane or a walker
--- OUTSIDE RECORDS SUMMARY | 2024-10-21 10:15 | XMS_ITS ---
Author Organization [facility] Address [address] [place] [address] Care Team Providers Care Truck Mechanic Name Role Phone Magnolia Pisano Primary Care Provider UnavailMary Barreto Unavailable [phone] Vikas Hsu Unavailable [phone] REASON FOR VISIT fu Medications Medication SIG (Take, Route, Frequency, Duration) Notes Start Date End Date Status LORazepam 0.5 MG 1 tablet at bedtime as needed Orally Once a day Not-Taking Sertraline HCl 100 MG 1 tablet Orally On ce a day Active Metoprolol Succinate ER 25 MG TAKE FULL TAB (25 MG) ORALLY DAILY HOLD IF SBP < 110 OR HR < 60 Oral for 90 Days Active Pantoprazole Sodium 40 MG Oral for 90 Days Active oxyCODONE HCl 5 MG 1 tablet Oral four times per day PRN for 30 days 09/23/2024 Active busPIRone HCl 5 MG TAKE 1 TABLET TWICE DAILY Oral for 90 Days Active Pantoprazole Sodium 40 MG Oral for 90 Days Active Ofloxacin 0.3 % PUT 2 DROPS INTO RIG HT EYE EVERY 4 HOURS X2 DAYS, THEN 2 DROPS 4 TIMES DAILY WHILE AWAKE ON DAYS 3-7 Ophthalmic for 7 Days Active Encounters Encounter Location Date Provider Diagnosis [facility]-[address] [address] 10/21/2024 Vikas Hsu Assessments Encounter Date Diagnosis (ICD Code) Assessment Notes Treatment Notes Treatment Clinical Notes Section Notes 10/21/2024 Other Notes: Significant time was spent due to complex decision-making as a result of the patient's complicated pain issues. Plan communicated to pt and her son in law at bedside. Patient will continue exercise therapy regimen. Pt never completed her lumbar spine MRI. Will order a new one due to pt's persistent LBP despite having multiple procedures in the past. Pt has a hx of stenosis. Will review at FU. Reviewed most recent drug screen report which shows no concerning abnormalities Pt notes she ran out of her oxycodone 1-2 weeks ago due to taking it more frequently than prescribed. Pt notes she has had significant pain and a low quality of life since running out of it and notes she has been taking too much OTC tylenol and ibuprofen. Reminded the patient that [facility] is an interventional pain management practice, and our ultimate goal is to provide sustained pain relief and improved function through procedures and not with opioid medications. Explained to patient that we do not prescribe opioid medications indefinitely, and our goal is to wean patients off of opioid pain medications entirely. The patient expresses understanding and is agreeable to this plan. Due to the pt being in significant pain, will prescribe hydrocodone-acetam inophen 5-325mg 1 tab PO BID PRN for her acute breakthrough pain. Discussed medication risks/potential side effects with the patient. Explained to pt that we will plan to also taper down this medication in the future. Explained to pt that if she does not take this medication as prescribed then we will no longer prescribe her anymore opioids. Additionally explained to pt to not take more acetaminophen or ibuprofen than the label states due to risks of liver, kidney and GI toxicity. Patient expresses understanding and denies a history of kidney or liver disease. Will obtain drug screen today. We will not add or change any other medications at this time as the patient is currently tolerating all medications with no significant side effects. Advised pt to contact clinic if they develop any new/worsening symptoms or pain The total encounter time for today's visit was 30 minutes which was spent on preparation for the visit, e.g. chart review, and in the activities documented in this note. Please refer back to the HPI and physical exam sections of this note for further details regarding this encounter. Assessment is unchanged from 09/23/24 except as denoted below. Plan Of Treatment Treatment Notes Assessment Notes Other Notes: Significant time was spent due to complex decision-making as a result of the patient's complicated pain issues. Plan communicated to pt and her son in law at bedside. Patient will continue exercise therapy regimen. Pt never completed her lumbar spine MRI. Will order a new one due to pt's persistent LBP despite having multiple procedures in the past. Pt has a hx of stenosis. Will review at FU. Reviewed most recent drug screen report which shows no concerning abnormalities Pt notes she ran out of her oxycodone 1-2 weeks ago due to taking it more frequently than prescribed. Pt notes she has had significant pain and a low quality of life since running out of it and notes she has been taking too much OTC tylenol and ibuprofen. Reminded the patient that [facility] is an interventional pain management practice, and our ultimate goal is to provide sustained pain relief and improved function through procedures and not with opioid medications. Explained to patient that we do not prescribe opioid medications indefinitely, and our goal is to wean patients off of opioid pain medications entirely. The patient expresses understanding and is agreeable to this plan. Due to the pt being in significant pain, will prescribe hydrocodone-acetaminophen 5-325mg 1 tab PO BID PRN for her acute breakthrough pain. Discussed medication risks/potential side effects with the patient. Explained to pt that we will plan to also taper down this medication in the future. Explained to pt that if she does not take this medication as prescribed then we will no longer prescribe her anymore opioids. Additionally explained to pt to not take more acetaminophen or ibuprofen than the label states due to risks of liver, kidney and GI toxicity. Patient expresses understanding and denies a history of kidney or liver disease. Will obtain drug screen today. We will not add or change any other medications at this time as the patient is currently tolerating all medications with no significant side effects. Advised pt to contact clinic if they develop any new/worsening symptoms or pain The total encounter time for today's visit was 30 minutes which was spent on preparation for the visit, e.g. chart review, and in the activities documented in this note. Please refer back to the HPI and physical exam sections of this note for further details regarding this encounter. Next Appt Details Provider Name:Vikas Hsu, 1 11:00:00 AM, [address] [place] [address], [phone], Progress Notes * Marysol CHAPMANDOB: 6 (78 yo F)Acc No.[id number]:10/21/2024 Progress Notes Patient: Coral DAHIANAMarysol Provider: JORDAN Mathews :1945 A ge:78 Y S ex:Female Date:10/21/2024 Address:[address] [place] [address], Word [place], [id number] Pcp:Magnolia Pisano Subjective: * Chief Complaints: * 1 . Fu. * HPI: C omplaints: Hx gathered through pt and son in law at bedside. On a scale of 1-10 how would you rate your pain today? Patient reports pain rated at a level 6/10 Where is your pain today and how long has the pain been present? Patient reports pain located in her lower back, denies radiation down bilateral legs; pain has been present for many years How would you describe your pain, is it aching, stabbing, dull, sharp or burning? Patient reports aching, stabbing Is there anything that you do that makes the pain better? Patient reports the pain decreases with sitting Is there anything that you do that makes the pain worse? Patient reports the pain increases with standing, walking What daily activities does your pain make more difficult? Patient reports everyday living activities How many hours of sleep a night would you say you're getting? Patient reports obtaining 5-7 hours of sleep per night. Is the pain causing you to wake up at night, if so how often? Patient reports occasionally waking up overnight due to pain. What medications are you currently taking to manage the pain and how long have you been taking these medications? Patient reports taking oxycodone HCL 5mg PRN - pt reports she ran out about 1-2 weeks ago due to taking more than prescribed. Have you had any injections recently and if you have, how much relief have you gotten from those? Patient reports no recent injections for pain treatment. Have you had any recent falls? Patient reports no recent falls. The pain disability index score at today's visit is: 62 pt states she canceled her last lumbar OWEN due having to pay out of pocket for it. pt notes her insurance would not cover it. pt denies additional complaints at this time. * Medical History: * Medications: T aking Sertraline HCl 100 [...] bedtime as needed Orally Once a day Objective: * Vitals: * Examination: G eneral [...] speech; walking unassisted without a cane or walker. Assessment: * Assessment: Assessment is unchanged from 09/23/24 except as denoted below. Plan: * Treatment: * * Electronic signature of JORDAN Temple on 10/22/2024 at 02:50 PM CDT Sign off status: Pending * Provider: JORDAN Mathews Date: 10/21/2024 Generated for Lokesh tapia/Freddy/Angelita on: 10/22/2024 02:50 PM CDT History and Physical [...] speech; walking unassisted without a cane or walker
--- NOTE | ~2024-10-22 | XR_ITS ---
EXAMINATION: XR elbow LT 2V, 10/26/2024 13:50 CDT HISTORY: elbow pain COMPARISON: No comparisons available. Findings: Supracondylar fracture is demonstrated without significant displacement however there is minimal callus formation noted. Moderate degenerative changes. Soft tissues unremarkable. Impression: Healing fracture Reviewed, dictated and finalized at location A. Impression: Healing fracture
--- NOTE | ~2024-10-22 | CT_ITS ---
EXAMINATION: CT brain wo con DATE: 10/22/2024 14:23 INDICATION: Weakness TECHNIQUE: Computed tomography (CT) of the head was performed without intravenous contrast. The dose-length product was 605.33 mGy-cm. Automated exposure control and iterative reconstruction technique were employed. COMPARISON: 07/04/2024 FINDINGS: Generalized brain parenchymal atrophy. There are scattered mild periventricular and subcortical white matter changes, most likely related to small vessel ischemic disease (microangiopathy). No ventriculomegaly or midline shift. No acute infarction, hemorrhage, mass or mass effect. Basilar cisterns are patent. There is a focal chronic right frontal infarct anterior to the right lateral ventricle. Paranasal sinuses and mastoids are pneumatized. There is intracranial atherosclerosis. No depressed skull fractures. IMPRESSION: 1. No acute intracranial abnormality. Reviewed, dictated and finalized at location O.
--- NOTE | ~2024-10-22 | XR_ITS ---
Examination: XR chest 1V Clinical History: WEAKNESS Comparison: X-rays 09/12/2023 Technique: Portable AP Findings: Heart size normal. Lungs clear. Hyperinflation with minimal chronic interstitial changes. No acute bony abnormality. IMPRESSION: 1. No acute cardiopulmonary findings given portable technique. Reviewed, dictated and finalized at location R.
[2024-10-22 13:33] VITALS: BP 118/59; PULSE 101; RESP 22; O2SAT 96
--- NOTE | 2024-10-22 14:01 | ED_ITS ---
HPI - General Adult General Chief complaint: Weakness Stated complaint: weakness Time Seen by Provider: 10/22/24 14:00 Source: patient and EMS Mode of arrival: EMS Limitations: no limitations History of Present Illness HPI narrative: 78 years old white female came to ED from home by ambulance because of general weakness noticed this morning. Patient had unknown number of diarrhea yesterday, associated with nausea, denies any fever or abdominal pain or urinary symptoms. Patient normally on oxycodone and hydrocodone, history of drug abuse, was fired by previous pain management clinic, started with a new 1 recently. Last time had oxycodone/hydrocodone 1 week ago, was seen by pain management yesterday who prescribed hydrocodone only, patient did not get her prescription done yet. Currently patient is awake, alert oriented x4 able to move all extremities without any limitation, complaining of feeling thirsty. Patient is DNR. Used to be on hospice Related Data Home Medications ?Medication ?Instructions ?Recorded ?Confirmed ?Last Taken ?Type albuterol sulfate 90 mcg/actuation 90 mcg inhalation A S DIRECTED 12/20/19 09/02/24 Unknown History aerosol inhaler (ProAir HFA) Allergies Allergy/AdvReac Type Severity Reaction Status Date / Time No Known Allergies Allergy Verified 09/02/24 14:11 Review of Systems 2 Review of Systems: All systems reviewed & are unremarkable except as noted in HPI and below PMFSH Past Medical History Medical History History of acute respiratory failure Anemia Chronic pain syndrome Constipation due to opioid therapy Tobacco abuse COPD (chronic obstructive pulmonary disease) Encounter for screening colonoscopy Common bile duct dilatation Dilated intrahepatic bile duct Anxiety Acid reflux Peptic ulcer disease Surgical History Surgical History H/O tubal ligation Hx of cholecystectomy Family History Family History Mother Cerebrovascular accident Father Diabetes mellitus Social History Social History Social History: the patient stated that she smokes anywhere from half a pack to pack a cigarettes a day. She has 3 children. She desires to have her is a durable power of real estate attorney and if he is unable to than her 3 children. The patient has 3 children. 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 She denies any alcohol marijuana or illicit drugs. The patient desires to be a full code. Smoking packs per day: 1.5 Smoking cigarettes per day: 30.0 Years smoked: 50 Smoking pack-years: 75.00 Smoking status: Current every day smoker Tobacco type: cigarettes Second hand tobacco smoke exposure: No Smoking end date: 07/26/23 Alcohol intake: former Substance use: never Substance use type: does not use Other substance usage details: prescribed opiates Last use: 09/07/21 Do You Feel Safe in your Home?: Yes Lack of Transportation: No Lack of Food: Never True Current Housing: I Have Housing Concerned About Future Housing: No Difficulty Paying Gas/Electric Bills: No Difficulty Paying for Meds: No Currently Unemployed: No Education: Trade/Vocational Certificate Difficulty w/ Childcare or Family Care: No Living arrangements: with family Gender identity (if verbalized by the patient): Female Sexual Orientation (if Verbalized by the Patient): Straight or Heterosexual Spiritual care concerns: No Exam 2 Narrative: General appearance: Well-developed, well-nourished, does not look in pain or distress Skin: Normal color Head: Normocephalic, nontraumatic Eyes: Clear conjunctiva ENT: Oropharynx normal, ears normal, nose normal dry oral cavity Neck: Supple, nontender Chest and respiratory: Airway patent, no respiratory distress, no accessory muscle use Heart: Regular rate/rhythm Abdomen: Soft, nontender, no organomegaly, quiet bowel sounds Vascular: Normal peripheral pulses, normal capillary refill. Musculoskeletal: Normal range of motion, nontender back Neurologic: Alert and oriented ?3, OCC THER is normal as tested, no gross motor deficit Course Vital Signs Vital signs: Vital Signs Pulse Rate 101 H 10/22/24 13:33 Respiratory Rate 22 H 10/22/24 13:33 Blood Pressure 118/59 L 10/22/24 13:33 Pulse Oximetry 96 10/22/24 13:33 Oxygen Delivery Room Air 10/22/24 13:33 Pulse Rate 101 H 10/22/24 13:33 Respiratory Rate 22 H 10/22/24 13:33 Blood Pressure 118/59 L 10/22/24 13:33 Pulse Oximetry 96 10/22/24 13:33 Oxygen Delivery Room Air 10/22/24 13:33 Medical Decision Making [facility] Narrative Medical decision making narrative: Patient presents with not feeling good, diarrhea and generally weak, off narcotics for 1 week Vital signs are stable Physical examination showing debilitating patient, awake alert oriented x4, complaining of feeling 30 Differential diagnosis drug withdrawal, dehydration, electrolyte imbalance, urinary tract infection, anxiety/depression Blood workup today includes CBC, CMP, troponin, CPK showed WBC 10.6, BUN 34 creatinine 1.4, chloride 113 bicarb 6 likely secondary to diarrhea, troponin is 0.041, 3 hours later 0.038 likely secondary to dehydration, improving likely secondary to hydration. Urinalysis showed 2+ ketone, patient does not eat or drink lately Chest x-ray showed no acute abnormality CT head without contrast showed no acute abnormality Diagnosis LEATHA, drug withdrawal Patient received 1 L of normal saline IV and hydrocodone 7.5 p.o. prior to admission. Differential Diagnosis Differential Diagnosis: As above Vital Signs Vital Signs: Vital Signs Pulse Rate 101 H 10/22/24 13:33 Respiratory Rate 22 H 10/22/24 13:33 Blood Pressure 118/59 L 10/22/24 13:33 Pulse Oximetry 96 10/22/24 13:33 Oxygen Delivery Room Air 10/22/24 13:33 Pulse Rate 101 H 10/22/24 13:33 Respiratory Rate 22 H 10/22/24 13:33 Blood Pressure 118/59 L 10/22/24 13:33 Pulse Oximetry 96 10/22/24 13:33 Oxygen Delivery Room Air 10/22/24 13:33 Lab Data 10/22/24 14:43 10/22/24 14:43 Labs: Lab Results 10/22/24 10/22/24 10/22/24 Range/Units 14:43 15:05 17:07 WBC 10.6 H (4.5-10.0) K/mm3 RBC 4.38 (4.2-5.4) M/mm3 Hgb 13.3 (12.0-15.0) g/dL Hct 42.7 (37.0-47.0) % MCV 97.5 (80-100) fl MCH 30.4 (26-34) pg MCHC 31.1 L (32-36) g/dl RDW 16.3 H (11.5-14.5) % Plt Count 361 (150-375) k/mm3 MPV 10.0 (7.4-10.4) fl Immature Gran % (Auto) 1.3 H (0-0.5) % Neut % (Auto) 76.1 H (45.5-73.1) % Lymph % (Auto) 14.4 L (18.3-44.2) % [place] % (Auto) 7.4 (2.6-8.5) % Eos % (Auto) 0.1 (0-4.4) % Baso % (Auto) 0.7 (0.2-1.2) % Lymph # (Auto) 1.53 (0.9-3.2) K/mm3 [place] # (Auto) 0.8 H (0.1-0.6) K/mm3 Eos # (Auto) 0.0 (0-0.3) K/mm3 Baso # (Auto) 0.1 (0.0-0.1) K/mm3 Abs Immat Gran (auto) 0.14 H (0.00-0.031) K/mm3 Absolute Neuts (auto) 8.1 H (1.3-6.7) K/mm3 Absolute Nucleated RBC 0.000 (0.0-0.012) K/mm3 Nucleated RBC % 0.0 (0.0-0.2) % PT 15.9 H (11.1-14.7) Seconds INR 1.3 APTT 34.2 (22.3-36.8) Seconds Sodium 140 (137-145) mmol/L Potassium 3.8 (3.4-5.0) mmol/L Chloride 113 H (98-107) mmol/L Carbon Dioxide 6 L (22-30) mmol/L Anion Gap 21 H (4-12) mmol/L BUN 34 H D (7-17) mg/dL Creatinine 1.45 H (0.7-1.0) mg/dL Estim Creat Clear Calc 22 ml/min Estimated GFR 35 L (59 - ) Glucose 77 (65-110) mg/dL Calcium 8.3 L (8.4-10.2) mg/dL Total Bilirubin 0.5 (0.2-1.3) mg/dL AST 58 H (14-36) U/L ALT 44 H (6-35) U/L Alkaline Phosphatase 93 (38-126) U/L Total Creatine Kinase 170 H (30-135) U/L Troponin I 0.041 H* 0.038 H* (0.000-0.034) ng/mL Total Protein 6.9 (6.3-8.2) g/dL Albumin 3.8 (3.5-5.1) g/dL TSH 1.350 (0.465-4.680) uIU/mL Urine Color Yellow (Yellow) Urine Appearance Clear (Clear) Urine pH 5.0 (5.0-9.0) Ur Specific [place] 1.023 (1.001-1.035) Urine Protein 1+ H (Negative) mg/dL Urine Glucose (UA) Negative (Negative) mg/dL Urine Ketones 2+ H (Negative) mg/dL Ur Blood (Man) Negative (Negative) Urine Nitrate Negative (Negative) Urine Bilirubin Negative (Negative) Urine Urobilinogen 0.2 (<2.0) mg/dL Add Ur Microanalysis Reviewed Leukocyte Esterase Rfl Negative (Negative) ZACHARY/UL Urine RBC 0-2 (0-2) /hpf Urine WBC 0-5 (0-3) /hpf Ur Squamous Epith Cells Occasional (Few) /hpf Urine Bacteria None seen /hpf Urine Casts 3-5 Hyaline Casts Present (None) /lpf Imaging Data Radiologist's impression: Impressions Head CT 10/22/24 14:26 IMPRESSION: 1. No acute intracranial abnormality. Chest X-Ray 10/22/24 14:28 IMPRESSION: 1. No acute cardiopulmonary findings given portable technique. ECG Data EKG #1: Attestation: I personally reviewed and interpreted this ECG as follows: ECG completion date: 10/22/24 Critical Care Time Critical Care Time Critical Care Time: Yes Total Critical Care Time: 30 Discharge Plan Discharge Clinical Impression: LEATHA (acute kidney injury), Opioid use, unspecified with withdrawal Patient Disposition: Still a Patient Condition: Guarded Prognosis Patient Language: Colombian Prescriptions: No Action albuterol sulfate [ProAir HFA] 90 mcg/actuation HFA aerosol inhaler 90 mcg INHALATION DIRECTED Rx Instructions: Every 4-6 hrs PRN aspirin 81 mg Tablet,Delayed Release (Dr/Ec) 81 mg PO QAM Qty: 30 0RF fluticasone propion-salmeterol 250-50 mcg/dose blister with device See Rx Instructions .ROUTE .COMPLEX Qty: 60 2RF Dose Instruction: INHALE 1 PUFF BY MOUTH TWICE A DAY Rx Instructions: INHALE 1 PUFF BY MOUTH TWICE A DAY oxycodone 5 mg tablet 5 mg PO Q6-8H PRN (Reason: pain (scale score 7-10)) Qty: 120 0RF pantoprazole 40 mg tablet,delayed release (DR/EC) See Rx Instructions .ROUTE .COMPLEX Qty: 180 0RF Dose Instruction: TAKE 1 TABLET BY MOUTH TWICE A DAY Rx Instructions: TAKE 1 TABLET BY MOUTH TWICE A DAY duloxetine 30 mg capsule,delayed release(DR/EC) See Rx Instructions .ROUTE .COMPLEX Qty: 90 0RF Dose Instruction: TAKE 1 CAPSULE BY MOUTH EVERY DAY Rx Instructions: TAKE 1 CAPSULE BY MOUTH EVERY DAY buspirone 5 mg tablet See Rx Instructions .ROUTE .COMPLEX Qty: 180 0RF Dose Instruction: TAKE 1 TABLET TWICE DAILY Rx Instructions: TAKE 1 TABLET TWICE DAILY metoprolol succinate 25 mg tablet extended release 24 hr See Rx Instructions .ROUTE .COMPLEX Qty: 90 2RF Dose Instruction: TAKE FULL TAB (25 MG) ORALLY DAILY HOLD IF SBP < 110 OR HR < 60 Rx Instructions: TAKE FULL TAB (25 MG) ORALLY DAILY HOLD IF SBP < 110 OR HR < 60 Follow-up/Referrals: Magnolia Pisano APRN [Advanced Practice Nurse, Family Practice] Quality Stroke Date of last known normal: 10/22/24 Stroke Scale Stroke Scale 1: Stroke scale date:: 10/22/24 1a Level of consciousness: alert-0 1b Level of consciousness questions: answers both correctly-0 1c Level of consciousness commands: obeys both correctly-0 2 Best gaze: normal-0 3 Visual: no visual loss-0 4 Facial palsy: normal-0 5a Motor: left arm: no drift-0 5b Motor: right arm: no drift-0 6a Motor: left leg: no drift-0 6b Motor: right leg: no drift-0 7 Limb ataxia: absent-0 8 Sensory: normal-0 9 Best language: no aphasia-0 10 Dysarthria: normal-0 11 Extinction and inattention: no abnormality-0 Level:: 0
--- NOTE | 2024-10-22 14:07 | ECG_ITS ---
Test Date: 2024-10-22 13:48:06 Measurements Intervals [place] Rate: 103 P: 79 MI: 165 QRS: 34 QRSD: 84 T: 53 QT: 329 QTc: 431 Interpretive Statements SINUS TACHYCARDIA NONSPECIFIC ST & T-WAVE ABNORMALITY ABNORMAL RHYTHM ECG Compared to ECG 09/12/2023 02:10:16 Sinus rhythm no longer present T-wave abnormality still present Electronically Signed On 10-22-2024 15:45:45 CDT by Jese Magana M.D.
[2024-10-22] MEDS: SODIUM CHLORIDE 0.9% IV 1,000 ML 999 ML IV CONT (14:32)
--- OUTSIDE RECORDS SUMMARY | 2024-10-22 14:50 | XMS_ITS | Patient Health Record ---
Author Organization [facility] Address [address] [place] [address] Care Team Providers Care Armature Bander Name Role Phone Norris Magnolia Primary Care Provider UnavailMary Barreto Unavailable [phone] Vikas Hsu Unavailable [phone] Allergies No Known Allergies Reason For Referral No Information Medications Medication SIG (Take, Route, Frequency, Duration) Notes Start Date End Date Status HYDROcodone-Acetaminophen 5-325 MG 1 tablet Orally twice per day PRN for 30 days 10/21/2024 Active LORazepam 0.5 MG 1 tablet at bedtime as needed Orally Once a day Not-Taking Sertraline HCl 100 MG 1 tablet Orally On ce a day Active Metoprolol Succinate ER 25 MG TAKE FULL TAB (25 MG) ORALLY DAILY HOLD IF SBP < 110 OR HR < 60 Oral for 90 Days Active busPIRone HCl 5 MG TAKE 1 TABLET TWICE DAILY Oral for 90 Days Active Pantoprazole Sodium 40 MG Oral for 90 Days Active Ofloxacin 0.3 % PUT 2 DROPS INTO RIG HT EYE EVERY 4 HOURS X2 DAYS, THEN 2 DROPS 4 TIMES DAILY WHILE AWAKE ON DAYS 3-7 Ophthalmic for 7 Days Active Pantoprazole Sodium 40 MG Oral for 90 Days Active Problems Problem Type SNOMED Code ICD Code Onset Dates Problem Status W/U Status Risk Notes Problem Radiculopathy (43409581) Radiculopathy (M54.10) Active confirmed Vital Signs Height 60 in 08/10/2024 Weight 99.4 lbs 08/10/2024 BMI 19.41 kg/m2 08/10/2024 Encounters Encounter Location Date Provider Diagnosis [facility] [address] [place] [address] 09/14/2024 Mary Chung Lumbar Spondylosis without Myelopathy M47.816 [facility]-[address] [address] 09/21/2024 Mary Chung Lumbar Spondylosis without Myelopathy M47.816 [facility] [address] 10/21/2024 Vikas Hsu [facility] [address] 08/10/2024 Viksa Hsu Lumbar radiculopathy M54.16 ; Spinal stenosis, lumbar region with neurogenic claudication M48.062 and Lumbar Spondylosis without Myelopathy M47.816 [facility] [address] 08/24/2024 Vikas Hsu Lumbar radiculopathy M54.16 and Spinal stenosis, lumbar region with neurogenic claudication M48.062 [facility] [address] 09/23/2024 Vikas Hsu Lumbar radiculopathy M54.16 ; Spinal stenosis, lumbar region with neurogenic claudication M48.062 and Vertebrogenic low back pain M54.51 [facility] [place] [address] [place] [address] 08/11/2024 Mary Chung [facility] [address] [place] [address] 08/12/2024 Mary Chung [facility] [address] [place] [address] 08/16/2024 Vikas Hsu [facility] [address] [place] [address] 08/18/2024 Mary Chung [facility] [address] [place] [address] 09/23/2024 Mary Chung [facility] [address] [place] [address] 10/21/2024 Mary Chung [facility] [address] [place] [address] 10/21/2024 Mary Chung [facility] [address] [place] [address] 10/21/2024 Mary Chung Assessments Encounter Date Diagnosis (ICD Code) Assessment Notes Treatment Notes Treatment Clinical Notes Section Notes 09/14/2024 Lumbar Spondylosis without Myelopathy (ICD-10 - M47.816) 09/21/2024 Lumbar Spondylosis without Myelopathy (ICD-10 - M47.816) 08/10/2024 Lumbar radiculopathy (ICD-10 - M54.16) IMPRESSION: 1. Low back pain with radiation to the bilateral posterior thighs. 2. Lumbar spondylosis. 3. Opioid dependence. 08/10/2024 Spinal stenosis, lumbar region with neurogenic claudication (ICD-10 - M48.062) IMPRESSION: 1. Low back pain with radiation to the bilateral posterior thighs. 2. Lumbar spondylosis. 3. Opioid dependence. 08/24/2024 Lumbar radiculopathy (ICD-10 - M54.16) Assessment is unchanged from 08/10/24 except as denoted below. 08/24/2024 Spinal stenosis, lumbar region with neurogenic claudication (ICD-10 - M48.062) Assessment is unchanged from 08/10/24 except as denoted below. 09/23/2024 Lumbar radiculopathy (ICD-10 - M54.16) Assessment is unchanged from 08/24/24 except as denoted below. 09/23/2024 Spinal stenosis, lumbar region with neurogenic claudication (ICD-10 - M48.062) Assessment is unchanged from 08/24/24 except as denoted below. 08/10/2024 Lumbar Spondylosis without Myelopathy (ICD-10 - M47.816) IMPRESSION: 1. Low back pain with radiation to the bilateral posterior thighs. 2. Lumbar spondylosis. 3. Opioid dependence. 09/23/2024 Vertebrogenic low back pain (ICD-10 - M54.51) Assessment is unchanged from 08/24/24 except as denoted below. 08/17/2024 Other Notes: Significant time was spent due to complex decision-making as a result of the patient's complicated pain issues. The plan is as follows: Patient will continue exercise therapy regimen. Assessment is unchanged from 08/10/24 except as denoted below. 10/19/2024 Other Notes: Significant time was spent due to complex decision-making as a result of the patient's complicated pain issues. The plan is as follows: Patient will continue exercise therapy regimen. Assessment is unchanged from 09/23/24 except as denoted below. 10/21/2024 Other Notes: Significant time was spent [...] tylenol and ibuprofen. Reminded the patient that [facility] is an interventional pain management practice, and [...] pt being in significant pain, will prescribe hydrocodone-acet aminophen 5-325mg 1 tab PO BID PRN for [...] unchanged from 09/23/24 except as denoted below. 08/10/2024 Other PLAN: The patient notes that she is seeing an orthopedist about her left elbow fracture. We agree with this and explained to the patient that her fracture happened a little over 1 month ago and it can take at minimum 6 to 8 weeks for a fracture to heal, but it may take longer. We advised the patient to follow up with her orthopedist as scheduled. We will schedule the patient for left, then right, diagnostic L4-5 and L5-S1 facet joint injections to target her axial low back pain stemming from lumbar spondylosis. We will plan for lumbar medial branch nerve radiofrequency ablations in the future. We discussed procedure details, risks, benefits, alternatives and expected outcomes of the above procedures with the patient. The patient expressed understanding. All patient questions were answered to the patient's satisfaction. The patient notes that she has had a lumbar spine MRI within the last year at [facility] in [place], [place]. We will request the lumbar MRI records and review it with the patient at a followup visit and develop a further treatment plan after reviewing it. The patient notes that she has been taking opioid medications for many years. The patient currently takes oxycodone 5 mg 1 tablet 4 times a day as needed. Discussed with the patient that [facility] is an interventional pain management practice, and our ultimate goal is to provide sustained pain relief and improved function through procedures and not with opioid medications solely. Explained to patient that our plan is to wean the patient from her current opioid dose and to eventually wean her off opioids entirely. We explained to the patient that we do not prescribe opioid pain medications indefinitely. 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 We further explained to the patient that this is not part of the treatment plan and our goal is to wean her current dose down and eventually off it. The patient expressed understanding and is agreeable to this. We will refill the patient's oxycodone 5 mg 1 tablet 4 times a day as needed for 7 days. We will obtain a drug screen at this time. We will have the patient follow up in 7 days for a medication refill. We explained to the patient that we plan to wean her down to 3 tablets a day in the very near future. The patient expressed understanding. We will not add or change any other medications at this time as the patient is currently tolerating all medications with no significant side effects. We advised the patient to contact the clinic if they develop any new pain or worsening symptoms. IMPRESSION: 1. Low back pain with radiation to the bilateral posterior thighs. 2. Lumbar spondylosis. 3. Opioid dependence. 08/24/2024 Other Notes: Significant time was spent due to complex decision-making as a result of the patient's complicated pain issues. The plan is as follows: Patient will continue exercise therapy regimen. Reviewed the patient's lumbar spine MRI report with them. Answered all patient questions to their satisfaction. Reviewed most recent drug screen report which shows no concerning abnormalities Will refill pt's oxycodone-acetam inophen as it improves pain and function without significant side effects. Will obtain drug screen today. Will schedule the patient for a bilateral L3/4 OWEN to target pain and radicular symptoms stemming from stenosis. Discussed procedure details, risks, benefits, alternatives and expected outcomes with the patient. The patient expresses understanding. All patient questions were answered to the patient's satisfaction. Will order a new lumbar MRI if pt does not receive significant benefit from the upcoming injection. Follow-up in 4 weeks for medication management and reassessment of treatment plan. Patient advised to contact the clinic if they develop any new or worsening pain/symptoms. The total encounter time for today's visit was 30 minutes which was spent on preparation for the visit, e.g. chart review, and in the activities documented in this note. Please refer back to the HPI and physical exam sections of this note for further details regarding this encounter. Assessment is unchanged from 08/10/24 except as denoted below. 09/23/2024 Other Notes: Significant time was spent due to complex decision-making as a result of the patient's complicated pain issues. The plan is as follows: Patient will continue exercise therapy regimen. Reviewed most recent drug screen report which shows no concerning abnormalities Will refill pt's oxycodone-acetam inophen as it improves pain and function without significant side effects. Will obtain drug screen today. Due to pt not having significant improvement from her recent injections, will order a new lumbar spine MRI to further evaluate the caues of her pain. Suspect a discogenic vs vertebrogenic source. Will review at [facility]. Will have pt proceed with her upcoming lumbar OWEN as scheduled. Follow-up in 4 weeks for medication management and reassessment of treatment plan. Patient advised to contact the clinic if they develop any new or worsening pain/symptoms. We will not add or change any medications at this time as the patient is currently tolerating all medications with no significant side effects. Reminded the patient that [facility] is an interventional pain management practice, and our ultimate goal is to provide sustained pain relief and improved function through procedures and not with opioid medications. Explained to patient that we do not prescribe opioid medications indefinitely, and our goal is to wean patients off of opioid pain medications entirely. The patient expresses understanding and is agreeable to this plan. The pt's son, Saeed, at bedside expressed his understanding and is also agreeable to this plan and stated he does desire to have his mother discontinue opioid eventually. Advised pt to contact clinic if they [...] regarding this encounter. Assessment is unchanged from 08/24/24 except as denoted below. Plan Of Treatment Pending Test Test Name Order Date MRI Lumbar Spine without contrast 2024 Next Appt Details Provider Name:Chaparro Temple 11:00:00 AM, [address] [place], [address], Insurance Providers Payer Name Payer Address Payer Phone Subscriber Number Group Number Insured Name Patient Relationship to Insured Coverage Start Date Coverage End Date [employer] Medicare [address] SUZAN CARLSON, ANA LUISA [phone] [id number] Marysol Chapman Self - patient is the insured Medical (General) History Medical History History ICD Code High Blood Pressure High Cholesterol GERD Depression A Fib COPD Surgical History Surgery Date(Month/Year) D & C tubal ligation 1975 Gall Bladder Removed 2001 Hospitalization History Reason Date(Month/Year) see surgical history
[2024-10-22 14:51] LABS: Hematocrit 42.7 % (37.0-47.0); Hemoglobin 13.3 g/dL (12.0-15.0); Immature Granulocyte Percent A 1.3 % (0-0.5); Lymphocytes Absolute Auto 1.53 K/mm3 (0.9-3.2); Mean Corpuscular HGB Conc 31.1 g/dl (32-36); Mean Corpuscular Hemoglobin 30.4 pg (26-34); Mean Corpuscular Volume 97.5 fl (80-100); Nucleated Red Blood Cells Absolute Auto 0.000 K/mm3 (0.0-0.012); Nucleated Red Blood Cells Perc 0.0 % (0.0-0.2); Platelet Count Result 361 k/mm3 (150-375); Red Blood Count 4.38 M/mm3 (4.2-5.4); White Blood Count 10.6 K/mm3 (4.5-10.0)
[2024-10-22 15:02] LABS: INR 1.3; Partial Thromboplastin Time 34.2 Seconds (22.3-36.8); Prothrombin Time 15.9 Seconds (11.1-14.7)
[2024-10-22 15:07] LABS: Alanine Aminotransferase 44 U/L (6-35); Albumin Level 3.8 g/dL (3.5-5.1); Alkaline Phosphatase 93 U/L (38-126); Anion Gap 21 mmol/L (4-12); Aspartate Amino Transferase 58 U/L (14-36); Bilirubin,Total 0.5 mg/dL (0.2-1.3); Blood Urea Nitrogen 34 mg/dL (7-17); Calcium 8.3 mg/dL (8.4-10.2); Carbon Dioxide 6 mmol/L (22-30); Chloride 113 mmol/L (98-107); Creatine Kinase 170 U/L (30-135); Estimated CRCL calculation 22 ml/min; Estimated Glomerular Filt Rate 35; Glucose 77 mg/dL (65-110); Potassium 3.8 mmol/L (3.4-5.0); Sodium 140 mmol/L (137-145); Total Protein 6.9 g/dL (6.3-8.2)
[2024-10-22 15:16] LABS: Troponin I 0.041 ng/mL (0.000-0.034)
[2024-10-22 15:33] LABS: Thyroid Stimulating Hormone 1.350 uIU/mL (0.465-4.680)
[2024-10-22 15:52] LABS: Add Urine Microscopic? YES; Appearance Urine Clear (Clear); Glucose Urine UA Negative (Negative); Leukocyte Esterase Ur Negative LEU/UL (Negative); Need Manual Microscopic Reviewed; Nitrate Urine Negative (Negative); Specific Grav Ur 1.023 (1.001-1.035)
--- NOTE | 2024-10-22 16:56 | ECG_ITS ---
Test Date: 2024-10-22 17:12:01 Measurements Intervals [place] Rate: 99 P: 85 [place]: 164 QRS: 36 QRSD: 86 T: 25 QT: 339 QTc: 436 Interpretive Statements SINUS RHYTHM NONSPECIFIC ST & T-WAVE ABNORMALITY ABNORMAL ECG Compared to ECG 10/22/2024 13:48:06 Sinus tachycardia no longer present T-wave abnormality still present Electronically Signed On 10-23-2024 12:13:51 CDT by Joseluis Segundo M.D.
[2024-10-22 17:41] LABS: Troponin I 0.038 ng/mL (0.000-0.034)
[2024-10-22 19:43] VITALS: BMI 17.9
[2024-10-22 19:45] VITALS: BP 139/48; PULSE 104; RESP 18; TEMP 36.7; O2SAT 93
[2024-10-22 19:47] VITALS: BP 139/48; PULSE 104; RESP 18; TEMP 36.7; O2SAT 93
[2024-10-22] MEDS: SODIUM CHLORIDE 0.9% IV 1,000 ML 150 ML IV CONT (19:47)
[2024-10-22] MEDS: HYDROcodone/acetaminophen (*CRX) 5-325 MG TABLET 1 TAB PO (19:55)
[2024-10-22 20:00] VITALS: PULSE 104; O2SAT 98
--- NOTE | 2024-10-22 20:02 | ADMGEN ---
This patient, Marysol Chapman, was admitted to Medical Room 250-01. Patient/family oriented to hospital policies and general routines including ID bracelet, bed and alarms, visiting hours, pain management, procedures, bathroom and other care routines, personal items, smoking policy, room service/diet, and visiting hours. Information on how to activate the Rapid Response Team has been discussed. Patient/Family are encouraged to report perceived risks to care and to ask questions if they do not understand what they are told or what they should do.
--- NOTE | 2024-10-22 23:26 | P.HP_ITS ---
H&P: HPI History of Present Illness Date/Time: 10/22/24 23:26 Chief Complaint: Diarrhea and confusion Narrative: 88-year-old female with a past medical history of chronic pain dependent upon chronic opiate, prior drug abuse anxiety, depression, essential hypertension and GERD who presented to the ER from via EMS due to diarrhea, confusion and weakness. Patient was somnolent and lethargic at the time my evaluation and was unable to provide any history subsequently information was obtained from discussion with the patient's family, review of past medical records and ER physician report. The patient had come in complaining of weakness head was having trouble sitting upright on arrival to the ER was leaning to the left. The patient sees Pain Management and recently fired from prior pain management clinic and was recently reestablished with a new pain management physician. She had previously been on oxycodone and hydrocodone. She ran out of medications 1 week ago. She was evaluated by her new pain management physician on the but had not gotten her prescription filled yet. She began having multiple episodes of diarrhea and nausea that started on the . She did not have any fevers or chills. She had reportedly denied any urinary symptoms. The patient was reportedly alert oriented x4 in the ER. However nursing staff told me that the bedtime patient arrived to the medical floor she was alert and oriented to the fact that she is on hospital but could not state what hospital she was in in could state what year it was. The patient was evidently able to verbalize that she did not want CPR or intubation to the ER physician and that the patient had previously been on hospice. However by the time patient arrived to the medical floor patient was unable to verbalize her wishes and the patient's children who were at bedside is stated that they wanted the patient to be a full code until they stated discuss the matter further. In the ER patient was noted to have acute kidney injury presumed to be due to diarrhea from opiate withdrawal. She was given 1 L fluid bolus as started on maintenance fluids with normal saline at 150 mL an hour. She was also started on [place]. When she arrived to the medical floor she was complaining of pain and nursing staff give patient 1 dose of [place]. I saw the patient couple of hours later and the patient was somnolent and lethargic and unable to answer questions. She was markedly tachypneic and on review or labs noted that her serum bicarb was markedly low at 6 which seemed out of proportion compared to the patient's creatinine. Was tachycardic and ill-appearing. She initially could tell me that she was in the hospital but was having difficulty following command and was trying to state the year but could not complete the answer. Subsequently further testing was obtained. With the patient having significant metabolic acidosis despite marked tachypnea and respiratory alkalosis. Further testing also demonstrated continue decreased serum bicarb despite the fluid resuscitation and improved renal function. She had significant anion gap acidosis and further testing was obtained to determine underlying pathology and patient was subsequently found to have salicylate toxicity. Patient was subsequently transferred to the ICU in this setting. Review of Systems 2 Review of Systems: Unobtainable due to the patient's clinical condition [facility] Past Medical History Medical History (Updated 10/23/24 @ 08:40 by Tomasa Jimenez DO) Bilateral sacroiliitis Spinal stenosis, lumbar region with neurogenic claudication C. difficile colitis (08/2023) Anemia Chronic pain syndrome Constipation due to opioid therapy Tobacco abuse COPD (chronic obstructive pulmonary disease) Common bile duct dilatation Anxiety Acid reflux Peptic ulcer disease Surgical History Surgical History H/O tubal ligation Hx of cholecystectomy Family History Family History Mother Cerebrovascular accident Father Diabetes mellitus Social History Social History (Updated 10/22/24 @ 23:36 by Tomasa Jimenez DO) Social History: She smokes anywhere from half a pack to pack a cigarettes a day. She has 3 children. 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 She denies any alcohol marijuana or illicit drugs. Code status: DNR/DNI Surrogate decision maker: Chaka (son) Smoking packs per day: 1.5 Smoking cigarettes per day: 30.0 Years smoked: 50 Smoking pack-years: 75.00 Smoking status: Light tobacco smoker Tobacco type: cigarettes Second hand tobacco smoke exposure: No Smoking end date: 07/26/23 Alcohol intake: never Substance use: never Substance use type: does not use Other substance usage details: prescribed opiates Last use: 09/07/21 Do You Feel Safe in your Home?: Yes Lack of Transportation: No Lack of Food: Never True Current Housing: I Have Housing Concerned About Future Housing: No Difficulty Paying Gas/Electric Bills: No Difficulty Paying for Meds: No Currently Unemployed: No Education: Trade/Vocational Certificate Difficulty w/ Childcare or Family Care: No Living arrangements: with family Gender identity (if verbalized by the patient): Female Sexual Orientation (if Verbalized by the Patient): Straight or Heterosexual Spiritual care concerns: No Meds Home Medications and Allergies Home Medications ?Medication ?Instructions ?Recorded ?Confirmed ?Type albuterol sulfate 90 mcg/actuation 90 mcg inhalation A S DIRECTED 12/20/19 10/22/24 History aerosol inhaler (ProAir HFA) aspirin 81 mg tablet,delayed 81 mg PO QAM #30 tabs 10/22/24 Rx release fluticasone 250 mcg-salmeterol 50 See Rx Instructions .Route 01/05/24 10/22/24 Rx mcg/dose blistr powdr for .COMPLEX #60 ea inhalation oxycodone 5 mg tablet 5 mg PO Q6-8H PRN pain (scal e 07/21/24 10/22/24 Rx score 7-10) #120 tabs duloxetine 30 mg capsule,delayed See Rx Instructions . Route 09/23/24 10/22/24 Rx release .COMPLEX #90 caps pantoprazole 40 mg tablet,delayed See Rx Instructions .Route 09/23/24 10/22/24 Rx release .COMPLEX #180 tabs buspirone 5 mg tablet See Rx Instructions .Route 0 09/24/24 10/22/24 Rx .COMPLEX #180 tabs metoprolol succinate 25 mg See Rx Instructions .Route 10/07/24 10/22/24 Rx tablet,extended release 24 hr .COMPLEX #90 tabs sertraline 100 mg tablet 200 mg PO Q24H 10/22/2410/11 History Allergies Allergy/AdvReac Type Severity Reaction Status Date / Time No Known Allergies Allergy Verified 09/02/24 14:11 Vital Signs Vital Signs - 24 hr 10/22/24 13:33 10/22/24 19:45 10/22/24 19:47 Temperature 98.0 F 98.0 F Pulse Rate 101 H 104 H 104 H Respiratory Rate 22 H 18 18 Blood Pressure 118/59 L 139/48 L 139/48 L Pulse Oximetry 96 93 93 Oxygen Delivery Room Air Oxygen Flow Rate 10/22/24 20:00 10/22/24 20:00 Temperature Pulse Rate 104 H Respiratory Rate Blood Pressure Pulse Oximetry 98 Oxygen Delivery Nasal Cannula Oxygen Flow Rate 1 Exam 2 Narrative: Weight 43 kg BMI 17.9 Const: Other: Acutely ill-appearing, appears older than stated age, frail, cachectic HENMT: Other: Mucous membranes are dry, edentulous in upper and lower jaw, head is normocephalic atraumatic, pupils are dilated equally with bilateral cataracts noted, nasal cannula in place Neck: Other: No lymphadenopathy, no JVD Resp: Other: Marked tachypnea with respiratory rate between 30 and 50, expiratory wheezing left greater than right Cardio: Other: Sinus tachycardia, 2+ bilateral radial pedal pulses GI: Other: Hyperactive bowel sounds, concave, patient grimaces with palpation of the upper abdomen bilaterally, abdomen is otherwise soft : Other: Incontinent of urine Skin: Other: No pallor, non jaundice Neuro: Other: Moves all extremities equally, lethargic, difficult to arouse, right facial droop, pupils are dilated but equal, garbled speech, nonsensical answers, normal tone Extrem: Other: No clubbing, cyanosis or edema, 5/5 oyster fisherman strength left, 4-5 oyster fisherman strength right Psych: Other: Confused, otherwise unable to assess H&P: Results Labs Labs: Laboratory Tests 10/22/24 14:43 10/22/24 14:43 10/22/24 10/22/24 10/22/24 14:43 15:05 17:07 WBC 10.6 H RBC 4.38 Hgb 13.3 Hct 42.7 MCV 97.5 MCH 30.4 MCHC 31.1 L RDW 16.3 H Plt Count 361 MPV 10.0 Immature Gran % (Auto) 1.3 H Neut % (Auto) 76.1 H Lymph % (Auto) 14.4 L [place] % (Auto) 7.4 Eos % (Auto) 0.1 Baso % (Auto) 0.7 Lymph # (Auto) 1.53 [place] # (Auto) 0.8 H Eos # (Auto) 0.0 Baso # (Auto) 0.1 Abs Immat Gran (auto) 0.14 H Absolute Neuts (auto) 8.1 H Absolute Nucleated RBC 0.000 Nucleated RBC % 0.0 PT 15.9 H INR 1.3 APTT 34.2 Sodium 140 Potassium 3.8 Chloride 113 H Carbon Dioxide 6 L Anion Gap 21 H BUN 34 H D Creatinine 1.45 H Estim Creat Clear Calc 22 Estimated GFR 35 L Glucose 77 Calcium 8.3 L Total Bilirubin 0.5 AST 58 H ALT 44 H Alkaline Phosphatase 93 Total Creatine Kinase 170 H Troponin I 0.041 H* 0.038 H* Total Protein 6.9 Albumin 3.8 TSH 1.350 Urine Color Yellow Urine Appearance Clear Urine pH 5.0 Ur Specific [place] 1.023 Urine Protein 1+ H Urine Glucose (UA) Negative Urine Ketones 2+ H Ur Blood (Man) Negative Urine Nitrate Negative Urine Bilirubin Negative Urine Urobilinogen 0.2 Add Ur Microanalysis Reviewed Leukocyte Esterase Rfl Negative Urine RBC 0-2 Urine WBC 0-5 Ur Squamous Epith Cells Occasional Urine Bacteria None seen Urine Casts 3-5 Hyaline Casts Present Impressions Head CT 10/22/24 14:26 IMPRESSION: 1. No acute intracranial abnormality. Chest X-Ray 10/22/24 14:28 IMPRESSION: 1. No acute cardiopulmonary findings given portable technique. EKG: Sinus rhythm rate [address] and T-wave abnormality QTC 436. Cardiology interpretation pending. Assessment and Plan Assessment and plan (1) Metabolic acidosis with respiratory alkalosis: Code(s): E87.20 - Acidosis, unspecified; E87.3 - Alkalosis Status: Acute (2) Salicylate overdose: Qualifiers: Encounter type: initial encounter Injury intent: accidental or unintentional Qualified Code(s): T39.091A - Poisoning by salicylates, accidental (unintentional), initial encounter Code(s): T39.091A - Poisoning by salicylates, accidental (unintentional), initial encounter Status: Acute (3) LEATHA (acute kidney injury): Code(s): N17.9 - Acute kidney failure, unspecified Status: Acute (4) Opioid use, unspecified with withdrawal: Code(s): F11.93 - Opioid use, unspecified with withdrawal Status: Acute (5) custodial (current) use of opiate analgesic: Code(s): Z79.891 - manager intermediate (current) use of opiate analgesic Status: Acute (6) Chronic pain syndrome: Code(s): G89.4 - Chronic pain syndrome Status: Acute (7) HTN (hypertension): Qualifiers: Hypertension type: primary hypertension Qualified Code(s): I10 - Essential (primary) hypertension Code(s): I10 - Essential (primary) hypertension Status: Acute (8) Tobacco abuse: Code(s): Z72.0 - Tobacco use Status: Chronic Plan Patient has acute kidney injury that is likely multifactorial due to a combination of unintentional salicylate overdose, starvation ketosis and or hypovolemia. Patient case was discussed with poison Control re suggested urgent nephrology consult given the patient's altered mental status in the setting of salicylate toxicity. The patient's salicylate level in and of itself would not require emergent dialysis but given the patient's severe encephalopathy in may be indicated. The patient was treated with a total of 3 amps of sodium bicarbonate bolus and started on a bicarb drip with D5 W with 150 mEq of sodium bicarb at 150 mL an hour. Given the patient's encephalopathy even though she had euglycemia poison Control recommended patient receive an amp of D50 to help with cerebral metabolism. Case was discussed with the legal secretary receptionist and the initially rib planning to arrange for patient have emergent dialysis. But repeat to use returned with significant improvement in the patient's pH from 7.2 up to 7.4 with pCO2 improving from 21 up to 30. Subsequently of will continue to monitor serial salicylate levels and urine pH Q 2 hours. Will give the patient significant potassium repletion as salicylate toxicity can cause worsening hypokalemia. 40 mEq potassium chloride rider has been ordered. Repeat electrolyte panel is pending at the time of my sign-out to he manager labor relations. Patient has mildly elevated transaminases with history of transaminitis in the past. Will repeat CMP in a.m.. Patient has metabolic encephalopathy due to above causes. Will continue patient is NPO status given her mental status and inability to follow commands and re- evaluate diet once mentation improves. Patient had minimally elevated troponin with completely flat profile. No evidence of acute ischemic event. Severe protein calorie malnutrition will need to re-evaluate nutritional supplementation and will consult speech therapy for evaluation of swallow function and dietitian for non nutritional supplement recommendations Plan of care discussion was had with the patient's son Jossue and his Charley. They stated that the patient has verbalized in the past that she wanted to be a DNR but they are not comfortable giving this official determination without discussion with the patient's other 2 children. They will call and update with goals of care. 95 minutes spent in critical care activities Due to a high probability of clinically significant, life threatening deterioration, the patient required my highest level of preparedness to intervene emergently and I personally spent this critical care time directly and personally managing the patient. This critical care time included obtaining a history; examining the patient; pulse oximetry; ordering and review of studies; arranging urgent treatment with development of a management plan; evaluation of patient's response to treatment; frequent reassessment; and discussions with other providers. It was exclusive of separately billable procedures and treating other patients and teaching time. Please see Assessment and Plan section and the rest of the note for further information on patient assessment and treatment. Quality VTE Prophylaxis VTE prophylaxis: pharmacologic ordered (Lovenox 30 mg subQ daily.) Hospitalist [facility] Advance Care Plan I have confirmed that the patient's Advanced Care Plan is present, code status is documented, or surrogate decision maker is listed in patient medical record.: Yes Medication Reconciliation I have utilized all available resources to obtain, update and review the patients current medications (includes all prescriptions, OTC, herbals, cannabis, and nutritional supplements).: Yes
[2024-10-23] VITALS (23 sets, daily range): BP systolic 90–133; BP diastolic 40–59; PULSE 82–103; RESP 18–23; TEMP 36.3–38.4; O2SAT 90–100
[2024-10-23 00:56] LABS: Alveolar/Arterial O2 Gradient 42.8 mmHg; Carboxyhemoglobin 1.4 % THb (0-2.0); Fractional Inspired Oxygen 22 %; HCO3 ABG 8.8 mEq/l (22.0-26.0); Methemoglobin ABG 0.3 %THb (0-1.5); Oxygen Content ABG 15.9 %vol (16.0-22.0); Oxygen Saturation ABG 95.4 % (95.0-100.0); PO2 ABG 88.5 mmHg (80.0-100.0); PO2 FiO2 Ratio Arterial Blood 4.02 %; Reduced Hemoglobin 4.5 %THb (0-5.0)
[2024-10-23 00:59] LABS: Liters per Minute 0.5 LPM; PCO2 ABG 21.4 mmHg (35.0-45.0); Site Drawn RIGHT BRACHIAL
[2024-10-23] MEDS: SODIUM BICARBONATE 8.4% 50 MEQ/50 ML SYRINGE IV PUSH ×3 (01:08→05:44)
[2024-10-23 01:23] LABS: Hematocrit 39.4 % (37.0-47.0); Hemoglobin 11.7 g/dL (12.0-15.0); Immature Granulocyte Percent A 1.3 % (0-0.5); Lymphocytes Absolute Auto 1.94 K/mm3 (0.9-3.2); Mean Corpuscular HGB Conc 29.7 g/dl (32-36); Mean Corpuscular Hemoglobin 30.7 pg (26-34); Mean Corpuscular Volume 103.4 fl (80-100); Nucleated Red Blood Cells Absolute Auto 0.000 K/mm3 (0.0-0.012); Nucleated Red Blood Cells Perc 0.0 % (0.0-0.2); Platelet Count Result 293 k/mm3 (150-375); Red Blood Count 3.81 M/mm3 (4.2-5.4); White Blood Count 10.0 K/mm3 (4.5-10.0)
[2024-10-23] MEDS: SODIUM BICARBONATE 8.4% 150 MEQ in DEXTROSE 5% 1,000 ML 950 ML IV CONT ×2 (01:23→09:46)
[2024-10-23 01:35] LABS: Alanine Aminotransferase 39 U/L (6-35); Albumin Level 3.4 g/dL (3.5-5.1); Alkaline Phosphatase 76 U/L (38-126); Aspartate Amino Transferase 50 U/L (14-36); Bilirubin,Total 0.4 mg/dL (0.2-1.3); Blood Urea Nitrogen 31 mg/dL (7-17); Calcium 7.8 mg/dL (8.4-10.2); Carbon Dioxide < 5 mmol/L (22-30); Chloride 118 mmol/L (98-107); Estimated CRCL calculation 23 ml/min; Estimated Glomerular Filt Rate 42; Glucose 68 mg/dL (65-110); Magnesium 2.1 mg/dL (1.6-2.3); Potassium 3.3 mmol/L (3.4-5.0); Sodium 142 mmol/L (137-145); Total Protein 6.1 g/dL (6.3-8.2)
[2024-10-23 01:47] LABS: Anisocytosis 1+; Burr Cells Occasional; Schistocytes None Seen
[2024-10-23 01:52] LABS: Procalcitonin 0.1 ng/mL
[2024-10-23] MEDS: IPRATROPIUM 0.5 MG/ALBUTEROL SULFATE 2.5 MG AMPUL.NEB 3 ML INHALATION ×4 (02:04→20:36)
[2024-10-23 02:22] LABS: Influenza A QL RT-PCR Negative (Negative); Influenza B QL RT-PCR Negative (Negative); RSV RNA, RT-PCR Negative (Negative); SARS-CoV-2 RNA PCR Negative (Negative)
[2024-10-23 02:22] LABS: Creatine Kinase 282 U/L (30-135)
[2024-10-23 02:38] LABS: Beta-Hydroxybutyrate/Acetoace. 4.12 mmol/L (0.02-0.27)
[2024-10-23 04:05] LABS: Cannabinoid Screen Urine Negative (Negative)
[2024-10-23 04:08] LABS: Acetaminophen < 10 ug/mL (10-30); Salicylate 28.6 mg/dL (2-20)
[2024-10-23] MEDS: DEXTROSE 50% 25 GM/50 ML SYRINGE IV PUSH (05:40)
[2024-10-23] MEDS: POTASSIUM CHLORIDE INJ 40 MEQ in SODIUM CHLORIDE 0.9% IV 500 ML 130 MEQ IVPB (05:43)
--- NOTE | 2024-10-23 06:06 | PC.NURSE ---
family called and notified of transfer to ICU
--- NOTE | 2024-10-23 06:25 | PC.NURSE ---
This patient, Marysol Chapman, was received from [ 250- 1 ] on 10/23/24 at 0620. Patient/family oriented to unit policies and routines. Report given by Christina LEIVA.
[2024-10-23 06:26] LABS: Alveolar/Arterial O2 Gradient 71.1 mmHg; Fractional Inspired Oxygen 24 %; HCO3 ABG 20.6 mEq/l (22.0-26.0); Oxygen Content ABG 14.7 %vol (16.0-22.0); Oxygen Saturation ABG 93.5 % (95.0-100.0); PCO2 ABG 30.5 mmHg (35.0-45.0); PO2 ABG 63.7 mmHg (80.0-100.0); PO2 FiO2 Ratio Arterial Blood 2.65 %
[2024-10-23 06:27] LABS: Liters per Minute 1.0 LPM; Site Drawn RIGHT BRACHIAL
[2024-10-23 06:44] LABS: Hematocrit 34.8 % (37.0-47.0); Hemoglobin 11.2 g/dL (12.0-15.0); Mean Corpuscular HGB Conc 32.2 g/dl (32-36); Mean Corpuscular Hemoglobin 30.7 pg (26-34); Mean Corpuscular Volume 95.3 fl (80-100); Platelet Count Result 274 k/mm3 (150-375); Red Blood Count 3.65 M/mm3 (4.2-5.4); White Blood Count 8.2 K/mm3 (4.5-10.0)
[2024-10-23 07:06] LABS: Alanine Aminotransferase 38 U/L (6-35); Albumin Level 3.1 g/dL (3.5-5.1); Alkaline Phosphatase 70 U/L (38-126); Anion Gap 9 mmol/L (4-12); Aspartate Amino Transferase 49 U/L (14-36); Bilirubin,Total 0.4 mg/dL (0.2-1.3); Blood Urea Nitrogen 31 mg/dL (7-17); Calcium 7.6 mg/dL (8.4-10.2); Carbon Dioxide 25 mmol/L (22-30); Chloride 111 mmol/L (98-107); Estimated CRCL calculation 28 ml/min; Estimated Glomerular Filt Rate 54; Glucose 211 mg/dL (65-110); Potassium 2.9 mmol/L (3.4-5.0); Sodium 145 mmol/L (137-145); Total Protein 5.4 g/dL (6.3-8.2)
[2024-10-23 07:34] LABS: Salicylate 27.1 mg/dL (2-20)
[2024-10-23] MEDS: LACTATED RINGERS 1,000 ML 999 ML IV CONT (08:45)
[2024-10-23 08:48] LABS: INR 1.3; Prothrombin Time 16.4 Seconds (11.1-14.7)
[2024-10-23 08:49] LABS: Add Urine Microscopic? YES; Appearance Urine Cloudy (Clear); Glucose Urine UA 1+ mg/dL (Negative); Leukocyte Esterase Ur 1+ LEU/UL (Negative); Nitrate Urine Negative (Negative); Specific Grav Ur 1.023 (1.001-1.035)
--- NOTE | 2024-10-23 09:17 | P.CONIN_ITS ---
Assessment and Plan Assessment and plan (1) Salicylate overdose: Qualifiers: Encounter type: initial encounter Injury intent: accidental or unintentional Qualified Code(s): T39.091A - Poisoning by salicylates, accidental (unintentional), initial encounter Code(s): T39.091A - Poisoning by salicylates, accidental (unintentional), initial encounter Status: Acute Assessment and Plan: Patient presented with altered mental status, confusion,, diarrhea, severe metabolic acidosis -she also told Dr. Vega that she takes Wendie aspirin about 4 pills a day for a chronic back pain -salicylate levels were 28.6, cheese with IV fluids, bicarb pushes and bicarb infusion. With repeat salicylate levels of 27.1 and latest was 25.3 -poison control was notified, did not recommend activated charcoal due to risk of aspiration -will maintain urine pH close to 7 or 7.5 with a bicarb infusion -monitor potassium and replace as needed (2) Metabolic acidosis with respiratory alkalosis: Code(s): E87.20 - Acidosis, unspecified; E87.3 - Alkalosis Status: Acute Assessment and Plan: Severe metabolic acidosis likely multifactorial secondary to diarrhea with loss of bicarb, also starvation ketoacidosis, and salicylate overdose/poisoning -continue bicarb infusion -nephrology follow (3) LEATHA (acute kidney injury): Code(s): N17.9 - Acute kidney failure, unspecified Status: Acute Assessment and Plan: Acute kidney injury likely related to hypovolemia as the labs reflected hemoconcentration on admission -creatinine was 1.45 on admission -patient was given 1 L IV fluid bolus -currently on bicarb infusion -urine output has been adequate, creatinine down to 0.99 (baseline creatinine 0.70 to 0.94) -patient seems to be dry on examination, will give an additional IV fluid bolus -monitor urine output, renal function electrolytes (4) Diarrhea: Qualifiers: Diarrhea type: infectious Qualified Code(s): A09 - Infectious gastroenteritis and colitis, unspecified Code(s): R19.7 - Diarrhea, unspecified Status: Acute Assessment and Plan: Seems to have resolved (5) Chronic pain syndrome: Code(s): G89.4 - Chronic pain syndrome Status: Acute Assessment and Plan: Will treat with Tylenol and low-dose [place] if needed (6) Electrolyte imbalance: Code(s): E87.8 - Other disorders of electrolyte and fluid balance, not elsewhere classified Status: Acute Assessment and Plan: Replace potassium aggressively as patient on bicarb infusion (7) COPD (chronic obstructive pulmonary disease): Qualifiers: COPD type: unspecified COPD Qualified Code(s): J44.9 - Chronic obstructive pulmonary disease, unspecified Code(s): J44.9 - Chronic obstructive pulmonary disease, unspecified Status: Chronic Assessment and Plan: Continue duo nebs Plan DVT prophylaxis: Enoxaparin Stress ulcer prophylaxis: Protonix Nutrition: NPO for now except ice chips Code Status: DNR Critical Care Time Spent: [address] Vega, Dr. Jimenez Discussed with patient's son Chaka, who stated that she has been taking aspirin for her chronic back pain as she is out of her pain medications. I did explain to him regarding aspirin toxicity, he is aware that nephrology is on board, poison Control has been in contact and are following their recommendations. Due to a high probability of clinically significant, life threatening deterioration, the patient required my highest level of preparedness to intervene emergently and I personally spent this critical care time directly and personally managing the patient. This critical care time included obtaining a history; examining the patient; pulse oximetry; ordering and review of studies; arranging urgent treatment with development of a management plan; evaluation of patient's response to treatment; frequent reassessment; and discussions with other providers. It was exclusive of separately billable procedures and treating other patients and teaching time. Please see Assessment and Plan section and the rest of the note for further information on patient assessment and treatment This dictation may have been done utilizing a voice recognition system. Attempts have been made to correct errors. However, there may be uncorrected grammatical, spelling, and recognitions errors present. [employer] Consult Note Consult date: 10/23/24 Reason for consult: Altered mental status, salicylates point, metabolic acidosis,, diarrhea, nausea HPI: Marysol Chapman is a 78 year old female with past medical history of spinal stenosis, chronic back pain, history of C diff colitis, chronic pain syndrome, tobacco use, COPD, opioid abuse, anxiety, GERD, peptic ulcer disease presented the ED with complains of confusion, altered mental status, diarrhea, hypovolemia, nausea, generalized weakness. According to medical records patient was complaining of weakness, trouble sitting upright. Patient sees a pain management physician and patient was recently fired, and reestablished new pain management physician who prescribed her with oxycodone, but she did not fill her prescription. According the records patient had multiple episodes of diarrhea and nausea 02/18/2010, denies any fevers or chills, no urinary symptoms. In the ER she was reportedly alert and oriented x4 patella on arrival to the floor she was awake but lethargic with and confused. In the ER she WBC was 10.6, hemoglobin 13.3, platelets of 361, INR of 1.3, blood gas was 7.23/21/88/8/95% sats on 1 L nasal cannula. Sodium 140, potassium 3.8, chloride 113, CO2 6, BUN 31 creatinine 0.45. AST 58, ALT 44, total bili 0.5. Troponin 0.0 I and 0.038. Beta hydroxybutyrate was 4.12. Chest x-ray with no acute cardiopulmonary finding CT head with no intracranial abnormality Patient was transferred to the ICU overnight for severe metabolic acidosis, urine drug screen was positive for elevated salicylates level of 28.6. Urine tox screen was negative, acetaminophen <10. Patient was given IV push was sodium bicarb and started on sodium bicarb infusion. Poison Control was notified, did not recommend activated charcoal. Recommend obtaining serial urine pH, serial salicylate level. Patient seen examined the ICU, is awake, alert, oriented x3, was able to tell me her date of , name of the president, the year. She knew it was the hospital but did not know the name of the hospital. Patient follows simple commands, denies any pain at this time but states she takes oxycodone for chronic back pain. Denies any nausea, vomiting at this time. Denies any shortness of breath, chest pain -hemodynamically stable, on room air with adequate O2 sat Review of Systems 2 Review of Systems: All systems reviewed & are unremarkable except as noted in HPI and below PMFSH Past Medical History Medical History Anemia C. difficile colitis (08/2023) Bilateral sacroiliitis Spinal stenosis, lumbar region with neurogenic claudication Chronic pain syndrome Constipation due to opioid therapy Tobacco abuse COPD (chronic obstructive pulmonary disease) Common bile duct dilatation Anxiety Acid reflux Peptic ulcer disease Surgical History Surgical History H/O tubal ligation Hx of cholecystectomy Family History Family History Mother Cerebrovascular accident Father Diabetes mellitus Social History Social History Social History: She smokes anywhere from half a pack to pack a cigarettes a day. She has 3 children. 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 She denies any alcohol marijuana or illicit drugs. Code status: DNR/DNI Surrogate decision maker: Chaka (son) Smoking packs per day: 1.5 Smoking cigarettes per day: 30.0 Years smoked: 50 Smoking pack-years: 75.00 Smoking status: Light tobacco smoker Tobacco type: cigarettes Second hand tobacco smoke exposure: No Smoking end date: 07/26/23 Alcohol intake: never Substance use: never Substance use type: does not use Other substance usage details: prescribed opiates Last use: 09/07/21 Do You Feel Safe in your Home?: Yes Lack of Transportation: No Lack of Food: Never True Current Housing: I Have Housing Concerned About Future Housing: No Difficulty Paying Gas/Electric Bills: No Difficulty Paying for Meds: No Currently Unemployed: No Education: Trade/Vocational Certificate Difficulty w/ Childcare or Family Care: No Living arrangements: with family Gender identity (if verbalized by the patient): Female Sexual Orientation (if Verbalized by the Patient): Straight or Heterosexual Spiritual care concerns: No Meds Home Medications and Allergies Home Medications ?Medication ?Instructions ?Recorded ?Confirmed ?Type albuterol sulfate 90 mcg/actuation 90 mcg inhalation A S DIRECTED 12/20/19 10/22/24 History aerosol inhaler (ProAir HFA) aspirin 81 mg tablet,delayed 81 mg PO QAM #30 tabs 10/22/24 Rx release fluticasone 250 mcg-salmeterol 50 See Rx Instructions .Route 01/05/24 10/22/24 Rx mcg/dose blistr powdr for .COMPLEX #60 ea inhalation oxycodone 5 mg tablet 5 mg PO Q6-8H PRN pain (scal e 07/21/24 10/22/24 Rx score 7-10) #120 tabs duloxetine 30 mg capsule,delayed See Rx Instructions . Route 09/23/24 10/22/24 Rx release .COMPLEX #90 caps pantoprazole 40 mg tablet,delayed See Rx Instructions .Route 09/23/24 10/22/24 Rx release .COMPLEX #180 tabs buspirone 5 mg tablet See Rx Instructions .Route 0 09/24/24 10/22/24 Rx .COMPLEX #180 tabs metoprolol succinate 25 mg See Rx Instructions .Route 10/07/24 10/22/24 Rx tablet,extended release 24 hr .COMPLEX #90 tabs sertraline 100 mg tablet 200 mg PO Q24H 10/22/2410/11 History Allergies Allergy/AdvReac Type Severity Reaction Status Date / Time No Known Allergies Allergy Verified 09/02/24 14:11 Vital Signs Vital Signs - 24 hr 10/22/24 13:33 10/22/24 19:45 10/22/24 19:47 Temperature 98.0 F 98.0 F Pulse Rate 101 H 104 H 104 H Respiratory Rate 22 H 18 18 Blood Pressure 118/59 L 139/48 L 139/48 L Pulse Oximetry 96 93 93 Oxygen Delivery Room Air Oxygen Flow Rate 10/22/24 20:00 10/22/24 20:00 10/23/24 00:00 Temperature Pulse Rate 104 H 100 Respiratory Rate Blood Pressure Pulse Oximetry 98 Oxygen Delivery Nasal Cannula Oxygen Flow Rate 1 10/23/24 00:43 10/23/24 02:04 10/23/24 02:09 Temperature 98.2 F Pulse Rate 97 98 98 Respiratory Rate 22 H 20 Blood Pressure 119/48 L Pulse Oximetry 98 95 Oxygen Delivery Nasal Cannula Oxygen Flow Rate 0.5 10/23/24 02:10 10/23/24 04:00 10/23/24 04:00 Temperature 97.3 F L Pulse Rate 95 92 92 Respiratory Rate 20 20 Blood Pressure 133/50 L Pulse Oximetry 94 Oxygen Delivery Oxygen Flow Rate 10/23/24 07:00 10/23/24 07:05 10/23/24 07:06 Temperature Pulse Rate 82 90 Respiratory Rate 20 18 Blood Pressure Pulse Oximetry 95 Oxygen Delivery Nasal Cannula Oxygen Flow Rate 1 10/23/24 08:00 Temperature 97.9 F Pulse Rate 82 Respiratory Rate 22 H Blood Pressure 111/57 L Pulse Oximetry 90 Oxygen Delivery Oxygen Flow Rate Exam 2 Narrative: General: Cachectic female, pleasant, in no acute distress HEENT: Pupils equal and reactive, sclera is clear, dry oral mucosa Neck:? Supple Respiratory:? Clear to auscultation bilaterally, no wheezing, adequate air entry Cardiac:? S1-S2 normal, regular rate and rhythm Abdomen:? Soft, nontender, nondistended, hypoactive bowel sounds Extremities:? Palpable pedal pulses, no edema Neuro:? Patient is awake, alert, oriented x3, was able to tell me that she is in the hospital, knew the name of the president, was able to tell me her date of and what year it is. Follows simple commands in all extremities and was able to answer questions, still a little confused Skin:? Warm and dry, no lesions noted Psych:? Normal mentation with mild confusion Results Labs 10/23/24 06:34 10/23/24 06:34 Labs: Short CBC 10/22/24 10/23/24 10/23/24 Range/Units 14:43 01:15 06:34 WBC 10.6 H 10.0 8.2 (4.5-10.0) K/mm3 Hgb 13.3 11.7 L 11.2 L (12.0-15.0) g/dL Hct 42.7 39.4 34.8 L (37.0-47.0) % Plt Count 361 293 274 (150-375) k/mm3 BMP 10/22/24 10/23/24 10/23/24 14:43 01:15 06:34 Sodium 140 142 145 Potassium 3.8 3.3 L 2.9 L Chloride 113 H 118 H 111 H Carbon Dioxide 6 L < 5 L 25 BUN 34 H D 31 H 31 H Creatinine 1.45 H 1.24 H 0.99 Glucose 77 68 211 H Calcium 8.3 L 7.8 L 7.6 L Cardiac Enzymes 10/22/24 10/22/24 10/23/24 Range/Units 14:43 17:07 01:15 Total Creatine Kinase 170 H 282 H (30-135) U/L Troponin I 0.041 H* 0.038 H* (0.000-0.034) ng/mL Liver Function 10/22/24 10/23/24 10/23/24 Range/Units 14:43 01:15 06:34 Total Bilirubin 0.5 0.4 0.4 (0.2-1.3) mg/dL AST 58 H 50 H 49 H (14-36) U/L ALT 44 H 39 H 38 H (6-35) U/L Alkaline Phosphatase 93 76 70 (38-126) U/L Albumin 3.8 3.4 L 3.1 L (3.5-5.1) g/dL Urine 10/22/24 10/23/24 Range/Units 15:05 08:37 Urine Color Yellow Yellow (Yellow) Urine Appearance Clear Cloudy H (Clear) Urine pH 5.0 5.5 (5.0-9.0) Ur Specific [place] 1.023 1.023 (1.001-1.035) Urine Protein 1+ H Trace (Negative) mg/dL Urine Glucose (UA) Negative 1+ H (Negative) mg/dL Quality VTE Prophylaxis VTE prophylaxis: pharmacologic ordered Hospitalist MIPS Advance Care Plan I have confirmed that the patient's Advanced Care Plan is present, code status is documented, or surrogate decision maker is listed in patient medical record.: Yes Medication Reconciliation I have utilized all available resources to obtain, update and review the patients current medications (includes all prescriptions, OTC, herbals, cannabis, and nutritional supplements).: Yes
[2024-10-23 09:21] LABS: Salicylate 25.3 mg/dL (2-20)
--- NOTE | 2024-10-23 09:53 | PM.CNNEP ---
Assessment and Plan Assessment and plan (1) Metabolic acidosis with respiratory alkalosis: Code(s): E87.20 - Acidosis, unspecified; E87.3 - Alkalosis Status: Acute Assessment and Plan: the patient has metabolic acidosis. Her baseline bicarb is 30, her baseline anion gap is 8, her admission bicarb was 6 and her anion gap was 21. At that point the delta anion gap was 13 and the delta bicarb was 24. This plus the hyperventilation seen on blood gas suggests a triple acid-base defect with metabolic acidosis both anion gap and non-anion gap and also respiratory alkalosis. Most likely the non anion gap metabolic acidosis is due to her dehydration. The anion gap metabolic acidosis is probably due to the aspirin plus ketones due to starvation. The respiratory alkalosis is most likely a combination of the aspirin and her COPD. The 2nd set of electrolytes did not register an anion gap because the bicarb was less than 5. Thus acidosis was about the same with a delta bicarb of around 24 or more. However clean the anion gap on my own, it ranged from 9-14 , depending on whether the bicarb was 5 or 0. Most likely it was 4 or 5 and so her anion gap was very close to her baseline. This indicates that she probably metabolize much of the unmeasured acids, i.e. aspirin and ketones. However she was getting IV fluid without bicarb from the ER which diluted her bicarb level thus the metabolic acidosis turned into an almost pure non anion gap metabolic acidosis due to diarrhea plus dilution. After that Dr. Jimenez gave her bicarb and her CO2 is improving and her pH has improved. At 1st contemplating dialysis because of her mental status and severe acidosis, however now I think since her mental status is better her acid-base status is better, her creatinine is better, and just a few minutes ago her repeat aspirin level showed an improvement then we can hold off on dialysis. Will continue the bicarbonate and fluids and continue to watch the aspirin levels. Her potassium is low. This is being supplemented this. This is most likely due to total body potassium loss due to her diarrhea and also acutely due to the correction of the bicarb. Sodium level is creeping up. She may need hypotonic fluids. Will see how the labs change as the day goes on. Just because she was unable to give a history before, I did order a toxic alcohol screen earlier this morning just to make sure that there is nothing else going on. long discussion with Dr. Jimenez, long discussion with the lab about ordering the stat toxic alcohol screen, and long discussion with Dr. Allison about all of the above. (2) Opioid use, unspecified with withdrawal: Code(s): F11.93 - Opioid use, unspecified with withdrawal Status: Acute Assessment and Plan: The patient clearly has issues with chronic pain. She is looking for a pain specialist to help her out (3) LEATHA (acute kidney injury): Code(s): N17.9 - Acute kidney failure, unspecified Status: Acute Assessment and Plan: her creatinine baseline is around 0.7 to 0.9. Her creatinine on admission was 1.4. She is probably dehydrated. She is getting better as she gets fluid (4) HTN (hypertension): Qualifiers: Hypertension type: primary hypertension Qualified Code(s): I10 - Essential (primary) hypertension Code(s): I10 - Essential (primary) hypertension Status: Acute Assessment and Plan: patient has chronic hypertension and diastolic dysfunction. Blood pressure is well controlled (5) HLD (hyperlipidemia): Code(s): E78.5 - Hyperlipidemia, unspecified Status: Acute Assessment and Plan: the patient is not on a statin. Liver enzymes are slightly high now. (6) Anemia: Code(s): D64.9 - Anemia, unspecified Status: Acute Assessment and Plan: She has chronic anemia. Hemoglobin was okay on admission, however, This is resurfacing now that we are giving IV fluids. (7) Atrial fibrillation: Qualifiers: Atrial fibrillation type: unspecified Qualified Code(s): I48.91 - Unspecified atrial fibrillation Code(s): I48.91 - Unspecified atrial fibrillation Status: Acute Assessment and Plan: the patient says that she had AFib in the past. Her heart rate is regular today. (8) C. difficile enteritis: Code(s): A04.72 - Enterocolitis due to Clostridium difficile, not specified as recurrent Status: Acute Assessment and Plan: She has had this in the past. She has recently had some diarrhea (9) Acid reflux: Code(s): K21.9 - Gastro-esophageal reflux disease without esophagitis Status: Acute Assessment and Plan: the patient takes pantoprazole History of Present Illness Reason for Consult Consult date: 10/23/24 Chief Complaint Chief complaint: LEATHA/Opioid Withdrawal History of Present Illness Narrative: Marysol is an unfortunate 78-year-old lady who has multiple medical problems including COPD, just about finished smoking , reversible airways disease,anxiety, acid reflux, peptic ulcer disease, bilateral sacroiliitis with chronic low back pain, history of C diff colitis, anemia, congestive heart failure with preserved systolic function . The patient sees a pain doctor for her chronic low back pain and was getting oxycodone for this. Unfortunately something happened and she was fired from the pain specialist and is looking for another. She may have found 1 but has not seen him yet. So she ran out of pain medicines. He has been taking Tylenol, aspirin and Advil to help her pain. She says she has been taking [employer] for back 3-4 times per day and several tablets per administration. It is unclear how long this has been going on. She is somewhat terse when asked specific questions. Although she can read a lot off who she is, where she lives, address, who is the President, the date etc.. The patient has been having diarrhea for several days. She has not been eating very well. She became confused and was brought over to the ER. The patient also said that she has had some shortness of breath although was not communicative about whether this was a worsening over her usual baseline. The patient came into the ER and was found to be severely acidotic and dehydrated. She was given fluids and sent to the floor. Dr. Jimenez saw her and further evaluated her. She checked an aspirin level which was high. She requested renal evaluation Review of Systems Constitutional: Constitutional: Reports no additional constitutional complaints Eyes: Eyes: Reports no additional eye complaints ENT: Reports system reviewed and no additional complaints, except as documented Cardiovascular: Cardiovascular: Reports no additional cardiovascular complaints Respiratory: Respiratory: Reports no additional respiratory complaints Gastrointestinal: Gastrointestinal: Reports no additional gastrointestinal complaints Genitourinary: Genitourinary: Reports no additional female genitourinary complaints Musculoskeletal: Musculoskeletal: Reports no additional musculoskeletal complaints Integumentary/Breasts: Skin/Breast: Reports system reviewed and no additional complaints, except as docu Neurologic: Reports system reviewed and no additional complaints, except as documented Psychiatric: Psychiatric: Reports no additional psychiatric complaints Endocrine: Endocrine: Reports no additional endocrine complaints [facility] Past Medical History Medical History Anemia C. difficile colitis (08/2023) Bilateral sacroiliitis Spinal stenosis, lumbar region with neurogenic claudication Chronic pain syndrome Constipation due to opioid therapy Tobacco abuse COPD (chronic obstructive pulmonary disease) Common bile duct dilatation Anxiety Acid reflux Peptic ulcer disease Surgical History Surgical History H/O tubal ligation Hx of cholecystectomy Family History Family History Mother Cerebrovascular accident Father Diabetes mellitus Social History Social History Social History: She smokes anywhere from half a pack to pack a cigarettes a day. She has 3 children. 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 She denies any alcohol marijuana or illicit drugs. Code status: DNR/DNI Surrogate decision maker: Chaka (son) Smoking packs per day: 1.5 Smoking cigarettes per day: 30.0 Years smoked: 50 Smoking pack-years: 75.00 Smoking status: Light tobacco smoker Tobacco type: cigarettes Second hand tobacco smoke exposure: No Smoking end date: 07/26/23 Alcohol intake: never Substance use: never Substance use type: does not use Other substance usage details: prescribed opiates Last use: 09/07/21 Do You Feel Safe in your Home?: Yes Lack of Transportation: No Lack of Food: Never True Current Housing: I Have Housing Concerned About Future Housing: No Difficulty Paying Gas/Electric Bills: No Difficulty Paying for Meds: No Currently Unemployed: No Education: Trade/Vocational Certificate Difficulty w/ Childcare or Family Care: No Living arrangements: with family Gender identity (if verbalized by the patient): Female Sexual Orientation (if Verbalized by the Patient): Straight or Heterosexual Spiritual care concerns: No Meds Home Medications and Allergies Home Medications ?Medication ?Instructions ?Recorded ?Confirmed ?Type albuterol sulfate 90 mcg/actuation 90 mcg inhalation DIRECTED 12/20/19 10/22/24 History aerosol inhaler (ProAir HFA) aspirin 81 mg tablet,delayed 81 mg PO QAM #30 tabs 08/28/23 10/22/24 Rx release fluticasone 250 mcg-salmeterol 50 See Rx Instructions .Route 01/05/24 10/22/24 Rx mcg/dose blistr powdr for .COMPLEX #60 ea inhalation oxycodone 5 mg tablet 5 mg PO Q6-8H PRN pain (scale 07/21/24 10/22/24 Rx score 7-10) #120 tabs duloxetine 30 mg capsule,delayed See Rx Instructions .Route 09/23/24 10/22/24 Rx release .COMPLEX #90 caps pantoprazole 40 mg tablet,delayed See Rx Instructions .Route 09/23/24 10/22/24 Rx release .COMPLEX #180 tabs buspirone 5 mg tablet See Rx Instructions .Route 09/24/24 10/22/24 Rx .COMPLEX #180 tabs metoprolol succinate 25 mg See Rx Instructions .Route 10/07/24 10/22/24 Rx tablet,extended release 24 hr .COMPLEX #90 tabs sertraline 100 mg tablet 200 mg PO Q24H 10/22/24 10/22/24 History Allergies Allergy/AdvReac Type Severity Reaction Status Date / Time No Known Allergies Allergy Verified 09/02/24 14:11 Vital Signs Vital Signs - 24 hr 10/22/24 13:33 10/22/24 19:45 10/22/24 19:47 Temperature 98.0 F 98.0 F Pulse Rate 101 H 104 H 104 H Respiratory Rate 22 H 18 18 Blood Pressure 118/59 L 139/48 L 139/48 L Pulse Oximetry 96 93 93 Oxygen Delivery Room Air Oxygen Flow Rate 10/22/24 20:00 10/22/24 20:00 10/23/24 00:00 Temperature Pulse Rate 104 H 100 Respiratory Rate Blood Pressure Pulse Oximetry 98 Oxygen Delivery Nasal Cannula Oxygen Flow Rate 1 10/23/24 00:43 10/23/24 02:04 10/23/24 02:09 Temperature 98.2 F Pulse Rate 97 98 98 Respiratory Rate 22 H 20 Blood Pressure 119/48 L Pulse Oximetry 98 95 Oxygen Delivery Nasal Cannula Oxygen Flow Rate 0.5 10/23/24 02:10 10/23/24 04:00 10/23/24 04:00 Temperature 97.3 F L Pulse Rate 95 92 92 Respiratory Rate 20 20 Blood Pressure 133/50 L Pulse Oximetry 94 Oxygen Delivery Oxygen Flow Rate 10/23/24 07:00 10/23/24 07:05 10/23/24 07:06 Temperature Pulse Rate 82 90 Respiratory Rate 20 18 Blood Pressure Pulse Oximetry 95 Oxygen Delivery Nasal Cannula Oxygen Flow Rate 1 10/23/24 08:00 Temperature 97.9 F Pulse Rate 82 Respiratory Rate 22 H Blood Pressure 111/57 L Pulse Oximetry 90 Oxygen Delivery Oxygen Flow Rate Exam Narrative: Exam Narrative: Well developed Very thin female in no acute distress Skin is warm and dry without rash. Skin turgor is low. Head normocephalic atraumatic Eyes normal sclerae and conjunctivae Mouth Dry mucous membranes, missing some teeth, otherwise normal lips and gums Neck no nodes no thyromegaly no carotid bruits Axillae no nodes Back no CVA tenderness Lungs symmetric and clear to auscultation and percussion Heart regular rate and rhythm without rub or gallop. 2/6 murmur. Abdomen bowel sounds positive soft nontender, no HSM, masses, or bruits. Extremities no cyanosis, clubbing, or edema Pulses 2+ equal in radial arteries Psychological not anxious or depressed Neuro alert and oriented x3 motor 5/5 cranial nerves 2-12 intact reflexes 2+ and equal in the biceps and patellar tendons cerebellar normal rapid alternating movements Results Lab Results 10/23/24 06:34 10/23/24 06:34 Lab results: Most recent lab results ABG pH 7.448 (7.350-7.450) 10/23/24 06:15 ABG pCO2 30.5 mmHg (35.0-45.0) L 10/23/24 06:15 ABG pO2 63.7 mmHg (80.0-100.0) L 10/23/24 06:15 ABG HCO3 20.6 mEq/l (22.0-26.0) L 10/23/24 06:15 ABG O2 Saturation 93.5 % (95.0-100.0) L 10/23/24 06:15 Calcium 7.6 mg/dL (8.4-10.2) L 10/23/24 06:34 Phosphorus 4.3 mg/dL (2.5-4.5) 10/23/24 01:15 Magnesium 2.1 mg/dL (1.6-2.3) 10/23/24 01:15
--- NOTE | 2024-10-23 11:03 | PCSTNOTE ---
Please refer to the Bedside Swallow Evaluation in the EMR. Please note, silent aspiration cannot be ruled out at bedside.
[2024-10-23 12:09] LABS: Add Urine Microscopic? YES; Appearance Urine Clear (Clear); Glucose Urine UA Trace mg/dL (Negative); Leukocyte Esterase Ur Negative LEU/UL (Negative); Nitrate Urine Negative (Negative); Specific Grav Ur 1.025 (1.001-1.035)
[2024-10-23 12:28] LABS: Salicylate 21.3 mg/dL (2-20)
[2024-10-23 12:29] LABS: Albumin Level 3.0 g/dL (3.5-5.1); Anion Gap 5 mmol/L (4-12); Blood Urea Nitrogen 25 mg/dL (7-17); Calcium 7.5 mg/dL (8.4-10.2); Carbon Dioxide 31 mmol/L (22-30); Chloride 108 mmol/L (98-107); Estimated CRCL calculation 33 ml/min; Estimated Glomerular Filt Rate > 60; Glucose 159 mg/dL (65-110); Sodium 144 mmol/L (137-145)
[2024-10-23 12:37] LABS: Beta-Hydroxybutyrate/Acetoace. 0.12 mmol/L (0.02-0.27)
[2024-10-23] MEDS: POTASSIUM CHLORIDE 20 MEQ PACKET (FOR LIQUID) 40 MEQ PO (12:44)
[2024-10-23] MEDS: PANTOPRAZOLE SODIUM IV 40 MG VIAL IV PUSH ×2 (12:45→20:32)
[2024-10-23] MEDS: POTASSIUM CHLORIDE 20 MEQ PACKET (FOR LIQUID) PO (12:45)
[2024-10-23] MEDS: KCL 40 MEQ/WATER 100 ML 100 ML 25 ML IVPB (14:28)
[2024-10-23 15:17] LABS: Salicylate 17.8 mg/dL (2-20)
[2024-10-23 19:45] LABS: Salicylate 15.1 mg/dL (2-20)
[2024-10-23 20:05] LABS: Alanine Aminotransferase 35 U/L (6-35); Albumin Level 2.9 g/dL (3.5-5.1); Alkaline Phosphatase 63 U/L (38-126); Anion Gap 7 mmol/L (4-12); Aspartate Amino Transferase 45 U/L (14-36); Bilirubin,Total 0.2 mg/dL (0.2-1.3); Blood Urea Nitrogen 21 mg/dL (7-17); Calcium 7.8 mg/dL (8.4-10.2); Carbon Dioxide 25 mmol/L (22-30); Chloride 112 mmol/L (98-107); Estimated CRCL calculation 32 ml/min; Estimated Glomerular Filt Rate > 60; Glucose 186 mg/dL (65-110); Potassium 3.8 mmol/L (3.4-5.0); Sodium 144 mmol/L (137-145); Total Protein 5.1 g/dL (6.3-8.2)
[2024-10-23] MEDS: CENTRAL LINE FLUSH 10 ML IV PUSH (20:32)
[2024-10-23 20:58] LABS: Toxigenic C. Diff POSITIVE (NEGATIVE)
[2024-10-23] MEDS: FIDAXOMICIN 200 MG TABLET PO (22:18)
[2024-10-23] MEDS: ACETAMINOPHEN 500 MG TABLET PO (22:18)
[2024-10-23 23:55] LABS: Salicylate 11.4 mg/dL (2-20)
[2024-10-24] VITALS (15 sets, daily range): BP systolic 101–153; BP diastolic 50–69; PULSE 77–89; RESP 16–21; TEMP 36.9–37.9; O2SAT 90–98
[2024-10-24] MEDS: IPRATROPIUM 0.5 MG/ALBUTEROL SULFATE 2.5 MG AMPUL.NEB 3 ML INHALATION ×4 (02:11→20:24)
[2024-10-24] MEDS: CENTRAL LINE FLUSH 10 ML IV PUSH ×2 (04:06→14:25)
[2024-10-24 04:15] LABS: Hematocrit 29.6 % (37.0-47.0); Hemoglobin 9.5 g/dL (12.0-15.0); Immature Granulocyte Percent A 0.6 % (0-0.5); Lymphocytes Absolute Auto 1.73 K/mm3 (0.9-3.2); Mean Corpuscular HGB Conc 32.1 g/dl (32-36); Mean Corpuscular Hemoglobin 30.8 pg (26-34); Mean Corpuscular Volume 96.1 fl (80-100); Nucleated Red Blood Cells Absolute Auto 0.000 K/mm3 (0.0-0.012); Nucleated Red Blood Cells Perc 0.0 % (0.0-0.2); Platelet Count Result 200 k/mm3 (150-375); Red Blood Count 3.08 M/mm3 (4.2-5.4); White Blood Count 7.1 K/mm3 (4.5-10.0)
[2024-10-24 04:27] LABS: INR 1.2; Prothrombin Time 15.5 Seconds (11.1-14.7)
[2024-10-24 04:28] LABS: Partial Thromboplastin Time 33.6 Seconds (22.3-36.8)
[2024-10-24 04:35] LABS: Salicylate 7.1 mg/dL (2-20)
[2024-10-24 04:37] LABS: Alanine Aminotransferase 29 U/L (6-35); Albumin Level 2.7 g/dL (3.5-5.1); Alkaline Phosphatase 68 U/L (38-126); Anion Gap 1 mmol/L (4-12); Aspartate Amino Transferase 47 U/L (14-36); Bilirubin,Total 0.4 mg/dL (0.2-1.3); Blood Urea Nitrogen 18 mg/dL (7-17); Calcium 7.9 mg/dL (8.4-10.2); Carbon Dioxide 30 mmol/L (22-30); Chloride 110 mmol/L (98-107); Creatine Kinase 206 U/L (30-135); Estimated CRCL calculation 37 ml/min; Estimated Glomerular Filt Rate > 60; Glucose 84 mg/dL (65-110); Magnesium 1.8 mg/dL (1.6-2.3); Potassium 3.4 mmol/L (3.4-5.0); Sodium 141 mmol/L (137-145); Total Protein 5.0 g/dL (6.3-8.2)
[2024-10-24 07:35] LABS: Salicylate 4.9 mg/dL (2-20)
[2024-10-24] MEDS: ACETAMINOPHEN 500 MG TABLET PO ×2 (08:56→18:58)
[2024-10-24] MEDS: PANTOPRAZOLE SODIUM IV 40 MG VIAL IV PUSH (08:57)
[2024-10-24] MEDS: POTASSIUM PHOS,M-BASIC-D-BASIC 20 MMOL in SODIUM CHLORIDE 0.9% IV 250 ML 64.17 MMOL IVPB (08:57)
[2024-10-24] MEDS: FIDAXOMICIN 200 MG TABLET PO ×2 (08:57→20:06)
[2024-10-24] MEDS: MAGNESIUM SULF 2 GM/WATER 50ML 2 GM/50 ML BAG IVPB (08:58)
--- NOTE | 2024-10-24 09:05 | P.PNINT_ITS ---
Progress Note: A&P Assessment and Plan (1) Salicylate overdose: Qualifiers: Encounter type: initial encounter Injury intent: accidental or unintentional Qualified Code(s): T39.091A - Poisoning by salicylates, a ccidental (unintentional), initial encounter Code(s): T39.091A - Poisoning by salicylates, accidental (unintentional), initial encounter Status: Acute Assessment and Plan: Patient presented with altered mental status, confusion,, diarrhea, severe metabolic acidosis -she also told Dr. Vega that she takes Wendie aspirin about 4 pills a day for a chronic back pain -salicylate levels were 28.6, cheese with IV fluids, bicarb pushes and bicarb infusion. With repeat salicylate levels of 27.1 and latest was 25.3 -poison control was notified, recommended against activated charcoal due to risk of aspiration -will maintain urine pH close to 7 or 7.5 with a bicarb infusion -10/24: Salicylate level 4.9, CO2 30, anion gap 1. Bicarb infusion has been discontinued -urine output has been adequate, -poison Control had called with no additional recommendations (2) Metabolic acidosis with respiratory alkalosis: Code(s): E87.20 - Acidosis, unspecified; E87.3 - Alkalosis Status: Acute Assessment and Plan: Severe metabolic acidosis likely multifactorial secondary to diarrhea with loss of bicarb, also starvation ketoacidosis, and salicylate overdose/poisoning -off bicarb infusion -metabolic acidosis has resolved anion gap of 1, CO2 of 30 -appreciate Nephrology evaluation recommendation (3) LEATHA (acute kidney injury): Code(s): N17.9 - Acute kidney failure, unspecified Status: Acute Assessment and Plan: Acute kidney injury likely related to hypovolemia as the labs reflected hemoconcentration on admission -creatinine was 1.45 on admission -adequately fluid-resuscitated since admission -off bicarb infusion -urine output has been adequate, creatinine down to 0.80 (baseline creatinine 0.70 to 0.94) -monitor urine output, renal function electrolytes (4) Diarrhea: Qualifiers: Diarrhea type: infectious Qualified Code(s): A09 - Infectious gastroenteritis and colitis, unspecified Code(s): R19.7 - Diarrhea, unspecified Status: Acute Assessment and Plan: No more episodes of diarrhea (5) Chronic pain syndrome: Code(s): G89.4 - Chronic pain syndrome Status: Acute Assessment and Plan: Will treat with Tylenol and low-dose [place] if needed (6) Electrolyte imbalance: Code(s): E87.8 - Other disorders of electrolyte and fluid balance, not elsewhere classified Status: Acute Assessment and Plan: Replace magnesium, phosphorus and potassium (7) COPD (chronic obstructive pulmonary disease): Qualifiers: COPD type: unspecified COPD Qualified Code(s): J44.9 - Chronic obstructive pulmonary disease, unspecified Code(s): J44.9 - Chronic obstructive pulmonary disease, unspecified Status: Chronic Assessment and Plan: Continue duo nebs (8) C. 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 q.12 hours Plan DVT prophylaxis: Enoxaparin Stress ulcer prophylaxis: DC Protonix as it can increase risk of C diff infection Nutrition: Continue diet, regular diet minced and moist, until she gets her dentures Code Status: DNR Critical Care Time Spent: [address] Vega. Discussed with patient's son Chaka, who stated that she has been taking aspirin for her chronic back pain as she is out of her pain medications. I did explain to him regarding aspirin toxicity, he is aware that nephrology is on board, poison Control has been in contact and are following their recommendations. Due to a high probability of clinically significant, life threatening deterioration, the patient required my highest level of preparedness to intervene emergently and I personally spent this critical care time directly and personally managing the patient. This critical care time included obtaining a history; examining the patient; pulse oximetry; ordering and review of studies; arranging urgent treatment with development of a management plan; evaluation of patient's response to treatment; frequent reassessment; and discussions with other providers. It was exclusive of separately billable procedures and treating other patients and teaching time. Please see Assessment and Plan section and the rest of the note for further information on patient assessment and treatment This dictation may have been done utilizing a voice recognition system. Attempts have been made to correct errors. However, there may be uncorrected grammatical, spelling, and recognitions errors present. Subjective Date/time seen: 10/24/24 09:05 Interval history: Reason for consult: Salicylate poisoning, metabolic acidosis, diarrhea, nausea, C diff 10/24/2024: Patient seen in the ICU, is awake, alert, oriented, able to quit answer questions appropriately,, follows simple commands. Denies any chest pain, shortness on breath abdominal pain, nausea vomiting. Complains discomfort in the back. Patient does state that she will use to take 4-5 aspirins daily for a back pain since she did not have a pain medications. Currently hemodynamically stable, adequate urine output, febrile with a T-max of 101.1? Review of Systems Review of Systems: All systems reviewed & are unremarkable except as noted in HPI and below Exam Narrative: General: Cachectic female, pleasant, in no acute distress HEENT: Pupils equal and reactive, sclera is clear, dry oral mucosa Neck:? Supple Respiratory:? Clear to auscultation bilaterally, no wheezing, adequate air entry Cardiac:? S1-S2 normal, regular rate and rhythm Abdomen:? Soft, nontender, nondistended, hypoactive bowel sounds Extremities:? Palpable pedal pulses, no edema Neuro:? Patient is awake, alert, oriented, Follows simple commands in all extremities and was able to answer questions, Skin:? Warm and dry, no lesions noted Psych:? Normal mentation with mild confusion Objective Data Vital Signs Vital Signs: Vital Signs - 24 hr 10/23/24 10:00 10/23/24 10:00 10/23/24 12:00 Temperature 97.6 F 98.1 F Pulse Rate 92 89 85 Respiratory Rate 22 H 22 H Blood Pressure 107/51 L 115/54 L Pulse Oximetry 94 93 Oxygen Delivery Oxygen Flow Rate 10/23/24 12:00 10/23/24 12:00 10/23/24 14:00 Temperature Pulse Rate 85 90 Respiratory Rate Blood Pressure Pulse Oximetry 96 Oxygen Delivery Nasal Cannula Oxygen Flow Rate 1 10/23/24 14:00 10/23/24 14:20 10/23/24 14:28 Temperature 99.6 F Pulse Rate 90 88 92 Respiratory Rate 20 20 18 Blood Pressure 90/40 L Pulse Oximetry 95 Oxygen Delivery Oxygen Flow Rate 10/23/24 16:00 10/23/24 16:00 10/23/24 16:00 Temperature 100.4 F H Pulse Rate 103 H 103 H Respiratory Rate 22 H Blood Pressure 114/48 L Pulse Oximetry 95 94 Oxygen Delivery Nasal Cannula Oxygen Flow Rate 1 10/23/24 18:00 10/23/24 18:00 10/23/24 20:00 Temperature 100.8 F H 100.9 F H Pulse Rate 98 95 95 Respiratory Rate 22 H 23 H Blood Pressure 104/46 L 112/52 L Pulse Oximetry 100 97 Oxygen Delivery Oxygen Flow Rate 10/23/24 20:00 10/23/24 20:00 10/23/24 20:37 Temperature Pulse Rate 95 99 Respiratory Rate 20 Blood Pressure Pulse Oximetry 97 Oxygen Delivery Nasal Cannula Oxygen Flow Rate 1 10/23/24 20:37 10/23/24 20:45 10/23/24 22:00 Temperature 101.1 F H Pulse Rate 99 97 91 Respiratory Rate 20 18 21 H Blood Pressure 103/59 L Pulse Oximetry 95 97 Oxygen Delivery Nasal Cannula Oxygen Flow Rate 1 10/23/24 22:00 10/23/24 22:18 10/23/24 23:18 Temperature 101.0 F H 100.8 F H Pulse Rate 91 Respiratory Rate Blood Pressure Pulse Oximetry Oxygen Delivery Oxygen Flow Rate 10/24/24 00:00 10/24/24 00:00 10/24/24 00:00 Temperature 100.3 F H Pulse Rate 87 89 Respiratory Rate 21 H Blood Pressure 101/59 L Pulse Oximetry 97 97 Oxygen Delivery Nasal Cannula Oxygen Flow Rate 1 10/24/24 02:00 10/24/24 02:00 10/24/24 02:12 Temperature 99.9 F H Pulse Rate 84 84 78 Respiratory Rate 17 18 Blood Pressure 121/60 Pulse Oximetry 98 Oxygen Delivery Oxygen Flow Rate 10/24/24 04:00 10/24/24 04:00 10/24/24 04:00 Temperature 99.5 F Pulse Rate 88 82 Respiratory Rate 19 Blood Pressure 113/50 L Pulse Oximetry 98 98 Oxygen Delivery Nasal Cannula Oxygen Flow Rate 1 10/24/24 06:00 10/24/24 06:00 10/24/24 08:38 Temperature 99.8 F H Pulse Rate 89 89 78 Respiratory Rate 20 18 Blood Pressure 118/69 Pulse Oximetry 98 Oxygen Delivery Oxygen Flow Rate Intake/Output Intake/Output: Intake & Output 10/21/24 10/22/24 10/23/24 10/24/24 23:59 23:59 23:59 23:59 Intake Total 1000 4440 250 Output Total 75 1600 500 Balance 925 2840 -250 Meds/Results Medications: Active Medications Generic Name Dose Route Start Last Admin Trade Name Erendira PRN Reason Stop Dose Admin Acetaminophen 500 mg 10/23/24 18:18 10/24/24 08:56 Acetaminophen 500 Mg Tablet PO 500 mg Q6H PRN Administration Mild Pain (1-3) or Fever Albuterol/Ipratropium 3 ml 10/23/24 02:00 10/24/24 08:37 Ipratropium 0.5 Mg/Albuterol Sulfate 2.5 Mg Ampul.Neb 3 Ml INHALATION 3 ml Q6HRT SCOTTY Administration Enoxaparin Sodium 30 mg 10/23/24 09:00 10/23/24 08:42 Enoxaparin 30 Mg/0.3 Ml Syringe SUB-Q Not Given DAILY SCOTTY Fidaxomicin 200 mg 10/23/24 21:25 10/24/24 08:57 Fidaxomicin 200 Mg Tablet PO 11/03/24 21:24 200 mg Q12HR SCOTTY Administration Potassium Phosphate 20 mmol/ 256.6667 mls @ 64.167 mls/hr 10/24/24 08:00 10/24/24 08:57 Sodium Chloride IVPB 10/24/24 11:59 64.17 mls/hr ONCE ONE Administration Pantoprazole Sodium 40 mg 10/23/24 21:00 10/24/24 08:57 Pantoprazole Sodium Iv 40 Mg Vial IV PUSH 40 mg Q12HR SCOTTY Administration Sodium Chloride 10 ml 10/23/24 22:00 10/24/24 04:06 Central Line Flush IV PUSH 10 ml Q8HR SCOTTY Administration Sodium Chloride 10 ml 10/23/24 14:23 Central Line Flush IV PUSH PRN PRN with TPN bag changes Sodium Chloride 20 ml 10/23/24 14:23 Central Line Flush IV PUSH PRN PRN after blood draws Radiology Results: ITS Impressions Head CT 10/22/24 14:26 IMPRESSION: 1. No acute intracranial abnormality. Chest X-Ray 10/22/24 14:28 IMPRESSION: 1. No acute cardiopulmonary findings given portable technique. Labs Labs: Laboratory Results - last 24 hr 10/23/24 10/23/24 10/23/24 08:14 11:25 12:03 WBC RBC Hgb Hct MCV MCH MCHC RDW Plt Count MPV Immature Gran % (Auto) Neut % (Auto) Lymph % (Auto) [place] % (Auto) Eos % (Auto) Baso % (Auto) Lymph # (Auto) [place] # (Auto) Eos # (Auto) Baso # (Auto) Abs Immat Gran (auto) Absolute Neuts (auto) Absolute Nucleated RBC Nucleated RBC % PT INR APTT Sodium 144 Potassium 2.5 L* Chloride 108 H Carbon Dioxide 31 H Anion Gap 5 BUN 25 H Creatinine 0.84 Estim Creat Clear Calc 33 Estimated GFR > 60 Glucose 159 H Lactic Acid Calcium 7.5 L Phosphorus 1.8 L Magnesium Total Bilirubin AST ALT Alkaline Phosphatase Total Creatine Kinase Total Protein Albumin 3.0 L Beta-Hydroxybutyrate/Acetoacetate 0.12 Urine Color Yellow Urine Appearance Clear Urine pH 5.5 Ur Specific [place] 1.025 Urine Protein Trace Urine Glucose (UA) Trace H Urine Ketones 2+ H Ur Blood (Man) Negative Urine Nitrate Negative Urine Bilirubin Negative Urine Urobilinogen 1.0 Ur Leukocyte Esterase Negative Urine RBC 0-2 Urine WBC 0-5 Ur Squamous Epith Cells Occasional Urine Bacteria None seen Urine Casts 3-5 Salicylates 25.3 H* 21.3 H* C. difficile (PCR) 10/23/24 10/23/24 10/23/24 14:59 18:26 19:27 WBC RBC Hgb Hct MCV MCH MCHC RDW Plt Count MPV Immature Gran % (Auto) Neut % (Auto) Lymph % (Auto) [place] % (Auto) Eos % (Auto) Baso % (Auto) Lymph # (Auto) [place] # (Auto) Eos # (Auto) Baso # (Auto) Abs Immat Gran (auto) Absolute Neuts (auto) Absolute Nucleated RBC Nucleated RBC % PT INR APTT Sodium 144 Potassium 3.8 Chloride 112 H Carbon Dioxide 25 Anion Gap 7 BUN 21 H Creatinine 0.86 Estim Creat Clear Calc 32 Estimated GFR > 60 Glucose 186 H Lactic Acid Calcium 7.8 L Phosphorus Magnesium Total Bilirubin 0.2 AST 45 H ALT 35 Alkaline Phosphatase 63 Total Creatine Kinase Total Protein 5.1 L Albumin 2.9 L Beta-Hydroxybutyrate/Acetoacetate Urine Color Urine Appearance Urine pH Ur Specific [place] Urine Protein Urine Glucose (UA) Urine Ketones Ur Blood (Man) Urine Nitrate Urine Bilirubin Urine Urobilinogen Ur Leukocyte Esterase Urine RBC Urine WBC Ur Squamous Epith Cells Urine Bacteria Urine Casts Salicylates 17.8 C. difficile (PCR) Positive A* 10/23/24 10/23/24 10/24/24 19:28 23:26 04:09 WBC 7.1 RBC 3.08 L Hgb 9.5 L Hct 29.6 L MCV 96.1 MCH 30.8 MCHC 32.1 RDW 16.4 H Plt Count 200 MPV 10.0 Immature Gran % (Auto) 0.6 H Neut % (Auto) 63.7 Lymph % (Auto) 24.3 [place] % (Auto) 9.6 H Eos % (Auto) 1.5 Baso % (Auto) 0.3 Lymph # (Auto) 1.73 [place] # (Auto) 0.7 H Eos # (Auto) 0.1 Baso # (Auto) 0.0 Abs Immat Gran (auto) 0.04 H Absolute Neuts (auto) 4.5 Absolute Nucleated RBC 0.000 Nucleated RBC % 0.0 PT 15.5 H INR 1.2 APTT 33.6 Sodium 141 Potassium 3.4 Chloride 110 H Carbon Dioxide 30 Anion Gap 1 L BUN 18 H Creatinine 0.80 Estim Creat Clear Calc 37 Estimated GFR > 60 Glucose 84 Lactic Acid 0.7 Calcium 7.9 L Phosphorus 2.0 L Magnesium 1.8 Total Bilirubin 0.4 AST 47 H ALT 29 Alkaline Phosphatase 68 Total Creatine Kinase 206 H Total Protein 5.0 L Albumin 2.7 L Beta-Hydroxybutyrate/Acetoacetate Urine Color Urine Appearance Urine pH Ur Specific [place] Urine Protein Urine Glucose (UA) Urine Ketones Ur Blood (Man) Urine Nitrate Urine Bilirubin Urine Urobilinogen Ur Leukocyte Esterase Urine RBC Urine WBC Ur Squamous Epith Cells Urine Bacteria Urine Casts Salicylates 15.1 11.4 7.1 C. difficile (PCR) 10/24/24 07:13 WBC RBC Hgb Hct MCV MCH MCHC RDW Plt Count MPV Immature Gran % (Auto) Neut % (Auto) Lymph % (Auto) [place] % (Auto) Eos % (Auto) Baso % (Auto) Lymph # (Auto) [place] # (Auto) Eos # (Auto) Baso # (Auto) Abs Immat Gran (auto) Absolute Neuts (auto) Absolute Nucleated RBC Nucleated RBC % PT INR APTT Sodium Potassium Chloride Carbon Dioxide Anion Gap BUN Creatinine Estim Creat Clear Calc Estimated GFR Glucose Lactic Acid Calcium Phosphorus Magnesium Total Bilirubin AST ALT Alkaline Phosphatase Total Creatine Kinase Total Protein Albumin Beta-Hydroxybutyrate/Acetoacetate Urine Color Urine Appearance Urine pH Ur Specific [place] Urine Protein Urine Glucose (UA) Urine Ketones Ur Blood (Man) Urine Nitrate Urine Bilirubin Urine Urobilinogen Ur Leukocyte Esterase Urine RBC Urine WBC Ur Squamous Epith Cells Urine Bacteria Urine Casts Salicylates 4.9 C. difficile (PCR) Quality VTE Prophylaxis VTE prophylaxis: pharmacologic ordered
--- NOTE | 2024-10-24 09:39 | P.PNNP_ITS ---
Progress Note: A&P Assessment and Plan (1) Metabolic acidosis with respiratory alkalosis: Code(s): E87.20 - Acidosis, unspecified; E87.3 - Alkalosis Status: Acute Assessment and Plan: the patient has metabolic acidosis. this was a quadruple acid-base defect. She had an anion gap metabolic acidosis due to aspirin And starvation ketosis. She had a non anion gap metabolic acidosis due to diarrhea. And she had respiratory alkalosis due to the aspirin and COPD. Her aspirin level has come down to almost normal. she continues to have diarrhea. She has C diff and is getting treatment for this. She has had some glucose and so her ketone levels are back down. Her COPD is under treatment. She does have a chronic respiratory acidosis with compensatory high CO2 she received bicarbonate. The bicarb level is not normal so she is off of this. She is dehydrated so she is getting some IV fluids. Sodium level has been fine. The stat alcohol toxin screen and urine plus serum osmolality are not back yet , but at this point they are not needed anymore. (2) Opioid use, unspecified with withdrawal: Code(s): F11.93 - Opioid use, unspecified with withdrawal Status: Acute Assessment and Plan: The patient clearly has issues with chronic pain. She is looking for a pain specialist to help her out (3) LEATHA (acute kidney injury): Code(s): N17.9 - Acute kidney failure, unspecified Status: Acute Assessment and Plan: her creatinine baseline is around 0.7 to 0.9. Her creatinine on admission was 1.4. this has improved with IV fluids. (4) HTN (hypertension): Qualifiers: Hypertension type: primary hypertension Qualified Code(s): I10 - Essential (primary) hypertension Code(s): I10 - Essential (primary) hypertension Status: Acute Assessment and Plan: patient has chronic hypertension and diastolic dysfunction. Blood pressure is well controlled (5) HLD (hyperlipidemia): Code(s): E78.5 - Hyperlipidemia, unspecified Status: Acute Assessment and Plan: the patient is not on a statin. Liver enzymes are slightly high now. She has chronic issues with very slightly high ALT (6) Anemia: Code(s): D64.9 - Anemia, unspecified Status: Acute Assessment and Plan: She has chronic anemia. Hemoglobin was okay on admission, however, This is resurfacing now that we are giving IV fluids. (7) Atrial fibrillation: Qualifiers: Atrial fibrillation type: unspecified Qualified Code(s): I48.91 - Unspecified atrial fibrillation Code(s): I48.91 - Unspecified atrial fibrillation Status: Acute Assessment and Plan: the patient says that she had AFib in the past. Her heart rate is regular today. (8) C. difficile enteritis: Code(s): A04.72 - Enterocolitis due to Clostridium difficile, not specified as recurrent Status: Acute Assessment and Plan: She has had this in the past. She has recently had some diarrhea C diff toxin is positive. She is getting for Doxil min. (9) Acid reflux: Code(s): K21.9 - Gastro-esophageal reflux disease without esophagitis Status: Acute Assessment and Plan: the patient takes pantoprazole Subjective Date/time seen: 10/24/24 09:39 Interval history: Patient is more interactive today. No chest pain or shortness of breath Review of Systems Cardiovascular: Cardiovascular: Reports no additional cardiovascular complaints Respiratory: Respiratory: Reports no additional respiratory complaints Gastrointestinal: Gastrointestinal: Reports no additional gastrointestinal complaints Genitourinary: Genitourinary: Reports no additional female genitourinary complaints Exam Narrative: WDWN female in NAD skin no rash head ncat lungs clear cor reg no rub abd BS+ nontender and soft ext no edema. Objective Data Vital Signs Vital Signs: Vital Signs - 24 hr 10/23/24 10:00 10/23/24 10:00 10/23/24 12:00 Temperature 97.6 F 98.1 F Pulse Rate 92 89 85 Respiratory Rate 22 H 22 H Blood Pressure 107/51 L 115/54 L Pulse Oximetry 94 93 Oxygen Delivery Oxygen Flow Rate 10/23/24 12:00 10/23/24 12:00 10/23/24 14:00 Temperature Pulse Rate 85 90 Respiratory Rate Blood Pressure Pulse Oximetry 96 Oxygen Delivery Nasal Cannula Oxygen Flow Rate 1 10/23/24 14:00 10/23/24 14:20 10/23/24 14:28 Temperature 99.6 F Pulse Rate 90 88 92 Respiratory Rate 20 20 18 Blood Pressure 90/40 L Pulse Oximetry 95 Oxygen Delivery Oxygen Flow Rate 10/23/24 16:00 10/23/24 16:00 10/23/24 16:00 Temperature 100.4 F H Pulse Rate 103 H 103 H Respiratory Rate 22 H Blood Pressure 114/48 L Pulse Oximetry 95 94 Oxygen Delivery Nasal Cannula Oxygen Flow Rate 1 10/23/24 18:00 10/23/24 18:00 10/23/24 20:00 Temperature 100.8 F H 100.9 F H Pulse Rate 98 95 95 Respiratory Rate 22 H 23 H Blood Pressure 104/46 L 112/52 L Pulse Oximetry 100 97 Oxygen Delivery Oxygen Flow Rate 10/23/24 20:00 10/23/24 20:00 10/23/24 20:37 Temperature Pulse Rate 95 99 Respiratory Rate 20 Blood Pressure Pulse Oximetry 97 Oxygen Delivery Nasal Cannula Oxygen Flow Rate 1 10/23/24 20:37 10/23/24 20:45 10/23/24 22:00 Temperature 101.1 F H Pulse Rate 99 97 91 Respiratory Rate 20 18 21 H Blood Pressure 103/59 L Pulse Oximetry 95 97 Oxygen Delivery Nasal Cannula Oxygen Flow Rate 1 10/23/24 22:00 10/23/24 22:18 10/23/24 23:18 Temperature 101.0 F H 100.8 F H Pulse Rate 91 Respiratory Rate Blood Pressure Pulse Oximetry Oxygen Delivery Oxygen Flow Rate 10/24/24 00:00 10/24/24 00:00 10/24/24 00:00 Temperature 100.3 F H Pulse Rate 87 89 Respiratory Rate 21 H Blood Pressure 101/59 L Pulse Oximetry 97 97 Oxygen Delivery Nasal Cannula Oxygen Flow Rate 1 10/24/24 02:00 10/24/24 02:00 10/24/24 02:12 Temperature 99.9 F H Pulse Rate 84 84 78 Respiratory Rate 17 18 Blood Pressure 121/60 Pulse Oximetry 98 Oxygen Delivery Oxygen Flow Rate 10/24/24 04:00 10/24/24 04:00 10/24/24 04:00 Temperature 99.5 F Pulse Rate 88 82 Respiratory Rate 19 Blood Pressure 113/50 L Pulse Oximetry 98 98 Oxygen Delivery Nasal Cannula Oxygen Flow Rate 1 10/24/24 06:00 10/24/24 06:00 10/24/24 08:38 Temperature 99.8 F H Pulse Rate 89 89 78 Respiratory Rate 20 18 Blood Pressure 118/69 Pulse Oximetry 98 Oxygen Delivery Oxygen Flow Rate Intake/Output Intake/Output: Intake & Output 10/21/24 10/22/24 10/23/24 10/24/24 23:59 23:59 23:59 23:59 Intake Total 1000 4440 250 Output Total 75 1600 500 Balance 925 2840 -250 Meds/Results Medications: Active Medications Generic Name Dose Route Start Last Admin Trade Name Freq PRN Reason Stop Dose Admin Acetaminophen 500 mg 10/23/24 18:18 10/24/24 08:56 Acetaminophen 500 Mg Tablet PO 500 mg Q6H PRN Administration Mild Pain (1-3) or Fever Albuterol/Ipratropium 3 ml 10/23/24 02:00 10/24/24 08:37 Ipratropium 0.5 Mg/Albuterol Sulfate 2.5 Mg Ampul.Neb 3 Ml INHALATION 3 ml Q6HRT SCOTTY Administration Enoxaparin Sodium 30 mg 10/23/24 09:00 10/23/24 08:42 Enoxaparin 30 Mg/0.3 Ml Syringe SUB-Q Not Given DAILY SCOTTY Fidaxomicin 200 mg 10/23/24 21:25 10/24/24 08:57 Fidaxomicin 200 Mg Tablet PO 11/03/24 21:24 200 mg Q12HR SCOTTY Administration Potassium Phosphate 20 mmol/ 256.6667 mls @ 64.167 mls/hr 10/24/24 08:00 10/24/24 08:57 Sodium Chloride IVPB 10/24/24 11:59 64.17 mls/hr ONCE ONE Administration Pantoprazole Sodium 40 mg 10/23/24 21:00 10/24/24 08:57 Pantoprazole Sodium Iv 40 Mg Vial IV PUSH 40 mg Q12HR SCOTTY Administration Sodium Chloride 10 ml 10/23/24 22:00 10/24/24 04:06 Central Line Flush IV PUSH 10 ml Q8HR SCOTTY Administration Sodium Chloride 10 ml 10/23/24 14:23 Central Line Flush IV PUSH PRN PRN with TPN bag changes Sodium Chloride 20 ml 10/23/24 14:23 Central Line Flush IV PUSH PRN PRN after blood draws Radiology Results: ITS Impressions Head CT 10/22/24 14:26 IMPRESSION: 1. No acute intracranial abnormality. Chest X-Ray 10/22/24 14:28 IMPRESSION: 1. No acute cardiopulmonary findings given portable technique. Labs Labs: Laboratory Results - last 24 hr 10/23/24 10/23/24 10/23/24 11:25 12:03 14:59 WBC RBC Hgb Hct MCV MCH MCHC RDW Plt Count MPV Immature Gran % (Auto) Neut % (Auto) Lymph % (Auto) Armstrong % (Auto) Eos % (Auto) Baso % (Auto) Lymph # (Auto) Armstrong # (Auto) Eos # (Auto) Baso # (Auto) Abs Immat Gran (auto) Absolute Neuts (auto) Absolute Nucleated RBC Nucleated RBC % PT INR APTT Sodium 144 Potassium 2.5 L* Chloride 108 H Carbon Dioxide 31 H Anion Gap 5 BUN 25 H Creatinine 0.84 Estim Creat Clear Calc 33 Estimated GFR > 60 Glucose 159 H Lactic Acid Calcium 7.5 L Phosphorus 1.8 L Magnesium Total Bilirubin AST ALT Alkaline Phosphatase Total Creatine Kinase Total Protein Albumin 3.0 L Beta-Hydroxybutyrate/Acetoacetate 0.12 Urine Color Yellow Urine Appearance Clear Urine pH 5.5 Ur Specific [place] 1.025 Urine Protein Trace Urine Glucose (UA) Trace H Urine Ketones 2+ H Ur Blood (Man) Negative Urine Nitrate Negative Urine Bilirubin Negative Urine Urobilinogen 1.0 Ur Leukocyte Esterase Negative Urine RBC 0-2 Urine WBC 0-5 Ur Squamous Epith Cells Occasional Urine Bacteria None seen Urine Casts 3-5 Salicylates 21.3 H* 17.8 C. difficile (PCR) 10/23/24 10/23/24 10/23/24 18:26 19:27 19:28 WBC RBC Hgb Hct MCV MCH MCHC RDW Plt Count MPV Immature Gran % (Auto) Neut % (Auto) Lymph % (Auto) Armstrong % (Auto) Eos % (Auto) Baso % (Auto) Lymph # (Auto) Armstrong # (Auto) Eos # (Auto) Baso # (Auto) Abs Immat Gran (auto) Absolute Neuts (auto) Absolute Nucleated RBC Nucleated RBC % PT INR APTT Sodium 144 Potassium 3.8 Chloride 112 H Carbon Dioxide 25 Anion Gap 7 BUN 21 H Creatinine 0.86 Estim Creat Clear Calc 32 Estimated GFR > 60 Glucose 186 H Lactic Acid Calcium 7.8 L Phosphorus Magnesium Total Bilirubin 0.2 AST 45 H ALT 35 Alkaline Phosphatase 63 Total Creatine Kinase Total Protein 5.1 L Albumin 2.9 L Beta-Hydroxybutyrate/Acetoacetate Urine Color Urine Appearance Urine pH Ur Specific [place] Urine Protein Urine Glucose (UA) Urine Ketones Ur Blood (Man) Urine Nitrate Urine Bilirubin Urine Urobilinogen Ur Leukocyte Esterase Urine RBC Urine WBC Ur Squamous Epith Cells Urine Bacteria Urine Casts Salicylates 15.1 C. difficile (PCR) Positive A* 10/23/24 10/24/24 10/24/24 23:26 04:09 07:13 WBC 7.1 RBC 3.08 L Hgb 9.5 L Hct 29.6 L MCV 96.1 MCH 30.8 MCHC 32.1 RDW 16.4 H Plt Count 200 MPV 10.0 Immature Gran % (Auto) 0.6 H Neut % (Auto) 63.7 Lymph % (Auto) 24.3 Armstrong % (Auto) 9.6 H Eos % (Auto) 1.5 Baso % (Auto) 0.3 Lymph # (Auto) 1.73 Armstrong # (Auto) 0.7 H Eos # (Auto) 0.1 Baso # (Auto) 0.0 Abs Immat Gran (auto) 0.04 H Absolute Neuts (auto) 4.5 Absolute Nucleated RBC 0.000 Nucleated RBC % 0.0 PT 15.5 H INR 1.2 APTT 33.6 Sodium 141 Potassium 3.4 Chloride 110 H Carbon Dioxide 30 Anion Gap 1 L BUN 18 H Creatinine 0.80 Estim Creat Clear Calc 37 Estimated GFR > 60 Glucose 84 Lactic Acid 0.7 Calcium 7.9 L Phosphorus 2.0 L Magnesium 1.8 Total Bilirubin 0.4 AST 47 H ALT 29 Alkaline Phosphatase 68 Total Creatine Kinase 206 H Total Protein 5.0 L Albumin 2.7 L Beta-Hydroxybutyrate/Acetoacetate Urine Color Urine Appearance Urine pH Ur Specific [place] Urine Protein Urine Glucose (UA) Urine Ketones Ur Blood (Man) Urine Nitrate Urine Bilirubin Urine Urobilinogen Ur Leukocyte Esterase Urine RBC Urine WBC Ur Squamous Epith Cells Urine Bacteria Urine Casts Salicylates 11.4 7.1 4.9 C. difficile (PCR)
[2024-10-24] MEDS: ENOXAPARIN 30 MG/0.3 ML SYRINGE SUB-Q (11:12)
--- NOTE | 2024-10-24 15:57 | PC.NURSE ---
This patient, Marysol Chapman, was transferred to [facility] on 10/24/24 at 1537. Personal belongings sent with patient. Report given to Ting LEIVA. Appropriate documentation sent with patient. Patient son, Chaka, notified for room change.
[2024-10-24] MEDS: MELATONIN 3 MG TABLET PO (23:39)
[2024-10-25] VITALS (11 sets, daily range): BP systolic 116–136; BP diastolic 61–70; PULSE 78–97; RESP 16–18; TEMP 36.4–36.9; O2SAT 91–99
[2024-10-25] MEDS: IPRATROPIUM 0.5 MG/ALBUTEROL SULFATE 2.5 MG AMPUL.NEB 3 ML INHALATION ×3 (02:15→13:38)
[2024-10-25] MEDS: CENTRAL LINE FLUSH 10 ML IV PUSH ×4 (02:53→23:06)
[2024-10-25 04:47] LABS: Hematocrit 30.4 % (37.0-47.0); Hemoglobin 9.4 g/dL (12.0-15.0); Immature Granulocyte Percent A 0.5 % (0-0.5); Lymphocytes Absolute Auto 1.56 K/mm3 (0.9-3.2); Mean Corpuscular HGB Conc 30.9 g/dl (32-36); Mean Corpuscular Hemoglobin 30.6 pg (26-34); Mean Corpuscular Volume 99.0 fl (80-100); Nucleated Red Blood Cells Absolute Auto 0.000 K/mm3 (0.0-0.012); Nucleated Red Blood Cells Perc 0.0 % (0.0-0.2); Platelet Count Result 179 k/mm3 (150-375); Red Blood Count 3.07 M/mm3 (4.2-5.4); White Blood Count 5.5 K/mm3 (4.5-10.0)
[2024-10-25 05:10] LABS: Alanine Aminotransferase 25 U/L (6-35); Albumin Level 2.6 g/dL (3.5-5.1); Alkaline Phosphatase 60 U/L (38-126); Anion Gap 2 mmol/L (4-12); Aspartate Amino Transferase 35 U/L (14-36); Bilirubin,Total 0.5 mg/dL (0.2-1.3); Blood Urea Nitrogen 13 mg/dL (7-17); Calcium 7.8 mg/dL (8.4-10.2); Carbon Dioxide 30 mmol/L (22-30); Chloride 106 mmol/L (98-107); Estimated CRCL calculation 39 ml/min; Estimated Glomerular Filt Rate > 60; Glucose 85 mg/dL (65-110); Magnesium 2.0 mg/dL (1.6-2.3); Potassium 3.9 mmol/L (3.4-5.0); Sodium 138 mmol/L (137-145); Total Protein 4.8 g/dL (6.3-8.2)
[2024-10-25 05:43] LABS: Thyroid Stimulating Hormone 3.520 uIU/mL (0.465-4.680)
[2024-10-25 09:29] LABS: Salicylate < 1.0 mg/dL (2-20)
[2024-10-25] MEDS: ACETAMINOPHEN 500 MG TABLET PO ×4 (09:38→21:59)
[2024-10-25] MEDS: ENOXAPARIN 30 MG/0.3 ML SYRINGE SUB-Q (09:39)
[2024-10-25] MEDS: FIDAXOMICIN 200 MG TABLET PO ×2 (09:39→20:31)
--- NOTE | 2024-10-25 10:26 | P.PNNP_ITS ---
Progress Note: A&P Assessment and Plan (1) Metabolic acidosis with respiratory alkalosis: Code(s): E87.20 - Acidosis, unspecified; E87.3 - Alkalosis Status: Acute Assessment and Plan: * resolved * mixed acid-base disorder noted on presentation: * anion gap metabolic acidosis due to aspirin + starvation ketosis * non anion gap metabolic acidosis due to diarrhea * respiratory alkalosis due to the aspirin and COPD * stability noted with treatment of underlying medical issues (2) LEATHA (acute kidney injury): Code(s): N17.9 - Acute kidney failure, unspecified Status: Acute Assessment and Plan: * resolved * improved with IVF resuscitation (3) Salicylate overdose: Qualifiers: Encounter type: initial encounter Injury intent: accidental or unintentional Qualified Code(s): T39.091A - Poisoning by salicylates, accidental (unintentional), initial encounter Code(s): T39.091A - Poisoning by salicylates, accidental (unintentional), initial encounter Status: Acute Assessment and Plan: * responded to treatment * salicylate levels normal (4) HTN (hypertension): Qualifiers: Hypertension type: primary hypertension Qualified Code(s): I10 - Essential (primary) hypertension Code(s): I10 - Essential (primary) hypertension Status: Acute Assessment and Plan: * reasonable control at this time * follow trend of hemodynamics (5) Anemia: Code(s): D64.9 - Anemia, unspecified Status: Chronic Assessment and Plan: * chronic at baseline * suspect dilutional effect from IVFs playing a role * follow trend of H/H (6) C. difficile enteritis: Code(s): A04.72 - Enterocolitis due to Clostridium difficile, not specified as recurrent Status: Acute Assessment and Plan: * positive C. diff PCR * on [facility] Not much else to add from renal perspective -- will follow from a distance. L Subjective Date/time seen: 10/25/24 10:26 Interval history: Follow-up for acute kidney injury/acute renal failure and metabolic acidosis. Chart reviewed -- assuming care from Dr. Vega; appears to be doing reasonably well at the time of my visit; only major complaint is that of pain but this is a chronic issue/problem; no events overnight or earlier this morning. Exam 2 Narrative: General: elderly but WD/WN female in NAD Heart: normal S1 and S2; no rub Lungs: clear to auscultation Abdomen: soft, nontender, nondistended, positive bowel sounds Extremities: no cyanosis or clubbing; no edema Skin: warm and dry Objective Data Vital Signs Vital Signs: Vital Signs Temp Pulse Resp BP Pulse Ox O2 Del Method 10/25/24 10:12 92 Room Air 10/25/24 09:50 89 18 10/25/24 09:40 90 18 10/25/24 05:34 97.6 F 86 16 136/66 92 10/25/24 02:22 84 18 10/25/24 02:15 86 18 10/24/24 20:37 83 18 10/24/24 20:33 87 92 Room Air 10/24/24 20:31 98.5 F 85 16 153/59 H 92 10/24/24 20:26 87 18 Intake/Output Intake/Output: Intake & Output 10/22/24 10/23/24 10/24/24 10/25/24 23:59 23:59 23:59 23:59 Intake Total 1000 4440 1450 560 Output Total 75 1600 800 450 Balance 925 2840 650 110 Meds/Results Medications: Active Medications Generic Name Dose Route Start Last Admin Trade Name Freq PRN Reason Stop Dose Admin Acetaminophen 500 mg 10/23/24 18:18 10/25/24 16:23 Acetaminophen 500 Mg Tablet PO 500 mg Q6H PRN Administration Mild Pain (1-3) or Fever Albuterol/Ipratropium 3 ml 10/23/24 02:00 10/25/24 13:38 Ipratropium 0.5 Mg/Albuterol Sulfate 2.5 Mg Ampul.Neb 3 Ml INHALATION 3 ml Q6HRT SCOTTY Administration Enoxaparin Sodium 30 mg 10/23/24 09:00 10/25/24 09:39 Enoxaparin 30 Mg/0.3 Ml Syringe SUB-Q 30 mg DAILY SCOTTY Administration Fidaxomicin 200 mg 10/23/24 21:25 10/25/24 09:39 Fidaxomicin 200 Mg Tablet PO 11/03/24 21:24 200 mg Q12HR SCOTTY Administration Melatonin 3 mg 10/24/24 23:26 10/24/24 23:39 Melatonin 3 Mg Tablet PO 3 mg HS PRN Administration Insomnia Sodium Chloride 10 ml 10/23/24 22:00 10/25/24 16:23 Central Line Flush IV PUSH 10 ml Q8HR SCOTTY Administration Sodium Chloride 10 ml 10/23/24 14:23 Central Line Flush IV PUSH PRN PRN with TPN bag changes Sodium Chloride 20 ml 10/23/24 14:23 Central Line Flush IV PUSH PRN PRN after blood draws Tizanidine HCl 1 mg 10/25/24 12:20 10/25/24 13:40 Tizanidine Hcl 1 Mg Tablet PO 1 mg QAM SCOTTY Administration Radiology Results: ITS Impressions Head CT 10/22/24 14:26 IMPRESSION: 1. No acute intracranial abnormality. Chest X-Ray 10/22/24 14:28 IMPRESSION: 1. No acute cardiopulmonary findings given portable technique. Labs Labs: Laboratory Tests 10/25/24 04:27 10/25/24 04:27 Lactic Acid 0.8 Calcium 7.8 L Phosphorus 2.8 Magnesium 2.0 Total Bilirubin 0.5 AST 35 ALT 25 Alkaline Phosphatase 60 Total Protein 4.8 L Albumin 2.6 L TSH 3.520 Salicylates < 1.0 L Microbiology 10/23/24 00:55 Blood Blood Culture - Preliminary 10/23/24 01:12 Blood Blood Culture - Preliminary
--- NOTE | 2024-10-25 12:20 | P.PNIM_ITS ---
Progress Note: A&P Assessment and Plan (1) Metabolic acidosis with respiratory alkalosis: Code(s): E87.20 - Acidosis, unspecified; E87.3 - Alkalosis Status: Acute (2) Salicylate overdose: Qualifiers: Encounter type: initial encounter Injury intent: accidental or unintentional Qualified Code(s): T39.091A - Poisoning by salicylates, accidental (unintentional), initial encounter Code(s): T39.091A - Poisoning by salicylates, accidental (unintentional), initial encounter Status: Acute (3) LEATHA (acute kidney injury): Code(s): N17.9 - Acute kidney failure, unspecified Status: Acute (4) Opioid use, unspecified with withdrawal: Code(s): F11.93 - Opioid use, unspecified with withdrawal Status: Acute (5) jail (current) use of opiate analgesic: Code(s): Z79.891 - 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 Patient case was discussed with poison Control re suggested urgent nephrology consult given the patient's altered mental status in the setting of salicylate toxicity. The patient's salicylate level in and of itself would not require emergent dialysis but given the patient's severe encephalopathy in may be indicated. The patient was treated with a total of 3 amps of sodium bicarbonate bolus and started on a bicarb drip with D5 W with 150 mEq of sodium bicarb at 150 mL an hour. Given the patient's encephalopathy even though she had euglycemia poison Control recommended patient receive an amp of D50 to help with cerebral metabolism. Case was discussed with the survey technician and the initially rib planning to arrange for patient have emergent dialysis. But repeat to use returned with significant improvement in the patient's pH from 7.2 up to 7.4 with pCO2 improving from 21 up to 30. Subsequently of will continue to monitor serial salicylate levels and urine pH Q 2 hours. Will give the patient significant potassium repletion as salicylate toxicity can cause worsening hypokalemia. 40 mEq potassium chloride rider has been ordered. Repeat electrolyte panel is pending at the time of my sign-out to he bradley linebacker crewmember. patient had been taking aspirin for chronic back pain for a very long time and presented with c/o diarrhea and confusion was found have aspirin toxicity and severe metabolic acidosis, patient was admitted in the ICU and upon arrival her salicylates levels were 25.3 and her CO2 levels were <5, patient was treated in the ICU with bicarb and hydration, her salicylate levels today are<1 and CO2 are 30, patient clinical symptoms have improved, she does complaints of chronic pain, will start on Tizanidine 1mg PO qd, will monitor, will have PT/OT evaluate the patient, patient will benefit going to a rehab. Subjective Date/time seen: 10/25/24 12:20 Interval history: Diarrhea and confusion H&P-Narrative: 88-year-old female with a past medical history of chronic pain dependent upon chronic opiate, prior drug abuse anxiety, depression, essential hypertension and GERD who presented to the ER from via EMS due to diarrhea, confusion and weakness. Patient was somnolent and lethargic at the time my evaluation and was unable to provide any history subsequently information was obtained from discussion with the patient's family, review of past medical records and ER physician report. The patient had come in complaining of weakness head was having trouble sitting upright on arrival to the ER was leaning to the left. The patient sees Pain Management and recently fired from prior pain management clinic and was recently reestablished with a new pain management physician. She had previously been on oxycodone and hydrocodone. She ran out of medications 1 week ago. She was evaluated by her new pain management physician on the but had not gotten her prescription filled yet. She began having multiple episodes of diarrhea and nausea that started on the . She did not have any fevers or chills. She had reportedly denied any urinary symptoms. The patient was reportedly alert oriented x4 in the ER. However nursing staff told me that the bedtime patient arrived to the medical floor she was alert and oriented to the fact that she is on hospital but could not state what hospital she was in in could state what year it was. The patient was evidently able to verbalize that she did not want CPR or intubation to the ER physician and that the patient had previously been on hospice. However by the time patient arrived to the medical floor patient was unable to verbalize her wishes and the patient's children who were at bedside is stated that they wanted the patient to be a full code until they stated discuss the matter further. In the ER patient was noted to have acute kidney injury presumed to be due to diarrhea from opiate withdrawal. She was given 1 L fluid bolus as started on maintenance fluids with normal saline at 150 mL an hour. She was also started on [place]. When she arrived to the medical floor she was complaining of pain and nursing staff give patient 1 dose of [place]. I saw the patient couple of hours later and the patient was somnolent and lethargic and unable to answer questions. She was markedly tachypneic and on review or labs noted that her serum bicarb was markedly low at 6 which seemed out of proportion compared to the patient's creatinine. Was tachycardic and ill-appearing. She initially could tell me that she was in the hospital but was having difficulty following command and was trying to state the year but could not complete the answer. Subsequently further testing was obtained. With the patient having significant metabolic acidosis despite marked tachypnea and respiratory alkalosis. Further testing also demonstrated continue decreased serum bicarb despite the fluid resuscitation and improved renal function. She had significant anion gap acidosis and further testing was obtained to determine underlying pathology and patient was subsequently found to have salicylate toxicity. Patient was subsequently transferred to the ICU in this setting. patient had been taking aspirin for chronic back pain for a very long time and presented with c/o diarrhea and confusion was found have aspirin toxicity and severe metabolic acidosis, patient was admitted in the ICU and upon arrival her salicylates levels were 25.3 and her CO2 levels were <5, patient was treated in the ICU with bicarb and hydration, her salicylate levels today are<1 and CO2 are 30, patient clinical symptoms have improved, she does complaints of chronic pain, will start on Tizanidine 1mg PO qd, will monitor, will have PT/OT evaluate the patient, patient will benefit going to a rehab. Review of Systems Review of Systems: Unobtainable due to the patient's clinical condition All systems reviewed & are unremarkable except as noted in HPI and below Cardiovascular: Cardiovascular: Reports no additional cardiovascular complaints Respiratory: Respiratory: Reports no additional respiratory complaints Gastrointestinal: Gastrointestinal: Reports no additional gastrointestinal complaints Genitourinary: Genitourinary: Reports no additional female genitourinary complaints Exam Narrative: Elderly frail Patient is comfortable, NAD HEENT: eyes are clear and none icteric LUNGS:CTA HEART: RR S1S2 ABD: BS+, Soft and nontender Lower extremities: no edema SKIN: nonjaundiced Neuro: grossly intact. Objective Data Vital Signs Vital Signs: Vital Signs - 24 hr 10/24/24 14:10 10/24/24 14:17 10/24/24 14:17 Temperature Pulse Rate 80 87 80 Respiratory Rate 18 20 18 Blood Pressure Pulse Oximetry 94 Oxygen Delivery Room Air 10/24/24 20:26 10/24/24 20:31 10/24/24 20:33 Temperature 36.9 C Pulse Rate 87 85 87 Respiratory Rate 18 16 Blood Pressure 153/59 H Pulse Oximetry 92 92 Oxygen Delivery Room Air 10/24/24 20:37 10/25/24 02:15 10/25/24 02:22 Temperature Pulse Rate 83 86 84 Respiratory Rate 18 18 18 Blood Pressure Pulse Oximetry Oxygen Delivery 10/25/24 05:34 10/25/24 09:40 10/25/24 09:50 Temperature 36.4 C Pulse Rate 86 90 89 Respiratory Rate 16 18 18 Blood Pressure 136/66 Pulse Oximetry 92 Oxygen Delivery 10/25/24 10:12 10/25/24 11:02 Temperature Pulse Rate Respiratory Rate Blood Pressure Pulse Oximetry 92 Oxygen Delivery Room Air Room Air Intake/Output Intake/Output: Intake & Output 10/22/24 10/23/24 10/24/24 10/25/24 23:59 23:59 23:59 23:59 Intake Total 1000 4440 1450 320 Output Total 75 1600 800 450 Balance 925 2840 650 -130 Meds/Results Medications: Active Medications Generic Name Dose Route Start Last Admin Trade Name Freq PRN Reason Stop Dose Admin Acetaminophen 500 mg 10/23/24 18:18 10/25/24 09:38 Acetaminophen 500 Mg Tablet PO 500 mg Q6H PRN Administration Mild Pain (1-3) or Fever Albuterol/Ipratropium 3 ml 10/23/24 02:00 10/25/24 09:40 Ipratropium 0.5 Mg/Albuterol Sulfate 2.5 Mg Ampul.Neb 3 Ml INHALATION 3 ml Q6HRT SCOTTY Administration Enoxaparin Sodium 30 mg 10/23/24 09:00 10/25/24 09:39 Enoxaparin 30 Mg/0.3 Ml Syringe SUB-Q 30 mg DAILY SCOTTY Administration Fidaxomicin 200 mg 10/23/24 21:25 10/25/24 09:39 Fidaxomicin 200 Mg Tablet PO 11/03/24 21:24 200 mg Q12HR SCOTTY Administration Melatonin 3 mg 10/24/24 23:26 10/24/24 23:39 Melatonin 3 Mg Tablet PO 3 mg HS PRN Administration Insomnia Sodium Chloride 10 ml 10/23/24 22:00 10/25/24 04:41 Central Line Flush IV PUSH 10 ml Q8HR SCOTTY Administration Sodium Chloride 10 ml 10/23/24 14:23 Central Line Flush IV PUSH PRN PRN with TPN bag changes Sodium Chloride 20 ml 10/23/24 14:23 Central Line Flush IV PUSH PRN PRN after blood draws Radiology Results: ITS Impressions Head CT 10/22/24 14:26 IMPRESSION: 1. No acute intracranial abnormality. Chest X-Ray 10/22/24 14:28 IMPRESSION: 1. No acute cardiopulmonary findings given portable technique. Labs Labs: Laboratory Results - last 24 hr 10/25/24 04:27 WBC 5.5 RBC 3.07 L Hgb 9.4 L Hct 30.4 L MCV 99.0 MCH 30.6 MCHC 30.9 L RDW 15.8 H Plt Count 179 MPV 10.2 Immature Gran % (Auto) 0.5 Neut % (Auto) 61.4 Lymph % (Auto) 28.2 [place] % (Auto) 8.3 Eos % (Auto) 1.4 Baso % (Auto) 0.2 Lymph # (Auto) 1.56 [place] # (Auto) 0.5 Eos # (Auto) 0.1 Baso # (Auto) 0.0 Abs Immat Gran (auto) 0.03 Absolute Neuts (auto) 3.4 Absolute Nucleated RBC 0.000 Nucleated RBC % 0.0 Sodium 138 Potassium 3.9 Chloride 106 Carbon Dioxide 30 Anion Gap 2 L BUN 13 D Creatinine 0.75 Estim Creat Clear Calc 39 Estimated GFR > 60 Glucose 85 Lactic Acid 0.8 Calcium 7.8 L Phosphorus 2.8 Magnesium 2.0 Total Bilirubin 0.5 AST 35 ALT 25 Alkaline Phosphatase 60 Total Protein 4.8 L Albumin 2.6 L TSH 3.520 Salicylates < 1.0 L Quality VTE Prophylaxis VTE prophylaxis: pharmacologic ordered
[2024-10-25] MEDS: TIZANIDINE HCL 1 MG TABLET PO (13:40)
[2024-10-25] MEDS: MELATONIN 3 MG TABLET PO (21:15)
--- NOTE | 2024-10-25 23:57 | PCRCNOTE ---
Window of time for administration has passed. See next scheduled administration.
[2024-10-26] VITALS (12 sets, daily range): BP systolic 118–146; BP diastolic 63–88; PULSE 80–101; RESP 14–20; TEMP 36.4–36.6; O2SAT 97–99
[2024-10-26] MEDS: IPRATROPIUM 0.5 MG/ALBUTEROL SULFATE 2.5 MG AMPUL.NEB 3 ML INHALATION ×4 (02:16→20:56)
[2024-10-26] MEDS: CENTRAL LINE FLUSH 10 ML IV PUSH ×3 (05:51→21:30)
[2024-10-26 06:07] LABS: Hematocrit 32.4 % (37.0-47.0); Hemoglobin 10.0 g/dL (12.0-15.0); Mean Corpuscular HGB Conc 30.9 g/dl (32-36); Mean Corpuscular Hemoglobin 30.5 pg (26-34); Mean Corpuscular Volume 98.8 fl (80-100); Platelet Count Result 188 k/mm3 (150-375); Red Blood Count 3.28 M/mm3 (4.2-5.4); White Blood Count 5.5 K/mm3 (4.5-10.0)
[2024-10-26 06:30] LABS: Alanine Aminotransferase 22 U/L (6-35); Albumin Level 2.8 g/dL (3.5-5.1); Alkaline Phosphatase 57 U/L (38-126); Anion Gap -1 mmol/L (4-12); Aspartate Amino Transferase 31 U/L (14-36); Bilirubin,Total 0.5 mg/dL (0.2-1.3); Blood Urea Nitrogen 17 mg/dL (7-17); Calcium 8.1 mg/dL (8.4-10.2); Carbon Dioxide 35 mmol/L (22-30); Chloride 101 mmol/L (98-107); Estimated CRCL calculation 41 ml/min; Estimated Glomerular Filt Rate > 60; Glucose 87 mg/dL (65-110); Magnesium 1.9 mg/dL (1.6-2.3); Potassium 4.3 mmol/L (3.4-5.0); Sodium 135 mmol/L (137-145); Total Protein 5.1 g/dL (6.3-8.2)
[2024-10-26] MEDS: ACETAMINOPHEN 500 MG TABLET PO ×2 (08:18→18:17)
[2024-10-26] MEDS: FIDAXOMICIN 200 MG TABLET PO ×2 (08:18→20:28)
[2024-10-26] MEDS: TIZANIDINE HCL 1 MG TABLET PO (08:19)
[2024-10-26] MEDS: ENOXAPARIN 30 MG/0.3 ML SYRINGE SUB-Q (08:20)
[2024-10-26 09:14] LABS: Potassium 2.5 mmol/L (3.4-5.0)
--- NOTE | 2024-10-26 12:50 | PM.IMPN ---
Progress Note: A&P Assessment and Plan (1) Metabolic acidosis with respiratory alkalosis: Code(s): E87.20 - Acidosis, unspecified; E87.3 - Alkalosis Status: Acute (2) Salicylate overdose: Qualifiers: Encounter type: initial encounter Injury intent: accidental or unintentional Qualified Code(s): T39.091A - Poisoning by salicylates, accidental (unintentional), initial encounter Code(s): T39.091A - Poisoning by salicylates, accidental (unintentional), initial encounter Status: Acute (3) LEATHA (acute kidney injury): Code(s): N17.9 - Acute kidney failure, unspecified Status: Acute (4) Opioid use, unspecified with withdrawal: Code(s): F11.93 - Opioid use, unspecified with withdrawal Status: Acute (5) snf (current) use of opiate analgesic: Code(s): Z79.891 - intermediate card tender (current) use of opiate analgesic Status: Acute (6) Chronic pain syndrome: Code(s): G89.4 - Chronic pain syndrome Status: Acute (7) HTN (hypertension): Qualifiers: Hypertension type: primary hypertension Qualified Code(s): I10 - Essential (primary) hypertension Code(s): I10 - Essential (primary) hypertension Status: Acute (8) Tobacco abuse: Code(s): Z72.0 - Tobacco use Status: Chronic Plan Patient has acute kidney injury that is likely multifactorial due to a combination of unintentional salicylate overdose, starvation ketosis and or hypovolemia. Patient case was discussed with poison Control re suggested urgent nephrology consult given the patient's altered mental status in the setting of salicylate toxicity. The patient's salicylate level in and of itself would not require emergent dialysis but given the patient's severe encephalopathy in may be indicated. The patient was treated with a total of 3 amps of sodium bicarbonate bolus and started on a bicarb drip with D5 W with 150 mEq of sodium bicarb at 150 mL an hour. Given the patient's encephalopathy even though she had euglycemia poison Control recommended patient receive an amp of D50 to help with cerebral metabolism. Case was discussed with the care support representative and the initially rib planning to arrange for patient have emergent dialysis. But repeat to use returned with significant improvement in the patient's pH from 7.2 up to 7.4 with pCO2 improving from 21 up to 30. Subsequently of will continue to monitor serial salicylate levels and urine pH Q 2 hours. Will give the patient significant potassium repletion as salicylate toxicity can cause worsening hypokalemia. 40 mEq potassium chloride rider has been ordered. Repeat electrolyte panel is pending at the time of my sign-out to he public relations sales marketing. patient had been taking aspirin for chronic back pain for a very long time and presented with c/o diarrhea and confusion was found have aspirin toxicity and severe metabolic acidosis, patient was admitted in the ICU and upon arrival her salicylates levels were 25.3 and her CO2 levels were <5, patient was treated in the ICU with bicarb and hydration, her salicylate levels today are<1 and CO2 are 35, patient clinical symptoms have improved, she did complaints of chronic pain, started on Tizanidine 1mg PO qd, Patient stats pain is much better, stats will go to rehab for 2 weeks before going home, will monitor, will have PT/OT evaluate the patient, patient will benefit going to a rehab. Subjective Date/time seen: 10/26/24 12:50 Interval history: Diarrhea and confusion H&P-Narrative: 88-year-old female with a past medical history of chronic pain dependent upon chronic opiate, prior drug abuse anxiety, depression, essential hypertension and GERD who presented to the ER from via EMS due to diarrhea, confusion and weakness. Patient was somnolent and lethargic at the time my evaluation and was unable to provide any history subsequently information was obtained from discussion with the patient's family, review of past medical records and ER physician report. The patient had come in complaining of weakness head was having trouble sitting upright on arrival to the ER was leaning to the left. The patient sees Pain Management and recently fired from prior pain management clinic and was recently reestablished with a new pain management physician. She had previously been on oxycodone and hydrocodone. She ran out of medications 1 week ago. She was evaluated by her new pain management physician on the but had not gotten her prescription filled yet. She began having multiple episodes of diarrhea and nausea that started on the . She did not have any fevers or chills. She had reportedly denied any urinary symptoms. The patient was reportedly alert oriented x4 in the ER. However nursing staff told me that the bedtime patient arrived to the medical floor she was alert and oriented to the fact that she is on hospital but could not state what hospital she was in in could state what year it was. The patient was evidently able to verbalize that she did not want CPR or intubation to the ER physician and that the patient had previously been on hospice. However by the time patient arrived to the medical floor patient was unable to verbalize her wishes and the patient's children who were at bedside is stated that they wanted the patient to be a full code until they stated discuss the matter further. In the ER patient was noted to have acute kidney injury presumed to be due to diarrhea from opiate withdrawal. She was given 1 L fluid bolus as started on maintenance fluids with normal saline at 150 mL an hour. She was also started on [place]. When she arrived to the medical floor she was complaining of pain and nursing staff give patient 1 dose of [place]. I saw the patient couple of hours later and the patient was somnolent and lethargic and unable to answer questions. She was markedly tachypneic and on review or labs noted that her serum bicarb was markedly low at 6 which seemed out of proportion compared to the patient's creatinine. Was tachycardic and ill-appearing. She initially could tell me that she was in the hospital but was having difficulty following command and was trying to state the year but could not complete the answer. Subsequently further testing was obtained. With the patient having significant metabolic acidosis despite marked tachypnea and respiratory alkalosis. Further testing also demonstrated continue decreased serum bicarb despite the fluid resuscitation and improved renal function. She had significant anion gap acidosis and further testing was obtained to determine underlying pathology and patient was subsequently found to have salicylate toxicity. Patient was subsequently transferred to the ICU in this setting. patient had been taking aspirin for chronic back pain for a very long time and presented with c/o diarrhea and confusion was found have aspirin toxicity and severe metabolic acidosis, patient was admitted in the ICU and upon arrival her salicylates levels were 25.3 and her CO2 levels were <5, patient was treated in the ICU with bicarb and hydration, her salicylate levels today are<1 and CO2 are 35, patient clinical symptoms have improved, she did complaints of chronic pain, started on Tizanidine 1mg PO qd, Patient stats pain is much better, stats will go to rehab for 2 weeks before going home, will monitor, will have PT/OT evaluate the patient, patient will benefit going to a rehab. Review of Systems Review of Systems: All systems reviewed & are unremarkable except as noted in HPI and below Exam Narrative: Elderly frail Patient is comfortable, NAD HEENT: eyes are clear and none icteric LUNGS:CTA HEART: RR S1S2 ABD: BS+, Soft and nontender Lower extremities: no edema SKIN: nonjaundiced Neuro: grossly intact. Objective Data Vital Signs Vital Signs: Vital Signs - 24 hr 10/25/24 13:40 10/25/24 13:48 10/25/24 13:57 Temperature Pulse Rate 89 91 Respiratory Rate 18 18 Blood Pressure Pulse Oximetry Oxygen Delivery Room Air Oxygen Flow Rate 10/25/24 14:00 10/25/24 20:00 10/25/24 21:57 Temperature 36.9 C 36.4 C Pulse Rate 97 78 Respiratory Rate 16 16 Blood Pressure 116/61 136/70 Pulse Oximetry 91 95 99 Oxygen Delivery Nasal Cannula Oxygen Flow Rate 2 10/26/24 02:16 10/26/24 02:27 10/26/24 06:00 Temperature 36.4 C Pulse Rate 92 91 85 Respiratory Rate 18 18 16 Blood Pressure 135/74 Pulse Oximetry 97 Oxygen Delivery Oxygen Flow Rate 10/26/24 08:43 10/26/24 08:47 Temperature Pulse Rate 89 101 H Respiratory Rate 14 14 Blood Pressure Pulse Oximetry Oxygen Delivery Oxygen Flow Rate Intake/Output Intake/Output: Intake & Output 10/23/24 10/24/24 10/25/24 10/26/24 23:59 23:59 23:59 23:59 Intake Total 4440 1450 1350 718 Output Total 2549 097 1745 2550 Balance 2840 650 0 -1832 Meds/Results Medications: Active Medications Generic Name Dose Route Start Last Admin Trade Name Freq PRN Reason Stop Dose Admin Acetaminophen 500 mg 10/23/24 18:18 10/26/24 08:18 Acetaminophen 500 Mg Tablet PO 500 mg Q6H PRN Administration Mild Pain (1-3) or Fever Albuterol/Ipratropium 3 ml 10/23/24 02:00 10/26/24 08:37 Ipratropium 0.5 Mg/Albuterol Sulfate 2.5 Mg Ampul.Neb 3 Ml INHALATION 3 ml Q6HRT SCOTTY Administration Enoxaparin Sodium 30 mg 10/23/24 09:00 10/26/24 08:20 Enoxaparin 30 Mg/0.3 Ml Syringe SUB-Q 30 mg DAILY SCOTTY Administration Fidaxomicin 200 mg 10/23/24 21:25 10/26/24 08:18 Fidaxomicin 200 Mg Tablet PO 11/03/24 21:24 200 mg Q12HR SCOTTY Administration Melatonin 3 mg 10/24/24 23:26 10/25/24 21:15 Melatonin 3 Mg Tablet PO 3 mg HS PRN Administration Insomnia Sodium Chloride 10 ml 10/23/24 22:00 10/26/24 05:51 Central Line Flush IV PUSH 10 ml Q8HR SCOTTY Administration Sodium Chloride 10 ml 10/23/24 14:23 Central Line Flush IV PUSH PRN PRN with TPN bag changes Sodium Chloride 20 ml 10/23/24 14:23 Central Line Flush IV PUSH PRN PRN after blood draws Tizanidine HCl 1 mg 10/25/24 12:20 10/26/24 08:19 Tizanidine Hcl 1 Mg Tablet PO 1 mg QAM SCOTTY Administration Radiology Results: ITS Impressions Head CT 10/22/24 14:26 IMPRESSION: 1. No acute intracranial abnormality. Chest X-Ray 10/22/24 14:28 IMPRESSION: 1. No acute cardiopulmonary findings given portable technique. Labs Labs: Laboratory Results - last 24 hr 10/23/24 10/26/24 10/26/24 12:03 05:56 05:57 WBC 5.5 RBC 3.28 L Hgb 10.0 L Hct 32.4 L MCV 98.8 MCH 30.5 MCHC 30.9 L RDW 15.0 H Plt Count 188 MPV 10.3 Sodium 135 L Potassium 2.5 L* 4.3 Chloride 101 Carbon Dioxide 35 H Anion Gap -1 L BUN 17 Creatinine 0.73 Estim Creat Clear Calc 41 Estimated GFR > 60 Glucose 87 Calcium 8.1 L Magnesium 1.9 Total Bilirubin 0.5 AST 31 ALT 22 Alkaline Phosphatase 57 Total Protein 5.1 L Albumin 2.8 L Quality VTE Prophylaxis VTE prophylaxis: pharmacologic ordered
--- NOTE | 2024-10-26 18:34 | PC.NURSE ---
On 10/26/24, the RN, Yaz Lu, provided care and completed [facility] documentation on this patient. I have reviewed the RN's documentation and agree with the findings.
[2024-10-26] MEDS: MELATONIN 3 MG TABLET PO (20:27)
[2024-10-27] VITALS (13 sets, daily range): BP systolic 133–150; BP diastolic 68–73; PULSE 70–108; RESP 16–22; TEMP 36.3–36.9; O2SAT 90–98
[2024-10-27] MEDS: ACETAMINOPHEN 500 MG TABLET PO ×4 (00:26→18:01)
[2024-10-27] MEDS: IPRATROPIUM 0.5 MG/ALBUTEROL SULFATE 2.5 MG AMPUL.NEB 3 ML INHALATION ×4 (01:24→20:11)
[2024-10-27] MEDS: CENTRAL LINE FLUSH 10 ML IV PUSH ×3 (05:05→21:41)
[2024-10-27 05:18] LABS: Hematocrit 32.8 % (37.0-47.0); Hemoglobin 10.2 g/dL (12.0-15.0); Mean Corpuscular HGB Conc 31.1 g/dl (32-36); Mean Corpuscular Hemoglobin 30.7 pg (26-34); Mean Corpuscular Volume 98.8 fl (80-100); Platelet Count Result 200 k/mm3 (150-375); Red Blood Count 3.32 M/mm3 (4.2-5.4); White Blood Count 6.1 K/mm3 (4.5-10.0)
[2024-10-27 05:30] LABS: Alanine Aminotransferase 20 U/L (6-35); Albumin Level 2.9 g/dL (3.5-5.1); Alkaline Phosphatase 66 U/L (38-126); Anion Gap 0 mmol/L (4-12); Aspartate Amino Transferase 41 U/L (14-36); Bilirubin,Total 0.5 mg/dL (0.2-1.3); Blood Urea Nitrogen 17 mg/dL (7-17); Calcium 8.2 mg/dL (8.4-10.2); Carbon Dioxide 35 mmol/L (22-30); Chloride 101 mmol/L (98-107); Estimated CRCL calculation 38 ml/min; Estimated Glomerular Filt Rate > 60; Glucose 101 mg/dL (65-110); Magnesium 1.9 mg/dL (1.6-2.3); Potassium 4.0 mmol/L (3.4-5.0); Sodium 136 mmol/L (137-145); Total Protein 5.4 g/dL (6.3-8.2)
[2024-10-27] MEDS: TIZANIDINE HCL 1 MG TABLET PO (09:09)
[2024-10-27] MEDS: ENOXAPARIN 30 MG/0.3 ML SYRINGE SUB-Q (09:09)
[2024-10-27] MEDS: FIDAXOMICIN 200 MG TABLET PO ×2 (09:09→20:12)
--- NOTE | 2024-10-27 11:38 | PCPTNOTE ---
Patient declined PT at this time stating she did not feel well. Patient states she has pain and will get pain meds later. PT will continue to follow.
--- NOTE | 2024-10-27 14:51 | PM.IMPN ---
Progress Note: A&P Assessment and Plan (1) Metabolic acidosis with respiratory alkalosis: Code(s): E87.20 - Acidosis, unspecified; E87.3 - Alkalosis Status: Acute (2) Salicylate overdose: Qualifiers: Encounter type: initial encounter Injury intent: accidental or unintentional Qualified Code(s): T39.091A - Poisoning by salicylates, accidental (unintentional), initial encounter Code(s): T39.091A - Poisoning by salicylates, accidental (unintentional), initial encounter Status: Acute (3) LEATHA (acute kidney injury): Code(s): N17.9 - Acute kidney failure, unspecified Status: Acute (4) Opioid use, unspecified with withdrawal: Code(s): F11.93 - Opioid use, unspecified with withdrawal Status: Acute (5) prison (current) use of opiate analgesic: Code(s): Z79.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 Patient case was discussed with poison Control re suggested urgent nephrology consult given the patient's altered mental status in the setting of salicylate toxicity. The patient's salicylate level in and of itself would not require emergent dialysis but given the patient's severe encephalopathy in may be indicated. The patient was treated with a total of 3 amps of sodium bicarbonate bolus and started on a bicarb drip with D5 W with 150 mEq of sodium bicarb at 150 mL an hour. Given the patient's encephalopathy even though she had euglycemia poison Control recommended patient receive an amp of D50 to help with cerebral metabolism. Case was discussed with the shopping investigator and the initially rib planning to arrange for patient have emergent dialysis. But repeat to use returned with significant improvement in the patient's pH from 7.2 up to 7.4 with pCO2 improving from 21 up to 30. Subsequently of will continue to monitor serial salicylate levels and urine pH Q 2 hours. Will give the patient significant potassium repletion as salicylate toxicity can cause worsening hypokalemia. 40 mEq potassium chloride rider has been ordered. Repeat electrolyte panel is pending at the time of my sign-out to he paste up artist. patient had been taking aspirin for chronic back pain for a very long time and presented with c/o diarrhea and confusion was found have aspirin toxicity and severe metabolic acidosis, patient was admitted in the ICU and upon arrival her salicylates levels were 25.3 and her CO2 levels were <5, patient was treated in the ICU with bicarb and hydration, her salicylate levels today are<1 and CO2 are 35, patient clinical symptoms have improved, she did complaints of chronic pain, patient continue to have loose BM, started on Tizanidine 1mg PO qd, Patient stats pain is much better, stats will go to rehab for 2 weeks before going home, possibly tomorrow, patient clinical symptoms are improving, will monitor, will have PT/OT evaluate the patient, patient will benefit going to a rehab. Subjective Date/time seen: 10/27/24 14:51 Interval history: Diarrhea and confusion H&P-Narrative: 88-year-old female with a past medical history of chronic pain dependent upon chronic opiate, prior drug abuse anxiety, depression, essential hypertension and GERD who presented to the ER from via EMS due to diarrhea, confusion and weakness. Patient was somnolent and lethargic at the time my evaluation and was unable to provide any history subsequently information was obtained from discussion with the patient's family, review of past medical records and ER physician report. The patient had come in complaining of weakness head was having trouble sitting upright on arrival to the ER was leaning to the left. The patient sees Pain Management and recently fired from prior pain management clinic and was recently reestablished with a new pain management physician. She had previously been on oxycodone and hydrocodone. She ran out of medications 1 week ago. She was evaluated by her new pain management physician on the but had not gotten her prescription filled yet. She began having multiple episodes of diarrhea and nausea that started on the . She did not have any fevers or chills. She had reportedly denied any urinary symptoms. The patient was reportedly alert oriented x4 in the ER. However nursing staff told me that the bedtime patient arrived to the medical floor she was alert and oriented to the fact that she is on hospital but could not state what hospital she was in in could state what year it was. The patient was evidently able to verbalize that she did not want CPR or intubation to the ER physician and that the patient had previously been on hospice. However by the time patient arrived to the medical floor patient was unable to verbalize her wishes and the patient's children who were at bedside is stated that they wanted the patient to be a full code until they stated discuss the matter further. In the ER patient was noted to have acute kidney injury presumed to be due to diarrhea from opiate withdrawal. She was given 1 L fluid bolus as started on maintenance fluids with normal saline at 150 mL an hour. She was also started on Mershon. When she arrived to the medical floor she was complaining of pain and nursing staff give patient 1 dose of Mershon. I saw the patient couple of hours later and the patient was somnolent and lethargic and unable to answer questions. She was markedly tachypneic and on review or labs noted that her serum bicarb was markedly low at 6 which seemed out of proportion compared to the patient's creatinine. Was tachycardic and ill-appearing. She initially could tell me that she was in the hospital but was having difficulty following command and was trying to state the year but could not complete the answer. Subsequently further testing was obtained. With the patient having significant metabolic acidosis despite marked tachypnea and respiratory alkalosis. Further testing also demonstrated continue decreased serum bicarb despite the fluid resuscitation and improved renal function. She had significant anion gap acidosis and further testing was obtained to determine underlying pathology and patient was subsequently found to have salicylate toxicity. Patient was subsequently transferred to the ICU in this setting. patient had been taking aspirin for chronic back pain for a very long time and presented with c/o diarrhea and confusion was found have aspirin toxicity and severe metabolic acidosis, patient was admitted in the ICU and upon arrival her salicylates levels were 25.3 and her CO2 levels were <5, patient was treated in the ICU with bicarb and hydration, her salicylate levels today are<1 and CO2 are 35, patient clinical symptoms have improved, she did complaints of chronic pain, patient continue to have loose BM, started on Tizanidine 1mg PO qd, Patient stats pain is much better, stats will go to rehab for 2 weeks before going home, possibly tomorrow, patient clinical symptoms are improving, will monitor, will have PT/OT evaluate the patient, patient will benefit going to a rehab. Review of Systems Review of Systems: All systems reviewed & are unremarkable except as noted in HPI and below Exam Narrative: Elderly frail Patient is comfortable, NAD HEENT: eyes are clear and none icteric LUNGS:CTA HEART: RR S1S2 ABD: BS+, Soft and nontender Lower extremities: no edema SKIN: nonjaundiced Neuro: grossly intact. Objective Data Vital Signs Vital Signs: Vital Signs - 24 hr 10/26/24 20:00 10/26/24 20:56 10/26/24 20:59 Temperature Pulse Rate 100 100 Respiratory Rate 20 20 Blood Pressure Pulse Oximetry 98 99 Oxygen Delivery Nasal Cannula Nasal Cannula Oxygen Flow Rate 1 1 Fraction of Inspired Oxygen 24 10/26/24 21:55 10/27/24 01:25 10/27/24 05:51 Temperature 36.6 C 36.4 C L Pulse Rate 88 70 78 Respiratory Rate 14 20 16 Blood Pressure 146/88 H 150/73 H Pulse Oximetry 97 98 Oxygen Delivery Oxygen Flow Rate Fraction of Inspired Oxygen 10/27/24 07:54 10/27/24 07:55 10/27/24 08:00 Temperature Pulse Rate 83 Respiratory Rate 19 Blood Pressure Pulse Oximetry 90 90 Oxygen Delivery Nasal Cannula Nasal Cannula Oxygen Flow Rate 1 1 Fraction of Inspired Oxygen 24 10/27/24 08:01 10/27/24 13:44 10/27/24 13:45 Temperature Pulse Rate 75 90 Respiratory Rate 19 19 Blood Pressure Pulse Oximetry 90 Oxygen Delivery Room Air Oxygen Flow Rate Fraction of Inspired Oxygen 10/27/24 13:51 Temperature Pulse Rate 93 Respiratory Rate 19 Blood Pressure Pulse Oximetry Oxygen Delivery Oxygen Flow Rate Fraction of Inspired Oxygen Intake/Output Intake/Output: Intake & Output 10/24/24 10/25/24 10/26/24 10/27/24 23:59 23:59 23:59 23:59 Intake Total 1450 1350 1388 536 Output Total 800 1350 2975 Balance 650 0 -1587 536 Meds/Results Medications: Active Medications Generic Name Dose Route Start Last Admin Trade Name Freq PRN Reason Stop Dose Admin Acetaminophen 500 mg 10/23/24 18:18 10/27/24 11:54 Acetaminophen 500 Mg Tablet PO 500 mg Q6H PRN Administration Mild Pain (1-3) or Fever Albuterol/Ipratropium 3 ml 10/23/24 02:00 10/27/24 13:41 Ipratropium 0.5 Mg/Albuterol Sulfate 2.5 Mg Ampul.Neb 3 Ml INHALATION 3 ml Q6HRT SCOTTY Administration Enoxaparin Sodium 30 mg 10/23/24 09:00 10/27/24 09:09 Enoxaparin 30 Mg/0.3 Ml Syringe SUB-Q 30 mg DAILY SCOTTY Administration Fidaxomicin 200 mg 10/23/24 21:25 10/27/24 09:09 Fidaxomicin 200 Mg Tablet PO 11/03/24 21:24 200 mg Q12HR SCOTTY Administration Melatonin 3 mg 10/24/24 23:26 10/26/24 20:27 Melatonin 3 Mg Tablet PO 3 mg HS PRN Administration Insomnia Sodium Chloride 10 ml 10/23/24 22:00 10/27/24 13:17 Central Line Flush IV PUSH 10 ml Q8HR SCOTTY Administration Sodium Chloride 10 ml 10/23/24 14:23 Central Line Flush IV PUSH PRN PRN with TPN bag changes Sodium Chloride 20 ml 10/23/24 14:23 Central Line Flush IV PUSH PRN PRN after blood draws Tizanidine HCl 1 mg 10/25/24 12:20 10/27/24 09:09 Tizanidine Hcl 1 Mg Tablet PO 1 mg QAM SCOTTY Administration Radiology Results: ITS Impressions Head CT 10/22/24 14:26 IMPRESSION: 1. No acute intracranial abnormality. Chest X-Ray 10/22/24 14:28 IMPRESSION: 1. No acute cardiopulmonary findings given portable technique. Elbow X-Ray 10/26/24 14:05 Impression: Healing fracture Labs Labs: Laboratory Results - last 24 hr 10/27/24 05:12 WBC 6.1 RBC 3.32 L Hgb 10.2 L Hct 32.8 L MCV 98.8 MCH 30.7 MCHC 31.1 L RDW 14.7 H Plt Count 200 MPV 10.0 Sodium 136 L Potassium 4.0 Chloride 101 Carbon Dioxide 35 H Anion Gap 0 L BUN 17 Creatinine 0.80 Estim Creat Clear Calc 38 Estimated GFR > 60 Glucose 101 Calcium 8.2 L Magnesium 1.9 Total Bilirubin 0.5 AST 41 H ALT 20 Alkaline Phosphatase 66 Total Protein 5.4 L Albumin 2.9 L
[2024-10-27] MEDS: MELATONIN 3 MG TABLET PO (20:12)
[2024-10-28] VITALS (7 sets, daily range): BP systolic 130–133; BP diastolic 61–75; PULSE 90–92; RESP 16–20; TEMP 36.3–36.7; O2SAT 97
[2024-10-28] MEDS: ACETAMINOPHEN 500 MG TABLET PO ×3 (00:31→13:17)
[2024-10-28] MEDS: IPRATROPIUM 0.5 MG/ALBUTEROL SULFATE 2.5 MG AMPUL.NEB 3 ML INHALATION ×3 (01:47→13:26)
[2024-10-28] MEDS: CENTRAL LINE FLUSH 10 ML IV PUSH (05:03)
[2024-10-28 05:17] LABS: Hematocrit 33.2 % (37.0-47.0); Hemoglobin 10.3 g/dL (12.0-15.0); Mean Corpuscular HGB Conc 31.0 g/dl (32-36); Mean Corpuscular Hemoglobin 30.6 pg (26-34); Mean Corpuscular Volume 98.5 fl (80-100); Platelet Count Result 198 k/mm3 (150-375); Red Blood Count 3.37 M/mm3 (4.2-5.4); White Blood Count 8.6 K/mm3 (4.5-10.0)
[2024-10-28 05:45] LABS: Alanine Aminotransferase 17 U/L (6-35); Albumin Level 3.0 g/dL (3.5-5.1); Alkaline Phosphatase 61 U/L (38-126); Anion Gap 1 mmol/L (4-12); Aspartate Amino Transferase 25 U/L (14-36); Bilirubin,Total 0.6 mg/dL (0.2-1.3); Blood Urea Nitrogen 15 mg/dL (7-17); Calcium 8.4 mg/dL (8.4-10.2); Carbon Dioxide 31 mmol/L (22-30); Chloride 103 mmol/L (98-107); Estimated CRCL calculation 36 ml/min; Estimated Glomerular Filt Rate > 60; Glucose 105 mg/dL (65-110); Magnesium 2.0 mg/dL (1.6-2.3); Potassium 3.7 mmol/L (3.4-5.0); Sodium 135 mmol/L (137-145); Total Protein 5.5 g/dL (6.3-8.2)
[2024-10-28] MEDS: ENOXAPARIN 30 MG/0.3 ML SYRINGE SUB-Q (08:40)
[2024-10-28] MEDS: FIDAXOMICIN 200 MG TABLET PO (08:41)
[2024-10-28] MEDS: TIZANIDINE HCL 1 MG TABLET PO (08:41)
--- NOTE | 2024-10-28 09:48 | PCPTNOTE ---
Patient refused treatment this session. Patient reported she thinks she is discharging to day and reported she is not up for working with therapy today.
--- NOTE | 2024-10-28 10:23 | PCNWS ---
Weekly nutritional screen. Patient is tolerating current Regular diet with adequate intake, 90-100%. No weight loss reported. No nutritional needs at this time.
--- NOTE | 2024-10-28 14:08 | PM.IMPN ---
Subjective Date/time seen: 10/28/24 14:08 Objective Data Vital Signs Vital Signs: Vital Signs - 24 hr 10/27/24 20:00 10/27/24 20:12 10/27/24 20:20 Temperature Pulse Rate 77 75 Respiratory Rate 22 H 22 H Blood Pressure Pulse Oximetry 98 Oxygen Delivery Nasal Cannula Oxygen Flow Rate 1 10/27/24 20:20 10/28/24 04:30 10/28/24 07:39 Temperature 36.9 C 36.3 C L Pulse Rate 108 H 92 Respiratory Rate 20 20 18 Blood Pressure 149/72 H 133/75 Pulse Oximetry 98 97 Oxygen Delivery Oxygen Flow Rate 10/28/24 07:40 10/28/24 07:43 10/28/24 08:00 Temperature Pulse Rate Respiratory Rate 18 Blood Pressure Pulse Oximetry 97 Oxygen Delivery Nasal Cannula Nasal Cannula Oxygen Flow Rate 1 1 10/28/24 13:26 10/28/24 13:36 Temperature Pulse Rate Respiratory Rate 18 18 Blood Pressure Pulse Oximetry Oxygen Delivery Oxygen Flow Rate Intake/Output Intake/Output: Intake & Output 10/25/24 10/26/24 10/27/24 10/28/24 23:59 23:59 23:59 23:59 Intake Total 1350 1388 878 268 Output Total 1350 2975 Balance 0 -1587 878 268 Meds/Results Medications: Active Medications Generic Name Dose Route Start Last Admin Trade Name Freq PRN Reason Stop Dose Admin Acetaminophen 500 mg 10/23/24 18:18 10/28/24 13:17 Acetaminophen 500 Mg Tablet PO 500 mg Q6H PRN Administration Mild Pain (1-3) or Fever Albuterol/Ipratropium 3 ml 10/23/24 02:00 10/28/24 13:26 Ipratropium 0.5 Mg/Albuterol Sulfate 2.5 Mg Ampul.Neb 3 Ml INHALATION 3 ml Q6HRT SCOTTY Administration Buspirone HCl 5 mg 10/27/24 21:00 10/28/24 08:41 Buspirone Hcl 5 Mg Tablet PO 5 mg Q12HR SCOTTY Administration Duloxetine HCl 30 mg 10/28/24 09:00 10/28/24 08:41 Duloxetine Hcl 30 Mg Capsule.Dr PO 30 mg QAM SCOTTY Administration Enoxaparin Sodium 30 mg 10/23/24 09:00 10/28/24 08:40 Enoxaparin 30 Mg/0.3 Ml Syringe SUB-Q 30 mg DAILY SCOTTY Administration Fidaxomicin 200 mg 10/23/24 21:25 10/28/24 08:41 Fidaxomicin 200 Mg Tablet PO 11/03/24 21:24 200 mg Q12HR SCOTTY Administration Melatonin 3 mg 10/24/24 23:26 10/27/24 20:12 Melatonin 3 Mg Tablet PO 3 mg HS PRN Administration Insomnia Sodium Chloride 10 ml 10/23/24 22:00 10/28/24 05:03 Central Line Flush IV PUSH 10 ml Q8HR SCOTTY Administration Sodium Chloride 10 ml 10/23/24 14:23 Central Line Flush IV PUSH PRN PRN with TPN bag changes Sodium Chloride 20 ml 10/23/24 14:23 Central Line Flush IV PUSH PRN PRN after blood draws Tizanidine HCl 1 mg 10/25/24 12:20 10/28/24 08:41 Tizanidine Hcl 1 Mg Tablet PO 1 mg QAM SCOTTY Administration Radiology Results: ITS Impressions Head CT 10/22/24 14:26 IMPRESSION: 1. No acute intracranial abnormality. Chest X-Ray 10/22/24 14:28 IMPRESSION: 1. No acute cardiopulmonary findings given portable technique. Elbow X-Ray 10/26/24 14:05 Impression: Healing fracture Labs Labs: Laboratory Results - last 24 hr 10/28/24 04:57 WBC 8.6 RBC 3.37 L Hgb 10.3 L Hct 33.2 L MCV 98.5 MCH 30.6 MCHC 31.0 L RDW 14.9 H Plt Count 198 MPV 10.4 Sodium 135 L Potassium 3.7 Chloride 103 Carbon Dioxide 31 H Anion Gap 1 L BUN 15 Creatinine 0.78 Estim Creat Clear Calc 36 Estimated GFR > 60 Glucose 105 Calcium 8.4 Magnesium 2.0 Total Bilirubin 0.6 AST 25 ALT 17 Alkaline Phosphatase 61 Total Protein 5.5 L Albumin 3.0 L
--- NOTE | 2024-10-28 14:15 | PCOTNOTE ---
Attempted to see Patient at this time. Patient is in bed and states she is supposed to be leaving, needs to rest before transporting
--- NOTE | 2024-10-28 15:42 | P.DS_ITS ---
DS: Admitting Diagnosis Discharge Date 10/28/24 Admitting Diagnosis Diarrhea and confusion DS: Discharge Diagnosis Discharge Diagnosis (1) Metabolic acidosis with respiratory alkalosis: Code(s): E87.20 - Acidosis, unspecified; E87.3 - Alkalosis Status: Acute (2) Salicylate overdose: Qualifiers: Encounter type: initial encounter Injury intent: accidental or unintentional Qualified Code(s): T39.091A - Poisoning by salicylates, accidental (unintentional), initial encounter Code(s): T39.091A - Poisoning by salicylates, accidental (unintentional), initial en counter Status: Acute (3) LEATHA (acute kidney injury): Code(s): N17.9 - Acute kidney failure, unspecified Status: Acute (4) Opioid use, unspecified with withdrawal: Code(s): F11.93 - Opioid use, unspecified with withdrawal Status: Acute (5) 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 Patient case was discussed with poison Control re suggested urgent nephrology consult given the patient's altered mental status in the setting of salicylate toxicity. The patient's salicylate level in and of itself would not require emergent dialysis but given the patient's severe encephalopathy in may be indicated. The patient was treated with a total of 3 amps of sodium bicarbonate bolus and started on a bicarb drip with D5 W with 150 mEq of sodium bicarb at 150 mL an hour. Given the patient's encephalopathy even though she had euglycemia poison Control recommended patient receive an amp of D50 to help with cerebral metabolism. Case was discussed with the clinical practitioner and the initially rib planning to arrange for patient have emergent dialysis. But repeat to use returned with significant improvement in the patient's pH from 7.2 up to 7.4 with pCO2 improving from 21 up to 30. Subsequently of will continue to monitor serial salicylate levels and urine pH Q 2 hours. Will give the patient significant potassium repletion as salicylate toxicity can cause worsening hypokalemia. 40 mEq potassium chloride rider has been ordered. Repeat electrolyte panel is pending at the time of my sign-out to he sweatband decorating machine operator. patient had been taking aspirin for chronic back pain for a very long time and presented with c/o diarrhea and confusion was found have aspirin toxicity and severe metabolic acidosis, patient was admitted in the ICU and upon arrival her salicylates levels were 25.3 and her CO2 levels were <5, patient was treated in the ICU with bicarb and hydration, her salicylate levels today are<1 and CO2 are 35, patient clinical symptoms have improved, she did complaints of chronic pain, patient continue to have loose BM, started on Tizanidine 1mg PO qd, Patient stats pain is much better, stats will go to rehab for 2 weeks before going home, possibly tomorrow, patient clinical symptoms are improving, will monitor, will have PT/OT evaluate the patient, patient will benefit going to a rehab. DS: Summary Hospital Course Hospital Course: patient had been taking aspirin for chronic back pain for a very long time and presented with c/o diarrhea and confusion was found have aspirin toxicity and severe metabolic acidosis, patient was admitted in the ICU and upon arrival her salicylates levels were 25.3 and her CO2 levels were <5, patient was treated in the ICU with bicarb and hydration, her salicylate levels today are<1 and CO2 are 35, patient clinical symptoms have improved, she did complaints of chronic pain, patient continue to have loose BM, started on Tizanidine 1mg PO qd, Patient stats pain is much better, stats will go to rehab for 2 weeks before going home, possibly tomorrow, patient clinical symptoms are improving, will monitor, will have PT/OT evaluate the patient, patient will benefit going to a rehab. today patient is clinically stable, her BM are improving, will discharge patient to SNF for rehab. Time Spent with Patient Time attestation: Total time spent providing and/or coordinating discharge services: Exam Narrative: Elderly frail Patient is comfortable, NAD HEENT: eyes are clear and none icteric LUNGS:CTA HEART: RR S1S2 ABD: BS+, Soft and nontender Lower extremities: no edema SKIN: nonjaundiced Neuro: grossly intact. DS: Data Data Completed and Pending Labs on day of discharge: Labs from last 24 hours 10/28/24 04:57 WBC 8.6 RBC 3.37 L Hgb 10.3 L Hct 33.2 L MCV 98.5 MCH 30.6 MCHC 31.0 L RDW 14.9 H Plt Count 198 MPV 10.4 Sodium 135 L Potassium 3.7 Chloride 103 Carbon Dioxide 31 H Anion Gap 1 L BUN 15 Creatinine 0.78 Estim Creat Clear Calc 36 Estimated GFR > 60 Glucose 105 Calcium 8.4 Magnesium 2.0 Total Bilirubin 0.6 AST 25 ALT 17 Alkaline Phosphatase 61 Total Protein 5.5 L Albumin 3.0 L Preliminary micro results at discharge 10/23/24 00:55 Blood Culture - Preliminary Blood 10/23/24 01:12 Blood Culture - Preliminary Blood Discharge Plan Discharge Attending physician on discharge: Nkechi Espinoza Consulting providers: Kendrick Vega; Maria M Allison; Amish Magana Matthew A.; Lisa Hernandez; Donta Oliva; Mo Guthrie; Silas Mauro Discharging Clinician: Jeffery Brooks Patient Disposition: NH Half-Way/Asst Living Activity: as tolerated Diet: heart healthy Discharge Instructions: patient to follow universal hygiene and avoid general public, patient to follow up with her primary care provider as soon as possible. Patient Instructions: Antibiotic Form Patient Language: Malian Stand Alone Forms: General Discharge Information Follow-up/Referrals: Rodrigue Otero MD [Primary Care Provider, Family Practice] Discharge Medications: New fidaxomicin [Dificid] 200 mg Tablet 200 mg PO Q12HR Qty: 14 0RF melatonin 3 mg Tablet 3 mg PO HS PRN (Reason: Insomnia) Qty: 30 0RF tizanidine 2 mg capsule 2 mg PO HS PRN (Reason: muscle spasticity) Qty: 30 0RF Continued albuterol sulfate [ProAir HFA] 90 mcg/actuation HFA aerosol inhaler 90 mcg INHALATION DIRECTED Rx Instructions: Every 4-6 hrs PRN aspirin 81 mg Tablet,Delayed Release (Dr/Ec) 81 mg PO QAM Qty: 30 0RF sertraline 100 mg tablet 200 mg PO Q24H oxycodone 5 mg tablet 5 mg PO Q6-8H PRN (Reason: pain (scale score 7-10)) Qty: 10 0RF fluticasone propion-salmeterol 250-50 mcg/dose blister with device See Rx Instructions .ROUTE .COMPLEX Qty: 60 2RF Dose Instruction: INHALE 1 PUFF BY MOUTH TWICE A DAY Rx Instructions: INHALE 1 PUFF BY MOUTH TWICE A DAY pantoprazole 40 mg tablet,delayed release (DR/EC) See Rx Instructions .ROUTE .COMPLEX Qty: 180 0RF Dose Instruction: TAKE 1 TABLET BY MOUTH TWICE A DAY Rx Instructions: TAKE 1 TABLET BY MOUTH TWICE A DAY duloxetine 30 mg capsule,delayed release(DR/EC) See Rx Instructions .ROUTE .COMPLEX Qty: 90 0RF Dose Instruction: TAKE 1 CAPSULE BY MOUTH EVERY DAY Rx Instructions: TAKE 1 CAPSULE BY MOUTH EVERY DAY buspirone 5 mg tablet See Rx Instructions .ROUTE .COMPLEX Qty: 180 0RF Dose Instruction: TAKE 1 TABLET TWICE DAILY Rx Instructions: TAKE 1 TABLET TWICE DAILY metoprolol succinate 25 mg tablet extended release 24 hr See Rx Instructions .ROUTE .COMPLEX Qty: 90 2RF Dose Instruction: TAKE FULL TAB (25 MG) ORALLY DAILY HOLD IF SBP < 110 OR HR < 60 Rx Instructions: TAKE FULL TAB (25 MG) ORALLY DAILY HOLD IF SBP < 110 OR HR < 60 Date of admission: 10/24/24 13:58 Primary Care Provider: Rodrigue Otero Admitting Provider: Nkechi Espinoza Attending physician on admission: Jeffery Brooks Condition: Stable
== END 2024-10-28 16:10 | DRG 917 ==
LOC: ANHED 15:25 → ANH3MEDSUR 18:45 → ANH2MED 18:48 → ANHICU 10-23 06:46 → ANH3MEDSUR 10-24 15:37
PROVIDERS: Internal Medicine; Internal Medicine Nephrology; Admitting Provider General Practice; Emergency Provider Emergency Medicine; PCP Family Medicine; Visit Provider Family Medicine
DX: T39.091A Poisoning by salicylates, accidental (unintentional), initial encounter (principal); E43 Unspecified severe protein-calorie malnutrition; G93.41 Metabolic encephalopathy; N17.9 Acute kidney failure, unspecified; E87.20 Acidosis, unspecified; E87.3 Alkalosis; A04.72 Enterocolitis due to Clostridium difficile, not specified as recurrent; Z68.1 Body mass index [BMI] 19.9 or less, adult; I48.20 Chronic atrial fibrillation, unspecified; E86.0 Dehydration; E87.6 Hypokalemia; I10 Essential (primary) hypertension; J44.9 Chronic obstructive pulmonary disease, unspecified; K21.9 Gastro-esophageal reflux disease without esophagitis; K59.03 Drug induced constipation; M48.062 Spinal stenosis, lumbar region with neurogenic claudication; G89.4 Chronic pain syndrome; F41.9 Anxiety disorder, unspecified; F17.210 Nicotine dependence, cigarettes, uncomplicated; Z20.822 Contact with and (suspected) exposure to COVID-19; Z79.891 Long term (current) use of opiate analgesic; Z87.11 Personal history of peptic ulcer disease
CPT/HCPCS: 36415; 36569; 36600; 70450; 71045; 73070; 80053; 80069; 80143; 80179; 80307; 81001; 82010; 82375; 82550; 82805; 82948; 83050; 83605; 83735; 84100; 84145; 84443; 84484; 85018; 85025; 85027; 85610; 85730; 87040; 87493; 87637; 92610; 93005; 94640; 96361; 96365; 96366; 96372; 96375; 97110; 97116; 97161; 97165; 97530; 99285; A9270; C1751; G0378; J1650; J2470; J3475; J3480; J7030; J7040; J7050; J7070; J7120

== ENCOUNTER 2024-10-28 15:36 | Inpatient (IN) | payer MEDICARE, SELFPAY ==
[2024-10-28 16:00] VITALS: O2SAT 93
[2024-10-28 16:11] VITALS: BMI 19.0
--- NOTE | 2024-10-28 17:43 | PC.NURSE ---
1645 Patient arrived to unit on stretcher accompanied by [facility] staff. Patient required 2 assist transfer from stretcher to bed. Patient educated on use of call light and bed controls. Patient educated on hospital policies related to visiting hours, isolation precautions, patient safety, and use of rapid response. Patient voiced understanding.
[2024-10-28 17:52] VITALS: BP 131/65; PULSE 90; RESP 20; TEMP 37; O2SAT 93
[2024-10-28 18:26] VITALS: PULSE 90; RESP 20; O2SAT 93
[2024-10-28] MEDS: ACETAMINOPHEN 325 MG TABLET 650 MG PO (18:51)
[2024-10-28] MEDS: SALMET XINAFT/FLUTIC PROPIN 250 MCG/50 MCG INH CAP 1 PUFF INHALATION (18:51)
[2024-10-28 20:00] VITALS: PULSE 90; RESP 18; O2SAT 96
--- NOTE | 2024-10-28 21:16 | PC.NURSE ---
Spoke with Son Chaka, states that patient sees pain management, and that recently all narcotics were discontinued d/t abuse. Chaka is asking that we not give Narcotic pain medication. Instructed Chaka that staff would attempt to not give narcotic meds, unless medically necessary.
[2024-10-28] MEDS: TIZANIDINE HCL 2 MG TABLET PO (21:24)
[2024-10-28] MEDS: FIDAXOMICIN 200 MG TABLET PO (21:24)
[2024-10-28] MEDS: PANTOPRAZOLE 40 MG TABLET PO (21:24)
[2024-10-29] VITALS: BP 132/79; PULSE 90; RESP 18; TEMP 36.7; O2SAT 96
[2024-10-29 05:30] VITALS: O2SAT 96
[2024-10-29] MEDS: ACETAMINOPHEN 325 MG TABLET 650 MG PO ×3 (06:28→20:08)
[2024-10-29] MEDS: SALMET XINAFT/FLUTIC PROPIN 250 MCG/50 MCG INH CAP 1 PUFF INHALATION ×2 (06:28→17:56)
[2024-10-29 07:07] LABS: Hematocrit 34.2 % (35.0-42.0); Hemoglobin 10.6 g/dL (11.7-13.8); Mean Corpuscular HGB Conc 31.0 g/dL (32-36); Mean Corpuscular Hemoglobin 30.8 pg (27.0-31.0); Mean Corpuscular Volume 99.4 fL (78.0-102.0); Platelet Count Result 196 K/mm3 (150-420); Red Blood Count 3.44 M/mm3 (4.20-5.40); White Blood Count 7.6 K/mm3 (4.8-10.8)
[2024-10-29 07:27] LABS: Alanine Aminotransferase 17 U/L (6-35); Albumin Level 3.4 g/dL (3.5-5.1); Alkaline Phosphatase 58 U/L (38-126); Anion Gap 7 mmol/L (4-12); Aspartate Amino Transferase 28 U/L (14-36); Bilirubin,Total 0.7 mg/dL (0.2-1.3); Blood Urea Nitrogen 15 mg/dL (7-17); Calcium 8.9 mg/dL (8.4-10.2); Carbon Dioxide 26 mmol/L (22-30); Chloride 104 mmol/L (98-107); Estimated CRCL calculation 44 ml/min; Estimated Glomerular Filt Rate > 60; Glucose 93 mg/dL (65-110); Magnesium 2.2 mg/dL (1.6-2.3); Osmolality Calculated 284 mOsm/kg (285-295); Potassium 4.5 mmol/L (3.4-5.0); Sodium 137 mmol/L (137-145); Total Protein 6.2 g/dL (6.3-8.2)
--- NOTE | 2024-10-29 07:48 | P.HP_ITS ---
H&P: HPI History of Present Illness Date/Time: 10/29/24 07:48 Chief Complaint: Deconditioned/Weakness Narrative: Patient is a 77-year-old female who presented to [facility] for swing bed placement for continued physical therapy and occupational therapy following recent admission at [facility]. Patient was initially hospitalized due to acute kidney injury that is likely multifactorial due to a combination of unintentional salicylate overdose, starvation ketosis and or hypovolemia. Patient was initially admitted to ICU and treated for salicylates overdose, severe metabolic acidosis, and LEATHA. Patient case had been discussed with poison Control at time of admission who suggested urgent nephrology consult given the patient's altered mental status in the setting of salicylate toxicity. patient was treated with IVP bicarb and bicarb infusion, patient had resolution of symptoms and was eventually transferred to a medical unit with a physical and occupational consult which recommended rehab for deconditioned state. Prior to admission patient's past medical history included hypertension, chronic opioid use due to chronic pain syndrome and COPD. Due to patient's deconditioned state and continue generalized weakness patient agreed to medical swing bed for continued physical therapy and occupational therapy. Patient with mild pain to left wrist she broke back in June and mild shortness a breath currently on supplemental oxygen otherwise patient with no complaints and tolerating oral intake. Patient denied any chest pain, nausea, vomiting, abdominal pain. Review of Systems Review of Systems: All systems reviewed & are unremarkable except as noted in HPI and below PMFSH Past Medical History Medical History (Updated 10/29/24 @ 07:55 by Naomi Nair APRN) C. difficile colitis (08/2023) Bilateral sacroiliitis Spinal stenosis, lumbar region with neurogenic claudication Anemia Chronic pain syndrome Constipation due to opioid therapy Tobacco abuse COPD (chronic obstructive pulmonary disease) Common bile duct dilatation Anxiety Acid reflux Peptic ulcer disease Surgical History Surgical History H/O tubal ligation Hx of cholecystectomy Family History Family History Mother Cerebrovascular accident Father Diabetes mellitus Social History Social History Social History: She smokes anywhere from half a pack to pack a cigarettes a day. She has 3 children. 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 She denies any alcohol marijuana or illicit drugs. Code status: DNR/DNI Surrogate decision maker: Chaka (son) Smoking packs per day: 0.5 Smoking cigarettes per day: 10.0 Years smoked: 50 Smoking pack-years: 25.00 Smoking status: Current every day smoker Tobacco type: cigarettes Second hand tobacco smoke exposure: Yes Smoking end date: 07/26/23 Alcohol intake: never Substance use: never Substance use type: does not use Other substance usage details: prescribed opiates Last use: 09/07/21 Do You Feel Safe in your Home?: Yes Lack of Transportation: No Lack of Food: Never True Current Housing: I Have Housing Concerned About Future Housing: No Difficulty Paying Gas/Electric Bills: No Difficulty Paying for Meds: No Currently Unemployed: No Education: Trade/Vocational Certificate Difficulty w/ Childcare or Family Care: No Living arrangements: with family Gender identity (if verbalized by the patient): Female Sexual Orientation (if Verbalized by the Patient): Straight or Heterosexual Spiritual care concerns: No Meds Home Medications and Allergies Home Medications ?Medication ?Instructions ?Recorded ?Confirmed ?Type albuterol sulfate 90 mcg/actuation 90 mcg inhalation A S DIRECTED 12/20/19 10/28/24 History aerosol inhaler (ProAir HFA) aspirin 81 mg tablet,delayed 81 mg PO QAM #30 tabs 10/28/24 Rx release fluticasone 250 mcg-salmeterol 50 See Rx Instructions .Route 01/05/24 10/28/24 Rx mcg/dose blistr powdr for .COMPLEX #60 ea inhalation duloxetine 30 mg capsule,delayed See Rx Instructions . Route 09/23/24 10/28/24 Rx release .COMPLEX #90 caps pantoprazole 40 mg tablet,delayed See Rx Instructions .Route 09/23/24 10/28/24 Rx release .COMPLEX #180 tabs buspirone 5 mg tablet See Rx Instructions .Route 0 09/24/24 10/28/24 Rx .COMPLEX #180 tabs metoprolol succinate 25 mg See Rx Instructions .Route 10/07/24 10/28/24 Rx tablet,extended release 24 hr .COMPLEX #90 tabs sertraline 100 mg tablet 200 mg PO Q24H 10/22/2410/11 History fidaxomicin 200 mg tablet (Dificid) 200 mg PO Q12HR #1 4 tabs 10/28/24 10/28/24 Rx melatonin 3 mg tablet 3 mg PO HS PRN Insomnia #30 tabs 10/28/24 10/28/24 Rx oxycodone 5 mg tablet 5 mg PO Q6-8H PRN pain (scal e 10/28/24 10/28/24 Rx score 7-10) #10 tabs tizanidine 2 mg capsule 2 mg PO HS PRN muscle spasti city 10/28/24 10/28/24 Rx #30 caps Allergies Allergy/AdvReac Type Severity Reaction Status Date / Time No Known Allergies Allergy Verified 09/02/24 14:11 Vital Signs Vital Signs - 24 hr 10/28/24 16:00 10/28/24 17:52 10/28/24 17:52 Temperature 98.6 F Pulse Rate 90 90 Respiratory Rate 20 20 Blood Pressure 131/65 Pulse Oximetry 93 93 93 Oxygen Delivery Nasal Cannula Nasal Cannula Oxygen Flow Rate 2 2 2 10/28/24 18:26 10/28/24 20:00 10/29/24 00:00 Temperature 98.1 F Pulse Rate 90 90 90 Respiratory Rate 20 18 18 Blood Pressure 132/79 Pulse Oximetry 93 96 96 Oxygen Delivery Nasal Cannula Nasal Cannula Nasal Cannula Oxygen Flow Rate 2 1 1 Exam Narrative: Physical Exam: * GENERAL: Elderly frail female Alert and oriented x 3. No acute distress. * EYES: EOMI. No scleral icterus. PERRLA. * HEENT: Moist mucous membranes. * LUNGS: Clear to auscultation bilaterally. No accessory muscle use. * CARDIOVASCULAR: Regular rate and rhythm. No murmur. No JVD. S1-S2 * ABDOMEN: Soft, non tenderness and non-distended. No palpable masses. * EXTREMITIES: No edema. Non-tender * SKIN: No rashes or lesions. Skin warm, dry. * NEUROLOGIC: No focal neurological deficits. CN II-XII grossly intact * PSYCHIATRIC: Appropriate mood and affect. Good judgement and insight. No visual or auditory hallucinations. No suicidal or homicidal ideation. H&P: Results Labs Labs: Short CBC 10/29/24 Range/Units 06:50 WBC 7.6 (4.8-10.8) K/mm3 Hgb 10.6 L (11.7-13.8) g/dL Hct 34.2 L (35.0-42.0) % Plt Count 196 (150-420) K/mm3 BMP 10/29/24 06:50 Sodium 137 Potassium 4.5 Chloride 104 Carbon Dioxide 26 BUN 15 Creatinine 0.65 L Glucose 93 Calcium 8.9 Liver Function 10/29/24 Range/Units 06:50 Total Bilirubin 0.7 (0.2-1.3) mg/dL AST 28 (14-36) U/L ALT 17 (6-35) U/L Alkaline Phosphatase 58 (38-126) U/L Albumin 3.4 L (3.5-5.1) g/dL Assessment and Plan Assessment and plan (1) Physical deconditioning: Code(s): R53.81 - Other malaise Status: Acute Assessment and Plan: patient was admitted to [facility] after a salicylate poisoning with extended hospitalization due to deconditioned state * PT/OT * out of bed for meals (2) C. difficile colitis: Onset Date: 08/2023 Code(s): A04.72 - Enterocolitis due to Clostridium difficile, not specified as recurrent Status: Acute Assessment and Plan: patient has a positive for C diff prior to discharge from [facility] * continued Dificid times 13 more doses (3) Chronic pain syndrome: Code(s): G89.4 - Chronic pain syndrome Status: Acute Assessment and Plan: patient with history chronic pain sees a pain specialist patient received call her son stating they were tapering her off her oxycodone and requesting her swi tch to [facility] * discontinued patient's oxycodone * started [facility] q.6 hours p.r.n. (4) roasterman (current) use of opiate analgesic: Code(s): Z79.891 - detention (current) use of opiate analgesic Status: Acute Assessment and Plan: * See Above #3 (5) COPD (chronic obstructive pulmonary disease): Qualifiers: COPD type: unspecified COPD Qualified Code(s): J44.9 - Chronic obstructive pulmonary disease, unspecified Code(s): J44.9 - Chronic obstructive pulmonary disease, unspecified Status: Chronic Assessment and Plan: patient with chronic respiratory failure with hypoxia wear supplemental oxygen at home as needed * continued supplemental oxygen as needed currently on 1 L * resumed as needed inhaler (6) Anemia: Code(s): D64.9 - Anemia, unspecified Status: Chronic Assessment and Plan: patient with history hemoglobin stable at 10.6 on admission no events acute GIB * trend H&H p.r.n. * monitor for any overt signs bleeding (7) Depression: Qualifiers: Depression Type: persistent depressive disorder Qualified Code(s): F34.1 - Dysthymic disorder Code(s): F32.A - Depression, unspecified Status: Acute Assessment and Plan: * continue patient's BuSpar and duloxetine Plan Code status: DNR DVT prophylaxis: NA Stress ulcer prophylaxis: Protonix 40 daily home medication PT/OT notes: Swing bed Disposition: Patient admitted to inpatient swing bed plan for continued PT/OT should discharge back home with family and stronger. Quality VTE Prophylaxis VTE prophylaxis: mechanical ordered -Patient's previous records reviewed on admission -ER notes reviewed in detail on admission -discussed all findings and current treatment plan with patient/Family/POA -Consultations reviewed for recommendations -Patient's disposition for safe discharge discussed with correctional casework specialist Dictation performed by [employer] direct speech recognition software, theref ore traveling missionary variants and typographical errors may occur. Hospitalist [facility] [place] Plan I have confirmed that the patient's Advanced Care Plan is present, code status is documented, or surrogate decision maker is listed in patient medical record.: Yes Medication Reconciliation I have utilized all available resources to obtain, update and review the patients current medications (includes all prescriptions, OTC, herbals, cannabis, and nutritional supplements).: Yes The patient is not eligible for med reconciliation; the patient is in a emergent medical situation where delaying treatment would jeopardize the patients health.: No
[2024-10-29 08:00] VITALS: BP 150/88; PULSE 86; RESP 18; TEMP 37.3; O2SAT 93
[2024-10-29] MEDS: SERTRALINE HCL 50 MG TABLET 200 MG PO (08:06)
[2024-10-29 08:07] VITALS: PULSE 86
[2024-10-29] MEDS: METOPROLOL SUCCINATE EXT REL 25 MG TABCR PO (08:07)
[2024-10-29] MEDS: PANTOPRAZOLE 40 MG TABLET PO ×2 (08:08→20:08)
[2024-10-29] MEDS: FIDAXOMICIN 200 MG TABLET PO ×2 (08:08→20:08)
[2024-10-29] MEDS: ASPIRIN 81 MG ENTERIC TABLET PO (08:08)
--- NOTE | 2024-10-29 15:18 | PC.NURSE ---
Patient stated that she does not wear O2 all the time at home and asked automatic typewriter inspector to take it off. Patient stated that she feels like it is making it harder for her to breathe. Speed Runner educated patient on the importance of keeping her oxygen saturation above 90%. Patient insisted that nurse attempt to wean her off. Nurse checked patient's SPO2 and it was holding steady at 94%. Speed Runner turned O2 down to 0.5% and will recheck SPO2 in one hour. Nurse told patient to call nurse if patient feels short of breath.
[2024-10-29 16:00] VITALS: BP 91/70; PULSE 83; RESP 16; TEMP 36.6; O2SAT 97
--- NOTE | 2024-10-29 16:13 | PC.NURSE ---
Patient SPO2 at 97% on 0.5L O2 via n/c. O2 removed per patient request. Will continue to monitor patient for SOB and decreased SPO2. Patient's BP was 91/70. Nurse asked patient what she has had to drink today. Patient stated that she had tried to sip on her diet pepsi, but complained that it doesn't taste right. Freight Coordinator educated patient on the need to stay hydrated to keep her blood pressure up. Patient voices understanding. Charge nurse aware of decreased BP and that patient is weaned off O2.
--- NOTE | 2024-10-29 16:58 | PC.NURSE ---
Patient SPO2 remains at 94% on room air. Will conitnue to monior.
[2024-10-29 20:00] VITALS: PULSE 84; RESP 18; O2SAT 93
[2024-10-29] MEDS: MELATONIN 3 MG TABLET PO (20:08)
[2024-10-29] MEDS: TIZANIDINE HCL 2 MG TABLET PO (20:08)
[2024-10-30] VITALS: BP 153/91; PULSE 84; RESP 18; TEMP 36.8; O2SAT 93
[2024-10-30] MEDS: ACETAMINOPHEN 325 MG TABLET 650 MG PO ×3 (06:22→18:42)
[2024-10-30] MEDS: SALMET XINAFT/FLUTIC PROPIN 250 MCG/50 MCG INH CAP 1 PUFF INHALATION ×2 (06:22→17:46)
[2024-10-30 07:50] VITALS: BP 153/79; PULSE 81; RESP 16; TEMP 36.3; O2SAT 95
[2024-10-30 08:30] VITALS: PULSE 81; RESP 16; O2SAT 95
[2024-10-30 08:59] VITALS: PULSE 81
[2024-10-30] MEDS: METOPROLOL SUCCINATE EXT REL 25 MG TABCR PO (08:59)
[2024-10-30] MEDS: SERTRALINE HCL 50 MG TABLET 200 MG PO (08:59)
[2024-10-30] MEDS: FIDAXOMICIN 200 MG TABLET PO ×2 (09:00→20:17)
[2024-10-30] MEDS: PANTOPRAZOLE 40 MG TABLET PO ×2 (09:00→20:17)
[2024-10-30] MEDS: ASPIRIN 81 MG ENTERIC TABLET PO (09:00)
[2024-10-30 16:40] VITALS: BP 138/77; PULSE 75; RESP 16; TEMP 36.8; O2SAT 95
[2024-10-30] MEDS: TIZANIDINE HCL 2 MG TABLET PO (20:17)
[2024-10-30] MEDS: MELATONIN 3 MG TABLET PO (20:17)
[2024-10-31] VITALS: BP 168/83; PULSE 78; RESP 18; TEMP 36.6; O2SAT 96
[2024-10-31] MEDS: ACETAMINOPHEN 325 MG TABLET 650 MG PO ×3 (06:17→22:31)
[2024-10-31] MEDS: SALMET XINAFT/FLUTIC PROPIN 250 MCG/50 MCG INH CAP 1 PUFF INHALATION ×2 (06:17→18:12)
[2024-10-31 08:00] VITALS: BP 149/74; PULSE 77; RESP 16; TEMP 36.4; O2SAT 98
[2024-10-31 08:35] VITALS: PULSE 77; RESP 16; O2SAT 98
[2024-10-31 09:41] VITALS: PULSE 77
[2024-10-31] MEDS: PANTOPRAZOLE 40 MG TABLET PO ×2 (09:41→20:36)
[2024-10-31] MEDS: SERTRALINE HCL 50 MG TABLET 200 MG PO (09:41)
[2024-10-31] MEDS: FIDAXOMICIN 200 MG TABLET PO ×2 (09:41→20:36)
[2024-10-31] MEDS: ASPIRIN 81 MG ENTERIC TABLET PO (09:41)
[2024-10-31] MEDS: METOPROLOL SUCCINATE EXT REL 25 MG TABCR PO (09:41)
[2024-10-31] MEDS: ONDANSETRON HCL ODT 4 MG TABLET PO (11:14)
[2024-10-31 16:35] VITALS: BP 129/97; PULSE 79; RESP 16; TEMP 36.6; O2SAT 94
[2024-10-31] MEDS: MELATONIN 3 MG TABLET PO (20:36)
[2024-10-31] MEDS: TIZANIDINE HCL 2 MG TABLET PO (20:36)
[2024-11-01] VITALS: BP 129/64; PULSE 76; RESP 18; TEMP 36.7; O2SAT 95
[2024-11-01] MEDS: ACETAMINOPHEN 325 MG TABLET 650 MG PO ×3 (05:46→18:41)
[2024-11-01] MEDS: SALMET XINAFT/FLUTIC PROPIN 250 MCG/50 MCG INH CAP 1 PUFF INHALATION ×2 (05:47→18:20)
[2024-11-01 08:00] VITALS: BP 140/73; PULSE 77; RESP 18; TEMP 36.9; O2SAT 95
[2024-11-01] MEDS: FIDAXOMICIN 200 MG TABLET PO ×2 (08:31→21:13)
[2024-11-01] MEDS: SERTRALINE HCL 50 MG TABLET 200 MG PO (08:31)
[2024-11-01] MEDS: PANTOPRAZOLE 40 MG TABLET PO ×2 (08:31→21:13)
[2024-11-01 08:32] VITALS: PULSE 77
[2024-11-01] MEDS: METOPROLOL SUCCINATE EXT REL 25 MG TABCR PO (08:32)
[2024-11-01] MEDS: ASPIRIN 81 MG ENTERIC TABLET PO (08:32)
--- NOTE | 2024-11-01 08:51 | PC.NURSE ---
Pateint had medium formed brown stool.
[2024-11-01 16:00] VITALS: BP 108/73; PULSE 74; RESP 18; TEMP 37.2; O2SAT 95
[2024-11-01 20:00] VITALS: PULSE 72; RESP 18; O2SAT 95
[2024-11-01] MEDS: MELATONIN 3 MG TABLET PO (21:13)
[2024-11-01] MEDS: TIZANIDINE HCL 2 MG TABLET PO (21:13)
[2024-11-02] VITALS: BP 129/65; PULSE 69; RESP 18; TEMP 36.9; O2SAT 95
[2024-11-02] MEDS: ACETAMINOPHEN 325 MG TABLET 650 MG PO ×3 (05:53→16:58)
[2024-11-02] MEDS: SALMET XINAFT/FLUTIC PROPIN 250 MCG/50 MCG INH CAP 1 PUFF INHALATION (05:55)
[2024-11-02 08:00] VITALS: BP 121/64; PULSE 75; RESP 18; TEMP 36.6; O2SAT 95
[2024-11-02] MEDS: SERTRALINE HCL 50 MG TABLET 200 MG PO (10:00)
[2024-11-02] MEDS: PANTOPRAZOLE 40 MG TABLET PO (10:13)
[2024-11-02] MEDS: ASPIRIN 81 MG ENTERIC TABLET PO (10:14)
[2024-11-02] MEDS: FIDAXOMICIN 200 MG TABLET PO ×2 (10:14→16:46)
[2024-11-02 10:15] VITALS: PULSE 75
[2024-11-02] MEDS: METOPROLOL SUCCINATE EXT REL 25 MG TABCR PO (10:15)
[2024-11-02 16:00] VITALS: PULSE 74; RESP 20; TEMP 36.1; O2SAT 94
--- NOTE | 2024-11-03 12:38 | PC.NURSE ---
Discharge call back completed, doing well, states no questions regarding discharge instructions
--- NOTE | 2024-12-23 16:21 | P.DS_ITS ---
DS: Admitting Diagnosis Discharge Date 11/02/24 Admitting Diagnosis Debility , C-Diff DS: Discharge Diagnosis Discharge Diagnosis (1) Physical deconditioning: Code(s): R53.81 - Other malaise Status: Acute Assessment and Plan: patient was admitted to [facility] after a salicylate poisoning with extended hospitalization due to deconditioned state * PT/OT * out of bed for meals (2) C. difficile colitis: Onset Date: 08/2023 Code(s): A04.72 - Enterocolitis due to Clostridium difficile, not specified as recurrent Status: Acute Assessment and Plan: patient has a positive for C diff prior to discharge from [facility] * continued Dificid times 13 more doses (3) Chronic pain syndrome: Code(s): G89.4 - Chronic pain syndrome Status: Acute Assessment and Plan: patient with history chronic pain sees a pain specialist patient received call her son stating they were tapering her off her oxycodone and requesting her switch to [facility] q.6 hours p.r.n. (4) penitentiary (current) use of opiate analgesic: Code(s): Z79.891 - penitentiary (current) use of opiate analgesic Status: Acute Assessment and Plan: * See Above #3 (5) COPD (chronic obstructive pulmonary disease): Qualifiers: COPD type: unspecified COPD Qualified Code(s): J44.9 - Chronic obstructive pulmonary disease, unspecified Code(s): J44.9 - Chronic obstructive pulmonary disease, unspecified Status: Chronic Assessment and Plan: patient with chronic respiratory failure with hypoxia wear supplemental oxygen at home as needed * continued supplemental oxygen as needed currently on 1 L * resumed as needed inhaler (6) Anemia: Code(s): D64.9 - Anemia, unspecified Status: Chronic Assessment and Plan: patient with history hemoglobin stable at 10.6 on admission no events acute GIB (7) Depression: Qualifiers: Depression Type: persistent depressive disorder Qualified Code(s): F34.1 - Dysthymic disorder Code(s): F32.A - Depression, unspecified Status: Acute Assessment and Plan: * continue patient's BuSpar and duloxetine Plan Code status: DNR DVT prophylaxis: NA Stress ulcer prophylaxis: Protonix 40 daily home medication Disposition: discharge back home with family and stronger. DS: Summary Hospital Course Reason for hospitalization: Swing bed Hospital Course: Patient was transferred from [facility] with multiple comorbidities including debility, hypovolemia, unintentional salicylate overdose, and acute kidney injury. These issues had been treated and resolved; however, she remained weak due to overall course of overall course of illness. She was admitted for rehabilitation that addressed her functional decline. Patient has improved in mobility and strength . The patient had also been treated for C difficile and will remain on therapy until the course is completed . The patient has a prior outpatient prescription for [facility]point. I will not reorder it at this time, asit should already be available at pharmacy. Patient will discharge home. Time Spent with Patient Time attestation: Total time spent providing and/or coordinating discharge services: Exam Narrative: Physical Exam: * GENERAL: Elderly frail female Alert and oriented x 3. No acute distress. * EYES: EOMI. No scleral icterus. PERRLA. * HEENT: Moist mucous membranes. * LUNGS: Clear to auscultation bilaterally. No accessory muscle use. * CARDIOVASCULAR: Regular rate and rhythm. No murmur. No JVD. S1-S2 * ABDOMEN: Soft, non tenderness and non-distended. No palpable masses. * EXTREMITIES: No edema. Non-tender * SKIN: No rashes or lesions. Skin warm, dry. * NEUROLOGIC: No focal neurological deficits. CN II-XII grossly intact * PSYCHIATRIC: Appropriate mood and affect. Good judgement and insight. No visual or auditory hallucinations. No suicidal or homicidal ideation. Discharge Plan Discharge Attending physician on discharge: Prieto Mehta Consulting providers: Naomi Nair Discharging Clinician: Romelia Welch Patient Disposition: Home Activity: june shower Diet: regular Patient Instructions: Antibiotic Form, Fidaxomicin (By mouth), C. Diff (Clostridioides Difficile) Infection (DC), Fall Prevention (DC) Patient Language: Romanian Stand Alone Forms: General Discharge Information Follow-up/Referrals: Magnolia Pisano APRN [Primary Care Provider, [facility]] - 11/08/24 11:00 am Referral Note: Call and schedule post hospital visit Discharge Medications: Continued aspirin 81 mg Tablet,Delayed Release (Dr/Ec) 81 mg PO QAM Qty: 30 0RF Patient Comments: HOLD [address] Arizmendi 12/28/24 melatonin 3 mg Tablet 3 mg PO HS PRN (Reason: Insomnia) Qty: 30 0RF buspirone 5 mg tablet See Rx Instructions .ROUTE .COMPLEX Qty: 180 0RF Dose Instruction: TAKE 1 TABLET TWICE DAILY Rx Instructions: TAKE 1 TABLET TWICE DAILY metoprolol succinate 25 mg tablet extended release 24 hr See Rx Instructions .ROUTE .COMPLEX Qty: 90 2RF Dose Instruction: TAKE FULL TAB (25 MG) ORALLY DAILY HOLD IF SBP < 110 OR HR < 60 Rx Instructions: TAKE FULL TAB (25 MG) ORALLY DAILY HOLD IF SBP < 110 OR HR < 60 Discontinued fidaxomicin [Dificid] 200 mg Tablet 200 mg PO Q12HR Qty: 14 0RF No Action duloxetine 60 mg capsule,delayed release(DR/EC) See Rx Instructions .ROUTE .COMPLEX Qty: 90 0RF Dose Instruction: TAKE 1 CAPSULE BY MOUTH EVERY DAY Rx Instructions: TAKE 1 CAPSULE BY MOUTH EVERY DAY albuterol sulfate [ProAir HFA] 90 mcg/actuation HFA aerosol inhaler 90 mcg INHALATION DIRECTED Qty: 8.5 0RF Rx Instructions: Every 4-6 hrs PRN fluticasone propion-salmeterol 250-50 mcg/dose blister with device See Rx Instructions .ROUTE .COMPLEX Qty: 60 2RF Dose Instruction: INHALE 1 PUFF BY MOUTH TWICE A DAY Rx Instructions: INHALE 1 PUFF BY MOUTH TWICE A DAY pantoprazole 40 mg tablet,delayed release (DR/EC) See Rx Instructions .ROUTE .COMPLEX Qty: 180 0RF Dose Instruction: TAKE 1 TABLET BY MOUTH TWICE A DAY Rx Instructions: TAKE 1 TABLET BY MOUTH TWICE A DAY Date of admission: 10/28/24 15:36 Primary Care Provider: Magnolia Pisano Admitting Provider: Prieto Mehta Attending physician on admission: Prieto Mehta Condition: Stable
== END 2024-11-02 18:10 | disposition home or self-care (01) | DRG 948 ==
PROVIDERS: Nurse Practitioner Family; Admitting Provider Internal Medicine; PCP Nurse Practitioner Family; Visit Provider Internal Medicine
DX: R53.81 Other malaise (principal); A04.72 Enterocolitis due to Clostridium difficile, not specified as recurrent; N17.9 Acute kidney failure, unspecified; E87.20 Acidosis, unspecified; T39.0 Poisoning by, adverse effect of and underdosing of salicylates; D64.9 Anemia, unspecified; E86.1 Hypovolemia; F32.A Depression, unspecified; F17.210 Nicotine dependence, cigarettes, uncomplicated; G89.4 Chronic pain syndrome; I10 Essential (primary) hypertension; J44.9 Chronic obstructive pulmonary disease, unspecified; Z79.891 Long term (current) use of opiate analgesic; Z66 Do not resuscitate; Z99.81 Dependence on supplemental oxygen
CPT/HCPCS: 36415; 80053; 83735; 85027; 97110; 97161; 97165; 97530; A9270

== ENCOUNTER 2024-11-08 11:52 | Outpatient (CLI) | payer MEDICARE, SELFPAY ==
[2024-11-08 12:13] LABS: Hematocrit 37.8 % (35.0-42.0); Hemoglobin 11.7 g/dL (11.7-13.8); Immature Granulocyte Percent A 0.8 % (0.0-0.0); Lymphocytes Absolute Auto 1.64 K/mm3 (1.10-4.50); Mean Corpuscular HGB Conc 31.0 g/dL (32-36); Mean Corpuscular Hemoglobin 30.4 pg (27.0-31.0); Mean Corpuscular Volume 98.2 fL (78.0-102.0); Nucleated Red Blood Cells Absolute Auto 0.00 K/mm3 (0.00-0.00); Nucleated Red Blood Cells Perc 0.0 % (0-0.0); Platelet Count Result 458 K/mm3 (150-420); Red Blood Count 3.85 M/mm3 (4.20-5.40); White Blood Count 6.1 K/mm3 (4.8-10.8)
[2024-11-08 12:35] LABS: Iron 65 ug/dL (37-170)
[2024-11-08 12:44] LABS: Percent Iron Saturation 16 % (20-50)
[2024-11-08 13:10] LABS: Ferritin 21.10 ng/mL (11.1-264)
== END 2024-11-08 11:53 | disposition home or self-care (01) ==
LOC: CHSLAB 11:54
PROVIDERS: PCP Nurse Practitioner Family; Visit Provider Nurse Practitioner Family
DX: R53.82 Chronic fatigue, unspecified (principal); R79.89 Other specified abnormal findings of blood chemistry
CPT/HCPCS: 36415; 82728; 83540; 83550; 85025

== ENCOUNTER 2024-11-20 08:30 | Outpatient (CLI) | payer MEDICARE, SELFPAY ==
--- NOTE | ~2024-11-20 | MR_ITS ---
EXAMINATION: MR lumbar spine wo con DATE: 11/20/2024 09:11 INDICATION: Chronic low back pain. TECHNIQUE: Magnetic resonance imaging (MRI) of the lumbar spine was performed without intravenous contrast. Sequences included sagittal T2-weighted FSE, sagittal T2-weighted FS FSE, sagittal T1-weighted FSE, and axial T2-weighted FSE. COMPARISON: Lumbar spine MRI 12/19/2022 FINDINGS: There is 16 degrees levoscoliosis of thoracolumbar spine. There is mild chronic anterior wedging of T12 vertebral body. There is severely decreased disc height at T11-T12, moderately decreased disc height at T12-L1, mildly decreased disc height at L1-L2, and severely decreased disc height from L2-L3 through L5-S1. The following disc levels are specifically discussed: L1-L2: The disc is bulging and has an annular fissure. There is moderate bilateral facet joint osteoarthritis. There is mild bilateral neural foraminal stenosis. There is mild central canal stenosis. L2-L3: The disc is bulging and has an annular fissure. There is severe bilateral facet joint osteoarthritis. There is moderate right and mild left neural foraminal stenosis. There is mild central canal stenosis. L3-L4: The disc is bulging and has an annular fissure. There is severe bilateral facet joint osteoarthritis. There is mild right and moderate left neural foraminal stenosis. There is mild central canal stenosis. L4-L5: The disc is bulging and has an annular fissure. There is severe bilateral facet joint osteoarthritis. There is mild right and moderate left neural foraminal stenosis. There is mild central canal stenosis. L5-S1: The disc is bulging. There is moderate right and severe left facet joint osteoarthritis. There is mild bilateral neural foraminal stenosis. There is mild central canal stenosis. IMPRESSION: 1. Severe lumbar spondylosis, mildly worsened from 12/19/2022. 2. Thoracolumbar levoscoliosis. Reviewed, dictated and finalized at location E.
== END 2024-11-20 08:31 | disposition home or self-care (01) ==
LOC: CHSIMG 08:31
PROVIDERS: PCP Nurse Practitioner Family; Visit Provider Physical Medicine & Rehabilitation Pain Medicine
DX: M54.10 Radiculopathy, site unspecified (principal); M43.06 Spondylolysis, lumbar region; M41.85 Other forms of scoliosis, thoracolumbar region
CPT/HCPCS: 72148

== ENCOUNTER 2024-12-14 08:12 | Outpatient (CLI) | payer MEDICARE, SELFPAY ==
--- NOTE | ~2024-12-14 | XR_ITS ---
EXAMINATION: XR elbow LT min 3V, 12/14/2024 8:15 LINE PILOT HISTORY: M25.522 - Pain in left elbow COMPARISON: No comparisons available. Findings: There is a remote appearing fracture of the supracondylar humerus which in part appears nonunited. No significant degenerative changes. Soft tissues unremarkable. Impression: Fracture detailed above Reviewed, dictated and finalized at location P. PILOT Impression: Fracture detailed above
--- NOTE | ~2024-12-14 | XR_ITS ---
EXAMINATION: XR elbow RT min 3V, 12/14/2024 8:15 GRINDER SET UP OPERATOR INTERNAL HISTORY: M25.521 - Pain in right elbow COMPARISON: No comparisons available. Findings: No acute fracture or malalignment. No significant degenerative changes. Soft tissues unremarkable. Impression: No acute fracture or malalignment. Reviewed, dictated and finalized at location P. DER SET UP OPERATOR INTERNAL Impression: No acute fracture or malalignment.
== END 2024-12-14 08:13 | disposition home or self-care (01) ==
LOC: CHSIMG 08:13
PROVIDERS: PCP Nurse Practitioner Family; Visit Provider Orthopaedic Surgery
DX: M25.522 Pain in left elbow (principal); M25.521 Pain in right elbow; S42.412K Displaced simple supracondylar fracture without intercondylar fracture of left humerus, subsequent encounter for fracture with nonunion
CPT/HCPCS: 73080

== ENCOUNTER 2024-12-31 11:51 | Outpatient (CLI) | payer MEDICARE, SELFPAY ==
--- NOTE | ~2024-12-31 | XR_ITS ---
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 Technique: 2 views obtained. Findings: COPD changes otherwise the lungs are clear No pneumothorax. Heart is normal size. Mediastinal and hilar contours are within normal limits. Bony thorax no acute abnormality. Impression: No acute cardiopulmonary abnormality. Reviewed, dictated and finalized at location P. NTORY CONTROL ANALYST Impression: No acute cardiopulmonary abnormality.
--- NOTE | 2024-12-31 12:04 | ECG_ITS ---
Test Date: 2024-12-31 12:15:09 Measurements Intervals [place] Rate: 85 P: 74 CT: 155 QRS: 68 QRSD: 89 T: 55 QT: 384 QTc: 459 Interpretive Statements SINUS RHYTHM WITH MARKED SINUS ARRHYTHMIA Electronically Signed On 12-31-2024 19:09:50 GEOLOGIST [facility] by Demetrius Ley M.D.
[2024-12-31 12:06] LABS: Hematocrit 40.3 % (35.0-42.0); Hemoglobin 12.7 g/dL (11.7-13.8); Mean Corpuscular HGB Conc 31.5 g/dL (32-36); Mean Corpuscular Hemoglobin 30.8 pg (27.0-31.0); Mean Corpuscular Volume 97.6 fL (78.0-102.0); Platelet Count Result 348 K/mm3 (150-420); Red Blood Count 4.13 M/mm3 (4.20-5.40); White Blood Count 10.8 K/mm3 (4.8-10.8)
[2024-12-31 12:29] LABS: Alanine Aminotransferase 13 U/L (6-35); Albumin Level 4.5 g/dL (3.5-5.1); Alkaline Phosphatase 99 U/L (38-126); Anion Gap 11 mmol/L (4-12); Aspartate Amino Transferase 29 U/L (14-36); Bilirubin,Total 0.7 mg/dL (0.2-1.3); Blood Urea Nitrogen 30 mg/dL (7-17); Calcium 9.4 mg/dL (8.4-10.2); Carbon Dioxide 25 mmol/L (22-30); Chloride 105 mmol/L (98-107); Estimated Glomerular Filt Rate > 60; Glucose 106 mg/dL (65-110); Osmolality Calculated 298 mOsm/kg (285-295); Potassium 4.2 mmol/L (3.4-5.0); Sodium 141 mmol/L (137-145); Total Protein 7.2 g/dL (6.3-8.2)
== END 2024-12-31 11:52 | disposition home or self-care (01) ==
PROVIDERS: PCP Nurse Practitioner Family; Visit Provider Nurse Practitioner Family
DX: Z01.818 Encounter for other preprocedural examination (principal); I49.8 Other specified cardiac arrhythmias
CPT/HCPCS: 36415; 71046; 80053; 85027; 93005

== ENCOUNTER 2025-01-05 00:45 | Day surgery (SDC) | payer MEDICARE, SELFPAY ==
[2024-12-23 15:29] VITALS: BMI 18.3
--- NOTE | 2024-12-23 15:46 | PC.NURSE ---
[facility] has started construction of its new state of the art ER which will open Spring 2026. With this, we anticipate parking may be a challenge for some our surgical patients and families. Parking spaces are limited but are available for all Surgical, obstetrics, and ER patients sharing this lot. If you arrive and find you are having a hard time finding a parking space, please note that we understand the challenges, please drive around the hospital and park near Hospital Entrance 1. When you enter this entrance, you can ask a volunteer to direct or take you back to the surgical waiting area to check in. We appreciate everyone?s understanding of these expected challenges while we build for your future. Report to the Outpatient Waiting Room, entrance under the green pavilion located off [address], at time __0600am on date __01/05/25 . Planned Procedure Time: _0730am .? Time changes happen often and if your time is changed the preop area will call you the afternoon before. - You and your visitor will be asked to self-screen and do not enter if you have any COVID symptoms. Please call surgeon if you need to reschedule. - A mask is optional within the hospital at this time. Patients may have clear liquids (water, carbonated beverages, clear teas, apple juice) until 3 hours prior to surgery with a maximum of 20 ounces. - No food from midnight until time of surgery and no smoking, or chewing tobacco (or any form of nicotine). No chewing gum, candy or mints. (04:30am) Take only the following medications with a SIP of water on the morning of surgery: ___Metoprolol, and Busprione Tylenol if needed DO NOT STOP ANY OF YOUR OTHER PRESCRIPTION MEDICATIONS PRIOR TO SURGERY EXCEPT THE FOLLOWING Hold all vitamins and supplements for 3 days per anesthesiologist. Medications to discontinue per physician Cont to hold ASPIRIN/NSAIDS till post op per Dr Arizmendi Date to take last dose___12/23/24 Please no make-up, nail japanese, hairspray, perfume, deodorant, or body powder the day of surgery.? No jewelry (including any body piercings) or valuables the day of surgery, leave them at home.? Please take a shower or bath the night before, or the morning of, surgery with an antibacterial soap.? DIAL SOAP Wear comfortable, loose fitting clothing.? - Jewelry must be removed prior to entering the operating room.? Rings and piercings that are not removed may be cut off. - The hospital will not accept responsibility for valuables.? - Please leave all valuables, including medications, at home the day of surgery. If you are going home after surgery, a licensed milk tanker driver must drive you home.? - NO public transportation without another adult if you receive anesthesia. - We recommend that an adult stay with you for 24 hours following discharge. - We also recommend that you do not drive, make important decision, drink alcoholic beverages, or take any drugs that were not prescribed by your health care provider for at least 24 hours after your discharge time. Follow any additional instructions given to you from your surgeon. Telephone instructions given to __Patient and asked if any additional questions and then verbalized understanding. Patient advised to call surgeon office or pre surgery nurse liaison [phone] if any additional questions.
[2025-01-05] VITALS (8 sets, daily range): BP systolic 130–175; BP diastolic 56–81; PULSE 77–91; RESP 15–20; TEMP 36.4–36.9; O2SAT 90–98
[2025-01-05] MEDS: LACTATED RINGERS 1,000 ML 30 ML IV CONT (06:55)
[2025-01-05] MEDS: CELECOXIB 200 MG CAPSULE PO (06:55)
--- NOTE | 2025-01-05 07:07 | WPDANESEPPF ---
Anes - Initial Pre Proc Eval Procedure: Operation Date: 01/05/25 07:30 Proposed Procedures p Left Cubital Tunnel Release with Removal of Exostosis, Partial Medial Epicondylectomy - Jonathan Arizmendi MD Date/Time: 01/05/25 07:07 Surgeon: Jonathan Arizmendi MD Pre Op Diagnosis: left cubital tunnel syndrome, post traumatic djd Patient Data Age: 79 Gender: F Height: 1.55 m Weight: 44 kg Allergies Allergy/AdvReac Type Severity Reaction Status Date / Time No Known Allergies Allergy Verified 12/31/24 10:48 Home Medications ?Medication ?Instructions ?Recorded ?Confirmed ?Type aspirin 81 mg tablet,delayed 81 mg PO QAM #30 tabs 08/28/23 12/23/24 Rx release Held on 12/23/24. Instructions: .Provider Order buspirone 5 mg tablet See Rx Instructions .Route 09/24/24 12/23/24 Rx .COMPLEX #180 tabs metoprolol succinate 25 mg See Rx Instructions .Route 10/07/24 12/23/24 Rx tablet,extended release 24 hr .COMPLEX #90 tabs melatonin 3 mg tablet 3 mg PO HS PRN Insomnia #30 tabs 10/28/24 12/23/24 Rx albuterol sulfate 90 mcg/actuation 90 mcg inhalation DIRECTED #8.5 11/08/24 12/23/24 Rx aerosol inhaler (ProAir HFA) grams duloxetine 60 mg capsule,delayed See Rx Instructions .Route 11/08/24 12/23/24 Rx release .COMPLEX #90 caps Held on 12/23/24. Instructions: Patient no longer taking fluticasone 250 mcg-salmeterol 50 See Rx Instructions .Route 11/09/24 12/23/24 Rx mcg/dose blistr powdr for .COMPLEX #60 ea inhalation pantoprazole 40 mg tablet,delayed See Rx Instructions .Route 12/09/24 12/23/24 Rx release .COMPLEX #180 tabs chlorhexidine gluconate 4 % 1 applic topical ONCE #237 mL 12/29/24 Rx topical liquid (Hibiclens) Patient hx anesthesia problems: none Family hx anesthesia problems: none Results Review: All pre-operative results and documents have been reviewed as part of the pre-operative evaluation. [facility] Past Medical History Medical History C. difficile colitis (08/2023) Bilateral sacroiliitis Spinal stenosis, lumbar region with neurogenic claudication Anemia Chronic pain syndrome Constipation due to opioid therapy Tobacco abuse COPD (chronic obstructive pulmonary disease) Common bile duct dilatation Anxiety Acid reflux Peptic ulcer disease Surgical History Surgical History H/O tubal ligation Hx of cholecystectomy Family History Family History Mother Cerebrovascular accident Father Diabetes mellitus Social History Social History (Updated 01/05/25 @ 07:11 by Maycol Barton MD) Social History: She smokes anywhere from half a pack to pack a cigarettes a day. She has 3 children. 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 She denies any alcohol marijuana or illicit drugs. Code status: DNR/DNI Surrogate decision maker: Chaka (son) Smoking packs per day: 0.5 Smoking cigarettes per day: 10.0 Years smoked: 50 Smoking pack-years: 25.00 Smoking status: Former smoker Tobacco type: cigarettes Second hand tobacco smoke exposure: Yes Smoking end date: 07/26/23 Alcohol intake: never Substance use: never Substance use type: does not use Other substance usage details: prescribed opiates Last use: 09/07/21 Do You Feel Safe in your Home?: Yes Lack of Transportation: No Lack of Food: Never True Current Housing: I Have Housing Concerned About Future Housing: No Difficulty Paying Gas/Electric Bills: No Difficulty Paying for Meds: No Currently Unemployed: No Education: Trade/Vocational Certificate Difficulty w/ Childcare or Family Care: No Living arrangements: with family Gender identity (if verbalized by the patient): Female Sexual Orientation (if Verbalized by the Patient): Straight or Heterosexual Spiritual care concerns: No Anes - Eval Final PreProcedure Day of Procedure 01/05/25 07:07 Patient weight: thin Heart: regular rate and rhythm Lungs: clear to auscultation Airway: Mallampati scale class II Neurological: alert and oriented Last oral intake: >/= 8 hours ASA classification: IV Emergent: no Anesthetic plan: proceed Anesthesia type and monitoring: general LMA and standard monitoring Results Review: All pre-operative results and documents have been reviewed as part of the pre-operative evaluation. Informed Consent: The patient's anesthetic plan and its attendant risks and benefits were discussed with the patient/family/POA. Questions were solicited and answers provided to the satisfaction of the patient/family/POA.
--- NOTE | 2025-01-05 08:21 | WPDHPUPDATE1 ---
History and Physical Update Update Date/Time: 01/05/25 08:21 History and Physical has been reviewed, including an updated exam of the patient. There are NO changes in the patient's condition. Risks, benefits, and alternatives have been discussed and questions answered. Patient agrees to proceed with procedure.
[2025-01-05] MEDS: ceFAZolin 2 GM in SODIUM CHLORIDE 0.9% IV 50 ML 100 ML IVPB (08:24)
[2025-01-05] MEDS: LIDO 1%/EPINEPHRINE 1:100,000 50 ML VIAL (08:49)
[2025-01-05] MEDS: fentaNYL CITRATE INJ (*CRX) 100 MCG/2 ML VIAL 25 MCG IV PUSH ×2 (10:10→10:15)
--- NOTE | 2025-01-05 10:28 | P.OP_ITS ---
Procedure Note - Detailed Date of Procedure 01/05/25 Pre-op Diagnosis left cubital tunnel syndrome, post traumatic djd Post-op Diagnosis Same Procedure Performed LEFT CUBITAL TUNNEL RELEASE, WITH REMOVAL OF EXOSTOSIS AND PARTIAL MEDIAL EP ICONDYLECTOMY Surgeon Jonathan Arizmendi MD Anesthesia General Indications LEFT CUBITAL TUNNEL SYNDROME Description of Procedure THE PATIENT WAS TAKEN TO THE OPERATING ROOM AND PLACED UNDER GENERAL ANESTHESIA. THE LEFT UPPER EXTREMITY WAS PREPPED AND DRAPED STERILE. AN INCISION WAS MADE ON THE MEDIAL ELBOW IN BETWEEN THE MEDIAL EPICONDYLE AND OLECRANON. DISSECTION CONTINUED TILL THE CUBITAL TUNNEL FASCIA WAS IDENTIFIED. THE ULNAR NERVE WAS PALPATED. AN INCISION WAS MADE THROUGH THE FASCIA UNTIL THE ULNAR NERVE WAS IDENTIFIED. THE FASCIA WAS INCISED FROM THE ARCADE OF [place]OES[place] PROXIMALLY TO THE FCU FASCIA DISTALLY. THERE WAS A LARGE EXOSTOSIS FROM A PREVIOUS FRACTURE IMPINGING ON THE NERVE THE ELBOW WAS PASSIVELY FLEXED AND EXTENDED. THE NERVE WAS COMPLETELY RELEASED. THE WOUND WAS IRRIGATED. NEXT THE LARGE EXOSTOSIS THAT WAS IMPINGING ON THE NERVE WAS REMOVED IN ITS ENTIRETY. NEXT PART OF THE MEDIAL EPICONDYLE WAS REMOVED WELL. THE MEDIAL WAD COMMON FLEXOR TENDON WAS REFLECTED AND THE MEDIAL EPICONDYLE WAS RESECTED. ONCE THAT WAS PREFORMED THE MEDIAL WAD WAS REPAIRED BACK TO THE MEDIAL EPICONDYLE AND SURROUNDING FASCIA. THE ELBOW WAS TAKEN ,THROUGH A ROM AND FOUND THERE WAS NO IMPINGEMENT ON THE ULNAR NERVE. NEXT THE TOURNIQUET WAS DEFLATED. THE BLEEDERS WERE CAUTERIZED. THE SUB CUTANEOUS LAYER WAS APPROXIMATED WITH 2-0 AND 3-0 VICRYL. THE SKIN WAS REPAIRED WITH 3-0 QUIL. THE WOUND WAS WASHED, DERMABOND WAS APPLIED. STERILE DRESSING WAS APPLIED. PATIENT WAS EXTUBATED AND SENT TO THE RECOVERY ROOM. Estimated Blood Loss 20 Complications No immediate complications Disposition PACU
[2025-01-05] MEDS: oxyCODONE HCL (*CRX) 5 MG TAB IR PO (11:02)
== END 2025-01-05 11:38 | disposition home or self-care (01) ==
PROVIDERS: PCP Nurse Practitioner Family; Visit Provider Orthopaedic Surgery
PROC: (CPT 64721; principal; 2025-01-05 07:30)
DX: G56.22 Lesion of ulnar nerve, left upper limb (principal); M19.122 Post-traumatic osteoarthritis, left elbow
CPT/HCPCS: 64718; J0690; A9270; J2003; J2004; J2704; J3010; J7120